=== PATIENT | male | born 1955 | race Caucasian/White ===

== ENCOUNTER 2023-05-21 01:28 | Inpatient (IN) | payer MEDICARE ==
[2023-05-21] MEDS ORDERED: MAG HYDROX/AL HYDROX/SIMETH 30 ML, HYOSCYAMINE ELIXIR 10 ML, LIDOCAINE 2% GLYDO JELLY 1... PO STA ×3 (01:44)
[2023-05-21] MEDS ORDERED: SODIUM CHLORIDE 0.9% 1,000 ML IV STA (01:46)
[2023-05-21 01:51] LABS: Glucose,Whole Blood 128 mg/dL (70-110)
[2023-05-21] MEDS ORDERED: ONDANSETRON 4 MG/2 ML VIAL IVP STA (01:51)
[2023-05-21] MEDS ORDERED: MORPHINE SULFATE 4 MG/ML SYRINGE IVP STA (01:51)
--- NOTE | 2023-05-21 01:58 | ED ---
General Adult HPI - General Chief complaint: Chest Pain Stated complaint: Chest Pain, Vomiting Time Seen by Provider: 05/21/23 01:39 Source: patient Mode of arrival: ambulatory Limitations: no limitations - History of Present Illness Initial comments: Dictation was produced using [employer] dictation software. please excuse any grammatical, word or spelling errors. Chief Complaint: 68-year-old male no past medical history presents to the ER for lower chest and abdominal pain History of Present Illness: 68-year-old male history of present illness obtained from at the bedside. Patient currently has no known comorbidities. He p resents to the ER for chief complaint of lower chest and upper abdominal pain. His symptoms have been ongoing for the last 3 days. Nonradiating. Associated nausea. He has been having significant vomiting episodes. When he tries to eat or drink he vomits almost immediately. There is been some specks of blood in his emesis. Denies any cardiac history. He has history of one lung after traumatic chest injury suffered in his teenage years. The ROS documented in this emergency department record has been reviewed and confirmed by me. Those systems with pertinent positive or negative responses have been documented in the HPI. All other systems are other negative and/or noncontributory. - Related Data Allergies Allergy/AdvReac Type Severity Reaction Status Date / Time No Known Allergies Allergy Verified 05/21/23 01:35 Review of Systems ROS Statement: Those systems with pertinent positive or pertinent negative responses have been documented in the HPI. ROS Other: All systems not noted in ROS Statement are negative. Past Medical History Additional Past Medical History / Comment(s): one lung- right History of Any Multi-Drug Resistant Organisms: None Reported Past Surgical History: No Surgical Hx Reported Past Psychological History: No Psychological Hx Reported Smoking Status: Former smoker Past Alcohol Use History: Occasional Past Drug Use History: None Reported General Exam - General Exam Comments Initial Comments: PHYSICAL EXAM: General Impression: Alert and oriented x3, acute distress secondary to pain HEENT: Normocephalic atraumatic, extra-ocular movements intact, pupils equal and reactive to light bilaterally, mucous membranes moist. 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 ] Respiratory 20 12 Rate Blood Pressure 208/90 191/101 O2 Sat by Pulse 98 96 Oximetry 05/21/23 05/21/23 05/21/23 03:29 03:30 03:45 Temperature Pulse Rate 110 H 110 H 106 H Pulse Rate [ Entry Level Software Engineer ] Respiratory 19 27 H 19 Rate Blood Pressure 167/89 167/89 188/102 O2 Sat by Pulse 97 97 97 Oximetry 05/21/23 05/21/23 04:00 04:15 Temperature Pulse Rate 107 H 105 H Pulse Rate [ Entry Level Software Engineer ] Respiratory 18 15 Rate Blood Pressure 183/115 190/107 O2 Sat by Pulse 97 96 Oximetry - Reevaluation(s) Reevaluation #1: 05/21/23 01:58 Patient given GI cocktail at the bedside monitor. His symptoms do not improve. Reevaluation #2: 05/21/23 02:18 Initial EKG showed hyperacute T waves in anterior precordial leads. Second EKG performed approximately 15 minutes after the first EKG showed ST depressions in inferior leads. No dynamic changes to the anterior precordial leads. Patient did not report any relief with nitroglycerin administration. Reevaluation #3: 05/21/23 02:31 EKG was borderline for myocardial infarction. EKG was sent for review to on- call cardiology, Dr. Stiles who viewed EKG states that EKG does not meet criteria for STEMI activation at 2:30 AM. Medical Decision Making - Medical Decision Making Was pt. sent in by a medical professional or institution (, PA, DIVER PUMPER, urgent care, hospital, or [facility]...) When possible be specific @ -No Did you speak to anyone other than the patient for history (EMS, parent, family, police, friend...)? What history was obtained from this source @ -History obtained from family members at the bedside as described above Did you review nursing and triage notes (agree or disagree)? Why? @ -I reviewed and agree with nursing and triage notes Were old charts reviewed (outside hosp., previous admission, EMS record, old EKG, old radiological studies, urgent care reports/EKG's, [facility] records)? Report findings @ -No old charts were reviewed Differential Diagnosis (chest pain, altered mental status, abdominal pain women, abdominal pain men, vaginal bleeding, musculoskeletal, weakness, fever, dyspnea, syncope, headache, dizziness, GI bleed, back pain, seizure, CVA, palpatations, mental health)? @ -Differential Chest Pain: Stable Angina, Unstable Angina, STEMI, NSTEMI Aortic Dissection, Pneumothorax, Musculoskeletal, Esophageal Spasm GERD, Cholecystitis, Pancreatitis, Zoster, this is not meant to be an all-inclusive list. EKG interpreted by me (3pts min.). @ -My EKG interpretation: Ventricular rate 91, sinus rhythm,. 169, QRS 93, QTC 399. No NE prolongation, no QTC prolongation. Q waves with hyperacute T waves some mild ST depressions in inferior leads and lateral precordial leads X-rays interpreted by me (1pt min.). @ -X-ray of the chest is nonacute CT interpreted by me (1pt min.). @ -CT angiography of the aorta the chest abdomen obtained shows no aortic disse ction. It is a pretty bilateral pleural effusions bilateral hydronephrosis and hydroureter U/S interpreted by me (1pt. min.). @ -None done What testing was considered but not performed or refused? (CT, X-rays, U/S, labs)? Why? @ -None What meds were considered but not given or refused? Why? @ -None Did you discuss the management of the patient with other professionals (professionals i.e. , PA, DIVER PUMPER, lab, RT, psych nurse, licensed social worker, training generalist, teacher, air support control officer, counter caser)? Give summary @ -Case discussed cardiology as described above Was smoking cessation discussed for >3mins.? @ -No Was critical care preformed (if so, how long)? @ -77 minutes Were there social determinants of health that impacted care today? How? (Homelessness, low income, unemployed, alcoholism, drug addiction, transportation, low edu. Level, literacy, decrease access to med. care, halfway, rehab)? @ -No Was there de-escalation of care discussed even if they declined (Discuss DNR or withdrawal of care, Hospice)? DNR status @ -No What co-morbidities impacted this encounter? (DM, HTN, Smoking, COPD, CAD, Cancer, CVA, ARF, Chemo, Hep., AIDS, mental health diagnosis, sleep apnea, morbid obesity)? @ -None Was patient admitted / discharged? Hospital course, mention meds given and route, prescriptions, significant lab abnormalities, going to OR and other pertinent info. @ -68-year-old male presents emergency department for chest pain. Patient appears ill on arrival. He does have some very atypical features to his chest pain including GI upset, specks of blood in his emesis. He also has been having symptoms ongoing for the last 3 days. Patient given GI cocktail with no resolved. He is given analgesics along with nitroglycerin with improvement of his distress. Laboratory evaluation obtained. CBC is negative. Coag panel is negative. Metabolic panel shows acute kidney injury occurring at 12.5 BUN of 100, troponin of 0.171 which is unclear if it is from kidney function versus underlying acute coronary syndrome. Does report chest pain suggesting ACS. Started on heparin. CT film shows urinary retention with hydroureter. Gordon catheter placed with large amount of urine drained. Serial EKGs shows no dynamic changes. Patient is on nitro infusion with improvement symptoms. Patient stable. He will be admitted consultation to urology, nephrology and cardiology Undiagnosed new problem with uncertain prognosis? @ -No Drug Therapy requiring intensive monitoring for toxicity (Heparin, Nitro, Insulin, Cardizem)? @ -No Were any procedures done? @ -No Diagnosis/symptom? Acute, or Chronic, or Acute on Chronic? Uncomplicated (without systemic symptoms) or Complicated (systemic symptoms)? @ -1. Chest pain, acute coronary syndrome, 2. Acute kidney injury Side effects of treatment? @ -No Exacerbation, Progression, or Severe Exacerbation? @ -No Poses a threat to life or bodily function? How? (Chest pain, [place], [place], pneumonia, PE, COPD, DKA, ARF, appy, cholecystitis, CVA, Diverticulitis, Homicidal, Suicidal, threat to staff... and all critical care pts) @ -yes - Lab Data Result diagrams: 05/21/23 01:56 05/21/23 01:56 Lab Results 12/03/23 12/03/23 12/03/23 Range/Units 01:49 01:56 01:56 WBC 10.9 H (3.8-10.6) k/uL RBC 4.22 L (4.30-5.90) m/uL Hgb 13.9 (13.0-17.5) gm/dL Hct 38.8 L (39.0-53.0) % MCV 92.0 (80.0-100.0) fL MCH 32.8 (25.0-35.0) pg MCHC 35.7 (31.0-37.0) g/dL RDW 12.6 (11.5-15.5) % Plt Count 192 (150-450) k/uL MPV 8.8 Neutrophils % 89 % Lymphocytes % 4 % Monocytes % 5 % Eosinophils % 1 % Basophils % 0 % Neutrophils # 9.7 H (1.3-7.7) k/uL Lymphocytes # 0.5 L (1.0-4.8) k/uL Monocytes # 0.5 (0-1.0) k/uL Eosinophils # 0.1 (0-0.7) k/uL Basophils # 0.0 (0-0.2) k/uL PT 12.0 (10.0-12.5) sec INR 1.1 (<1.2) APTT 22.5 (22.0-30.0) sec Sodium (137-145) mmol/L Potassium (3.5-5.1) mmol/L Chloride (98-107) mmol/L Carbon Dioxide (22-30) mmol/L Anion Gap mmol/L BUN (9-20) mg/dL Creatinine (0.66-1.25) mg/dL Est GFR (CKD-EPI)AfAm (>60 ml/min/1.73 sqM) Est GFR (CKD-EPI)NonAf (>60 ml/min/1.73 sqM) Glucose (74-99) mg/dL POC Glucose (mg/dL) 128 H (70-110) mg/dL POC Glu Vp Client Services ID [place] Lactic Ac Sepsis Rflx Plasma Lactic Acid Yfn (0.7-2.0) mmol/L Calcium (8.4-10.2) mg/dL Magnesium (1.6-2.3) mg/dL Total Bilirubin (0.2-1.3) mg/dL AST (17-59) U/L ALT (4-49) U/L Alkaline Phosphatase (38-126) U/L Troponin I (0.000-0.034) ng/mL Total Protein (6.3-8.2) g/dL Albumin (3.5-5.0) g/dL Lipase (23-300) U/L 05/21/23 05/21/23 05/21/23 Range/Units 01:56 01:56 01:56 WBC (3.8-10.6) k/uL RBC (4.30-5.90) m/uL Hgb (13.0-17.5) gm/dL Hct (39.0-53.0) % MCV (80.0-100.0) fL MCH (25.0-35.0) pg MCHC (31.0-37.0) g/dL RDW (11.5-15.5) % Plt Count (150-450) k/uL MPV Neutrophils % % Lymphocytes % % Monocytes % % Eosinophils % % Basophils % % Neutrophils # (1.3-7.7) k/uL Lymphocytes # (1.0-4.8) k/uL Monocytes # (0-1.0) k/uL Eosinophils # (0-0.7) k/uL Basophils # (0-0.2) k/uL PT (10.0-12.5) sec INR (<1.2) APTT (22.0-30.0) sec Sodium 139 (137-145) mmol/L Potassium 5.2 H (3.5-5.1) mmol/L Chloride 105 (98-107) mmol/L Carbon Dioxide 13 L (22-30) mmol/L Anion Gap 21 mmol/L BUN 100 H (9-20) mg/dL Creatinine 12.54 H* (0.66-1.25) mg/dL Est GFR (CKD-EPI)AfAm 4 (>60 ml/min/1.73 sqM) Est GFR (CKD-EPI)NonAf 4 (>60 ml/min/1.73 sqM) Glucose 128 H (74-99) mg/dL POC Glucose (mg/dL) (70-110) mg/dL POC Glu Vp Client Services ID Lactic Ac Sepsis Rflx Plasma Lactic Acid Yfn 2.1 H* (0.7-2.0) mmol/L Calcium 9.7 (8.4-10.2) mg/dL Magnesium 2.4 H (1.6-2.3) mg/dL Total Bilirubin 0.8 (0.2-1.3) mg/dL AST 21 (17-59) U/L ALT 21 (4-49) U/L Alkaline Phosphatase 90 (38-126) U/L Troponin I 0.171 H* (0.000-0.034) ng/mL Total Protein 7.3 (6.3-8.2) g/dL Albumin 4.7 (3.5-5.0) g/dL Lipase 192 (23-300) U/L 05/21/23 Range/Units 02:19 WBC (3.8-10.6) k/uL RBC (4.30-5.90) m/uL Hgb (13.0-17.5) gm/dL Hct (39.0-53.0) % MCV (80.0-100.0) fL MCH (25.0-35.0) pg MCHC (31.0-37.0) g/dL RDW (11.5-15.5) % Plt Count (150-450) k/uL MPV Neutrophils % % Lymphocytes % % Monocytes % % Eosinophils % % Basophils % % Neutrophils # (1.3-7.7) k/uL Lymphocytes # (1.0-4.8) k/uL Monocytes # (0-1.0) k/uL Eosinophils # (0-0.7) k/uL Basophils # (0-0.2) k/uL PT (10.0-12.5) sec INR (<1.2) APTT (22.0-30.0) sec Sodium (137-145) mmol/L Potassium (3.5-5.1) mmol/L Chloride (98-107) mmol/L Carbon Dioxide (22-30) mmol/L Anion Gap mmol/L BUN (9-20) mg/dL Creatinine (0.66-1.25) mg/dL Est GFR (CKD-EPI)AfAm (>60 ml/min/1.73 sqM) Est GFR (CKD-EPI)NonAf (>60 ml/min/1.73 sqM) Glucose (74-99) mg/dL POC Glucose (mg/dL) (70-110) mg/dL POC Glu Vp Client Services ID Lactic Ac Sepsis Rflx Y Plasma Lactic Acid Yfn (0.7-2.0) mmol/L Calcium (8.4-10.2) mg/dL Magnesium (1.6-2.3) mg/dL Total Bilirubin (0.2-1.3) mg/dL AST (17-59) U/L ALT (4-49) U/L Alkaline Phosphatase (38-126) U/L Troponin I (0.000-0.034) ng/mL Total Protein (6.3-8.2) g/dL Albumin (3.5-5.0) g/dL Lipase (23-300) U/L Disposition Clinical Impression: ACS (acute coronary syndrome), CHASIDY (acute kidney injury) Disposition: ADMITTED IP TO THIS [facility] Condition: Serious Referrals: Daryl Dey MD [Primary Care Provider] - 1-2 days Decision Time: 04:33
[2023-05-21] MEDS ORDERED: NITROGLYCERIN SL TABS 0.4 MG TAB SUBLINGUAL STA (02:04)
[2023-05-21 02:07] LABS: Basophils % (A) 0 %; Eosinophils # (A) 0.1 k/uL (0-0.7); Eosinophils % (A) 1 %; HCT 38.8 % (39.0-53.0); HGB 13.9 gm/dL (13.0-17.5); Lymphocytes # (A) 0.5 k/uL (1.0-4.8); Lymphocytes % (A) 4 %; MCH 32.8 pg (25.0-35.0); MCHC 35.7 g/dL (31.0-37.0); Mean Platelet Volume 8.8; Monocytes # (A) 0.5 k/uL (0-1.0); Monocytes % (A) 5 %; Neutrophils # (A) 9.7 k/uL (1.3-7.7); Neutrophils % (A) 89 %; Platelet Count 192 k/uL (150-450); RBC 4.22 m/uL (4.30-5.90); RDW 12.6 % (11.5-15.5); WBC 10.9 k/uL (3.8-10.6)
[2023-05-21] MEDS ORDERED: HYDROmorphone 1 MG/ML 1 ML SYRINGE IVP STA (02:08)
[2023-05-21 02:15] LABS: ALT 21 U/L (4-49); AST 21 U/L (17-59); African American GFR (CKD) 4 (>60 ml/min/1.73 sqM); Albumin 4.7 g/dL (3.5-5.0); Alkaline Phosphatase 90 U/L (38-126); Anion Gap 21 mmol/L; Blood Urea Nitrogen 100 mg/dL (9-20); Calcium 9.7 mg/dL (8.4-10.2); Carbon Dioxide 13 mmol/L (22-30); Chloride 105 mmol/L (98-107); Glucose 128 mg/dL (74-99); Lipase 192 U/L (23-300); Magnesium 2.4 mg/dL (1.6-2.3); Non-African American GFR(CKD) 4 (>60 ml/min/1.73 sqM); Potassium 5.2 mmol/L (3.5-5.1); Sodium 139 mmol/L (137-145); Total Bilirubin 0.8 mg/dL (0.2-1.3); Total Protein 7.3 g/dL (6.3-8.2)
[2023-05-21 02:24] LABS: INR 1.1 (<1.2); Partial Thromboplastin Time 22.5 sec (22.0-30.0)
--- NOTE | 2023-05-21 02:53 | CT ---
EXAM: CT Angiography Pelvis With Runoff to the Bilateral Lower Extremities With Intravenous Contrast CLINICAL HISTORY: ITS.REASON CT Reason: suspect aortic dissection TECHNIQUE: Axial computed tomographic angiography images of the pelvis and bilateral lower extremities with intravenous contrast. CTDI is 8.9 mGy and DLP is 444.1 mGy-cm. This CT exam was performed using one or more of the following dose reduction techniques: automated exposure control, adjustment of the mA and/or kV according to patient size, and/or use of iterative reconstruction technique. MIP reconstructed images were created and reviewed. COMPARISON: No relevant prior studies available. FINDINGS: VASCULATURE: Right iliac arteries: No acute findings. No occlusion or significant stenosis. Right femoral/popliteal arteries: No acute findings. No occlusion or significant stenosis. Left iliac arteries: No acute findings. No occlusion or significant stenosis. Left femoral/popliteal arteries: No acute findings. No occlusion or significant stenosis. PELVIS: Liver: Fatty infiltration of liver. Kidneys and ureters: Left sided hydronephrosis with delayed excretion of contrast from the left kidney. There is a 0.7 cm stone within the dependent portion of the urinary bladder consistent with recently passed ureteral calculus. Prostate is enlarged. Bowel: Unremarkable. No obstruction. No mucosal thickening. Appendix: No findings to suggest acute appendicitis. Bladder: Urinary bladder is enlarged. Reproductive: Unremarkable as visualized. PELVIS and LOWER EXTREMITIES: Intraperitoneal space: Unremarkable. No significant fluid collection. No free air. Bones/joints: Mild atherosclerotic plaque of the thoracic aorta without stenosis, dissection, aneurysm, or occlusion. Bilateral pleural effusions. No acute fracture. No dislocation. Soft tissues: Unremarkable. Lymph nodes: Unremarkable. No enlarged lymph nodes. IMPRESSION: Bilateral pleural effusions.
[2023-05-21] MEDS ORDERED: ASPIRIN 81 MG PO STA (02:56)
[2023-05-21] MEDS ORDERED: HEPARIN SODIUM 1,000 UN/ML (10ML VL) IV PRN (02:59)
[2023-05-21] MEDS ORDERED: HEPARIN SODIUM 1,000 UN/ML (10ML VL) IV ONE (02:59)
[2023-05-21] MEDS ORDERED: NITROGLYCERIN-D5W PMX 50 MG in DEXTROSE/WATER 1 250ML.BAG IV ONE (03:00)
[2023-05-21] MEDS: HEPARIN SOD,PORK IN 0.45% NACL 25,000 UNIT in 0.45% NACL 1 250ML.BAG IV SCH (03:24)
[2023-05-21] MEDS ORDERED: NITROGLYCERIN SL TABS 0.4 MG TAB SUBLINGUAL PRN (04:24)
--- NOTE | 2023-05-21 04:46 | XR ---
EXAM: XR Chest, 1 View CLINICAL HISTORY: ITS.REASON XR Reason: chest pain TECHNIQUE: Frontal view of the chest. COMPARISON: No relevant prior studies available. FINDINGS: Lungs: Unremarkable. No consolidation. Pleural space: Unremarkable. No pneumothorax. Heart: Unremarkable. No cardiomegaly. Mediastinum: Unremarkable. Normal mediastinal contour. Bones/joints: Unremarkable. No acute fracture. IMPRESSION: Normal chest x-ray.
[2023-05-21] MEDS ORDERED: ACETAMINOPHEN TAB 325 MG TAB PO PRN (06:12)
[2023-05-21 06:39] LABS: African American GFR (CKD) 5 (>60 ml/min/1.73 sqM); Anion Gap 22 mmol/L; Blood Urea Nitrogen 90 mg/dL (9-20); Calcium 9.7 mg/dL (8.4-10.2); Carbon Dioxide 12 mmol/L (22-30); Chloride 105 mmol/L (98-107); Glucose 170 mg/dL (74-99); Non-African American GFR(CKD) 5 (>60 ml/min/1.73 sqM); Potassium 6.7 mmol/L (3.5-5.1); Sodium 139 mmol/L (137-145)
[2023-05-21] MEDS ORDERED: SODIUM POLYSTYRENE SULFONATE 15 GM/60 ML BOTTLE PO ONE (06:58)
[2023-05-21] MEDS ORDERED: INSULIN REGULAR 100 UNIT/ML VIAL (IV) IV ONE (06:58)
[2023-05-21] MEDS ORDERED: SODIUM BICARB 8.4% 50 ML SYR (1 MEQ/ML) IV ONE (06:58)
[2023-05-21] MEDS ORDERED: DEXTROSE 50% SYRINGE 50 ML IVP ONE (06:58)
[2023-05-21] MEDS ORDERED: CALCIUM GLUCONATE IN NACL 1 GM in SALINE 1 100ML.BAG IVPB ONE (06:58)
[2023-05-21 06:59] LABS: Glucose,Whole Blood 185 mg/dL (70-110)
[2023-05-21] MEDS ORDERED: SODIUM BICARB 8.4% 50 ML SYR (1 MEQ/ML) IV STA (07:40)
[2023-05-21] MEDS ORDERED: METOPROLOL TARTRATE 25 MG TAB PO STA (08:15)
[2023-05-21 08:51] LABS: Glucose,Whole Blood 208 mg/dL (70-110)
[2023-05-21] MEDS ORDERED: SODIUM CHLORIDE 0.9% 1,000 ML IV ONE (10:23)
--- NOTE | 2023-05-21 10:29 | P.CNPUL ---
History of Present Illness Consult date: 05/21/23 Requesting physician: Rigoberto Aguero Reason for consult: chest pain, other Chief complaint: Renal failure, chest pain, hypertension. History of present illness: Pulmonary consult dated 05/21/2023. 68-year-old male with no significant past medical history, other than a pneumothorax many years ago. The patient presents with the emergency department on May 21, which chest pain, vomiting, and not feeling well for about 4 days according to his family members. He apparently was in bed for the last 4 days, with a possible viral syndrome. He apparently had pain in his chest and abdomen, nausea vomiting, and generally not feeling well, not eating or drinking, and feeling very weak. His primary care physician is Dr. Dey, but he has not see him on a regular basis. The patient takes no medications at home. The patient had very abnormal laboratory data, including a white count of 10.9, hemoglobin 13.9, hematocrit 38.8, and a normal platelet count. Sodium 139, potassium 6.7, chlorides 105, CO2 12, anion gap 22, BUN 90, creatinine 10.38. Glucose 170. Magnesium 2.4, troponin 0.644, and lipase 192. A thoracic CT was done to rule out dissection. It showed bilateral pleural effusions. The chest x-ray was normal. Review of Systems REVIEW OF SYSTEMS: CONSTITUTIONAL: Weakness. NEUROLOGIC: [ Negative.] HEENT: [ Negative.] CARDIAC: Chest pain. PULMONARY: [Negative.] GI: Decreased oral intake, nausea, vomiting. : [Negative.] RHEUMATOLOGIC: [ Negative.] IMMUNOLOGIC: [ Negative.] ENDOCRINE: [Negative. ] DERMATOLOGIC: [Negative.] Past Medical History Additional Past Medical History / Comment(s): Trauma in 90's, right pneumothorax History of Any Multi-Drug Resistant Organisms: None Reported Past Surgical History: No Surgical Hx Reported Past Psychological History: No Psychological Hx Reported Smoking Status: Former smoker Past Alcohol Use History: None Reported Past Drug Use History: None Reported Medications and Allergies Allergies Allergy/AdvReac Type Severity Reaction Status Date / Time No Known Allergies Allergy Verified 05/21/23 01:35 Physical Exam Osteopathic Statement: *. No significant issues noted on an osteopathic structural exam other than those noted in the History and Physical/Consult. Vitals: Vital Signs Temp Pulse Pulse Resp BP Pulse Ox 05/21/23 10:00 77 21 137/87 24 L 05/21/23 09:47 98.2 F 05/21/23 09:30 103 H 18 154/87 96 05/21/23 09:15 95 16 154/87 98 05/21/23 09:00 98 16 147/96 96 05/21/23 08:27 102 H 18 172/95 96 05/21/23 08:14 97 05/21/23 08:00 124 H 18 168/91 97 05/21/23 07:32 97.7 F 116 H 26 H 162/96 95 05/21/23 06:30 97.9 F 105 H 21 173/99 98 05/21/23 06:00 98 12 168/90 96 05/21/23 05:30 82 15 177/104 95 05/21/23 05:10 98.4 F 108 H 16 102/99 96 05/21/23 05:00 105 H 14 192/104 95 05/21/23 04:15 105 H 15 190/107 96 05/21/23 04:00 107 H 18 183/115 97 05/21/23 03:45 106 H 19 188/102 97 05/21/23 03:30 110 H 27 H 167/89 97 05/21/23 03:29 110 H 19 167/89 97 05/21/23 02:51 95 12 191/101 96 05/21/23 02:45 101 H 05/21/23 01:31 97.8 F 93 20 208/90 98 Intake and Output 05/20/23 05/21/23 05/21/23 22:59 06:59 14:59 Intake Total 7.375 Output Total 3050 1875 Balance -3050 -1867.625 Intake: Intake, IV Titration 7.375 Amount Nitroglycerin-D5w Pmx 50 7.375 mg In Dextrose/Water 1 250ml.bag @ 5 MCG/MIN 1.5 mls/hr IV .Q24H ONE Rx#: [id number] Output: Urine 3050 1875 Coude 900 Other: Voiding Method Indwelling Catheter Weight 72.575 kg 72.575 kg No acute distress, oriented 3. The patient is currently on 2 L of oxygen. Saturations are 98%. HEENT examination is grossly unremarkable. Mucous membranes are dry. Neck supple. Full range of motion. No adenopathy thyromegaly or neck vein distention. Cardiovascular examination reveals regular rhythm rate. S1-S2 normal. No S3 or S4. No discernible murmur noted. Heart rate 77 bpm. Lungs reveal clear breath sounds. Breath sounds are equal bilaterally. No adventitious lung sounds including wheezes rhonchi or crackles. Abdomen soft with bowel sounds. No masses or tenderness. Extremities are intact. No cyanosis clubbing or edema. Skin is without rash or lesion. Neurologic examination is brief but nonfocal. Results - Laboratory Findings CBC and BMP: 05/21/23 01:56 05/21/23 04:22 PT/INR, D-dimer PT 12.0 sec (10.0-12.5) 05/21/23 01:56 INR 1.1 (<1.2) 05/21/23 01:56 Abnormal lab findings: Abnormal Labs 05/21/23 05/21/23 05/21/23 01:49 01:56 01:56 WBC 10.9 H RBC 4.22 L Hct 38.8 L Neutrophils # 9.7 H Lymphocytes # 0.5 L Potassium 5.2 H Carbon Dioxide 13 L BUN 100 H Creatinine 12.54 H* Glucose 128 H POC Glucose (mg/dL) 128 H Plasma Lactic Acid Yfn Magnesium 2.4 H Troponin I 05/21/23 05/21/23 05/21/23 01:56 01:56 04:22 WBC RBC Hct Neutrophils # Lymphocytes # Potassium 6.7 H* Carbon Dioxide 12 L BUN 90 H Creatinine 10.38 H* Glucose 170 H POC Glucose (mg/dL) Plasma Lactic Acid Yfn 2.1 H* Magnesium Troponin I 0.171 H* 05/21/23 05/21/23 05/21/23 04:22 04:51 06:57 WBC RBC Hct Neutrophils # Lymphocytes # Potassium Carbon Dioxide BUN Creatinine Glucose POC Glucose (mg/dL) 185 H Plasma Lactic Acid Yfn Magnesium Troponin I 0.484 H* 0.644 H* 05/21/23 08:49 WBC RBC Hct Neutrophils # Lymphocytes # Potassium Carbon Dioxide BUN Creatinine Glucose POC Glucose (mg/dL) 208 H Plasma Lactic Acid Yfn Magnesium Troponin I - Diagnostic Findings Chest x-ray: image reviewed CT scan - chest: image reviewed Assessment and Plan Assessment: Acute kidney injury with associated hyperkalemia, and anion gap metabolic acidosis. Chest pain, rule out non-ST segment elevation myocardial infarction. Hyperkalemia, secondary to acute kidney injury. Nausea and vomiting, with dehydration. Postobstructive diuresis. Hypertensive urgency, secondary to acute renal failure/acute kidney injury. Plan: Plan dated 05/21/2023. The patient apparently has no significant past medical history. He did smoke years ago. He apparently also had a pneumothorax many years ago. He takes no medications at home. He does not see a doctor on a regular basis. According to family members, the patient has not been feeling well for 4 days. He has been eating or drinking. He's admitted with a diagnosis of acute kidney injury, hyperkalemia, and anion gap metabolic acidosis. In addition, he is thought to possibly have hypertensive urgency/emergency, with an non-ST segment elevation myocardial infarction. He is seen in room 255, ICU, and is currently on 2 L of oxygen by nasal cannula, nitroglycerin at 10 mcg/m, heparin via weightbase protocol. In no additional IV fluids. Labs, x-rays, and medications are re viewed. Prognosis is guarded. Cardiology, nephrology, and urology have all been consulted. I suspect the patient may have prostate enlargement. He apparently according to family members has a difficult time urinating on a regular basis. Time with Patient: Greater than 30
[2023-05-21] MEDS ORDERED: HEPARIN SODIUM 1,000 UN/ML (10ML VL) IVP ONE (10:37)
--- NOTE | 2023-05-21 11:08 | P.NPCON ---
History of Present Illness - Reason for Consult acute renal failure - History of Present Illness Patient is a 68-year-old male who was admitted to the hospital with complaints of abdominal pain, increased weakness chest pain. Patient has been feeling very thirsty and has been having increased urinary frequency almost every 2 hours. No history of fever, cough, nausea or vomiting. Labs showed creatinine of 12.5 and potassium 6.7. CO2 was 12. Gordon catheter was placed in the ER and patient had 4 L of urine obtained. Troponin was elevated at 0.644 CTA was done to rule out dissecting aneurysm. It showed left hydronephrosis with stone in the left kidney. Ultrasound of the kidneys is currently pending. Past Medical History Additional Past Medical History / Comment(s): Trauma in 's, right pneumothorax History of Any Multi-Drug Resistant Organisms: None Reported Past Surgical History: No Surgical Hx Reported Past Psychological History: No Psychological Hx Reported Smoking Status: Former smoker Past Alcohol Use History: None Reported Past Drug Use History: None Reported Medications and Allergies Home Medications Medication Instructions Recorded Confirmed Type No Known Home Medications 05/21/23 05/21/23 History Allergies Allergy/AdvReac Type Severity Reaction Status Date / Time No Known Allergies Allergy Verified 05/21/23 10:53 Physical Exam Vitals: Vital Signs Temp Pulse Pulse Resp BP Pulse Ox 05/21/23 10:00 77 21 137/87 24 L 05/21/23 09:47 98.2 F 05/21/23 09:30 103 H 18 154/87 96 05/21/23 09:15 95 16 154/87 98 05/21/23 09:00 98 16 147/96 96 05/21/23 08:27 102 H 18 172/95 96 05/21/23 08:14 97 05/21/23 08:00 124 H 18 168/91 97 05/21/23 07:32 97.7 F 116 H 26 H 162/96 95 05/21/23 06:30 97.9 F 105 H 21 173/99 98 05/21/23 06:00 98 12 168/90 96 05/21/23 05:30 82 15 177/104 95 05/21/23 05:10 98.4 F 108 H 16 102/99 96 05/21/23 05:00 105 H 14 192/104 95 05/21/23 04:15 105 H 15 190/107 96 05/21/23 04:00 107 H 18 183/115 97 05/21/23 03:45 106 H 19 188/102 97 05/21/23 03:30 110 H 27 H 167/89 97 05/21/23 03:29 110 H 19 167/89 97 05/21/23 02:51 95 12 191/101 96 05/21/23 02:45 101 H 05/21/23 01:31 97.8 F 93 20 208/90 98 Intake and Output 05/20/23 05/21/23 05/21/23 22:59 06:59 14:59 Intake Total 69.209 Output Total 3050 1875 Balance -3050 -1805.791 Intake: Intake, IV Titration 69.209 Amount Heparin Sod,Pork in 0.45% 61.834 NaCl 25,000 unit In 0.45 % NaCl 1 250ml.bag @ 12 UNITS/KG/HR 8.709 mls/hr IV .Q24H [facility]ANCE Rx#: [id number] Nitroglycerin-D5w Pmx 50 7.375 mg In Dextrose/Water 1 250ml.bag @ 5 MCG/MIN 1.5 mls/hr IV .Q24H ONE Rx#: [id number] Output: Urine 3050 1875 Coude 900 Other: Voiding Method Indwelling Catheter Weight 72.575 kg 72.575 kg Patient is awake, comfortable, no acute distress Examination of the heart S1 and S2 Examination of the lungs bilateral breath sounds are heard Abdomen is soft nontender Examination of lower extremities shows no significant edema [employer] exam grossly intact Results - Lab Results Most recent lab results Calcium 9.7 mg/dL (8.4-10.2) 05/21/23 04:22 Magnesium 2.4 mg/dL (1.6-2.3) H 05/21/23 01:56 05/21/23 01:56 05/21/23 04:22 Assessment and Plan Assessment: 1. Acute kidney injury secondary to obstructive uropathy and possible component of ATN. Currently with indwelling Gordon catheter and improving renal function. IV fluids will need to be adjusted for post obstructive diuresis. 2. Hyperkalemia associated with acute kidney injury and urine retention 3. Anion gap metabolic acidosis associated with severe acute kidney injury and obstructive uropathy 4. Elevated troponins rule out acute [place] 5. Left renal stone with left hydronephrosis noted on CTA. Ultrasound of the kidneys is pending. Urology is on consult. Plan: Start IV bicarb Repeat labs Continue with Gordon catheter Check CK level Monitor for postobstructive diuresis. Thank you for the consultation. We will continue to follow the patient with you during his hospitalization
[2023-05-21] MEDS: DEXTROSE 5% IN WATER 1,000 ML with SODIUM BICARB (1 MEQ/ML) 150 ML IV SCH ×2 (11:22→22:14)
[2023-05-21] MEDS ORDERED: ATORVASTATIN 20 MG TAB PO SCH (11:30)
[2023-05-21 11:39] LABS: RBC,Urine >182 /hpf (0-5); WBC,Urine 42 /hpf (0-5)
[2023-05-21 11:45] LABS: Appearance,Urine Bloody (Clear); Color,Urine Red; Glucose,Urine (UA) 3+ (Negative); Protein,Urine 1+ (Negative)
[2023-05-21 11:46] LABS: Bilirubin,Urine Negative (Negative); Blood,Urine Large (Negative); Ketones,Urine 1+ (Negative); Leukocyte Esterase,Urine Moderate (Negative); Nitrite,Urine Negative (Negative); Urobilinogen,Urine <2.0 mg/dL (<2.0)
--- NOTE | 2023-05-21 11:53 | P.HPIM ---
History of Present Illness H&P Date: 05/21/23 Chief Complaint: Nausea, vomiting, chest pain, abdominal pain * 68-year-old gentleman with history of pneumonectomy/right lung presents to the emergency department with complains of fatigue, malaise, nausea and abdominal pain. Patient states his been having intractable postprandial vomiting, patient states symptom onset has been last 3 days before presentation. Patient did mention to the emergency department team that he had streaks of blood in the emesis as well. While in ER patient had extensive workup done including CT aorta abdomen which was negative for dissection however did show urinary retention and hydronephrosis, likely secondary to retention and Gordon catheter was placed. Patient was also given a GI cocktail in ED with minimal relief, patient continued to have recurrent nausea/vomiting. * Patient said he has not seen a doctor in 2 years, previous blood work reviewed did show normal creatinine function * Chest x-ray obtained in ER was within normal * Serum chemistry obtained in ER showed WBC of 10.9 hemoglobin 13.9 platelet count of 192, neutrophil count of 9.7, serum sodium 139, potassium 5.2, B UN 100 creatinine 12.54, lactate of 2.1, initial troponin of 0.171 * While in ER patient was given insulin, dextrose, sodium bicarbonate, 1 L fluid bolus, started on IV heparin drip * Secondary to critical illness and instability patient to be admitted to medical ICU with consultation from nephrology, cardiology and Urology REVIEW OF SYSTEMS: Nausea, vomiting, abdominal pain, chest pain fatigue, malaise CONSTITUTIONAL: Nausea, vomiting, abdominal pain, chest pain fatigue, malaise HEENT: No recent visual problems or hearing problems. Denied any sore throat. CARDIOVASCULAR: No chest pain, orthopnea, PND, no palpitations, no syncope. PULMONARY: No shortness of breath, no cough, no hemoptysis. GASTROINTESTINAL: Nausea, vomiting, abdominal pain, chest pain fatigue, malaise NEUROLOGICAL: No headaches, no weakness, no numbness. HEMATOLOGICAL: Denies any bleeding or petechiae. GENITOURINARY: Denies any burning micturition, frequency, or urgency. MUSCULOSKELETAL/RHEUMATOLOGICAL: Denies any joint pain, swelling, or any muscle pain. ENDOCRINE: Denies any polyuria or polydipsia. PHYSICAL EXAMINATION: GENERAL: The patient is alert and oriented x3, ill appearance, toxic appearance, dry mucous membrane HEENT: Pupils are round and equally reacting to light. EOMI. CARDIOVASCULAR: S1 and S2 present. Joy Cardia PULMONARY: Chest is clear to auscultation, no wheezing or crackles. ABDOMEN: Soft, nontender, nondistended, normoactive bowel sounds. MUSCULOSKELETAL: No joint swelling or deformity. EXTREMITIES: No cyanosis, clubbing, or pedal edema. NEUROLOGICAL: No focal deficit noted patient lethargic Past Medical History Additional Past Medical History / Comment(s): one lung- right History of Any Multi-Drug Resistant Organisms: None Reported Past Surgical History: No Surgical Hx Reported Past Psychological History: No Psychological Hx Reported Smoking Status: Former smoker Past Alcohol Use History: Occasional Past Drug Use History: None Reported Medications and Allergies Home Medications Medication Instructions Recorded Confirmed Type No Known Home Medications 05/21/23 05/21/23 History Allergies Allergy/AdvReac Type Severity Reaction Status Date / Time No Known Allergies Allergy Verified 05/21/23 10:53 Physical Exam Vitals: Vital Signs Temp Pulse Pulse Resp BP Pulse Ox 05/21/23 08:27 102 H 18 172/95 96 05/21/23 08:14 97 05/21/23 08:00 124 H 18 168/91 97 05/21/23 07:32 97.7 F 116 H 26 H 162/96 95 05/21/23 06:30 97.9 F 105 H 21 173/99 98 05/21/23 06:00 98 12 168/90 96 05/21/23 05:30 82 15 177/104 95 05/21/23 05:10 98.4 F 108 H 16 102/99 96 05/21/23 05:00 105 H 14 192/104 95 05/21/23 04:15 105 H 15 190/107 96 05/21/23 04:00 107 H 18 183/115 97 05/21/23 03:45 106 H 19 188/102 97 05/21/23 03:30 110 H 27 H 167/89 97 05/21/23 03:29 110 H 19 167/89 97 05/21/23 02:51 95 12 191/101 96 05/21/23 02:45 101 H 05/21/23 01:31 97.8 F 93 20 208/90 98 Intake and Output 05/20/23 05/21/23 05/21/23 22:59 06:59 14:59 Intake Total 7.375 Output Total 3050 1450 Balance -3050 -1442.625 Intake: Intake, IV Titration 7.375 Amount Nitroglycerin-D5w Pmx 50 7.375 mg In Dextrose/Water 1 250ml.bag @ 5 MCG/MIN 1.5 mls/hr IV .Q24H ONE Rx#: [id number] Output: Urine 3050 1450 Coude 900 Other: Weight 72.575 kg Results CBC & Chem 7: 05/21/23 01:56 05/21/23 04:22 Labs: Abnormal Lab Results - Last 24 Hours (Table) 05/21/23 05/21/23 05/21/23 Range/Units 01:49 01:56 01:56 WBC 10.9 H (3.8-10.6) k/uL RBC 4.22 L (4.30-5.90) m/uL Hct 38.8 L (39.0-53.0) % Neutrophils # 9.7 H (1.3-7.7) k/uL Lymphocytes # 0.5 L (1.0-4.8) k/uL Potassium 5.2 H (3.5-5.1) mmol/L Carbon Dioxide 13 L (22-30) mmol/L BUN 100 H (9-20) mg/dL Creatinine 12.54 H* (0.66-1.25) mg/dL Glucose 128 H (74-99) mg/dL POC Glucose (mg/dL) 128 H (70-110) mg/dL Plasma Lactic Acid Yfn (0.7-2.0) mmol/L Magnesium 2.4 H (1.6-2.3) mg/dL Troponin I (0.000-0.034) ng/mL 05/21/23 05/21/23 05/21/23 Range/Units 01:56 01:56 04:22 WBC (3.8-10.6) k/uL RBC (4.30-5.90) m/uL Hct (39.0-53.0) % Neutrophils # (1.3-7.7) k/uL Lymphocytes # (1.0-4.8) k/uL Potassium 6.7 H* (3.5-5.1) mmol/L Carbon Dioxide 12 L (22-30) mmol/L BUN 90 H (9-20) mg/dL Creatinine 10.38 H* (0.66-1.25) mg/dL Glucose 170 H (74-99) mg/dL POC Glucose (mg/dL) (70-110) mg/dL Plasma Lactic Acid Yfn 2.1 H* (0.7-2.0) mmol/L Magnesium (1.6-2.3) mg/dL Troponin I 0.171 H* (0.000-0.034) ng/mL 05/21/23 05/21/23 05/21/23 Range/Units 04:22 04:51 06:57 WBC (3.8-10.6) k/uL RBC (4.30-5.90) m/uL Hct (39.0-53.0) % Neutrophils # (1.3-7.7) k/uL Lymphocytes # (1.0-4.8) k/uL Potassium (3.5-5.1) mmol/L Carbon Dioxide (22-30) mmol/L BUN (9-20) mg/dL Creatinine (0.66-1.25) mg/dL Glucose (74-99) mg/dL POC Glucose (mg/dL) 185 H (70-110) mg/dL Plasma Lactic Acid Yfn (0.7-2.0) mmol/L Magnesium (1.6-2.3) mg/dL Troponin I 0.484 H* 0.644 H* (0.000-0.034) ng/mL 05/21/23 Range/Units 08:49 WBC (3.8-10.6) k/uL RBC (4.30-5.90) m/uL Hct (39.0-53.0) % Neutrophils # (1.3-7.7) k/uL Lymphocytes # (1.0-4.8) k/uL Potassium (3.5-5.1) mmol/L Carbon Dioxide (22-30) mmol/L BUN (9-20) mg/dL Creatinine (0.66-1.25) mg/dL Glucose (74-99) mg/dL POC Glucose (mg/dL) 208 H (70-110) mg/dL Plasma Lactic Acid Yfn (0.7-2.0) mmol/L Magnesium (1.6-2.3) mg/dL Troponin I (0.000-0.034) ng/mL Assessment and Plan Assessment: Assessment and plan * Acute renal failure with uremic symptoms * Acute metabolic encephalopathy * Acute hyperkalemia * Metabolic acidosis * Non-ST elevated AK * Hypertensive urgency * Acute urinary retention with hydronephrosis status post Gordon placement * Consultation obtained from medical ICU, cardiology, nephrology, urology * In regards to acute hyperkalemia, patient given insulin, dextrose, sodium bicarbonate, calcium gluconate in follow-up potassium levels to be checked * In regards to elevated troponin, cardiology consulted, echocardiogram ordered * In regards to renal failure, metabolic acidosis continue to maintain Gordon catheter continue to monitor intake and output, nephrology consulted, will defer further management to nephrology regarding initiation of hemodialysis while inpatient>> continue fluid resuscitation nephrology following * In regards to urinary retention, maintain Gordon catheter, follow-up renal R Ordered to Evaluate for Improvement in Hydronephrosis * In regards to hypertensive urgency, on nitroglycerin drip * Patient remains critically ill, admitted to ICU * CODE STATUS is full code Time with Patient: Greater than 30
[2023-05-21] MEDS ORDERED: ALPRAZolam 0.25 MG TAB PO PRN (12:04)
[2023-05-21] MEDS: NITROGLYCERIN-D5W PMX 50 MG in DEXTROSE/WATER 1 250ML.BAG IV SCH (12:15)
--- NOTE | 2023-05-21 12:30 | P.GSCN ---
History of Present Illness Consult date: 05/21/23 History of present illness: 68-year-old male who came to the hospital with chest pain and abdominal pain. He was found to be in renal failure, urine retention as well as urinary issues. Strain for a large volume of urine in the emergency room the exact amount is unclear but at least 3 L. He's had some hematuria subsequent. We are asked see the patient. The patient is in the ICU and being evaluated by cardiology for a possible acute [place]. Is able to evaluate and interview the patient in this process. The patient states that he has had problems urinating for several weeks. Had nocturnal incontinence. He has had no treatment for this. Denies previous blood in the urine. Urine is very very light pink at this point in time. His having some chest pain. Review of Systems All systems: negative Past Medical History Additional Past Medical History / Comment(s): one lung- right History of Any Multi-Drug Resistant Organisms: None Reported Past Surgical History: No Surgical Hx Reported Past Psychological History: No Psychological Hx Reported Smoking Status: Former smoker Past Alcohol Use History: Occasional Past Drug Use History: None Reported Medications and Allergies Home Medications Medication Instructions Recorded Confirmed Type No Known Home Medications 05/21/23 05/21/23 History Allergies Allergy/AdvReac Type Severity Reaction Status Date / Time No Known Allergies Allergy Verified 05/21/23 10:53 Surgical - Exam Vital Signs Temp Pulse Resp BP Pulse Ox 97.8 F 93 20 208/90 98 05/21/23 01:31 05/21/23 01:31 05/21/23 01:31 05/21/23 01:31 05/21/23 01:31 - General well developed, moderate distress - Eyes PERRL - ENT no hearing loss - Respiratory normal expansion - Cardiovascular Per cardiology - Abdomen Abdomen: soft, non tender - Genitourinary Indwelling catheter with light pink urine rectal deferred Results - Labs 05/21/23 01:56 05/21/23 04:22 Abnormal Lab Results - Last 24 Hours (Table) 05/21/23 05/21/23 05/21/23 Range/Units 01:49 01:56 01:56 WBC 10.9 H (3.8-10.6) k/uL RBC 4.22 L (4.30-5.90) m/uL Hct 38.8 L (39.0-53.0) % Neutrophils # 9.7 H (1.3-7.7) k/uL Lymphocytes # 0.5 L (1.0-4.8) k/uL APTT (22.0-30.0) sec Potassium 5.2 H (3.5-5.1) mmol/L Carbon Dioxide 13 L (22-30) mmol/L BUN 100 H (9-20) mg/dL Creatinine 12.54 H* (0.66-1.25) mg/dL Glucose 128 H (74-99) mg/dL POC Glucose (mg/dL) 128 H (70-110) mg/dL Plasma Lactic Acid Yfn (0.7-2.0) mmol/L Magnesium 2.4 H (1.6-2.3) mg/dL Troponin I (0.000-0.034) ng/mL Urine Protein (Negative) Urine RBC (0-5) /hpf Urine WBC (0-5) /hpf 05/21/23 05/21/23 05/21/23 Range/Units 01:56 01:56 04:22 WBC (3.8-10.6) k/uL RBC (4.30-5.90) m/uL Hct (39.0-53.0) % Neutrophils # (1.3-7.7) k/uL Lymphocytes # (1.0-4.8) k/uL APTT (22.0-30.0) sec Potassium 6.7 H* (3.5-5.1) mmol/L Carbon Dioxide 12 L (22-30) mmol/L BUN 90 H (9-20) mg/dL Creatinine 10.38 H* (0.66-1.25) mg/dL Glucose 170 H (74-99) mg/dL POC Glucose (mg/dL) (70-110) mg/dL Plasma Lactic Acid Yfn 2.1 H* (0.7-2.0) mmol/L Magnesium (1.6-2.3) mg/dL Troponin I 0.171 H* (0.000-0.034) ng/mL Urine Protein (Negative) Urine RBC (0-5) /hpf Urine WBC (0-5) /hpf 05/21/23 05/21/23 05/21/23 Range/Units 04:22 04:51 06:57 WBC (3.8-10.6) k/uL RBC (4.30-5.90) m/uL Hct (39.0-53.0) % Neutrophils # (1.3-7.7) k/uL Lymphocytes # (1.0-4.8) k/uL APTT (22.0-30.0) sec Potassium (3.5-5.1) mmol/L Carbon Dioxide (22-30) mmol/L BUN (9-20) mg/dL Creatinine (0.66-1.25) mg/dL Glucose (74-99) mg/dL POC Glucose (mg/dL) 185 H (70-110) mg/dL Plasma Lactic Acid Yfn (0.7-2.0) mmol/L Magnesium (1.6-2.3) mg/dL Troponin I 0.484 H* 0.644 H* (0.000-0.034) ng/mL Urine Protein (Negative) Urine RBC (0-5) /hpf Urine WBC (0-5) /hpf 05/21/23 05/21/23 05/21/23 Range/Units 08:49 09:48 09:48 WBC (3.8-10.6) k/uL RBC (4.30-5.90) m/uL Hct (39.0-53.0) % Neutrophils # (1.3-7.7) k/uL Lymphocytes # (1.0-4.8) k/uL APTT 42.4 H (22.0-30.0) sec Potassium (3.5-5.1) mmol/L Carbon Dioxide (22-30) mmol/L BUN (9-20) mg/dL Creatinine (0.66-1.25) mg/dL Glucose (74-99) mg/dL POC Glucose (mg/dL) 208 H (70-110) mg/dL Plasma Lactic Acid Yfn (0.7-2.0) mmol/L Magnesium (1.6-2.3) mg/dL Troponin I 16.000 H* (0.000-0.034) ng/mL Urine Protein (Negative) Urine RBC (0-5) /hpf Urine WBC (0-5) /hpf 05/21/23 Range/Units 10:11 WBC (3.8-10.6) k/uL RBC (4.30-5.90) m/uL Hct (39.0-53.0) % Neutrophils # (1.3-7.7) k/uL Lymphocytes # (1.0-4.8) k/uL APTT (22.0-30.0) sec Potassium (3.5-5.1) mmol/L Carbon Dioxide (22-30) mmol/L BUN (9-20) mg/dL Creatinine (0.66-1.25) mg/dL Glucose (74-99) mg/dL POC Glucose (mg/dL) (70-110) mg/dL Plasma Lactic Acid Yfn (0.7-2.0) mmol/L Magnesium (1.6-2.3) mg/dL Troponin I (0.000-0.034) ng/mL Urine Protein 1+ H (Negative) Urine RBC >182 H (0-5) /hpf Urine WBC 42 H (0-5) /hpf Diabetes panel 05/21/23 05/21/23 Range/Units 01:56 04:22 Sodium 139 139 (137-145) mmol/L Potassium 5.2 H 6.7 H* (3.5-5.1) mmol/L Chloride 105 105 (98-107) mmol/L Carbon Dioxide 13 L 12 L (22-30) mmol/L BUN 100 H 90 H (9-20) mg/dL Creatinine 12.54 H* 10.38 H* (0.66-1.25) mg/dL Glucose 128 H 170 H (74-99) mg/dL Calcium 9.7 9.7 (8.4-10.2) mg/dL AST 21 (17-59) U/L ALT 21 (4-49) U/L Alkaline Phosphatase 90 (38-126) U/L Total Protein 7.3 (6.3-8.2) g/dL Albumin 4.7 (3.5-5.0) g/dL Calcium panel 05/21/23 05/21/23 Range/Units 01:56 04:22 Calcium 9.7 9.7 (8.4-10.2) mg/dL Albumin 4.7 (3.5-5.0) g/dL Pituitary panel 05/21/23 05/21/23 Range/Units 01:56 04:22 Sodium 139 139 (137-145) mmol/L Potassium 5.2 H 6.7 H* (3.5-5.1) mmol/L Chloride 105 105 (98-107) mmol/L Carbon Dioxide 13 L 12 L (22-30) mmol/L BUN 100 H 90 H (9-20) mg/dL Creatinine 12.54 H* 10.38 H* (0.66-1.25) mg/dL Glucose 128 H 170 H (74-99) mg/dL Calcium 9.7 9.7 (8.4-10.2) mg/dL Adrenal panel 05/21/23 05/21/23 Range/Units 01:56 04:22 Sodium 139 139 (137-145) mmol/L Potassium 5.2 H 6.7 H* (3.5-5.1) mmol/L Chloride 105 105 (98-107) mmol/L Carbon Dioxide 13 L 12 L (22-30) mmol/L BUN 100 H 90 H (9-20) mg/dL Creatinine 12.54 H* 10.38 H* (0.66-1.25) mg/dL Glucose 128 H 170 H (74-99) mg/dL Calcium 9.7 9.7 (8.4-10.2) mg/dL Total Bilirubin 0.8 (0.2-1.3) mg/dL AST 21 (17-59) U/L ALT 21 (4-49) U/L Alkaline Phosphatase 90 (38-126) U/L Total Protein 7.3 (6.3-8.2) g/dL Albumin 4.7 (3.5-5.0) g/dL - Imaging CT scan - abdomen: report reviewed, image reviewed CT scan - chest: report reviewed, image reviewed Assessment and Plan Assessment: Impression: Acute urinary retention large volume. Chronic urinary outlet obstruction based by history. Hydronephrosis secondary to urine retention. Hematuria secondary to enlarged prostate and catheter introduction as well as decompression of the bladder. Medical issues including probable acute [place] Recommendation. Catheter should remain in place. The urine retention can be dealt with at a later date. His hydronephrosis may be persistent due to the chronicity of his urine retention which sounds somewhat lengthy. I will follow. Time with Patient: Greater than 30
[2023-05-21 13:16] LABS: African American GFR (CKD) 7 (>60 ml/min/1.73 sqM); Anion Gap 17 mmol/L; Blood Urea Nitrogen 80 mg/dL (9-20); Calcium 9.7 mg/dL (8.4-10.2); Carbon Dioxide 16 mmol/L (22-30); Chloride 113 mmol/L (98-107); Glucose 181 mg/dL (74-99); Non-African American GFR(CKD) 6 (>60 ml/min/1.73 sqM); Potassium 5.1 mmol/L (3.5-5.1); Sodium 146 mmol/L (137-145)
[2023-05-21 13:25] LABS: NT-Pro-B-Type Natriuretic Pept 6620 pg/mL
[2023-05-21 14:19] LABS: Basophils % (A) 0 %; Eosinophils % (A) 0 %; HCT 36.1 % (39.0-53.0); HGB 12.8 gm/dL (13.0-17.5); Lymphocytes # (A) 0.3 k/uL (1.0-4.8); Lymphocytes % (A) 4 %; MCH 33.7 pg (25.0-35.0); MCHC 35.4 g/dL (31.0-37.0); MCV 95.3 fL (80.0-100.0); Mean Platelet Volume 8.7; Monocytes # (A) 0.5 k/uL (0-1.0); Monocytes % (A) 7 %; Neutrophils % (A) 87 %; Platelet Count 174 k/uL (150-450); RBC 3.79 m/uL (4.30-5.90); RDW 12.2 % (11.5-15.5); WBC 6.8 k/uL (3.8-10.6)
--- NOTE | 2023-05-21 14:28 | US ---
EXAMINATION TYPE: US kidneys/renal and bladder DATE OF EXAM: 05/21/2023 COMPARISON: CTa 05/21/2023 CLINICAL INDICATION: Male, 68 years old with history of renal failure; Renal failure per order. *Exam is extremely limited due to patient movement and gas. EXAM MEASUREMENTS: Right Kidney: 10.9 x 5.9 x 5.8 cm Left Kidney: 10.6 x 5.0 x 4.8 cm Right Kidney: No hydronephrosis or masses seen Left Kidney: Anechoic areas seen within the upper pole, appearance of possible dilated upper collecti ng system. Larger area = 1.7 x 1.4 x 1.3 cm. Bladder: Not distended. Patient has catheter in place. Hyperechoic focus seen within the bladder: 0 .9 x 0.8 x 0.4 cm. Bilateral Jets seen: No Visualized region of the liver or hyperechoic. IMPRESSION: 1. No evidence of obstructive uropathy. 2. Hepatic steatosis. 3. Suspected layering bladder calculus.
[2023-05-21 14:36] LABS: African American GFR (CKD) 10 (>60 ml/min/1.73 sqM); Anion Gap 15 mmol/L; Blood Urea Nitrogen 67 mg/dL (9-20); Calcium 9.2 mg/dL (8.4-10.2); Carbon Dioxide 19 mmol/L (22-30); Chloride 111 mmol/L (98-107); Glucose 185 mg/dL (74-99); Non-African American GFR(CKD) 8 (>60 ml/min/1.73 sqM); Potassium 4.8 mmol/L (3.5-5.1); Sodium 145 mmol/L (137-145)
[2023-05-21 14:43] LABS: INR 1.2 (<1.2); Prothrombin Time 12.9 sec (10.0-12.5)
--- NOTE | 2023-05-21 20:30 | P.CRDCN ---
History of Present Illness Consult date: 05/21/23 History of present illness: HISTORY OF PRESENTING ILLNESS 68-year-old presented to the hospital with complaints of generalized fatigue and malaise along with nausea and abdominal pain for last 1 weeks, this has been gradually getting worse. Patient has also been complaining of intractable postprandial vomiting. On admission he had an episode of vomiting. Labs showed hemoglobin 13.9, potassium 5.2, BUN 100, creatinine 12.5. CT abdomen was done which showed bilateral hydronephrosis, enlarged prostate and urinary retention. Gordon catheter was placed and he drained 4 L of urine BNP 6000 He also had significantly elevated troponin measuring at 0.17, 0.6, 16 Due to this cardiology was paged. I performed a bedside echocardiogram showed a preserved LV systolic function with anterolateral and anteroapical wall hypokinesia His initial EKG showed sinus rhythm with Q waves in anteroseptal leads. There were no ECG changes suggestive of STEMI. Repeat ECG in ICU showed sinus rhythm with improved QRS morphology which appeared more narrowed as compared to the one in the ER REVIEW OF SYSTEMS 14 point review of system is negative except what is mentioned above in HPI. PHYSICAL EXAMINATION Vital signs reviewed. Head: Normocephalic. Eyes: Sclerae nonicteric. Neck: Brisk carotid upstroke, no jugular venous distention. Lungs: Clear to auscultation. Heart: Regular rate and rhythm, S1-S2, no S3, no murmur or rub. Abdomen: Mild lower abdominal tenderness, positive bowel sounds. Extremities: No edema, intact distal pulses. Neuro: Alert, oritented, no focal deficits ASSESSMENT Chest pain and elevated troponin likely related presenting MS Anterolateral wall hypokinesia and bedside echo Obstructive uropathy with acute kidney injury, likely due to uncontrolled BPH PLAN Start IV heparin drip Start aspirin, atorvastatin, metoprolol 25 mg twice a day Keep patient on nitro drip. Target blood pressure 120-140 SBP On IV fluids with bicarbonate as per nephrology recommendations Monitor renal function. If creatinine improves tomorrow, we will plan for cardiac catheterization. Obtain echocardiogram Case was discussed with the patient and patient has given the verbal consent for proceeding with cardiac catheterization. He understands the risk for possible stroke and or open-heart surgery. Past Medical History Additional Past Medical History / Comment(s): one lung- right History of Any Multi-Drug Resistant Organisms: None Reported Past Surgical History: No Surgical Hx Reported Past Psychological History: No Psychological Hx Reported Smoking Status: Former smoker Past Alcohol Use History: Occasional Past Drug Use History: None Reported Medications and Allergies Home Medications Medication Instructions Recorded Confirmed Type No Known Home Medications 05/21/23 05/21/23 History Allergies Allergy/AdvReac Type Severity Reaction Status Date / Time No Known Allergies Allergy Verified 05/21/23 10:53 Physical Exam Vitals: Vital Signs Temp Pulse Pulse Resp BP Pulse Ox 05/21/23 20:00 98.3 F 67 13 134/71 96 05/21/23 19:45 72 16 128/76 94 L 05/21/23 19:30 83 20 142/72 95 05/21/23 19:15 64 11 L 142/72 96 05/21/23 19:00 68 12 148/71 94 L 05/21/23 18:45 64 18 142/75 95 05/21/23 18:30 71 19 134/77 96 05/21/23 18:15 78 15 144/72 96 05/21/23 18:00 68 13 151/83 94 L 05/21/23 17:45 102 H 11 L 147/79 95 05/21/23 17:30 89 15 144/78 95 05/21/23 17:00 72 13 140/83 96 05/21/23 16:30 70 11 L 144/73 95 05/21/23 16:00 98 F 67 23 138/75 97 05/21/23 15:30 74 33 H 139/75 97 05/21/23 15:00 76 22 147/81 97 05/21/23 14:45 82 24 151/87 97 05/21/23 14:30 82 23 141/80 97 05/21/23 14:15 77 25 H 140/74 97 05/21/23 14:00 66 13 142/78 97 05/21/23 13:45 65 12 136/77 98 05/21/23 13:30 70 19 144/78 97 05/21/23 13:15 66 23 147/81 97 05/21/23 13:00 78 13 142/84 96 05/21/23 12:45 77 15 150/85 97 05/21/23 12:30 79 15 147/87 97 05/21/23 12:15 73 14 152/85 97 05/21/23 12:00 98.2 F 72 13 163/88 97 05/21/23 11:30 92 23 163/89 99 05/21/23 11:00 86 34 H 157/87 99 05/21/23 10:30 91 27 H 148/88 98 05/21/23 10:00 77 21 137/87 24 L 05/21/23 09:47 98.2 F 05/21/23 09:30 103 H 18 154/87 96 05/21/23 09:15 95 16 154/87 98 05/21/23 09:00 98 16 147/96 96 05/21/23 08:27 102 H 18 172/95 96 05/21/23 08:14 97 05/21/23 08:00 124 H 18 168/91 97 05/21/23 07:32 97.7 F 116 H 26 H 162/96 95 05/21/23 06:30 97.9 F 105 H 21 173/99 98 05/21/23 06:00 98 12 168/90 96 05/21/23 05:30 82 15 177/104 95 05/21/23 05:10 98.4 F 108 H 16 102/99 96 05/21/23 05:00 105 H 14 192/104 95 05/21/23 04:15 105 H 15 190/107 96 05/21/23 04:00 107 H 18 183/115 97 05/21/23 03:45 106 H 19 188/102 97 05/21/23 03:30 110 H 27 H 167/89 97 05/21/23 03:29 110 H 19 167/89 97 05/21/23 02:51 95 12 191/101 96 05/21/23 02:45 101 H 05/21/23 01:31 97.8 F 93 20 208/90 98 Intake and Output 05/21/23 05/21/23 05/21/23 06:59 14:59 22:59 Intake Total 2374.584 645.35 Output Total 5070 7005 1420 Balance -3050 -1120.416 -774.65 Intake: IV 2300 600 Dextrose 5% in Water 1, 300 600 000 ml @ 100 mls/hr IV . [id number] [facility] with Sodium Bicarb (1 Meq/ml) 150 ml Rx#:[id number] Sodium Chloride 0.9% 1, 2000 000 ml @ 999 mls/hr IV . Q1H1M ONE Rx#:[id number] Intake, IV Titration 74.584 45.35 Amount Heparin Sod,Pork in 0.45% 61.834 NaCl 25,000 unit In 0.45 % NaCl 1 250ml.bag @ 12 UNITS/KG/HR 8.709 mls/hr IV .Q24H [facility] Rx#: [id number] Nitroglycerin-D5w Pmx 50 5.375 45.35 mg In Dextrose/Water 1 250ml.bag @ 15 MCG/MIN 4. 5 mls/hr IV .Q24H [facility] Rx# :[id number] Nitroglycerin-D5w Pmx 50 7.375 mg In Dextrose/Water 1 250ml.bag @ 5 MCG/MIN 1.5 mls/hr IV .Q24H [facility] Rx#: [id number] Output: Urine 3050 3495 1420 Coude 900 Other: Voiding Method Indwelling Catheter Indwelling Catheter Weight 72.575 kg 72.575 kg Results 05/21/23 13:08 05/21/23 13:08 Cardiac Enzymes 05/21/23 05/21/23 05/21/23 Range/Units 01:56 01:56 04:22 AST 21 (17-59) U/L Troponin I 0.171 H* 0.484 H* (0.000-0.034) ng/mL 05/21/23 05/21/23 Range/Units 04:51 09:48 AST (17-59) U/L Troponin I 0.644 H* 16.000 H* (0.000-0.034) ng/mL Coagulation 05/21/23 05/21/23 05/21/23 Range/Units 01:56 09:48 13:08 PT 12.0 12.9 H (10.0-12.5) sec APTT 22.5 42.4 H (22.0-30.0) sec 05/21/23 Range/Units 16:39 PT (10.0-12.5) sec APTT 48.8 H (22.0-30.0) sec CBC 05/21/23 05/21/23 Range/Units 01:56 13:08 WBC 10.9 H 6.8 (3.8-10.6) k/uL RBC 4.22 L 3.79 L (4.30-5.90) m/uL Hgb 13.9 12.8 L (13.0-17.5) gm/dL Hct 38.8 L 36.1 L (39.0-53.0) % Plt Count 192 174 (150-450) k/uL Comprehensive Metabolic Panel 05/21/23 05/21/23 05/21/23 Range/Units 01:56 04:22 09:48 Sodium 139 139 146 H (137-145) mmol/L Potassium 5.2 H 6.7 H* 5.1 (3.5-5.1) mmol/L Chloride 105 105 113 H (98-107) mmol/L Carbon Dioxide 13 L 12 L 16 L (22-30) mmol/L BUN 100 H 90 H 80 H (9-20) mg/dL Creatinine 12.54 H* 10.38 H* 7.74 H* (0.66-1.25) mg/dL Glucose 128 H 170 H 181 H (74-99) mg/dL Calcium 9.7 9.7 9.7 (8.4-10.2) mg/dL AST 21 (17-59) U/L ALT 21 (4-49) U/L Alkaline Phosphatase 90 (38-126) U/L Total Protein 7.3 (6.3-8.2) g/dL Albumin 4.7 (3.5-5.0) g/dL 05/21/23 Range/Units 13:08 Sodium 145 (137-145) mmol/L Potassium 4.8 (3.5-5.1) mmol/L Chloride 111 H (98-107) mmol/L Carbon Dioxide 19 L (22-30) mmol/L BUN 67 H (9-20) mg/dL Creatinine 6.26 H (0.66-1.25) mg/dL Glucose 185 H (74-99) mg/dL Calcium 9.2 (8.4-10.2) mg/dL AST (17-59) U/L ALT (4-49) U/L Alkaline Phosphatase (38-126) U/L Total Protein (6.3-8.2) g/dL Albumin (3.5-5.0) g/dL Current Medications Generic Name Dose Route Start Last Admin Trade Name Freq PRN Reason Stop Dose Admin Acetaminophen 650 mg 05/21/23 06:12 Acetaminophen Tab 325 Mg Tab PO Q4HR PRN Pain Alprazolam 0.25 mg 05/21/23 12:04 Alprazolam 0.25 Mg Tab PO Q6HR PRN Mild Anxiety Aspirin 81 mg 05/22/23 09:00 Aspirin 81 Mg PO DAILY [facility] Atorvastatin Calcium 20 mg 05/21/23 11:30 05/21/23 12:25 Atorvastatin 20 Mg Tab PO 20 mg DAILY [facility] Administration Heparin Sodium (Porcine) 0 unit 05/21/23 02:59 05/21/23 10:43 Heparin Sodium 1,000 Un/Ml (10ml Vl) IV 1,800 unit PER PROTOCOL PRN Administration Low PTT Protocol Heparin Sodium/Sodium Chloride 250 mls @ 8.709 mls/hr 05/21/23 03:00 05/21/23 10:30 25,000 unit/ Sodium Chloride IV 14 units/kg/hr .Q24H [facility] 10.161 mls/hr Titration Protocol 12 UNITS/KG/HR Sodium Bicarbonate 150 ml/ 1,150 mls @ 100 mls/hr 05/21/23 11:00 05/21/23 11:22 Dextrose/Water IV 100 mls/hr .[id number] [facility] Administration Nitroglycerin/Dextrose 50 mg/ 250 mls @ 4.5 mls/hr 05/21/23 12:00 05/21/23 17:56 IV Solution IV 40 mcg/min .Q24H [facility] 12 mls/hr Titration Protocol 15 MCG/MIN Heparin Sodium (Porcine) 10, 1,001 mls @ 999 mls/hr 05/22/23 07:00 000 unit/ Sodium Chloride IRRIGATION 05/22/23 23:00 ONCE PRN INTRA-OP Heparin Sodium (Porcine) 2,500 250.5 mls @ 250 mls/hr 05/22/23 07:00 unit/ Sodium Chloride IRRIGATION 05/22/23 23:00 ONCE PRN INTRA-OP Sodium Chloride 1,000 ml/ IV 1,000 mls @ 75 mls/hr 05/22/23 05:00 Solution IV .[id number] [facility] Metoprolol Tartrate 25 mg 05/21/23 21:00 Metoprolol Tartrate 25 Mg Tab PO BID [facility] Nitroglycerin 0.4 mg 05/21/23 04:24 Nitroglycerin Sl Tabs 0.4 Mg Tab SUBLINGUAL Q5M PRN Chest Pain Intake and Output 05/21/23 05/21/23 05/21/23 06:59 14:59 22:59 Intake Total 2374.584 645.35 Output Total 3050 3495 1420 Balance -3050 -1120.416 -774.65 Intake: IV 2300 600 Dextrose 5% in Water 1, 300 600 000 ml @ 100 mls/hr IV . [id number] [facility] with Sodium Bicarb (1 Meq/ml) 150 ml Rx#:[id number] Sodium Chloride 0.9% 1, 2000 000 ml @ 999 mls/hr IV . Q1H1M [facility] Rx#:[id number] Intake, IV Titration 74.584 45.35 Amount Heparin Sod,Pork in 0.45% 61.834 NaCl 25,000 unit In 0.45 % NaCl 1 250ml.bag @ 12 UNITS/KG/HR 8.709 mls/hr IV .Q24H [facility] Rx#: [id number] Nitroglycerin-D5w Pmx 50 5.375 45.35 mg In Dextrose/Water 1 250ml.bag @ 15 MCG/MIN 4. 5 mls/hr IV .Q24H [facility] Rx# :[id number] Nitroglycerin-D5w Pmx 50 7.375 mg In Dextrose/Water 1 250ml.bag @ 5 MCG/MIN 1.5 mls/hr IV .Q24H [facility] Rx#: [id number] Output: Urine 3050 3495 1420 Coude 900 Other: Voiding Method Indwelling Catheter Indwelling Catheter Weight 72.575 kg 72.575 kg Patient Weight 05/22/23 06:59 Weight 72.575 kg 05/21/23 13:08 05/21/23 13:08
[2023-05-21] MEDS: METOPROLOL TARTRATE 25 MG TAB PO SCH (21:05)
[2023-05-22 04:18] LABS: HCT 33.2 % (39.0-53.0); HGB 12.1 gm/dL (13.0-17.5); MCH 33.9 pg (25.0-35.0); MCHC 36.3 g/dL (31.0-37.0); MCV 93.4 fL (80.0-100.0); Platelet Count 156 k/uL (150-450); RBC 3.55 m/uL (4.30-5.90); RDW 12.3 % (11.5-15.5); WBC 8.3 k/uL (3.8-10.6)
[2023-05-22] MEDS: HEPARIN SOD,PORK IN 0.45% NACL 25,000 UNIT in 0.45% NACL 1 250ML.BAG IV SCH (04:55)
[2023-05-22 05:03] LABS: African American GFR (CKD) 23 (>60 ml/min/1.73 sqM); Anion Gap 8 mmol/L; Blood Urea Nitrogen 43 mg/dL (9-20); Calcium 8.7 mg/dL (8.4-10.2); Carbon Dioxide 28 mmol/L (22-30); Chloride 103 mmol/L (98-107); Glucose 199 mg/dL (74-99); Non-African American GFR(CKD) 20 (>60 ml/min/1.73 sqM); Potassium 3.7 mmol/L (3.5-5.1); Sodium 139 mmol/L (137-145)
[2023-05-22] MEDS: SODIUM CHLORIDE 0.9% 1,000 ML in EMPTY BAG 1 BAG IV SCH ×2 (05:24→18:29)
[2023-05-22] MEDS: NITROGLYCERIN-D5W PMX 50 MG in DEXTROSE/WATER 1 250ML.BAG IV SCH (06:27)
[2023-05-22] MEDS ORDERED: HEPARIN SODIUM,PORCINE 10,000 UNIT in SODIUM CHLORIDE 0.9% 1,000 ML IRRIGATION PRN (07:00)
[2023-05-22] MEDS ORDERED: HEPARIN SODIUM,PORCINE (1 ML) 2,500 UNIT in SODIUM CHLORIDE 0.9% 250 ML IRRIGATION PRN (07:00)
--- NOTE | 2023-05-22 07:42 | P.PN ---
Subjective Progress Note Date: 05/22/23 PROGRESS NOTE The patient is a 68-year-old male with no prior documented history of cardiac disease who presented with an acute episode of chest discomfort, troponin elevation and was found to have acute renal injury. He has no further pain this morning. He is feeling better. His breathing is stable. He denies any dizziness or palpitations. He has no nausea or vomiting. Medications: Aspirin, Lipitor 20 mg daily, IV heparin, IV nitroglycerin, metoprolol 25 mg twice a day PHYSICAL EXAMINATION: Blood pressure 134/70 heart rate 70 LUNGS: Clear to auscultation HEART: Regular rate and rhythm, S1, S2. No S3. No systolic murmur ABDOMEN: Soft, nontender, no organomegaly EXTREMETIES: No edema LAB: BUN 43, creatinine 3.06, potassium 3.7, hemoglobin 12.1, troponin peak 16. On presentation his creatinine was 12.5 IMPRESSION: 1. Acute renal injury, improving 2. Acute myocardial infarction probable in the LAD distribution 3. Hyperkalemia resolved 4. Obstructive uropathy PLAN: 1. Continue IV heparin and IV nitroglycerin 2. Obtain an echocardiogram with Doppler 3. Follow renal functions and if stable possible coronary angiography in the next 24-48 hours 4. Depending on his progress further recommendations will be made Objective - Vital Signs Vital signs: Vital Signs Temp 98.1 F 05/22/23 04:00 Pulse 72 05/22/23 06:45 Resp 13 05/22/23 06:45 BP 134/70 05/22/23 06:45 Pulse Ox 96 05/22/23 06:45 FiO2 Intake & Output 05/21/23 05/22/23 05/22/23 18:59 06:59 18:59 Intake Total 2819.934 1614.607 Output Total 4365 2945 Balance -1545.066 -1330.393 Weight 72.575 kg 71.7 kg Intake: IV 2700 1275 Dextrose 5% in Water 1, 700 1200 000 ml @ 100 mls/hr IV . [id number] [facility] with Sodium Bicarb (1 Meq/ml) 150 ml Rx#:[id number] Sodium Chloride 0.9% 1, 2000 000 ml @ 999 mls/hr IV . Q1H1M [facility] Rx#:[id number] Sodium Chloride 0.9% 1, 75 000 ml In Empty Bag 1 bag @ 75 mls/hr IV .[id number] [facility] Rx#:[id number] Intake, IV Titration 119.934 339.607 Amount Heparin Sod,Pork in 0.45% 61.834 187.132 NaCl 25,000 unit In 0.45 % NaCl 1 250ml.bag @ 12 UNITS/KG/HR 8.709 mls/hr IV .Q24H [facility] Rx#: [id number] Nitroglycerin-D5w Pmx 50 50.725 152.475 mg In Dextrose/Water 1 250ml.bag @ 15 MCG/MIN 4. 5 mls/hr IV .Q24H [facility] Rx# :[id number] Nitroglycerin-D5w Pmx 50 7.375 mg In Dextrose/Water 1 250ml.bag @ 5 MCG/MIN 1.5 mls/hr IV .Q24H [facility] Rx#: [id number] Output: Urine 4365 2945 Other: Voiding Method Indwelling Catheter Indwelling Catheter - Labs CBC & Chem 7: 05/22/23 03:30 05/22/23 03:30 Labs: Abnormal Lab Results - Last 24 Hours (Table) 05/21/23 05/21/23 05/21/23 Range/Units 08:49 09:48 09:48 RBC (4.30-5.90) m/uL Hgb (13.0-17.5) gm/dL Hct (39.0-53.0) % Lymphocytes # (1.0-4.8) k/uL PT (10.0-12.5) sec INR (<1.2) APTT 42.4 H (22.0-30.0) sec Sodium 146 H (137-145) mmol/L Chloride 113 H (98-107) mmol/L Carbon Dioxide 16 L (22-30) mmol/L BUN 80 H (9-20) mg/dL Creatinine 7.74 H* (0.66-1.25) mg/dL Glucose 181 H (74-99) mg/dL POC Glucose (mg/dL) 208 H (70-110) mg/dL Creatine Kinase (55-170) U/L Troponin I (0.000-0.034) ng/mL Urine Protein (Negative) Urine RBC (0-5) /hpf Urine WBC (0-5) /hpf 05/21/23 05/21/23 05/21/23 Range/Units 09:48 10:11 13:08 RBC 3.79 L (4.30-5.90) m/uL Hgb 12.8 L (13.0-17.5) gm/dL Hct 36.1 L (39.0-53.0) % Lymphocytes # 0.3 L (1.0-4.8) k/uL PT (10.0-12.5) sec INR (<1.2) APTT (22.0-30.0) sec Sodium (137-145) mmol/L Chloride (98-107) mmol/L Carbon Dioxide (22-30) mmol/L BUN (9-20) mg/dL Creatinine (0.66-1.25) mg/dL Glucose (74-99) mg/dL POC Glucose (mg/dL) (70-110) mg/dL Creatine Kinase (55-170) U/L Troponin I 16.000 H* (0.000-0.034) ng/mL Urine Protein 1+ H (Negative) Urine RBC >182 H (0-5) /hpf Urine WBC 42 H (0-5) /hpf 05/21/23 05/21/23 05/21/23 Range/Units 13:08 13:08 16:39 RBC (4.30-5.90) m/uL Hgb (13.0-17.5) gm/dL Hct (39.0-53.0) % Lymphocytes # (1.0-4.8) k/uL PT 12.9 H (10.0-12.5) sec INR 1.2 H (<1.2) APTT 48.8 H (22.0-30.0) sec Sodium (137-145) mmol/L Chloride 111 H (98-107) mmol/L Carbon Dioxide 19 L (22-30) mmol/L BUN 67 H (9-20) mg/dL Creatinine 6.26 H (0.66-1.25) mg/dL Glucose 185 H (74-99) mg/dL POC Glucose (mg/dL) (70-110) mg/dL Creatine Kinase (55-170) U/L Troponin I (0.000-0.034) ng/mL Urine Protein (Negative) Urine RBC (0-5) /hpf Urine WBC (0-5) /hpf 05/22/23 05/22/23 05/22/23 Range/Units 03:30 03:30 03:30 RBC 3.55 L (4.30-5.90) m/uL Hgb 12.1 L (13.0-17.5) gm/dL Hct 33.2 L (39.0-53.0) % Lymphocytes # (1.0-4.8) k/uL PT (10.0-12.5) sec INR (<1.2) APTT 50.3 H (22.0-30.0) sec Sodium (137-145) mmol/L Chloride (98-107) mmol/L Carbon Dioxide (22-30) mmol/L BUN 43 H (9-20) mg/dL Creatinine 3.06 H (0.66-1.25) mg/dL Glucose 199 H (74-99) mg/dL POC Glucose (mg/dL) (70-110) mg/dL Creatine Kinase (55-170) U/L Troponin I (0.000-0.034) ng/mL Urine Protein (Negative) Urine RBC (0-5) /hpf Urine WBC (0-5) /hpf 05/22/23 Range/Units 04:20 RBC (4.30-5.90) m/uL Hgb (13.0-17.5) gm/dL Hct (39.0-53.0) % Lymphocytes # (1.0-4.8) k/uL PT (10.0-12.5) sec INR (<1.2) APTT (22.0-30.0) sec Sodium (137-145) mmol/L Chloride (98-107) mmol/L Carbon Dioxide (22-30) mmol/L BUN (9-20) mg/dL Creatinine (0.66-1.25) mg/dL Glucose (74-99) mg/dL POC Glucose (mg/dL) (70-110) mg/dL Creatine Kinase 915 H (55-170) U/L Troponin I (0.000-0.034) ng/mL Urine Protein (Negative) Urine RBC (0-5) /hpf Urine WBC (0-5) /hpf
--- NOTE | 2023-05-22 08:30 | P.PN ---
Subjective Progress Note Date: 05/22/23 68-year-old male with no significant past medical history, other than a pneumothorax many years ago. The patient presents with the emergency department on May 21, which chest pain, vomiting, and not feeling well for about 4 days according to his family members. He apparently was in bed for the last 4 days, with a possible viral syndrome. He apparently had pain in his chest and abdomen, nausea vomiting, and generally not feeling well, not eating or drinking, and feeling very weak. His primary care physician is Dr. Dey, but he has not see him on a regular basis. The patient takes no medications at home. The patient had very abnormal laboratory data, including a white count of 10.9, hemoglobin 13.9, hematocrit 38.8, and a normal platelet count. Sodium 139, potassium 6.7, chlorides 105, CO2 12, anion gap 22, BUN 90, creatinine 10.38. Glucose 170. Magnesium 2.4, troponin 0.644, and lipase 192. A thoracic CT was done to rule out dissection. It showed bilateral pleural effusions. The chest x-ray was normal. On 05/22/2023, the patient is awake and alert and communicating. His abdominal pain has subsided. He is still having some chest pain and for that reason the patient has been kept on nitroglycerin drip. Nitrol drip is running at 45 mcg/m. Is also on IV heparin. As mentioned earlier, he presented with chest pain and abdominal pain. He had obstructive uropathy and hydronephrosis. He also had an obstructing calculus. Gordon catheter was inserted and immediately and 4 L of urine output was produced. The urine output was bloody. Cultures are still pending for now. The ultrasound the kidneys showed no evidence of any hydronephrosis. The original CT a of the abdomen showed some hydronephrosis on the left. The creatinine continues to improve. The blood work from today shows a drop in the creatinine from as high as 12 down to 3.06. The patient remains on bicarb infusion. Serum bicarbonate of 28 with a sodium level is at 139.. His troponin peaked at extreme. His proBNP level is at 6620 and the patient is undergoing a echocardiogram today. Is on no pressors. His cardiac rhythm is sinus. The patient is going to need a cardiac catheterization and this will be done within the next 24-48 hours once the renal function stabilizes further. Neurologically, he is awake and alert and communicating. He is currently on oxygen at 2 L. His chest x-ray showed small bilateral pleural effusions. Cardiomegaly. Objective - Vital Signs Vital signs: Vital Signs Temp 98.1 F 05/22/23 04:00 Pulse 69 05/22/23 07:30 Resp 12 05/22/23 07:30 BP 103/74 05/22/23 07:30 Pulse Ox 96 05/22/23 07:30 FiO2 Intake & Output 05/21/23 05/22/23 05/22/23 18:59 06:59 18:59 Intake Total 2819.934 1614.607 175 Output Total 4365 2945 200 Balance -1545.066 -1330.393 -25 Weight 72.575 kg 71.7 kg Intake: IV 2700 1275 175 Dextrose 5% in Water 1, 700 1200 100 000 ml @ 100 mls/hr IV . [id number] [facility] with Sodium Bicarb (1 Meq/ml) 150 ml Rx#:[id number] Sodium Chloride 0.9% 1, 2000 000 ml @ 999 mls/hr IV . Q1H1M ONE Rx#:[id number] Sodium Chloride 0.9% 1, 75 75 000 ml In Empty Bag 1 bag @ 75 mls/hr IV .[id number] [facility] Rx#:[id number] Intake, IV Titration 119.934 339.607 Amount Heparin Sod,Pork in 0.45% 61.834 187.132 NaCl 25,000 unit In 0.45 % NaCl 1 250ml.bag @ 12 UNITS/KG/HR 8.709 mls/hr IV .Q24H [facility] Rx#: [id number] Nitroglycerin-D5w Pmx 50 50.725 152.475 mg In Dextrose/Water 1 250ml.bag @ 15 MCG/MIN 4. 5 mls/hr IV .Q24H [facility] Rx# :[id number] Nitroglycerin-D5w Pmx 50 7.375 mg In Dextrose/Water 1 250ml.bag @ 5 MCG/MIN 1.5 mls/hr IV .Q24H ONE Rx#: [id number] Output: Urine 4365 2945 200 Other: Voiding Method Indwelling Catheter Indwelling Catheter - Exam No acute distress, oriented 3. The patient is currently on 2 L of oxygen. Saturations are 98%. HEENT examination is grossly unremarkable. Mucous membranes are dry. Neck supple. Full range of motion. No adenopathy thyromegaly or neck vein distention. Cardiovascular examination reveals regular rhythm rate. S1-S2 normal. No S3 or S4. No discernible murmur noted. Lungs reveal clear breath sounds. Breath sounds are equal bilaterally. No adventitious lung sounds including wheezes rhonchi or crackles. Abdomen soft with bowel sounds. No masses or tenderness. Extremities are intact. No cyanosis clubbing or edema. Skin is without rash or lesion. Neurologic examination is brief but nonfocal. - Labs CBC & Chem 7: 05/22/23 03:30 05/22/23 03:30 Labs: Abnormal Lab Results - Last 24 Hours (Table) 05/21/23 05/21/23 05/21/23 Range/Units 08:49 09:48 09:48 RBC (4.30-5.90) m/uL Hgb (13.0-17.5) gm/dL Hct (39.0-53.0) % Lymphocytes # (1.0-4.8) k/uL PT (10.0-12.5) sec INR (<1.2) APTT 42.4 H (22.0-30.0) sec Sodium 146 H (137-145) mmol/L Chloride 113 H (98-107) mmol/L Carbon Dioxide 16 L (22-30) mmol/L BUN 80 H (9-20) mg/dL Creatinine 7.74 H* (0.66-1.25) mg/dL Glucose 181 H (74-99) mg/dL POC Glucose (mg/dL) 208 H (70-110) mg/dL Creatine Kinase (55-170) U/L Troponin I (0.000-0.034) ng/mL Urine Protein (Negative) Urine RBC (0-5) /hpf Urine WBC (0-5) /hpf 05/21/23 05/21/23 05/21/23 Range/Units 09:48 10:11 13:08 RBC 3.79 L (4.30-5.90) m/uL Hgb 12.8 L (13.0-17.5) gm/dL Hct 36.1 L (39.0-53.0) % Lymphocytes # 0.3 L (1.0-4.8) k/uL PT (10.0-12.5) sec INR (<1.2) APTT (22.0-30.0) sec Sodium (137-145) mmol/L Chloride (98-107) mmol/L Carbon Dioxide (22-30) mmol/L BUN (9-20) mg/dL Creatinine (0.66-1.25) mg/dL Glucose (74-99) mg/dL POC Glucose (mg/dL) (70-110) mg/dL Creatine Kinase (55-170) U/L Troponin I 16.000 H* (0.000-0.034) ng/mL Urine Protein 1+ H (Negative) Urine RBC >182 H (0-5) /hpf Urine WBC 42 H (0-5) /hpf 05/21/23 05/21/23 05/21/23 Range/Units 13:08 13:08 16:39 RBC (4.30-5.90) m/uL Hgb (13.0-17.5) gm/dL Hct (39.0-53.0) % Lymphocytes # (1.0-4.8) k/uL PT 12.9 H (10.0-12.5) sec INR 1.2 H (<1.2) APTT 48.8 H (22.0-30.0) sec Sodium (137-145) mmol/L Chloride 111 H (98-107) mmol/L Carbon Dioxide 19 L (22-30) mmol/L BUN 67 H (9-20) mg/dL Creatinine 6.26 H (0.66-1.25) mg/dL Glucose 185 H (74-99) mg/dL POC Glucose (mg/dL) (70-110) mg/dL Creatine Kinase (55-170) U/L Troponin I (0.000-0.034) ng/mL Urine Protein (Negative) Urine RBC (0-5) /hpf Urine WBC (0-5) /hpf 05/22/23 05/22/23 05/22/23 Range/Units 03:30 03:30 03:30 RBC 3.55 L (4.30-5.90) m/uL Hgb 12.1 L (13.0-17.5) gm/dL Hct 33.2 L (39.0-53.0) % Lymphocytes # (1.0-4.8) k/uL PT (10.0-12.5) sec INR (<1.2) APTT 50.3 H (22.0-30.0) sec Sodium (137-145) mmol/L Chloride (98-107) mmol/L Carbon Dioxide (22-30) mmol/L BUN 43 H (9-20) mg/dL Creatinine 3.06 H (0.66-1.25) mg/dL Glucose 199 H (74-99) mg/dL POC Glucose (mg/dL) (70-110) mg/dL Creatine Kinase (55-170) U/L Troponin I (0.000-0.034) ng/mL Urine Protein (Negative) Urine RBC (0-5) /hpf Urine WBC (0-5) /hpf 05/22/23 Range/Units 04:20 RBC (4.30-5.90) m/uL Hgb (13.0-17.5) gm/dL Hct (39.0-53.0) % Lymphocytes # (1.0-4.8) k/uL PT (10.0-12.5) sec INR (<1.2) APTT (22.0-30.0) sec Sodium (137-145) mmol/L Chloride (98-107) mmol/L Carbon Dioxide (22-30) mmol/L BUN (9-20) mg/dL Creatinine (0.66-1.25) mg/dL Glucose (74-99) mg/dL POC Glucose (mg/dL) (70-110) mg/dL Creatine Kinase 915 H (55-170) U/L Troponin I (0.000-0.034) ng/mL Urine Protein (Negative) Urine RBC (0-5) /hpf Urine WBC (0-5) /hpf Assessment and Plan Plan: Acute kidney injury with associated hyperkalemia, and anion gap metabolic acidosis. The patient had obstructive uropathy, calculus that he has passed into his bladder. His post Gordon catheter insertion and the relief of the obstruction. No hydronephrosis and the follow-up ultrasound the kidneys and the patient is producing adequate amount of urine output at this point in the renal function continues to improve. Non-anion gap metabolic acidosis, recovered Mild hematuria could be related to kidney stones and the utilization of IV h eparin BPH Chest pain, acute non-ST segment elevation myocardial infarction, currently on nitroglycerin drip and IV heparin Emergency old anteroseptal myocardial infarction based on Q waves seen on the EKG at the time of admission Nausea and vomiting, with dehydration. Recovered Hypertensive urgency, secondary to acute renal failure , recovered Plan: Will discontinue the bicarb infusion and put the patient on a normal saline at the rate of 75 mL an hour Continue nitroglycerin drip and titrate based on his chest pain Echocardiogram today Cardiac catheterization within next 24-48 hours Monitor renal function Check PSA Urine cultures have been sent and the patient is currently on no antibiotics Continue aspirin Continue metoprolol 25 mg by mouth twice a day oxygen 2 L/m nasal cannula We'll continue to follow.
[2023-05-22] MEDS ORDERED: PIPERACILLIN-TAZOBACTAM 3.375 GM in SODIUM CHLORIDE 0.9% 100 ML IVPB ONE (08:45)
[2023-05-22] MEDS ORDERED: ASPIRIN 325 MG TAB PO SCH (09:00)
[2023-05-22] MEDS: ASPIRIN 81 MG PO SCH (09:13)
[2023-05-22] MEDS: METOPROLOL TARTRATE 25 MG TAB PO SCH ×2 (09:13→19:57)
[2023-05-22] MEDS: ATORVASTATIN 40 MG TAB PO SCH (09:13)
--- NOTE | 2023-05-22 10:59 | P.PN ---
Subjective patient is seen for follow-up for acute kidney injury, obstructive uropathy with significantly improved renal function post Gordon catheter placement. Patient has postobstructive diuresis with 24 hour urine output of 7 L. He was maintained on IV bicarb which is now discontinued and he is maintained on normal saline. Cardiology is considering cardiac catheterization probably in the next 24-48 hours. SERUM CREATININE DECREASED TO 3.0 MG/Dl TODAY. Objective - Vital Signs Vital signs: Vital Signs Temp 98.1 F 05/22/23 04:00 Pulse 69 05/22/23 07:30 Resp 12 05/22/23 07:30 BP 103/74 05/22/23 07:30 Pulse Ox 96 05/22/23 07:30 FiO2 Intake & Output 05/21/23 05/22/23 05/22/23 18:59 06:59 18:59 Intake Total 2819.934 1614.607 230.35 Output Total 4365 2945 200 Balance -1545.066 -1330.393 30.35 Weight 72.575 kg 71.7 kg Intake: IV 2700 1275 175 Dextrose 5% in Water 1, 700 1200 100 000 ml @ 100 mls/hr IV . [id number] [facility] with Sodium Bicarb (1 Meq/ml) 150 ml Rx#:[id number] Sodium Chloride 0.9% 1, 2000 000 ml @ 999 mls/hr IV . Q1H1M ONE Rx#:[id number] Sodium Chloride 0.9% 1, 75 75 000 ml In Empty Bag 1 bag @ 75 mls/hr IV .[id number] [facility] Rx#:[id number] Intake, IV Titration 119.934 339.607 55.35 Amount Heparin Sod,Pork in 0.45% 61.834 187.132 NaCl 25,000 unit In 0.45 % NaCl 1 250ml.bag @ 12 UNITS/KG/HR 8.709 mls/hr IV .Q24H [facility] Rx#: [id number] Nitroglycerin-D5w Pmx 50 50.725 152.475 55.35 mg In Dextrose/Water 1 250ml.bag @ 15 MCG/MIN 4. 5 mls/hr IV .Q24H [facility] Rx# :[id number] Nitroglycerin-D5w Pmx 50 7.375 mg In Dextrose/Water 1 250ml.bag @ 5 MCG/MIN 1.5 mls/hr IV .Q24H ONE Rx#: [id number] Output: Urine 4365 2945 200 Other: Voiding Method Indwelling Catheter Indwelling Catheter - Exam Patient is awake, comfortable, no acute distress. More alert today Examination of the heart S1 and S2 Examination of the lungs bilateral breath sounds are heard Abdomen is soft nontender Examination of lower extremities shows no significant edema APPLIED EXERCISE PHYSIOLOGIST exam grossly intact - Labs CBC & Chem 7: 05/22/23 03:30 05/22/23 03:30 Labs: Abnormal Lab Results - Last 24 Hours (Table) 05/21/23 05/21/23 05/21/23 Range/Units 09:48 09:48 10:11 RBC (4.30-5.90) m/uL Hgb (13.0-17.5) gm/dL Hct (39.0-53.0) % Lymphocytes # (1.0-4.8) k/uL PT (10.0-12.5) sec INR (<1.2) APTT (22.0-30.0) sec Sodium 146 H (137-145) mmol/L Chloride 113 H (98-107) mmol/L Carbon Dioxide 16 L (22-30) mmol/L BUN 80 H (9-20) mg/dL Creatinine 7.74 H* (0.66-1.25) mg/dL Glucose 181 H (74-99) mg/dL Creatine Kinase (55-170) U/L Troponin I 16.000 H* (0.000-0.034) ng/mL Urine Protein 1+ H (Negative) Urine RBC >182 H (0-5) /hpf Urine WBC 42 H (0-5) /hpf 05/21/23 05/21/23 05/21/23 Range/Units 13:08 13:08 13:08 RBC 3.79 L (4.30-5.90) m/uL Hgb 12.8 L (13.0-17.5) gm/dL Hct 36.1 L (39.0-53.0) % Lymphocytes # 0.3 L (1.0-4.8) k/uL PT 12.9 H (10.0-12.5) sec INR 1.2 H (<1.2) APTT (22.0-30.0) sec Sodium (137-145) mmol/L Chloride 111 H (98-107) mmol/L Carbon Dioxide 19 L (22-30) mmol/L BUN 67 H (9-20) mg/dL Creatinine 6.26 H (0.66-1.25) mg/dL Glucose 185 H (74-99) mg/dL Creatine Kinase (55-170) U/L Troponin I (0.000-0.034) ng/mL Urine Protein (Negative) Urine RBC (0-5) /hpf Urine WBC (0-5) /hpf 05/21/23 05/22/23 05/22/23 Range/Units 16:39 03:30 03:30 RBC 3.55 L (4.30-5.90) m/uL Hgb 12.1 L (13.0-17.5) gm/dL Hct 33.2 L (39.0-53.0) % Lymphocytes # (1.0-4.8) k/uL PT (10.0-12.5) sec INR (<1.2) APTT 48.8 H 50.3 H (22.0-30.0) sec Sodium (137-145) mmol/L Chloride (98-107) mmol/L Carbon Dioxide (22-30) mmol/L BUN (9-20) mg/dL Creatinine (0.66-1.25) mg/dL Glucose (74-99) mg/dL Creatine Kinase (55-170) U/L Troponin I (0.000-0.034) ng/mL Urine Protein (Negative) Urine RBC (0-5) /hpf Urine WBC (0-5) /hpf 05/22/23 05/22/23 Range/Units 03:30 04:20 RBC (4.30-5.90) m/uL Hgb (13.0-17.5) gm/dL Hct (39.0-53.0) % Lymphocytes # (1.0-4.8) k/uL PT (10.0-12.5) sec INR (<1.2) APTT (22.0-30.0) sec Sodium (137-145) mmol/L Chloride (98-107) mmol/L Carbon Dioxide (22-30) mmol/L BUN 43 H (9-20) mg/dL Creatinine 3.06 H (0.66-1.25) mg/dL Glucose 199 H (74-99) mg/dL Creatine Kinase 915 H (55-170) U/L Troponin I (0.000-0.034) ng/mL Urine Protein (Negative) Urine RBC (0-5) /hpf Urine WBC (0-5) /hpf Assessment and Plan Assessment: 1. Acute kidney injury secondary to obstructive uropathy and possible component of ATN. Currently with indwelling Godron catheter and improving renal function. IV fluids will need to be adjusted for post obstructive diuresis. 2. Hyperkalemia associated with acute kidney injury and urine retention 3. Anion gap metabolic acidosis associated with severe acute kidney injury and obstructive uropathy 4. Elevated troponins rule out acute [place] 5. Left renal stone with left hydronephrosis noted on CTA. Ultrasound of the kidneys shows possible bladder stone. Urology is on consult. Plan: continue with normal saline Repeat labs in a.m. Okay to proceed with cardiac catheterization in the next 24-48 hours. Expect renal function to continue to improve quickly.
[2023-05-22 11:02] LABS: Chol/HDL Ratio 4.45 Ratio; LDL Cholesterol,Calculated 119.2 mg/dL (0.0-131.0)
--- NOTE | 2023-05-22 11:34 | CA ---
Transthoracic Echo Report Name: Devin Owens Age: 68 Gender: M : 1955 Exam Date: 05/22/2023 07:59 Exam Location: [facility] Ht (in): 73 Wt (lb): 160 Ordering Physician: Gen Stiles MD ([id number]) Attending/Referring Phys: Crocodile Farmer Bee Boyce RDCS Procedure CPT: Indications: nstemi Cardiac Hx: Technical Quality: Technically difficult study Contrast 1: Total Dose (mL): Contrast 2: Total Dose (mL): MEASUREMENTS (Male / Female) Normal Values 2D ECHO LV Diastolic Diameter PLAX 5.1 cm 4.2 - 5.9 / 3.9 - 5.3 cm LV Systolic Diameter PLAX 3.0 cm IVS Diastolic Thickness 1.2 cm 0.6 - 1.0 / 0.6 - 0.9 cm LVPW Diastolic Thickness 1.5 cm 0.6 - 1.0 / 0.6 - 0.9 cm LV Relative Wall Thickness 0.5 RV Internal Dim ED PLAX 2.9 cm LA Systolic Diameter LX 3.8 cm 3.0 - 4.0 / 2.7 - 3.8 cm LV Diastolic Volume MOD BP 95.7 cm??? 67 - 155 / 56 - 104 cm??? LV Systolic Volume MOD BP 49.8 cm??? - / 19 - 49 cm??? LV Ejection Fraction MOD BP 48.0 % >= 55 % LV Cardiac Index MOD BP 1716.7 cm???/min???m??? LV Diastolic Volume MOD 4C 94.3 cm??? LV Systolic Volume MOD 4C 49.0 cm??? LV Ejection Fraction MOD 4C 48.0 % LV Cardiac Index MOD 4C 1692.5 cm???/min???m??? LV Diastolic Length 4C 8.4 cm LV Systolic Length 4C 8.1 cm LV Diastolic Volume MOD 2C 97.4 cm??? LV Systolic Volume MOD 2C 54.7 cm??? LV Ejection Fraction MOD 2C 43.9 % LV Cardiac Index MOD 2C 1596.2 cm???/min???m??? LV Diastolic Length 2C 9.0 cm LV Systolic Length 2C 8.1 cm LA Volume 55.8 cm??? - 58 / 22 - 52 cm??? LA Volume Index 28.9 cm???/m??? 16 - 28 cm???/m??? M-MODE Aortic Root Diameter MM 3.6 cm MV E Point Septal Separation 1.0 cm AV Cusp Separation MM 2.0 cm DOPPLER AV Peak Velocity 169.9 cm/s AV Peak Gradient 11.5 mmHg AI Peak Velocity 283.1 cm/s AI Peak Gradient 32.1 mmHg AI Pressure Half Time 495.0 ms MV Area PHT 2.9 cm??? Mitral E Point Velocity 81.4 cm/s Mitral A Point Velocity 114.3 cm/s Mitral E to A Ratio 0.7 MV Deceleration Time 264.7 ms MV E' Velocity 4.2 cm/s Mitral E to MV E' Ratio 19.4 TR Peak Velocity 257.5 cm/s TR Peak Gradient 26.5 mmHg Right Ventricular Systolic Press 38.0 mmHg FINDINGS Left Ventricle Left ventricular ejection fraction is estimated at 40-45 %. Left ventricular cavity size normal. Mildly increased septal wall thickness. Mildly decreased left ventricular ejection fraction. Right Ventricle Normal right ventricular size. Mild pulmonary hypertension. Right Atrium Normal right atrial size. Left Atrium Mildly increased left atrial area. Mitral Valve Structurally normal mitral valve. No mitral stenosis, regurgitation or prolapse. Aortic Valve Trileaflet aortic valve. Mild aortic regurgitation. Tricuspid Valve Structurally normal tricuspid valve. Mild tricuspid regurgitation. Pulmonic Valve Structurally normal pulmonic valve. No pulmonic regurgitation. Pericardium No pericardial effusion. Aorta Normal size aortic root and proximal ascending aorta. CONCLUSIONS Technically difficult study for interpretation Mildly impaired LV function with an EF between 40-45% Mild aortic insufficiency Previewed by: Dr. Yonathan Goodwin MD (Electronically Signed) Final Date: 22 May 2023 11:33
--- NOTE | 2023-05-22 12:59 | P.PN ---
Subjective Progress Note Date: 05/22/23 * 68-year-old gentleman with history of pneumonectomy/right lung presents to the emergency department with complains of fatigue, malaise, nausea and abdominal pain. Patient states his been having intractable postprandial vomiting, patient states symptom onset has been last 3 days before presentation. Kendra jamie did mention to the emergency department team that he had streaks of blood in the emesis as well. While in ER patient had extensive workup done including CT aorta abdomen which was negative for dissection however did show urinary retention and hydronephrosis, likely secondary to retention and Gordon catheter was placed. Patient was also given a GI cocktail in ED with minimal relief, patient continued to have recurrent nausea/vomiting. * Patient said he has not seen a doctor in 2 years, previous blood work reviewed did show normal creatinine function * Chest x-ray obtained in ER was within normal * Serum chemistry obtained in ER showed WBC of 10.9 hemoglobin 13.9 platelet count of 192, neutrophil count of 9.7, serum sodium 139, potassium 5.2, B UN 100 creatinine 12.54, lactate of 2.1, initial troponin of 0.171 * While in ER patient was given insulin, dextrose, sodium bicarbonate, 1 L fluid bolus, started on IV heparin drip * Secondary to critical illness and instability patient to be admitted to medical ICU with consultation from nephrology, cardiology and Urology * 05/22/2023 : Patient seen and evaluated bedside, patient is alert and oriented to person place and situation. Seen by nephrology Gordon catheter in place, acute kidney injury secondary to obstructive uropathy with significant improvement in renal function continue patient on fluid resuscitation cardiology following will plan cardiac catheterization during this hospitalization. Appreciate input from medical ICU as well continue patient on nitroglycerin drip, continue medical management REVIEW OF SYSTEMS: Nausea, vomiting, abdominal pain, chest pain fatigue, malaise RESOLVED 05/22 CONSTITUTIONAL: Nausea, vomiting, abdominal pain, chest pain fatigue, malaise HEENT: No recent visual problems or hearing problems. Denied any sore throat. CARDIOVASCULAR: No chest pain, orthopnea, PND, no palpitations, no syncope. PULMONARY: No shortness of breath, no cough, no hemoptysis. GASTROINTESTINAL: Nausea, vomiting, abdominal pain, chest pain fatigue, malaise NEUROLOGICAL: No headaches, no weakness, no numbness. HEMATOLOGICAL: Denies any bleeding or petechiae. GENITOURINARY: Denies any burning micturition, frequency, or urgency. MUSCULOSKELETAL/RHEUMATOLOGICAL: Denies any joint pain, swelling, or any muscle pain. ENDOCRINE: Denies any polyuria or polydipsia. PHYSICAL EXAMINATION: GENERAL: The patient is alert and oriented x3, improvement noted, not apparent toxic HEENT: Pupils are round and equally reacting to light. EOMI. CARDIOVASCULAR: S1 and S2 present. Heart rate improved within normal limits PULMONARY: Chest is clear to auscultation, no wheezing or crackles. ABDOMEN: Soft, nontender, nondistended, normoactive bowel sounds. MUSCULOSKELETAL: No joint swelling or deformity. EXTREMITIES: No cyanosis, clubbing, or pedal edema. NEUROLOGICAL: No focal deficit noted, alert to person place and situation Objective - Vital Signs Vital signs: Vital Signs Temp 98.5 F 05/22/23 12:00 Pulse 71 05/22/23 12:00 Resp 14 05/22/23 12:00 BP 140/75 05/22/23 12:00 Pulse Ox 95 05/22/23 12:00 FiO2 Intake & Output 05/21/23 05/22/23 05/22/23 18:59 06:59 18:59 Intake Total 2819.934 3528.854 1823.725 Output Total 4365 2945 960 Balance -1545.066 -0112.681 1029.725 Weight 72.575 kg 71.7 kg Intake: IV 2700 1275 750 Dextrose 5% in Water 1, 700 1200 300 000 ml @ 100 mls/hr IV . [id number] [facility] with Sodium Bicarb (1 Meq/ml) 150 ml Rx#:[id number] Sodium Chloride 0.9% 1, 2000 000 ml @ 999 mls/hr IV . Q1H1M ONE Rx#:[id number] Sodium Chloride 0.9% 1, 75 450 000 ml In Empty Bag 1 bag @ 75 mls/hr IV .[id number] [facility] Rx#:[id number] Intake, IV Titration 119.934 339.607 71.725 Amount Heparin Sod,Pork in 0.45% 61.834 187.132 NaCl 25,000 unit In 0.45 % NaCl 1 250ml.bag @ 12 UNITS/KG/HR 8.709 mls/hr IV .Q24H [facility] Rx#: [id number] Nitroglycerin-D5w Pmx 50 50.725 152.475 71.725 mg In Dextrose/Water 1 250ml.bag @ 15 MCG/MIN 4. 5 mls/hr IV .Q24H [facility] Rx# :[id number] Nitroglycerin-D5w Pmx 50 7.375 mg In Dextrose/Water 1 250ml.bag @ 5 MCG/MIN 1.5 mls/hr IV .Q24H ONE Rx#: [id number] Oral 1380 Output: Urine 4365 2945 960 Other: Voiding Method Indwelling Catheter Indwelling Catheter - Labs CBC & Chem 7: 05/22/23 03:30 05/22/23 03:30 Labs: Abnormal Lab Results - Last 24 Hours (Table) 05/21/23 05/21/23 05/21/23 Range/Units 09:48 13:08 13:08 RBC 3.79 L (4.30-5.90) m/uL Hgb 12.8 L (13.0-17.5) gm/dL Hct 36.1 L (39.0-53.0) % Lymphocytes # 0.3 L (1.0-4.8) k/uL PT 12.9 H (10.0-12.5) sec INR 1.2 H (<1.2) APTT (22.0-30.0) sec Sodium 146 H (137-145) mmol/L Chloride 113 H (98-107) mmol/L Carbon Dioxide 16 L (22-30) mmol/L BUN 80 H (9-20) mg/dL Creatinine 7.74 H* (0.66-1.25) mg/dL Glucose 181 H (74-99) mg/dL Creatine Kinase (55-170) U/L 05/21/23 05/21/23 05/22/23 Range/Units 13:08 16:39 03:30 RBC 3.55 L (4.30-5.90) m/uL Hgb 12.1 L (13.0-17.5) gm/dL Hct 33.2 L (39.0-53.0) % Lymphocytes # (1.0-4.8) k/uL PT (10.0-12.5) sec INR (<1.2) APTT 48.8 H (22.0-30.0) sec Sodium (137-145) mmol/L Chloride 111 H (98-107) mmol/L Carbon Dioxide 19 L (22-30) mmol/L BUN 67 H (9-20) mg/dL Creatinine 6.26 H (0.66-1.25) mg/dL Glucose 185 H (74-99) mg/dL Creatine Kinase (55-170) U/L 05/22/23 05/22/23 05/22/23 Range/Units 03:30 03:30 04:20 RBC (4.30-5.90) m/uL Hgb (13.0-17.5) gm/dL Hct (39.0-53.0) % Lymphocytes # (1.0-4.8) k/uL PT (10.0-12.5) sec INR (<1.2) APTT 50.3 H (22.0-30.0) sec Sodium (137-145) mmol/L Chloride (98-107) mmol/L Carbon Dioxide (22-30) mmol/L BUN 43 H (9-20) mg/dL Creatinine 3.06 H (0.66-1.25) mg/dL Glucose 199 H (74-99) mg/dL Creatine Kinase 915 H (55-170) U/L Assessment and Plan Assessment: Assessment and plan * Acute renal failure with uremic symptoms/obstructive uropathy * Acute metabolic encephalopathy improved * Acute hyperkalemia resolved * Metabolic acidosis resolved * Non-ST elevated WI * Hypertensive urgency * Acute urinary retention with hydronephrosis status post Gordon placement * Consultation obtained from medical ICU, cardiology, nephrology, urology * In regards to acute hyperkalemia, patient was given insulin, dextrose, sodium bicarbonate, calcium gluconate in follow-up potassium levels within normal limits * In regards to elevated troponin, cardiology consulted, echocardiogram ordered shows ejection fraction of 40-45%, on IV heparin, IV nitroglycerin drip * In regards to renal failure, metabolic acidosis continue to maintain Gordon catheter continue to monitor intake and output, nephrology consulted, , and if can improvement in renal function * In regards to urinary retention, maintain Gordon catheter, significant improvement in renal function * In regards to hypertensive urgency, on nitroglycerin drip plan to wean off * Patient remains critically ill, admitted to ICU * CODE STATUS is full code
[2023-05-22] MEDS ORDERED: PIPERACILLIN-TAZOBACTAM 3.375 GM in SODIUM CHLORIDE 0.9% 100 ML IVPB SCH (16:00)
[2023-05-22] MEDS ORDERED: CALCIUM CARBONATE 500 MG CHEWABLE PO PRN (20:48)
[2023-05-23] MEDS: HEPARIN SOD,PORK IN 0.45% NACL 25,000 UNIT in 0.45% NACL 1 250ML.BAG IV SCH ×2 (02:12→17:31)
[2023-05-23 04:44] LABS: HCT 31.7 % (39.0-53.0); HGB 11.5 gm/dL (13.0-17.5); MCH 33.7 pg (25.0-35.0); MCHC 36.3 g/dL (31.0-37.0); MCV 92.9 fL (80.0-100.0); Mean Platelet Volume 9.1; Platelet Count 142 k/uL (150-450); RBC 3.41 m/uL (4.30-5.90); RDW 12.3 % (11.5-15.5); WBC 6.2 k/uL (3.8-10.6)
[2023-05-23 05:02] LABS: African American GFR (CKD) 45 (>60 ml/min/1.73 sqM); Anion Gap 6 mmol/L; Blood Urea Nitrogen 23 mg/dL (9-20); Calcium 8.7 mg/dL (8.4-10.2); Carbon Dioxide 28 mmol/L (22-30); Chloride 103 mmol/L (98-107); Glucose 125 mg/dL (74-99); Non-African American GFR(CKD) 39 (>60 ml/min/1.73 sqM); Potassium 3.4 mmol/L (3.5-5.1); Sodium 137 mmol/L (137-145)
[2023-05-23] MEDS: SODIUM CHLORIDE 0.9% 1,000 ML in EMPTY BAG 1 BAG IV SCH (05:57)
[2023-05-23] MEDS: POTASSIUM CHLORIDE 10 MEQ in WATER FOR INJECTION 1 100ML.BAG IVPB SCH ×4 (06:53→13:21)
[2023-05-23] MEDS ORDERED: NITROGLYCERIN SL TABS 0.4 MG TAB SUBLINGUAL PRN (07:34)
[2023-05-23] MEDS ORDERED: ATORVASTATIN 80 MG TAB PO STA (07:34)
[2023-05-23] MEDS ORDERED: ALPRAZolam 0.25 MG TAB PO PRN (07:34)
[2023-05-23] MEDS ORDERED: ASPIRIN 325 MG TAB PO STA (07:34)
[2023-05-23] MEDS ORDERED: ALPRAZolam 0.5 MG TAB PO PRN (07:34)
--- NOTE | 2023-05-23 07:34 | P.PN ---
Subjective Progress Note Date: 05/23/23 PROGRESS NOTE The patient is a 68-year-old male with no prior documented history of cardiac disease who presented with an acute episode of chest discomfort, troponin elevation and was found to have acute renal injury. He has no further pain this morning. He is feeling better. His breathing is stable. He denies any dizziness or palpitations. He has no nausea or vomiting. May 23: The patient feels well this morning, he denies any chest discomfort, dizziness or palpitations. He continues to be in sinus mechanism. He continues to be on IV heparin and IV nitroglycerin. His urine is pink. He continues to have an indwelling Gordon catheter. His echocardiogram was technically difficult and sh owed an ejection fraction of 40-45% with mild AI but no clear reported segmental wall motion abnormality Medications: Aspirin, Lipitor 40 mg daily, IV heparin, IV nitroglycerin, metoprolol 25 mg twice a day PHYSICAL EXAMINATION: Blood pressure 147/80 heart rate 60 LUNGS: Clear to auscultation HEART: Regular rate and rhythm, S1, S2. No S3. No systolic murmur ABDOMEN: Soft, nontender, no organomegaly EXTREMETIES: No edema LAB: BUN 23, creatinine 1.74, potassium 3.4, hemoglobin 11.5, IMPRESSION: 1. Acute renal injury, improving, with obstructive uropathy 2. Acute myocardial infarction probable in the LAD distribution 3. Hyperkalemia resolved 4. Obstructive uropathy 5. Cardiomyopathy PLAN: 1. Continue IV heparin and IV nitroglycerin 2. Proceed with coronary angiography, the risks and the complications were discussed with the patient who is in agreement to proceed 3. Depending on his progress further recommendations will be made Objective - Vital Signs Vital signs: Vital Signs Temp 98.6 F 05/23/23 04:00 Pulse 62 05/23/23 06:00 Resp 11 L 05/23/23 06:00 BP 147/80 05/23/23 06:00 Pulse Ox 94 L 05/23/23 06:00 FiO2 Intake & Output 05/22/23 05/23/23 05/23/23 18:59 06:59 18:59 Intake Total 2651.725 1542.635 Output Total 1670 2280 Balance 981.725 -737.365 Weight 72.4 kg Intake: IV 1200 975 Dextrose 5% in Water 1, 300 000 ml @ 100 mls/hr IV . [id number] [facility] with Sodium Bicarb (1 Meq/ml) 150 ml Rx#:[id number] Sodium Chloride 0.9% 1, 900 975 000 ml In Empty Bag 1 bag @ 75 mls/hr IV .[id number] [facility] Rx#:[id number] Intake, IV Titration 71.725 367.635 Amount Heparin Sod,Pork in 0.45% 216.26 NaCl 25,000 unit In 0.45 % NaCl 1 250ml.bag @ 12 UNITS/KG/HR 8.709 mls/hr IV .Q24H [facility] Rx#: [id number] Nitroglycerin-D5w Pmx 50 71.725 151.375 mg In Dextrose/Water 1 250ml.bag @ 15 MCG/MIN 4. 5 mls/hr IV .Q24H [facility] Rx# :[id number] Oral 1380 200 Output: Urine 1670 2280 Other: Voiding Method Indwelling Catheter Indwelling Catheter - Labs CBC & Chem 7: 05/23/23 03:39 05/23/23 03:39 Labs: Abnormal Lab Results - Last 24 Hours (Table) 05/23/23 05/23/23 05/23/23 Range/Units 03:39 03:39 03:39 RBC 3.41 L (4.30-5.90) m/uL Hgb 11.5 L (13.0-17.5) gm/dL Hct 31.7 L (39.0-53.0) % Plt Count 142 L (150-450) k/uL APTT 56.1 H (22.0-30.0) sec Potassium 3.4 L (3.5-5.1) mmol/L BUN 23 H (9-20) mg/dL Creatinine 1.74 H (0.66-1.25) mg/dL Glucose 125 H (74-99) mg/dL Microbiology - Last 24 Hours (Table) 05/21/23 10:11 Urine Culture - Final Urine,Voided
--- NOTE | 2023-05-23 08:18 | P.PN ---
Subjective Progress Note Date: 05/23/23 68-year-old male with no significant past medical history, other than a pneumothorax many years ago. The patient presents with the emergency department on May 21, which chest pain, vomiting, and not feeling well for about 4 days according to his family members. He apparently was in bed for the last 4 days, with a possible viral syndrome. He apparently had pain in his chest and abdomen, nausea vomiting, and generally not feeling well, not eating or drinking, and feeling very weak. His primary care physician is Dr. Dey, but he has not see him on a regular basis. The patient takes no medications at home. The patient had very abnormal laboratory data, including a white count of 10.9, hemoglobin 13.9, hematocrit 38.8, and a normal platelet count. Sodium 139, potassium 6.7, chlorides 105, CO2 12, anion gap 22, BUN 90, creatinine 10.38. Glucose 170. Magnesium 2.4, troponin 0.644, and lipase 192. A thoracic CT was done to rule out dissection. It showed bilateral pleural effusions. The chest x-ray was normal. On 05/22/2023, the patient is awake and alert and communicating. His abdominal pain has subsided. He is still having some chest pain and for that reason the patient has been kept on nitroglycerin drip. Nitrol drip is running at 45 mcg/m. Is also on IV heparin. As mentioned earlier, he presented with chest pain and abdominal pain. He had obstructive uropathy and hydronephrosis. He also had an obstructing calculus. Gordon catheter was inserted and immediately and 4 L of urine output was produced. The urine output was bloody. Cultures are still pending for now. The ultrasound the kidneys showed no evidence of any hydronephrosis. The original CT a of the abdomen showed some hydronephrosis on the left. The creatinine continues to improve. The blood work from today shows a drop in the creatinine from as high as 12 down to 3.06. The patient remains on bicarb infusion. Serum bicarbonate of 28 with a sodium level is at 139.. His troponin peaked at extreme. His proBNP level is at 6620 and the patient is undergoing a echocardiogram today. Is on no pressors. His cardiac rhythm is sinus. The patient is going to need a cardiac catheterization and this will be done within the next 24-48 hours once the renal function stabilizes further. Neurologically, he is awake and alert and communicating. He is currently on oxygen at 2 L. His chest x-ray showed small bilateral pleural effusions. Cardiomegaly. On today's evaluation of 05/23/2023, the patient is free of any chest pain. The patient is still on IV heparin. The patient is also on nitroglycerin drip which is running at 30 g per minute. He is on room air oxygen. He is hemodynamic ally stable on no pressors. At the same time the patient's renal function continues to improve. He does have some minimal amount of hematuria and a Gordon catheter in place. He is still on IV fluids with normal saline at rate of 75 mL an hour. The bicarb infusion was discontinued yesterday. Based on today's blood work, the creatinine is down to 1.7 which is improved significantly compared to yesterday. He has a potassium level of 3.4 which is being replaced. Sodium levels of 137. BUN is at 23. Bicarb level is at 28. His nose at 6.2 with a hemoglobin of 11.5 and platelet count of 142. Cardiology evaluated the patient and the patient will likely go for a diagnostic cardiac catheterization today. He remains on aspirin. Remains on metoprolol 25 mg by mouth twice a day. Cardiac rhythm is sinus. Objective - Vital Signs Vital signs: Vital Signs Temp 98.6 F 05/23/23 04:00 Pulse 67 05/23/23 07:00 Resp 14 05/23/23 07:00 BP 144/77 05/23/23 07:00 Pulse Ox 95 05/23/23 08:09 FiO2 Intake & Output 05/22/23 05/23/23 05/23/23 18:59 06:59 18:59 Intake Total 2651.725 1542.635 Output Total 1670 2280 Balance 981.725 -737.365 Weight 72.4 kg Intake: IV 1200 975 Dextrose 5% in Water 1, 300 000 ml @ 100 mls/hr IV . [id number] [facility] with Sodium Bicarb (1 Meq/ml) 150 ml Rx#:[id number] Sodium Chloride 0.9% 1, 900 975 000 ml In Empty Bag 1 bag @ 75 mls/hr IV .[id number] [facility] Rx#:[id number] Intake, IV Titration 71.725 367.635 Amount Heparin Sod,Pork in 0.45% 216.26 NaCl 25,000 unit In 0.45 % NaCl 1 250ml.bag @ 12 UNITS/KG/HR 8.709 mls/hr IV .Q24H [facility] Rx#: [id number] Nitroglycerin-D5w Pmx 50 71.725 151.375 mg In Dextrose/Water 1 250ml.bag @ 15 MCG/MIN 4. 5 mls/hr IV .Q24H [facility] Rx# :[id number] Oral 1380 200 Output: Urine 1670 2280 Other: Voiding Method Indwelling Catheter Indwelling Catheter - Exam No acute distress, oriented 3. The patient is currently on RA oxygen. Saturations are 98%. HEENT examination is grossly unremarkable. Mucous membranes are dry. Neck supple. Full range of motion. No adenopathy thyromegaly or neck vein dis tention. Cardiovascular examination reveals regular rhythm rate. S1-S2 normal. No S3 or S4. No discernible murmur noted. Lungs reveal clear breath sounds. Breath sounds are equal bilaterally. No adventitious lung sounds including wheezes rhonchi or crackles. Abdomen soft with bowel sounds. No masses or tenderness. Extremities are intact. No cyanosis clubbing or edema. Skin is without rash or lesion. Neurologic examination is brief but nonfocal. - Labs CBC & Chem 7: 05/23/23 03:39 05/23/23 03:39 Labs: Abnormal Lab Results - Last 24 Hours (Table) 05/23/23 05/23/23 05/23/23 Range/Units 03:39 03:39 03:39 RBC 3.41 L (4.30-5.90) m/uL Hgb 11.5 L (13.0-17.5) gm/dL Hct 31.7 L (39.0-53.0) % Plt Count 142 L (150-450) k/uL APTT 56.1 H (22.0-30.0) sec Potassium 3.4 L (3.5-5.1) mmol/L BUN 23 H (9-20) mg/dL Creatinine 1.74 H (0.66-1.25) mg/dL Glucose 125 H (74-99) mg/dL Microbiology - Last 24 Hours (Table) 05/21/23 10:11 Urine Culture - Final Urine,Voided Assessment and Plan Plan: Acute kidney injury with associated hyperkalemia, and anion gap metabolic acidosis. The patient had obstructive uropathy, calculus that he has passed in to his bladder. His post Gordon catheter insertion and the relief of the obstruction. No hydronephrosis and the follow-up ultrasound the kidneys and the patient is producing adequate amount of urine output at this point in the renal function continues to improve. Creatinine today is down to 1.7 Non-anion gap metabolic acidosis, recovered Mild hematuria could be related to kidney stones and the utilization of IV heparin, and the patient is also on aspirin BPH Chest pain, acute non-ST segment elevation myocardial infarction, currently on nitroglycerin drip and IV heparin, cardiac catheterization is to follow today and the patient's free of any chest pain Emergency old anteroseptal myocardial infarction based on Q waves seen on the EKG at the time of admission Nausea and vomiting, with dehydration. Recovered Hypertensive urgency, secondary to acute renal failure , recovered Plan: Continue normal saline at the rate of 75 mL an hour Continue nitroglycerin drip and titrate based on his chest pain, currently free of any chest pain Echocardiogram was done yesterday and the patient has a mild impairment of LV function with an ejection fraction of 40-45%, mild aortic insufficiency Cardiac catheterization today and the patient is currently nothing by mouth Monitor renal function Check PSA Urine cultures have been sent and the patient is currently on no antibiotics Continue aspirin Continue metoprolol 25 mg by mouth twice a day oxygen onn RA We'll continue to follow.
[2023-05-23] MEDS: NITROGLYCERIN-D5W PMX 50 MG in DEXTROSE/WATER 1 250ML.BAG IV SCH (08:25)
[2023-05-23] MEDS: ATORVASTATIN 40 MG TAB PO SCH (09:24)
[2023-05-23] MEDS: ASPIRIN 81 MG PO SCH (09:24)
[2023-05-23] MEDS: METOPROLOL TARTRATE 25 MG TAB PO SCH ×2 (09:24→19:57)
[2023-05-23] MEDS ORDERED: fentaNYL (PF) 50 MCG/ML 2 ML AMP ONE (09:33)
[2023-05-23] MEDS ORDERED: LIDOCAINE 1% INJ 10MG/ML (20 ML MDV) ONE (09:34)
[2023-05-23] MEDS ORDERED: IV FLUID CONTINUATION 1,000 ML IV ONE (09:40)
[2023-05-23] MEDS ORDERED: VERAPAMIL 2.5 MG/ML 2 ML AMP ONE ×2 (09:50→10:12)
[2023-05-23] MEDS ORDERED: LIDOCAINE 1% INJ 10MG/ML (20 ML MDV) SQ ONE (09:58)
[2023-05-23] MEDS ORDERED: MIDAZOLAM 2 MG/2 ML VIAL IVP ONE (09:59)
[2023-05-23] MEDS ORDERED: fentaNYL (PF) 50 MCG/ML 2 ML AMP IVP ONE (09:59)
[2023-05-23] MEDS ORDERED: VERAPAMIL SYRINGE (5 MG/10 ML) INTRAARTER ONE ×3 (10:01→10:14)
[2023-05-23] MEDS ORDERED: HEPARIN SODIUM 1,000 UN/ML (10ML VL) ONE (10:02)
[2023-05-23] MEDS ORDERED: HEPARIN SODIUM 1,000 UN/ML (10ML VL) IV ONE (10:04)
[2023-05-23] MEDS ORDERED: IOPAMIDOL-370 100ML BTL INJ ONE (10:30)
--- NOTE | 2023-05-23 12:25 | P.PN ---
Subjective Progress Note Date: 05/23/23 * 68-year-old gentleman with history of pneumonectomy/right lung presents to the emergency department with complains of fatigue, malaise, nausea and abdominal pain. Patient states his been having intractable postprandial vomiting, patient states symptom onset has been last 3 days before presentation. Kendra jamie did mention to the emergency department team that he had streaks of blood in the emesis as well. While in ER patient had extensive workup done including CT aorta abdomen which was negative for dissection however did show urinary retention and hydronephrosis, likely secondary to retention and Gordon catheter was placed. Patient was also given a GI cocktail in ED with minimal relief, patient continued to have recurrent nausea/vomiting. * Patient said he has not seen a doctor in 2 years, previous blood work reviewed did show normal creatinine function * Chest x-ray obtained in ER was within normal * Serum chemistry obtained in ER showed WBC of 10.9 hemoglobin 13.9 platelet count of 192, neutrophil count of 9.7, serum sodium 139, potassium 5.2, B UN 100 creatinine 12.54, lactate of 2.1, initial troponin of 0.171 * While in ER patient was given insulin, dextrose, sodium bicarbonate, 1 L fluid bolus, started on IV heparin drip * Secondary to critical illness and instability patient to be admitted to medical ICU with consultation from nephrology, cardiology and Urology * 05/22/2023 : Patient seen and evaluated bedside, patient is alert and oriented to person place and situation. Seen by nephrology Gordon catheter in place, acute kidney injury secondary to obstructive uropathy with significant improvement in renal function continue patient on fluid resuscitation cardiology following will plan cardiac catheterization during this hospitalization. Appreciate input from medical ICU as well continue patient on nitroglycerin drip, continue medical management * 05/23/2023: Patient seen and evaluated and bedside, patient has multi-vessel coronary artery disease, seen after cardiac catheterization, renal function improving patient has been on nitroglycerin drip that has been weaned off. Continue current medications including aspirin, Lipitor, metoprolol further instructions from cardiology continue to monitor renal function, cardiac surgery consulted REVIEW OF SYSTEMS: Nausea, vomiting, abdominal pain, chest pain fatigue, malaise RESOLVED 05/22 CONSTITUTIONAL: Nausea, vomiting, abdominal pain, chest pain fatigue, malaise HEENT: No recent visual problems or hearing problems. Denied any sore throat. CARDIOVASCULAR: No chest pain, orthopnea, PND, no palpitations, no syncope. PULMONARY: No shortness of breath, no cough, no hemoptysis. GASTROINTESTINAL: Nausea, vomiting, abdominal pain, chest pain fatigue, malaise NEUROLOGICAL: No headaches, no weakness, no numbness. HEMATOLOGICAL: Denies any bleeding or petechiae. GENITOURINARY: Denies any burning micturition, frequency, or urgency. MUSCULOSKELETAL/RHEUMATOLOGICAL: Denies any joint pain, swelling, or any muscle pain. ENDOCRINE: Denies any polyuria or polydipsia. PHYSICAL EXAMINATION: GENERAL: The patient is alert and oriented x3, improvement noted, not apparent toxic HEENT: Pupils are round and equally reacting to light. EOMI. CARDIOVASCULAR: S1 and S2 present. Rate within normal limits, right radial access post cardiac catheterization PULMONARY: Chest is clear to auscultation, no wheezing or crackles. ABDOMEN: Soft, nontender, nondistended, normoactive bowel sounds. MUSCULOSKELETAL: No joint swelling or deformity. EXTREMITIES: No cyanosis, clubbing, or pedal edema. NEUROLOGICAL: No focal deficit noted, alert to person place and situation Objective - Vital Signs Vital signs: Vital Signs Temp 98.6 F 05/23/23 04:00 Pulse 67 05/23/23 07:00 Resp 14 05/23/23 07:00 BP 144/77 05/23/23 07:00 Pulse Ox 95 05/23/23 08:09 FiO2 Intake & Output 05/22/23 05/23/23 05/23/23 18:59 06:59 18:59 Intake Total 2651.725 1542.635 225.164 Output Total 1670 2280 Balance 981.725 -737.365 225.164 Weight 72.4 kg Intake: IV 1200 975 125 Dextrose 5% in Water 1, 300 000 ml @ 100 mls/hr IV . [id number] [facility] with Sodium Bicarb (1 Meq/ml) 150 ml Rx#:[id number] Sodium Chloride 0.9% 1, 900 975 000 ml In Empty Bag 1 bag @ 75 mls/hr IV .[id number] [facility] Rx#:[id number] Intake, IV Titration 71.725 367.635 100.164 Amount Heparin Sod,Pork in 0.45% 216.26 74.514 NaCl 25,000 unit In 0.45 % NaCl 1 250ml.bag @ 12 UNITS/KG/HR 8.709 mls/hr IV .Q24H [facility] Rx#: [id number] Nitroglycerin-D5w Pmx 50 71.725 151.375 25.65 mg In Dextrose/Water 1 250ml.bag @ 15 MCG/MIN 4. 5 mls/hr IV .Q24H [facility] Rx# :[id number] Oral 1380 200 Output: Urine 1670 2280 Other: Voiding Method Indwelling Catheter Indwelling Catheter - Labs CBC & Chem 7: 05/23/23 03:39 05/23/23 03:39 Labs: Abnormal Lab Results - Last 24 Hours (Table) 05/23/23 05/23/23 05/23/23 Range/Units 03:39 03:39 03:39 RBC 3.41 L (4.30-5.90) m/uL Hgb 11.5 L (13.0-17.5) gm/dL Hct 31.7 L (39.0-53.0) % Plt Count 142 L (150-450) k/uL APTT 56.1 H (22.0-30.0) sec Potassium 3.4 L (3.5-5.1) mmol/L BUN 23 H (9-20) mg/dL Creatinine 1.74 H (0.66-1.25) mg/dL Glucose 125 H (74-99) mg/dL Microbiology - Last 24 Hours (Table) 05/21/23 10:11 Urine Culture - Final Urine,Voided Assessment and Plan Assessment: Assessment and plan * Acute renal failure with uremic symptoms/obstructive uropathy * Acute metabolic encephalopathy improved * Acute hyperkalemia resolved * Metabolic acidosis resolved * Non-ST elevated SD with multivessel coronary artery disease * Hypertensive urgency * Acute urinary retention with hydronephrosis status post Gordon placement * Consultation obtained from medical ICU, cardiology, nephrology, urology * In regards to acute hyperkalemia, patient was given insulin, dextrose, sodium bicarbonate, calcium gluconate in follow-up potassium levels within normal limits * In regards to elevated troponin, cardiology consulted, echocardiogram ordered shows ejection fraction of 40-45%, patient was on IV heparin, IV nitroglycerin drip that is weaned off, status post cardiac catheterization multivessel coronary artery disease noted, cardiac surgery consulted * In regards to renal failure, metabolic acidosis continue to maintain Gordon catheter continue to monitor intake and output, nephrology consulted, , and if can improvement in renal function * In regards to urinary retention, maintain Gordon catheter, significant improve ment in renal function * In regards to hypertensive urgency, on nitroglycerin drip plan to wean ed off * Patient remains critically ill, admitted to ICU * CODE STATUS is full code Time with Patient: Greater than 30
--- NOTE | 2023-05-23 13:22 | P.GSCN ---
History of Present Illness Consult date: 05/23/23 Reason for Consult: Coronary artery disease Requesting physician: Gen Stiles History of present illness: This is a 68-year-old gentleman who follows with Dr. Dey outpatient for primary care, although admittedly he does not see him on a very regular basis. He really has no significant previous medical history except fatty liver disease, right-sided traumatic lung injury in his 20s, testicular cancer, and previous tobacco dependence with cessation many years ago, and has not been on any medical therapy at home. Patient states he had severe sharp chest pain along with abdominal pain and vomiting for 3-4 days. He thought he had food poisoning but when the pain would not go away he finally presented to [facility] emergency room for evaluation and treatment. Chest x-ray was unremarkable, thoracic CT was unremarkable, EKG demonstrated sinus rhythm. Lab work revealed WBC 10.9, hemoglobin 13.9, creatinine 7.74, CO2 16, lactic acid 2.1, BNP 6620, initial troponin 0.17 which did elevate to 16. Patient was ruled in for non- STEMI. He was also noted to have some urinary retention and a Gordon catheter was placed. He was admitted for evaluation and treatment with consultation placed to cardiology, nephrology, and urology. Echocardiogram was completed demonstrating reduced left ventricular systolic function with EF 40-45%, mild aortic insufficiency as well as mild tricuspid regurgitation. He was recommended to undergo heart catheterization which was completed today and which demonstrated significant triple vessel coronary artery disease with proximal LAD stenosis 100%, circumflex stenosis 80%, RCA stenosis 80%. Due to these findings consultations placed to cardiothoracic surgery for surgical revascularization recommendations. Review of Systems Of systems was completed and was negative except as noted - Cardiovascular Reports as per HPI, Reports chest pain - Gastrointestinal Reports as per HPI, Reports nausea, Reports vomiting Past Medical History Past Medical History: Coronary Artery Disease (CAD), Cancer, Hypertension, Liver Disease Additional Past Medical History / Comment(s): Lung injury with subsequent right- sided pneumothorax; testicular cancer; fatty liver disease History of Any Multi-Drug Resistant Organisms: None Reported Past Surgical History: No Surgical Hx Reported Past Psychological History: No Psychological Hx Reported Smoking Status: Former smoker Past Alcohol Use History: Occasional Past Drug Use History: None Reported - Past Family History Father Family Medical History: No Reported History Mother Family Medical History: No Reported History Medications and Allergies Home Medications Medication Instructions Recorded Confirmed Type No Known Home Medications 05/21/23 05/21/23 History Allergies Allergy/AdvReac Type Severity Reaction Status Date / Time No Known Allergies Allergy Verified 05/21/23 10:53 Surgical - Exam Vital Signs Temp Pulse Resp BP Pulse Ox 97.8 F 93 20 208/90 98 05/21/23 01:31 05/21/23 01:31 05/21/23 01:31 05/21/23 01:31 05/21/23 01:31 CONSTITUTIONAL: Awake and alert, appears comfortable, cooperative, well- developed, well-nourished, no pain, no acute distress EYES: Pupils equal, round, reactive to light, normal ocular movement ENT: Moist mucous membranes without oral lesions present NECK: No masses, no bruits, trachea midline RESPIRATORY: Lungs sounds clear to auscultation bilaterally. Respirations even, nonlabored. Currently on room air with oxygen saturation 97%. Strong cough. No chest wall deformities. No clubbing or cyanosis present CARDIOVASCULAR: S1, S2 present. Regular rate and rhythm, sinus rhythm on telemetry. Palpable peripheral pulses bilaterally. No edema present. No calf pain or tenderness noted. No significant lower extremity varicosities noted GASTROINTESTINAL: Abdomen soft, nontender, nondistended without masses or organomegaly noted. There is no rebound or guarding present. Active bowel sounds present 4 quadrants. GENITOURINARY: Deferred INTEGUMENTARY: Skin is warm and dry with evidence of good perfusion. NEUROLOGIC: Cranial nerves II through XII intact, normal coordination, no obvious motor or sensory deficits, speech is normal MUSKULOSKELETAL: Able to move all extremities, strength equal bilaterally, normal posture PSYCHIATRIC: Alert and oriented to person place and time, appropriate affect, intact judgment and insight Results - Labs 05/23/23 03:39 05/23/23 03:39 Abnormal Lab Results - Last 24 Hours (Table) 05/23/23 05/23/23 05/23/23 Range/Units 03:39 03:39 03:39 RBC 3.41 L (4.30-5.90) m/uL Hgb 11.5 L (13.0-17.5) gm/dL Hct 31.7 L (39.0-53.0) % Plt Count 142 L (150-450) k/uL APTT 56.1 H (22.0-30.0) sec Potassium 3.4 L (3.5-5.1) mmol/L BUN 23 H (9-20) mg/dL Creatinine 1.74 H (0.66-1.25) mg/dL Glucose 125 H (74-99) mg/dL Microbiology - Last 24 Hours (Table) 05/21/23 10:11 Urine Culture - Final Urine,Voided Diabetes panel 05/23/23 Range/Units 03:39 Sodium 137 (137-145) mmol/L Potassium 3.4 L (3.5-5.1) mmol/L Chloride 103 (98-107) mmol/L Carbon Dioxide 28 (22-30) mmol/L BUN 23 H (9-20) mg/dL Creatinine 1.74 H (0.66-1.25) mg/dL Glucose 125 H (74-99) mg/dL Calcium 8.7 (8.4-10.2) mg/dL Calcium panel 05/23/23 Range/Units 03:39 Calcium 8.7 (8.4-10.2) mg/dL Pituitary panel 05/23/23 Range/Units 03:39 Sodium 137 (137-145) mmol/L Potassium 3.4 L (3.5-5.1) mmol/L Chloride 103 (98-107) mmol/L Carbon Dioxide 28 (22-30) mmol/L BUN 23 H (9-20) mg/dL Creatinine 1.74 H (0.66-1.25) mg/dL Glucose 125 H (74-99) mg/dL Calcium 8.7 (8.4-10.2) mg/dL Adrenal panel 05/23/23 Range/Units 03:39 Sodium 137 (137-145) mmol/L Potassium 3.4 L (3.5-5.1) mmol/L Chloride 103 (98-107) mmol/L Carbon Dioxide 28 (22-30) mmol/L BUN 23 H (9-20) mg/dL Creatinine 1.74 H (0.66-1.25) mg/dL Glucose 125 H (74-99) mg/dL Calcium 8.7 (8.4-10.2) mg/dL - Imaging Chest x-ray: report reviewed, image reviewed CT scan - chest: report reviewed, image reviewed EKG: image reviewed Assessment and Plan Assessment: Chest pain, non-STEMI this admission Abdominal pain with nausea and vomiting Acute kidney injury Obstructive uropathy status post Gordon catheter placement Hypertension History of fatty liver disease History of right-sided traumatic lung injury in his 20s History of testicular cancer Previous tobacco dependence with cessation many years ago Plan: The patient was seen and examined at the bedside with family present. Chart/diagnostics reviewed. The case will be discussed in detail with Dr. Waller. The usual perioperative course of open heart surgery was discussed in detail with the patient and his family, risks and benefits were reviewed, all questions were answered. The patient does consent to surgery if that is deemed to be the appropriate course. Preoperative testing was initiated, once completed will calculate STS risk score and discuss with the patient. Once ambulatory will complete 5 m walk test. Recommend maximizing medical therapy with aspirin, statin, beta adelaida therapy. Increase activity as tolerated. Medical management of other comorbidities per internal medicine, cardiology, nephrology, urology, pulmonology. Thank you Dr. Stiles for this consult. We will continue to follow along with you and make further recommendations as appropriate. I have personally seen and examined the patient, performed the documentation and the assessment and plan as written. Number of minutes spent on the visit: 30. CECILIO Engel . Attending Addendum: Pt seen and evaluated with COMMUNICATIONS MANAGER above. Agree with her assessment and plan. This is a 68 year-old M with anginal symptoms since this summer who presents with a 4 days history of worsening angina. He was noted to be in urinary retention with hydronephrosis due to bladder outlet obstruction from prostate issues. Gordon catheter has been placed and Cr is trending down. He also is diagnosed with NSTEMI and cardiac cath reveals CTA LAD with significant Cx disease and 70-80% stenosis of his RCA. I do think that he would benefit from CABG but timing is questionable given his urinary obstruction and lack of compliance with goal directed medical therapy. Will discuss with cardiology regarding timing of surgery. Time with Patient: Greater than 30
--- NOTE | 2023-05-23 14:20 | US ---
EXAMINATION TYPE: US carotid duplex BILAT DATE OF EXAM: 05/23/2023 COMPARISON: NONE CLINICAL INDICATION: Male, 68 years old with history of preop cardiac surgery; TECHNIQUE: Carotid duplex ultrasound examination. Indirect Doppler criteria was utilized. FINDINGS: Quality Tester notes: Exam done portable in ICU EXAM MEASUREMENTS: RIGHT: Peak Systolic Velocity (PSV) cm/sec ----- Right CCA: 61.5 ----- Right ICA: 114.7 ----- Right ECA: 110.6 ICA/CCA ratio: 1.9 RIGHT: End Diastole cm/sec ----- Right CCA: 10.6 ----- Right ICA: 31.8 ----- Right ECA: 9.5 LEFT: Peak Systolic Velocity (PSV) cm/sec ----- Left CCA: 72.8 ----- Left ICA: 68.6 ----- Left ECA: 111.3 ICA/CCA ratio: 0.9 LEFT: End Diastole cm/sec ----- Left CCA: 12.5 ----- Left ICA: 25.0 ----- Left ECA: 0.0 VERTEBRALS (direction of flow): Right Vertebral: Antegrade Left Vertebral: Antegrade Rhythm: Normal Quality Tester notes: No significant stenosis IMPRESSION: No hemodynamically significant internal carotid artery stenosis on either side. Criteria for Assigning % of Stenosis / Diameter reduction (Estimation based on the indirect measurements of the internal carotid artery velocities (ICA PSV). 1. Normal (no stenosis)=ICA PSV < 125 cm/s: ratio < 2.0: ICA EDV<40 cm/s. 2. Less than 50% stenosis=ICA PSV < 125 cm/s: ratio < 2.0: ICA EDV<40 cm/s. 3. 50 to 69% stenosis=ICA PSV of 125 to 230 cm/s: ration 2.0 ? 4.0: ICA EDV 40-100 cm/s. 4. Greater than 70% stenosis to near occlusion= ICA PSV > 230 cm/s: ratio > 4.0: ICA EDV > 100 cm/s. 5. Near occlusion= ICA PSV velocities may be low or undetectable: variable ratio and ICA EDV. 6. Total occlusion=unable to detect flow.
--- NOTE | 2023-05-23 14:36 | US ---
EXAMINATION TYPE: Pre-Operative Non-Invasive Evaluation of the hand for Potential Radial Artery [address] [facility], Measurements only Exam done portable in ICU DATE OF EXAM: 05/23/2023 1:24 PM CLINICAL INDICATION: Male, 68 years old with history of measurements only; SIDE PERFORMED: Left TECHNIQUE: Radial artery is measured utilizing real time linear array sonography. Duplex Findings: Radial Artery: Color flow seen Measurements in mm, transverse view: Left Radial: Proximal portion not seen due to IV, prox/mid: 3.9 x 4.2 mm Mid: 4.2 x 4.2 mm Distal: 3.9 x 4.4 mm IMPRESSION: 1. Bilateral GSV measurements listed above. 2. Performing surgeon to determine viability as conduit.
--- NOTE | 2023-05-23 14:46 | US ---
EXAMINATION TYPE: US vein mapping BILAT DATE OF EXAM: 05/23/2023 1:24 PM Exam done portable in ICU COMPARISON: NONE CLINICAL INDICATION: Male, 68 years old with history of preop cardiac surgery; SIDE PERFORMED: Bilateral TECHNIQUE: Lower extremity saphenous vein is examined and measured utilizing real time linear array sonography. DUPLEX FINDINGS: Greater Saphenous: Color flow seen Lesser Saphenous: Color flow seen Measurements in mm: Right Greater Saphenous: Groin: 3.9 x 3.9 mm High Thigh: 3.0 x 2.8 mm Mid Thigh: 3.3 x 2.9 mm Above Knee: 3.0 x 2.2 mm Knee: 2.7 x 2.3 mm Below Knee: 2.9 x 2.4 mm Mid Calf: 3.6 x 3.4 mm At Ankle: 3.4 x 2.9 mm Left Greater Saphenous: Groin: 4.3 x 4.9 mm High Thigh: 4.8 x 4.5 mm Mid Thigh: 2.6 x 2.2 mm Above Knee: 2.4 x 2.1 mm Knee: 2.5 x 2.0 mm Below Knee: 2.9 x 2.6 mm Mid Calf: 2.0 x 1.9 mm At Ankle: 2.7 x 2.2 mm IMPRESSION: 1. Bilateral GSV measurements listed above. 2. Performing surgeon to determine viability as conduit.
[2023-05-23] MEDS ORDERED: RX INFO: IV CONTRAST WAS GIVEN 1 EACH MISC MISCELLANE PRN (15:17)
[2023-05-23] MEDS ORDERED: SODIUM CHLORIDE 0.9% 1,000 ML IV SCH (15:30)
[2023-05-23] MEDS ORDERED: HEPARIN SODIUM,PORCINE 5,000 UNIT/ML 1 ML VIAL SQ SCH (16:00)
--- NOTE | 2023-05-23 16:05 | US ---
EXAMINATION TYPE: US arterial LE single level DATE OF EXAM: 05/23/2023 3:38 PM CLINICAL INDICATION: Male, 68 years old with history of Ankle Brachial Index (GEORGE); PreOP. Right radi al heart cath approach today. Right Brachial deferred due to heart cath. History of: Smoker: No Hypertension: Yes Diabetic: No Hyperlipidemia: No TIA/CVA: No Previous Vascular Surgery: No CAD: Yes Vascular Ulcers: No Claudication: No Gangrene: No Doppler Waveforms: Right: Biphasic Left: Biphasic Right Brachial Pressure: Deferred Left Brachial Pressure: 129 Ankle-Brachial Indices: Right: 1.3 Left: 1.3 IMPRESSION: Ankle-brachial indices within normal limits bilaterally.
[2023-05-23 16:38] LABS: Basophils % (A) 0 %; Eosinophils # (A) 0.1 k/uL (0-0.7); Eosinophils % (A) 2 %; HCT 34.4 % (39.0-53.0); HGB 12.2 gm/dL (13.0-17.5); Lymphocytes # (A) 0.5 k/uL (1.0-4.8); Lymphocytes % (A) 8 %; MCH 32.6 pg (25.0-35.0); MCHC 35.4 g/dL (31.0-37.0); MCV 92.1 fL (80.0-100.0); Monocytes # (A) 0.4 k/uL (0-1.0); Monocytes % (A) 6 %; Neutrophils # (A) 4.9 k/uL (1.3-7.7); Neutrophils % (A) 82 %; Platelet Count 136 k/uL (150-450); RBC 3.74 m/uL (4.30-5.90); RDW 12.3 % (11.5-15.5)
[2023-05-23 16:48] LABS: Partial Thromboplastin Time 25.6 sec (22.0-30.0); Prothrombin Time 11.3 sec (10.0-12.5)
--- NOTE | 2023-05-23 17:48 | P.CARDCATH ---
Date of Procedure: 05/23/23 Description of Procedure: DIAGNOSTIC CORONARY ANGIOGRAPHY and LEFT HEART CATH REPORT PROCEDURES PERFORMED: 1. Left heart catheterization 2. Selective coronary angiography 3. Moderate concious sedation 28 mins 4. Right radial access INDICATION: NSTEMI 68-year-old male presented to the hospital with substernal chest pressure. His initial ECG showed Q waves in anteroseptal leads. His troponin was significantly elevated and trended up to 15. His echocardiogram showed an EF of 50% with anterolateral wall motion abnormality. Patient also had significant CHASIDY due to post obstructive uropathy therefore cardiac catheterization was started initially. He was stabilized on IV nitroglycerin and IV heparin drip. He has not reported any chest pains thereafter. CONSENT: I have discussed the risks, benefits and alternative therapies for the above-mentioned procedure, sedation/analgesia and necessary blood product administration (if indicated, as they pertain to this patient). The patient has indicated understanding and acceptance of the risks and procedures discussed. PROCEDURE: After the risks, benefits and alternatives of the above mentioned procedure explained in detail with the patient, informed consent was obtained. Patient was taken to the catheterization lab and prepped and draped in usual sterile fashion. 1% lidocaine was infilterated over the right radial artery. A 6-[place] sheath was placed in the right radial artery using modified Seldinger technique. The sheath was flushed and 5 mg verapamil was administered intra- aterially. J tipped wire was advanced under fluroscopic guidance. Once the wire tip reached aortic root 3000 units of IV heparin was given. Patient was on heparin drip before cath and was turned off 50 mins before cath. Over the wire 5 [place] JL4 diagnostic catheter was advanced. Wire was removed, catheter was flushed and manupulated under fluroscopy to selectively engaged the right coronary ostium. Right coronary angiography was performed in different angiographic projections. The catheter was manipulated to engage the left coronary ostium but could not was not successful. Catheter was exchanged for a Berenice catheter over wire. Catheter was flushed and manipulated to engage the left coronary ostium. Left coronary system angiogram was performed. This catheter was exchanged for a JR4 diagnostic catheter over the wire. The catheter was flushed and manipulated to cross the aortic valve. LV pressures were obtained. Pullback was performed across aortic valve. Catheter was removed over the wire. Radial sheath was flushed. The right radial sheath was removed and a TR band was placed with excellent patent hemostasis was achieved. The patient tolerated the procedure well. Patient was transported back to the post catheterization holding area in stable condition. Angiographic images were reviewed in detail. Conscious Sedation: Patient's ECG, heart rate, blood pressure, pulse oxymetry was monitored throughout the duration of procedure under the direct supervision. [1] mg Versed and [50] mg Fentanyl were used for induction of moderate concious sedation. Total duration of [28] minutes HEMODYNAMICS: Aortic Pressure: 140/60mmHg. LV pressure: 143/10 mmHg. LVEDP 24 mmHg. No gradient across aortic valve. SELECTIVE CORONARY ARTERIOGRAPHY: LEFT MAIN: The left main is a large caliber vessel which bifurcates into the LAD and circumflex. 30-40% proximal LM disease. LEFT ANTERIOR DESCENDING CORONARY ARTERY: Proximal LAD has diffuse calcific 70- 80% disease. Just after giving large diagonal branch it is 100% blocked. It is filled via septal collaterals from RCA and left to left collaterals. Diagonal is large and bifurcates very early. Diagonal has long diffuse calcific 80% disease in sanchez 1,1,1 fashion. LEFT CIRCUMFLEX CORONARY ARTERY: Non dominant. Left circumflex is a moderate caliber vessel. Gives small OM1 and small but long OM2. Ostial OM2 has 50% disease. LCx after OM2 has long diffuse calcific 70% disease. LCx continues to become OM3 which has diffuse long 30-40% disease in proximal part. It has medium size and good target. RIGHT CORONARY ARTERY: The right coronary artery is a large caliber vessel which gives off a PDA and PLV branch and is the dominant vessel. Distal part of proximal RCA has 80% stenosis and distal part of mid RCA has 80% stenosis. Proximal PDA has 40-50% disease. It is a good target. IMPRESSION: 1. 100% LAD stenosis with right to left septal and left to left collaterals 2. 80% Diagonal disease 3. 70% LCx disease 4. 80% sequential disease in RCA 5. Elevated LVEDP PLAN: Surgical consult Routine postop right radial cath care 75cc/hr for 4 hr. Performing Physician Gen Stiles MD
[2023-05-23] MEDS ORDERED: Potassium Replacement Protocol 1 EACH MISC MISCELLANE PRN (18:53)
[2023-05-23] MEDS ORDERED: POTASSIUM CHLORIDE ER 20 MEQ TAB.ER PO SCH (21:00)
[2023-05-24] MEDS: HEPARIN SODIUM 1,000 UN/ML (10ML VL) IV PRN (01:43)
[2023-05-24 04:02] LABS: Hepatitis A Antibody IgM Nonreactive; Hepatitis B Core IgM Nonreactive; Hepatitis B Surface Antigen Nonreactive; Hepatitis C IgG Antibody Nonreactive
[2023-05-24 04:59] LABS: Basophils % (A) 0 %; Eosinophils # (A) 0.3 k/uL (0-0.7); Eosinophils % (A) 4 %; HCT 35.8 % (39.0-53.0); HGB 12.8 gm/dL (13.0-17.5); Lymphocytes # (A) 0.9 k/uL (1.0-4.8); Lymphocytes % (A) 13 %; MCH 33.4 pg (25.0-35.0); MCHC 35.9 g/dL (31.0-37.0); Mean Platelet Volume 9.5; Monocytes # (A) 0.5 k/uL (0-1.0); Monocytes % (A) 7 %; Neutrophils # (A) 5.4 k/uL (1.3-7.7); Neutrophils % (A) 75 %; Platelet Count 144 k/uL (150-450); RBC 3.85 m/uL (4.30-5.90); RDW 12.6 % (11.5-15.5); WBC 7.1 k/uL (3.8-10.6)
[2023-05-24 05:07] LABS: African American GFR (CKD) 60 (>60 ml/min/1.73 sqM); Anion Gap 7 mmol/L; Blood Urea Nitrogen 22 mg/dL (9-20); Calcium 8.7 mg/dL (8.4-10.2); Carbon Dioxide 23 mmol/L (22-30); Chloride 106 mmol/L (98-107); Glucose 132 mg/dL (74-99); Non-African American GFR(CKD) 52 (>60 ml/min/1.73 sqM); Sodium 136 mmol/L (137-145)
[2023-05-24 05:29] LABS: INR 1.1 (<1.2); Prothrombin Time 11.6 sec (10.0-12.5)
[2023-05-24] MEDS ORDERED: HEPARIN SODIUM,PORCINE (1 ML) 2,500 UNIT in SODIUM CHLORIDE 0.9% 250 ML IRRIGATION PRN (07:00)
[2023-05-24] MEDS ORDERED: HEPARIN SODIUM,PORCINE 10,000 UNIT in SODIUM CHLORIDE 0.9% 1,000 ML IRRIGATION PRN (07:00)
--- NOTE | 2023-05-24 07:17 | P.PN ---
Subjective Progress Note Date: 05/24/23 PROGRESS NOTE The patient is a 68-year-old male with no prior documented history of cardiac disease who presented with an acute episode of chest discomfort, troponin elevation and was found to have acute renal injury. He has no further pain this morning. He is feeling better. His breathing is stable. He denies any dizziness or palpitations. He has no nausea or vomiting. May 23: The patient feels well this morning, he denies any chest discomfort, dizziness or palpitations. He continues to be in sinus mechanism. He continues to be on IV heparin and IV nitroglycerin. His urine is pink. He continues to have an indwelling Gordon catheter. His echocardiogram was technically difficult and sh owed an ejection fraction of 40-45% with mild AI but no clear reported segmental wall motion abnormality May 24: The patient is feeling well this morning, denies any chest discomfort, dizziness or palpitations. He underwent cardiac catheterization yesterday and was found to have severe triple-vessel disease. He was evaluated at the surgical team for CABG. He is back on IV heparin continues to be in sinus mechanism. His blood pressure has been elevated at times. There is no evidence of malignant arrhythmia. After the ultrasound revealed no evidence of significant obstructive disease. Medications: Aspirin, Lipitor 40 mg daily, IV heparin, metoprolol 25 mg twice a day PHYSICAL EXAMINATION: Blood pressure 165/80 heart rate 88 LUNGS: Clear to auscultation HEART: Regular rate and rhythm, S1, S2. No S3. No systolic murmur ABDOMEN: Soft, nontender, no organomegaly EXTREMETIES: No edema, right radial pulse intact LAB: BUN 22, creatinine 1.38, potassium 4.0, hemoglobin 12.8 IMPRESSION: 1. Acute renal injury, improving, with obstructive uropathy 2. Acute myocardial infarction probable in the LAD distribution 3. Hyperkalemia resolved 4. Obstructive uropathy 5. Cardiomyopathy PLAN: 1. Continue IV heparin 2. Add nitro paste and low-dose GISSELLE inhibitor, continue beta adelaida and increase dose to 50 mg twice a day 3. Follow renal functions 4. CABG soon during this admission in view of his presentation 5. Increase physical activity, up in chair Objective - Vital Signs Vital signs: Vital Signs Temp 98.6 F 05/24/23 04:00 Pulse 88 05/24/23 07:00 Resp 14 05/24/23 07:00 BP 165/89 05/24/23 07:00 Pulse Ox 95 05/24/23 07:00 FiO2 Intake & Output 05/23/23 05/24/23 05/24/23 18:59 06:59 18:59 Intake Total 6968.441 4188.386 Output Total 2425 2425 150 Balance -449.836 -828.614 -150 Weight 65.5 kg Intake: IV 200 600 Sodium Chloride 0.9% 1, 75 600 000 ml In Empty Bag 1 bag @ 75 mls/hr IV .[id number] [facility] Rx#:[id number] Intake, IV Titration 1175.164 171.386 Amount Heparin Sod,Pork in 0.45% 0 71.386 NaCl 25,000 unit In 0.45 % NaCl 1 250ml.bag @ 12 UNITS/KG/HR 8.688 mls/hr IV .Q24H [facility] Rx#: [id number] Heparin Sod,Pork in 0.45% 74.514 NaCl 25,000 unit In 0.45 % NaCl 1 250ml.bag @ 12 UNITS/KG/HR 8.709 mls/hr IV .Q24H [facility] Rx#: [id number] Nitroglycerin-D5w Pmx 50 25.65 mg In Dextrose/Water 1 250ml.bag @ 15 MCG/MIN 4. 5 mls/hr IV .Q24H [facility] Rx# :[id number] Potassium Chloride 10 meq 300 In Water For Injection 1 100ml.bag @ 100 mls/hr IVPB Q1HR [facility] Rx#: [id number] Sodium Chloride 0.9% 1, 100 100 000 ml @ 100 mls/hr IV . Q10H [facility] Rx#:[id number] Sodium Chloride 0.9% 1, 675 0 000 ml In Empty Bag 1 bag @ 75 mls/hr IV .[id number] [facility] Rx#:[id number] Oral 600 825 Output: Urine 2425 2425 150 Other: Voiding Method Indwelling Catheter Indwelling Catheter - Labs CBC & Chem 7: 05/24/23 04:12 05/24/23 04:12 Labs: Abnormal Lab Results - Last 24 Hours (Table) 05/22/23 05/23/23 05/24/23 Range/Units 03:39 16:24 00:25 RBC 3.74 L (4.30-5.90) m/uL Hgb 12.2 L (13.0-17.5) gm/dL Hct 34.4 L (39.0-53.0) % Plt Count 136 L (150-450) k/uL Lymphocytes # 0.5 L (1.0-4.8) k/uL APTT 42.9 H (22.0-30.0) sec Sodium (137-145) mmol/L BUN (9-20) mg/dL Creatinine (0.66-1.25) mg/dL Glucose (74-99) mg/dL Hemoglobin A1c 6.7 H (<=6.0) % 05/24/23 05/24/23 Range/Units 04:12 04:12 RBC 3.85 L (4.30-5.90) m/uL Hgb 12.8 L (13.0-17.5) gm/dL Hct 35.8 L (39.0-53.0) % Plt Count 144 L (150-450) k/uL Lymphocytes # 0.9 L (1.0-4.8) k/uL APTT (22.0-30.0) sec Sodium 136 L (137-145) mmol/L BUN 22 H (9-20) mg/dL Creatinine 1.38 H (0.66-1.25) mg/dL Glucose 132 H (74-99) mg/dL Hemoglobin A1c (<=6.0) %
[2023-05-24] MEDS ORDERED: MD COMMUNICATION TO PHARMACY 1 EACH MISC PO ONE ×4 (08:14→08:45)
[2023-05-24] MEDS: ATORVASTATIN 40 MG TAB PO SCH (09:12)
[2023-05-24] MEDS: METOPROLOL TARTRATE 50 MG TAB PO SCH ×2 (09:12→20:23)
[2023-05-24] MEDS: ASPIRIN 81 MG PO SCH (09:12)
[2023-05-24] MEDS: NITROGLYCERIN OINT 1 INCH/GM PACKET TOPICAL SCH ×2 (09:12→15:58)
--- NOTE | 2023-05-24 09:53 | P.PN ---
Subjective Progress Note Date: 05/24/23 68-year-old male with no significant past medical history, other than a pneumothorax many years ago. The patient presents with the emergency department on May 21, which chest pain, vomiting, and not feeling well for about 4 days according to his family members. He apparently was in bed for the last 4 days, with a possible viral syndrome. He apparently had pain in his chest and abdomen, nausea vomiting, and generally not feeling well, not eating or drinking, and feeling very weak. His primary care physician is Dr. Dey, but he has not see him on a regular basis. The patient takes no medications at home. The patient had very abnormal laboratory data, including a white count of 10.9, hemoglobin 13.9, hematocrit 38.8, and a normal platelet count. Sodium 139, potassium 6.7, chlorides 105, CO2 12, anion gap 22, BUN 90, creatinine 10.38. Glucose 170. Magnesium 2.4, troponin 0.644, and lipase 192. A thoracic CT was done to rule out dissection. It showed bilateral pleural effusions. The chest x-ray was normal. On 05/22/2023, the patient is awake and alert and communicating. His abdominal pain has subsided. He is still having some chest pain and for that reason the patient has been kept on nitroglycerin drip. Nitrol drip is running at 45 mcg/m. Is also on IV heparin. As mentioned earlier, he presented with chest pain and abdominal pain. He had obstructive uropathy and hydronephrosis. He also had an obstructing calculus. Gordon catheter was inserted and immediately and 4 L of urine output was produced. The urine output was bloody. Cultures are still pending for now. The ultrasound the kidneys showed no evidence of any hydronephrosis. The original CT a of the abdomen showed some hydronephrosis on the left. The creatinine continues to improve. The blood work from today shows a drop in the creatinine from as high as 12 down to 3.06. The patient remains on bicarb infusion. Serum bicarbonate of 28 with a sodium level is at 139.. His troponin peaked at extreme. His proBNP level is at 6620 and the patient is undergoing a echocardiogram today. Is on no pressors. His cardiac rhythm is sinus. The patient is going to need a cardiac catheterization and this will be done within the next 24-48 hours once the renal function stabilizes further. Neurologically, he is awake and alert and communicating. He is currently on oxygen at 2 L. His chest x-ray showed small bilateral pleural effusions. Cardiomegaly. On today's evaluation of 05/23/2023, the patient is free of any chest pain. The patient is still on IV heparin. The patient is also on nitroglycerin drip which is running at 30 g per minute. He is on room air oxygen. He is hemodynamic ally stable on no pressors. At the same time the patient's renal function continues to improve. He does have some minimal amount of hematuria and a Gordon catheter in place. He is still on IV fluids with normal saline at rate of 75 mL an hour. The bicarb infusion was discontinued yesterday. Based on today's blood work, the creatinine is down to 1.7 which is improved significantly compared to yesterday. He has a potassium level of 3.4 which is being replaced. Sodium levels of 137. BUN is at 23. Bicarb level is at 28. His nose at 6.2 with a hemoglobin of 11.5 and platelet count of 142. Cardiology evaluated the patient and the patient will likely go for a diagnostic cardiac catheterization today. He remains on aspirin. Remains on metoprolol 25 mg by mouth twice a day. Cardiac rhythm is sinus. On today's evaluation of 05/24/2023, the patient is feeling well. He is on room air oxygen. He has no major respiratory distress. He continues to improve his renal function and a creatinine is down to 1.38. Note that the patient had sustained an acute non-ST segment elevation myocardial infarction. Cardiac catheterization was done yesterday and the patient was found to have significant disease involving 100% LAD stenosis with a right to left septal and left to left collaterals. Patient also had an 80% diagonal disease, 70% circumflex disease, 80% RCA disease and his left ventricle end-diastolic pressure was quite elevated. Based on all this, cardiothoracic surgery consultation was obtained for possibility of undergoing a cardiac bypass surgery. He is doing well for n ow. He remains on IV heparin. His hematuria has cleared. Is W physical 107.0 with a hemoglobin of 12.8, PTT is at 48.2, sodium is at 136, BUN is at 22 with a creatinine of 1.38. Carotid Doppler was also done and the patient did not have any significant carotid artery disease. Objective - Vital Signs Vital signs: Vital Signs Temp 98.6 F 05/24/23 04:00 Pulse 88 05/24/23 07:00 Resp 14 05/24/23 07:00 BP 165/89 05/24/23 07:00 Pulse Ox 95 05/24/23 07:00 FiO2 Intake & Output 05/23/23 05/24/23 05/24/23 18:59 06:59 18:59 Intake Total 3053.208 4101.386 Output Total 2425 2425 150 Balance -449.836 -828.614 -150 Weight 65.5 kg Intake: IV 200 600 Sodium Chloride 0.9% 1, 75 600 000 ml In Empty Bag 1 bag @ 75 mls/hr IV .[id number] [facility] Rx#:[id number] Intake, IV Titration 1175.164 171.386 Amount Heparin Sod,Pork in 0.45% 0 71.386 NaCl 25,000 unit In 0.45 % NaCl 1 250ml.bag @ 12 UNITS/KG/HR 8.688 mls/hr IV .Q24H [facility] Rx#: [id number] Heparin Sod,Pork in 0.45% 74.514 NaCl 25,000 unit In 0.45 % NaCl 1 250ml.bag @ 12 UNITS/KG/HR 8.709 mls/hr IV .Q24H [facility] Rx#: [id number] Nitroglycerin-D5w Pmx 50 25.65 mg In Dextrose/Water 1 250ml.bag @ 15 MCG/MIN 4. 5 mls/hr IV .Q24H [facility] Rx# :[id number] Potassium Chloride 10 meq 300 In Water For Injection 1 100ml.bag @ 100 mls/hr IVPB Q1HR [facility] Rx#: [id number] Sodium Chloride 0.9% 1, 100 100 000 ml @ 100 mls/hr IV . Q10H [facility] Rx#:[id number] Sodium Chloride 0.9% 1, 675 0 000 ml In Empty Bag 1 bag @ 75 mls/hr IV .[id number] [facility] Rx#:[id number] Oral 600 825 Output: Urine 2425 2425 150 Other: Voiding Method Indwelling Catheter Indwelling Catheter - Exam No acute distress, oriented 3. The patient is currently on RA oxygen. Saturations are 98%. HEENT examination is grossly unremarkable. Mucous membranes are dry. Neck supple. Full range of motion. No adenopathy thyromegaly or neck vein distention. Cardiovascular examination reveals regular rhythm rate. S1-S2 normal. No S3 or S4. No discernible murmur noted. Lungs reveal clear breath sounds. Breath sounds are equal bilaterally. No adventitious lung sounds including wheezes rhonchi or crackles. Abdomen soft with bowel sounds. No masses or tenderness. Extremities are intact. No cyanosis clubbing or edema. Skin is without rash or lesion. Neurologic examination is brief but nonfocal. - Labs CBC & Chem 7: 05/24/23 04:12 05/24/23 04:12 Labs: Abnormal Lab Results - Last 24 Hours (Table) 05/22/23 05/23/23 05/24/23 Range/Units 03:39 16:24 00:25 RBC 3.74 L (4.30-5.90) m/uL Hgb 12.2 L (13.0-17.5) gm/dL Hct 34.4 L (39.0-53.0) % Plt Count 136 L (150-450) k/uL Lymphocytes # 0.5 L (1.0-4.8) k/uL APTT 42.9 H (22.0-30.0) sec Sodium (137-145) mmol/L BUN (9-20) mg/dL Creatinine (0.66-1.25) mg/dL Glucose (74-99) mg/dL Hemoglobin A1c 6.7 H (<=6.0) % 05/24/23 05/24/23 05/24/23 Range/Units 04:12 04:12 07:58 RBC 3.85 L (4.30-5.90) m/uL Hgb 12.8 L (13.0-17.5) gm/dL Hct 35.8 L (39.0-53.0) % Plt Count 144 L (150-450) k/uL Lymphocytes # 0.9 L (1.0-4.8) k/uL APTT 48.2 H (22.0-30.0) sec Sodium 136 L (137-145) mmol/L BUN 22 H (9-20) mg/dL Creatinine 1.38 H (0.66-1.25) mg/dL Glucose 132 H (74-99) mg/dL Hemoglobin A1c (<=6.0) % Assessment and Plan Plan: Acute kidney injury with associated hyperkalemia, and anion gap metabolic acidosis. The patient had obstructive uropathy, calculus that he has passed into his bladder. His post Gordon catheter insertion and the relief of the obstruction. No hydronephrosis and the follow-up ultrasound the kidneys and the patient is producing adequate amount of urine output at this point in the renal function continues to improve. Creatinine today is down to 1.38. His hematuria is recovered Non-anion gap metabolic acidosis, recovered Mild hematuria could be related to kidney stones and the utilization of IV heparin, and the patient is also on aspirin, recovered and the patient remains on IV heparin and aspirin BPH Multivessel coronary artery disease as discussed above and the patient is post acute non-ST segment elevation myocardial infarction Emergency old anteroseptal myocardial infarction based on Q waves seen on the EKG at the time of admission Nausea and vomiting, with dehydration. Recovered Hypertensive urgency, secondary to acute renal failure , recovered Plan: Continue normal saline at the rate of 75 mL an hour Continue IV heparin Echocardiogram was done yesterday and the patient has a mild impairment of LV function with an ejection fraction of 40-45%, mild aortic insufficiency Cardiac catheterization was noted and the patient is going to undergo coronary artery bypass surgery Monitor renal function, creatinine continues to improve Obtain a bedside spirometry Urine cultures have been sent and the patient is currently on no antibiotics Continue aspirin Continue metoprolol 25 mg by mouth twice a day oxygen on RA We'll continue to follow.
--- NOTE | 2023-05-24 11:21 | P.PN ---
Subjective Progress Note Date: 05/24/23 * 68-year-old gentleman with history of pneumonectomy/right lung presents to the emergency department with complains of fatigue, malaise, nausea and abdominal pain. Patient states his been having intractable postprandial vomiting, patient states symptom onset has been last 3 days before presentation. Kendra ayala did mention to the emergency department team that he had streaks of blood in the emesis as well. While in ER patient had extensive workup done including CT aorta abdomen which was negative for dissection however did show urinary retention and hydronephrosis, likely secondary to retention and Gordon catheter was placed. Patient was also given a GI cocktail in ED with minimal relief, patient continued to have recurrent nausea/vomiting. * Patient said he has not seen a doctor in 2 years, previous blood work reviewed did show normal creatinine function * Chest x-ray obtained in ER was within normal * Serum chemistry obtained in ER showed WBC of 10.9 hemoglobin 13.9 platelet count of 192, neutrophil count of 9.7, serum sodium 139, potassium 5.2, B UN 100 creatinine 12.54, lactate of 2.1, initial troponin of 0.171 * While in ER patient was given insulin, dextrose, sodium bicarbonate, 1 L fluid bolus, started on IV heparin drip * Secondary to critical illness and instability patient to be admitted to medical ICU with consultation from nephrology, cardiology and Urology * 05/22/2023 : Patient seen and evaluated bedside, patient is alert and oriented to person place and situation. Seen by nephrology Gordon catheter in place, acute kidney injury secondary to obstructive uropathy with significant improvement in renal function continue patient on fluid resuscitation cardiology following will plan cardiac catheterization during this hospitalization. Appreciate input from medical ICU as well continue patient on nitroglycerin drip, continue medical management * 05/23/2023: Patient seen and evaluated and bedside, patient has multi-vessel coronary artery disease, seen after cardiac catheterization, renal function improving patient has been on nitroglycerin drip that has been weaned off. Continue current medications including aspirin, Lipitor, metoprolol further instructions from cardiology continue to monitor renal function, cardiac surgery consulted * 05/24/2023: Patient seen and evaluated bedside, patient is chest pain-free, seen by intensive care unit team as well as cardiology, cardiac surgery team following plan for CABG to be done by 05/27/2023. Continue patient on IV hepar in REVIEW OF SYSTEMS: Nausea, vomiting, abdominal pain, chest pain fatigue, malaise RESOLVED 05/22 CONSTITUTIONAL: Nausea, vomiting, abdominal pain, chest pain fatigue, malaise HEENT: No recent visual problems or hearing problems. Denied any sore throat. CARDIOVASCULAR: No chest pain, orthopnea, PND, no palpitations, no syncope. PULMONARY: No shortness of breath, no cough, no hemoptysis. GASTROINTESTINAL: Nausea, vomiting, abdominal pain, chest pain fatigue, malaise NEUROLOGICAL: No headaches, no weakness, no numbness. HEMATOLOGICAL: Denies any bleeding or petechiae. GENITOURINARY: Denies any burning micturition, frequency, or urgency. MUSCULOSKELETAL/RHEUMATOLOGICAL: Denies any joint pain, swelling, or any muscle pain. ENDOCRINE: Denies any polyuria or polydipsia. PHYSICAL EXAMINATION: GENERAL: The patient is alert and oriented x3, improvement noted, not apparent toxic HEENT: Pupils are round and equally reacting to light. EOMI. CARDIOVASCULAR: S1 and S2 present. Rate within normal limits, right radial access post cardiac catheterization no hematoma PULMONARY: Chest is clear to auscultation, no wheezing or crackles. ABDOMEN: Soft, nontender, nondistended, normoactive bowel sounds. Gordon catheter in place MUSCULOSKELETAL: No joint swelling or deformity. EXTREMITIES: No cyanosis, clubbing, or pedal edema. NEUROLOGICAL: No focal deficit noted, alert to person place and situation Objective - Vital Signs Vital signs: Vital Signs Temp 98 F 05/24/23 08:00 Pulse 87 05/24/23 10:00 Resp 16 05/24/23 10:00 BP 141/80 05/24/23 10:00 Pulse Ox 95 05/24/23 10:00 FiO2 Intake & Output 05/23/23 05/24/23 05/24/23 18:59 06:59 18:59 Intake Total 3230.140 7422.386 Output Total 2425 2425 680 Balance -449.836 -828.614 -680 Weight 65.5 kg Intake: IV 200 600 Sodium Chloride 0.9% 1, 75 600 000 ml In Empty Bag 1 bag @ 75 mls/hr IV .[id number] [facility] Rx#:[id number] Intake, IV Titration 1175.164 171.386 Amount Heparin Sod,Pork in 0.45% 0 71.386 NaCl 25,000 unit In 0.45 % NaCl 1 250ml.bag @ 12 UNITS/KG/HR 8.688 mls/hr IV .Q24H [facility] Rx#: [id number] Heparin Sod,Pork in 0.45% 74.514 NaCl 25,000 unit In 0.45 % NaCl 1 250ml.bag @ 12 UNITS/KG/HR 8.709 mls/hr IV .Q24H [facility] Rx#: [id number] Nitroglycerin-D5w Pmx 50 25.65 mg In Dextrose/Water 1 250ml.bag @ 15 MCG/MIN 4. 5 mls/hr IV .Q24H [facility] Rx# :[id number] Potassium Chloride 10 meq 300 In Water For Injection 1 100ml.bag @ 100 mls/hr IVPB Q1HR [facility] Rx#: [id number] Sodium Chloride 0.9% 1, 100 100 000 ml @ 100 mls/hr IV . Q10H [facility] Rx#:[id number] Sodium Chloride 0.9% 1, 675 0 000 ml In Empty Bag 1 bag @ 75 mls/hr IV .[id number] [facility] Rx#:[id number] Oral 600 825 Output: Urine 2425 2425 680 Other: Voiding Method Indwelling Catheter Indwelling Catheter - Labs CBC & Chem 7: 05/24/23 04:12 05/24/23 04:12 Labs: Abnormal Lab Results - Last 24 Hours (Table) 05/22/23 05/23/23 05/23/23 Range/Units 03:39 03:39 16:24 RBC 3.74 L (4.30-5.90) m/uL Hgb 12.2 L (13.0-17.5) gm/dL Hct 34.4 L (39.0-53.0) % Plt Count 136 L (150-450) k/uL Lymphocytes # 0.5 L (1.0-4.8) k/uL APTT (22.0-30.0) sec Sodium (137-145) mmol/L BUN (9-20) mg/dL Creatinine (0.66-1.25) mg/dL Glucose (74-99) mg/dL Hemoglobin A1c 6.7 H (<=6.0) % Total PSA 7.3 H (<=4.0) ng/mL 05/24/23 05/24/23 05/24/23 Range/Units 00:25 04:12 04:12 RBC 3.85 L (4.30-5.90) m/uL Hgb 12.8 L (13.0-17.5) gm/dL Hct 35.8 L (39.0-53.0) % Plt Count 144 L (150-450) k/uL Lymphocytes # 0.9 L (1.0-4.8) k/uL APTT 42.9 H (22.0-30.0) sec Sodium 136 L (137-145) mmol/L BUN 22 H (9-20) mg/dL Creatinine 1.38 H (0.66-1.25) mg/dL Glucose 132 H (74-99) mg/dL Hemoglobin A1c (<=6.0) % Total PSA (<=4.0) ng/mL 05/24/23 Range/Units 07:58 RBC (4.30-5.90) m/uL Hgb (13.0-17.5) gm/dL Hct (39.0-53.0) % Plt Count (150-450) k/uL Lymphocytes # (1.0-4.8) k/uL APTT 48.2 H (22.0-30.0) sec Sodium (137-145) mmol/L BUN (9-20) mg/dL Creatinine (0.66-1.25) mg/dL Glucose (74-99) mg/dL Hemoglobin A1c (<=6.0) % Total PSA (<=4.0) ng/mL Assessment and Plan Assessment: Assessment and plan * Acute renal failure with uremic symptoms/obstructive uropathy * Acute metabolic encephalopathy improved * Acute hyperkalemia resolved * Metabolic acidosis resolved * Non-ST elevated MT with multivessel coronary artery disease * Hypertensive urgency * Acute urinary retention with hydronephrosis status post Gordon placement * Consultation obtained from medical ICU, cardiology, nephrology, urology * * In regards to acute hyperkalemia, patient was given insulin, dextrose, sodium bicarbonate, calcium gluconate in follow-up potassium levels within normal limits * In regards to elevated troponin, cardiology consulted, echocardiogram ordered shows ejection fraction of 40-45%, patient was on IV nitroglycerin drip that is weaned off, status post cardiac catheterization multivessel coronary artery disease noted, cardiac surgery consulted, continue IV heparin him a workup for CABG initiated * In regards to renal failure, metabolic acidosis continue to maintain Gordon catheter continue to monitor intake and output, nephrology consulted, , and if can improvement in renal function * In regards to urinary retention, maintain Gordon catheter, significant impr ovement in renal function * In regards to hypertensive urgency, was on nitroglycerin drip plan to weaned off * Patient remains critically ill, admitted to ICU * CODE STATUS is full code
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
[2023-05-24] MEDS: HEPARIN SOD,PORK IN 0.45% NACL 25,000 UNIT in 0.45% NACL 1 250ML.BAG IV SCH (16:00)
[2023-05-24] MEDS: MUPIROCIN 2% OINT 22 GM TUBE NASAL SCH ×2 (19:04→20:23)
[2023-05-25] MEDS: NITROGLYCERIN OINT 1 INCH/GM PACKET TOPICAL SCH ×3 (00:03→17:15)
[2023-05-25 05:10] LABS: HCT 35.7 % (39.0-53.0); HGB 12.5 gm/dL (13.0-17.5); MCH 32.3 pg (25.0-35.0); MCV 92.3 fL (80.0-100.0); Mean Platelet Volume 9.6; Platelet Count 155 k/uL (150-450); RBC 3.87 m/uL (4.30-5.90); WBC 7.6 k/uL (3.8-10.6)
[2023-05-25 07:05] LABS: African American GFR (CKD) 56 (>60 ml/min/1.73 sqM); Anion Gap 9 mmol/L; Blood Urea Nitrogen 24 mg/dL (9-20); Calcium 8.6 mg/dL (8.4-10.2); Carbon Dioxide 23 mmol/L (22-30); Chloride 103 mmol/L (98-107); Glucose 150 mg/dL (74-99); Non-African American GFR(CKD) 48 (>60 ml/min/1.73 sqM); Potassium 3.7 mmol/L (3.5-5.1); Sodium 135 mmol/L (137-145)
--- NOTE | 2023-05-25 07:31 | P.PN ---
Subjective Progress Note Date: 05/25/23 PROGRESS NOTE The patient is a 68-year-old male with no prior documented history of cardiac disease who presented with an acute episode of chest discomfort, troponin elevation and was found to have acute renal injury. He has no further pain this morning. He is feeling better. His breathing is stable. He denies any dizziness or palpitations. He has no nausea or vomiting. May 23: The patient feels well this morning, he denies any chest discomfort, dizziness or palpitations. He continues to be in sinus mechanism. He continues to be on IV heparin and IV nitroglycerin. His urine is pink. He continues to have an indwelling Gordon catheter. His echocardiogram was technically difficult and sh owed an ejection fraction of 40-45% with mild AI but no clear reported segmental wall motion abnormality May 24: The patient is feeling well this morning, denies any chest discomfort, dizziness or palpitations. He underwent cardiac catheterization yesterday and was found to have severe triple-vessel disease. He was evaluated at the surgical team for CABG. He is back on IV heparin continues to be in sinus mechanism. His blood pressure has been elevated at times. There is no evidence of malignant arrhythmia. Carotid ultrasound revealed no evidence of significant obstructive disease. May 25: The patient is up in the chair, feels well. He denies any chest discomfort, dizziness or palpitations. He is in sinus mechanism with no hemodynamic compromise. His urinary output has been.. He has a hematoma in the right forearm related to infiltration of his intravenous heparin. He is scheduled to undergo CABG on Monday. Medications: Aspirin, Lipitor 40 mg daily, IV heparin, metoprolol 50 mg twice a day, Nitropaste 1 inch every 8 hours PHYSICAL EXAMINATION: Blood pressure 138/70 heart rate 70 LUNGS: Clear to auscultation HEART: Regular rate and rhythm, S1, S2. No S3. No systolic murmur ABDOMEN: Soft, nontender, no organomegaly EXTREMETIES: No edema, hematoma in the right forearm LAB: BUN 24, creatinine 1.47, potassium 3.7, hemoglobin 12.5 IMPRESSION: 1. Acute renal injury, improving, with obstructive uropathy 2. Acute myocardial infarction probable in the LAD distribution 3. Hyperkalemia resolved 4. Obstructive uropathy 5. Cardiomyopathy PLAN: 1. Continue present therapy 2. Follow renal functions 3. Incentive spirometry 4. Proceed with CABG on Monday Objective - Vital Signs Vital signs: Vital Signs Temp 98.4 F 05/25/23 04:00 Pulse 70 05/25/23 06:00 Resp 19 05/25/23 06:00 BP 138/75 05/25/23 06:00 Pulse Ox 96 05/25/23 06:00 FiO2 Intake & Output 05/24/23 05/25/23 05/25/23 18:59 06:59 18:59 Intake Total 1644.607 540 Output Total 1405 855 Balance 239.607 -315 Weight 69.5 kg Intake: Intake, IV Titration 144.607 Amount Heparin Sod,Pork in 0.45% 144.607 NaCl 25,000 unit In 0.45 % NaCl 1 250ml.bag @ 12 UNITS/KG/HR 8.688 mls/hr IV .Q24H [facility] Rx#: [id number] Oral 1500 540 Output: Urine 1405 855 Other: Voiding Method Indwelling Catheter Indwelling Catheter - Labs CBC & Chem 7: 05/25/23 04:57 05/25/23 04:57 Labs: Abnormal Lab Results - Last 24 Hours (Table) 05/23/23 05/24/23 05/25/23 Range/Units 03:39 07:58 04:57 RBC (4.30-5.90) m/uL Hgb (13.0-17.5) gm/dL Hct (39.0-53.0) % APTT 48.2 H (22.0-30.0) sec Sodium 135 L (137-145) mmol/L BUN 24 H (9-20) mg/dL Creatinine 1.47 H (0.66-1.25) mg/dL Glucose 150 H (74-99) mg/dL Total PSA 7.3 H (<=4.0) ng/mL 05/25/23 05/25/23 Range/Units 04:57 04:57 RBC 3.87 L (4.30-5.90) m/uL Hgb 12.5 L (13.0-17.5) gm/dL Hct 35.7 L (39.0-53.0) % APTT 47.1 H (22.0-30.0) sec Sodium (137-145) mmol/L BUN (9-20) mg/dL Creatinine (0.66-1.25) mg/dL Glucose (74-99) mg/dL Total PSA (<=4.0) ng/mL
--- NOTE | 2023-05-25 07:53 | P.PN ---
Subjective Progress Note Date: 05/25/23 Principal diagnosis: Triple-vessel coronary artery disease, non-ST elevated myocardial infarction this admission with symptoms of abdominal pain, nausea and vomiting. Past medical history significant for fatty liver disease, right-sided traumatic lung injury in his 20s, testicular cancer, and previous tobacco dependence with cessation many years ago, and has not been on any medical therapy at home. The patient was seen and examined in follow-up today 05/25/2023 at his bedside in the intensive care unit. He is currently sitting up to the bedside chair, is awake, alert, oriented 3 and is in no acute distress. Heparin drip is infusing per protocol, although the nurse reports that he did have an IV infiltration last evening. Oxygen saturations are 96% on room air and he is achieving 2500- 3000 mm on his incentive spirometry with encouragement. His been afebrile in the last 24 hours. Bedside telemetry showing normal sinus rhythm heart rate 80 BPM. He remains hemodynamically stable and is currently on no inotropic or pressor support. He is currently scheduled for myocardial revascularization surgery on 05/27/2023 with left internal mammary artery, endoscopic vein harvest, possible left radial endoscopic harvest, exclusion left atrial appendage and intraoperative transesophageal echocardiogram to be performed by Dr. Waller. Preoperative teaching has been reinforced with the patient. Laboratory results reviewed. Objective - Vital Signs Vital signs: Vital Signs Temp 98.4 F 05/25/23 04:00 Pulse 101 H 05/25/23 07:00 Resp 16 05/25/23 07:00 BP 129/70 05/25/23 07:00 Pulse Ox 95 05/25/23 07:00 FiO2 Intake & Output 05/24/23 05/25/23 05/25/23 18:59 06:59 18:59 Intake Total 1644.607 540 155.757 Output Total 1405 1085 115 Balance 239.607 -545 40.757 Weight 69.5 kg Intake: Intake, IV Titration 144.607 155.757 Amount Heparin Sod,Pork in 0.45% 144.607 155.757 NaCl 25,000 unit In 0.45 % NaCl 1 250ml.bag @ 12 UNITS/KG/HR 8.688 mls/hr IV .Q24H [facility] Rx#: [id number] Oral 1500 540 Output: Urine 1405 1085 115 Other: Voiding Method Indwelling Catheter Indwelling Catheter - Exam CONSTITUTIONAL: Sitting up to bedside chair in the intensive care unit, appears comfortable, cooperative, no apparent acute distress. HEENT: Neck is supple, no JVD, no lymphadenopathy. RESPIRATORY: Lungs sounds essentially clear throughout, diminished to his bilateral bases. Respirations are symmetrical and nonlabored. Currently on room air with oxygen saturations 97%. Able to achieve 0191-5166 mL on his incentive spirometry. Strong cough. CARDIOVASCULAR: Regular rhythm and rate. S1 and S2 present, negative for S3, gallop or murmur. Palpable peripheral pulses bilaterally. No calf pain or tenderness noted. Knee-high sequential compression devices in place to his bilateral lower extremities. GASTROINTESTINAL: Abdomen soft, nontender, nondistended. Active bowel sounds present 4 quadrants. Tolerating diet. Passing flatus. No guarding or rigidity. GENITOURINARY: Gordon present draining clear, yellow urine. Urine output 575 mL in the last 8 hours. INTEGUMENTARY: Skin is warm and dry with no evidence of clubbing or cyanosis. NEUROLOGIC: Cranial nerves II through XII intact. No focal deficits. MUSKULOSKELETAL: Able to move all extremities, strength equal bilaterally. PSYCHIATRIC: Alert and oriented to person place and time, appropriate affect, intact judgment and insight. - Allied health notes Allied health notes reviewed: nursing - Labs CBC & Chem 7: 05/25/23 04:57 05/25/23 04:57 Labs: Abnormal Lab Results - Last 24 Hours (Table) 05/23/23 05/24/23 05/25/23 Range/Units 03:39 07:58 04:57 RBC (4.30-5.90) m/uL Hgb (13.0-17.5) gm/dL Hct (39.0-53.0) % APTT 48.2 H (22.0-30.0) sec Sodium 135 L (137-145) mmol/L BUN 24 H (9-20) mg/dL Creatinine 1.47 H (0.66-1.25) mg/dL Glucose 150 H (74-99) mg/dL Total PSA 7.3 H (<=4.0) ng/mL 05/25/23 05/25/23 Range/Units 04:57 04:57 RBC 3.87 L (4.30-5.90) m/uL Hgb 12.5 L (13.0-17.5) gm/dL Hct 35.7 L (39.0-53.0) % APTT 47.1 H (22.0-30.0) sec Sodium (137-145) mmol/L BUN (9-20) mg/dL Creatinine (0.66-1.25) mg/dL Glucose (74-99) mg/dL Total PSA (<=4.0) ng/mL - Imaging and Cardiology Chest x-ray: report reviewed, image reviewed Assessment and Plan Assessment: Triple-vessel coronary artery disease Chest pain, non-STEMI this admission Abdominal pain with nausea and vomiting, likely secondary to above Acute kidney injury Obstructive uropathy status post Gordon catheter placement Hypertension History of fatty liver disease History of right-sided traumatic lung injury in his 20s History of testicular cancer Previous tobacco dependence with cessation many years ago Plan: Encourage use of his incentive spirometry 10 times every hour while awake. Plan is for myocardial revascularization surgery on 05/27/2023 with left internal mammary artery, endoscopic vein harvest, exclusion left atrial appendage, intraoperative transesophageal echocardiogram to be performed by Dr. Waller. We will stop his GISSELLE inhibitor 48 hours prior to surgery to prevent vasaoplegia postoperatively. Heparin drip management and recommendations per cardiology. An STS risk score was Completed to discuss with the patient. A 5 minute walk test was completed yesterday 05/24/23, time 1: 3.05 Seconds, time 2: 3.30 Seconds, time 3: 2.51 Seconds. He will be made nothing by mouth after midnight on 05/27/2023. Continue to maximize medical therapy with aspirin, statin and beta adelaida. Medical management and other comorbidities per primary care, urology, cardiology and pulmonary/critical care services. More recommendations to follow based on patient's clinical course. Time with Patient: Greater than 30
[2023-05-25] MEDS: ASPIRIN 81 MG PO SCH (08:20)
[2023-05-25] MEDS: MUPIROCIN 2% OINT 22 GM TUBE NASAL SCH ×2 (08:20→20:48)
[2023-05-25] MEDS: ATORVASTATIN 40 MG TAB PO SCH (08:20)
[2023-05-25] MEDS: METOPROLOL TARTRATE 50 MG TAB PO SCH ×2 (08:20→20:47)
--- NOTE | 2023-05-25 09:53 | P.PN ---
Subjective Progress Note Date: 05/25/23 68-year-old male with no significant past medical history, other than a pneumothorax many years ago. The patient presents with the emergency department on May 21, which chest pain, vomiting, and not feeling well for about 4 days according to his family members. He apparently was in bed for the last 4 days, with a possible viral syndrome. He apparently had pain in his chest and abdomen, nausea vomiting, and generally not feeling well, not eating or drinking, and feeling very weak. His primary care physician is Dr. Dey, but he has not see him on a regular basis. The patient takes no medications at home. The patient had very abnormal laboratory data, including a white count of 10.9, hemoglobin 13.9, hematocrit 38.8, and a normal platelet count. Sodium 139, potassium 6.7, chlorides 105, CO2 12, anion gap 22, BUN 90, creatinine 10.38. Glucose 170. Magnesium 2.4, troponin 0.644, and lipase 192. A thoracic CT was done to rule out dissection. It showed bilateral pleural effusions. The chest x-ray was normal. On 05/22/2023, the patient is awake and alert and communicating. His abdominal pain has subsided. He is still having some chest pain and for that reason the patient has been kept on nitroglycerin drip. Nitrol drip is running at 45 mcg/m. Is also on IV heparin. As mentioned earlier, he presented with chest pain and abdominal pain. He had obstructive uropathy and hydronephrosis. He also had an obstructing calculus. Gordon catheter was inserted and immediately and 4 L of urine output was produced. The urine output was bloody. Cultures are still pending for now. The ultrasound the kidneys showed no evidence of any hydronephrosis. The original CT a of the abdomen showed some hydronephrosis on the left. The creatinine continues to improve. The blood work from today shows a drop in the creatinine from as high as 12 down to 3.06. The patient remains on bicarb infusion. Serum bicarbonate of 28 with a sodium level is at 139.. His troponin peaked at extreme. His proBNP level is at 6620 and the patient is undergoing a echocardiogram today. Is on no pressors. His cardiac rhythm is sinus. The patient is going to need a cardiac catheterization and this will be done within the next 24-48 hours once the renal function stabilizes further. Neurologically, he is awake and alert and communicating. He is currently on oxygen at 2 L. His chest x-ray showed small bilateral pleural effusions. Cardiomegaly. On today's evaluation of 05/23/2023, the patient is free of any chest pain. The patient is still on IV heparin. The patient is also on nitroglycerin drip which is running at 30 g per minute. He is on room air oxygen. He is hemodynamic ally stable on no pressors. At the same time the patient's renal function continues to improve. He does have some minimal amount of hematuria and a Gordon catheter in place. He is still on IV fluids with normal saline at rate of 75 mL an hour. The bicarb infusion was discontinued yesterday. Based on today's blood work, the creatinine is down to 1.7 which is improved significantly compared to yesterday. He has a potassium level of 3.4 which is being replaced. Sodium levels of 137. BUN is at 23. Bicarb level is at 28. His nose at 6.2 with a hemoglobin of 11.5 and platelet count of 142. Cardiology evaluated the patient and the patient will likely go for a diagnostic cardiac catheterization today. He remains on aspirin. Remains on metoprolol 25 mg by mouth twice a day. Cardiac rhythm is sinus. On today's evaluation of 05/24/2023, the patient is feeling well. He is on room air oxygen. He has no major respiratory distress. He continues to improve his renal function and a creatinine is down to 1.38. Note that the patient had sustained an acute non-ST segment elevation myocardial infarction. Cardiac catheterization was done yesterday and the patient was found to have significant disease involving 100% LAD stenosis with a right to left septal and left to left collaterals. Patient also had an 80% diagonal disease, 70% circumflex disease, 80% RCA disease and his left ventricle end-diastolic pressure was quite elevated. Based on all this, cardiothoracic surgery consultation was obtained for possibility of undergoing a cardiac bypass surgery. He is doing well for n ow. He remains on IV heparin. His hematuria has cleared. Is W physical 107.0 with a hemoglobin of 12.8, PTT is at 48.2, sodium is at 136, BUN is at 22 with a creatinine of 1.38. Carotid Doppler was also done and the patient did not have any significant carotid artery disease. Today's evaluation of 05/25/2023, the patient remains on room air oxygen. No chest pain. Renal function is stable with a creatinine of 1.47 and a BUN of 24. No respiratory distress. No chest pain. No hemodynamic instability. The plan is to proceed with cardiac bypass surgery Monday of this week which is on . The patient has no specific complaints otherwise. He has a preserved FEV1 on a bedside spirometry. The patient was on IV heparin. He developed a hematoma in his right forearm. As such, then to cognition was not. PTT last was at 47. Hemoglobin is at 12.5. The white cycles of 7.6. Sodium levels of 135. Cardiology is on the case. Cardiothoracic surgery is on the case. He continues to Gordon catheter in place. No evidence of any bleeding. Objective - Vital Signs Vital signs: Vital Signs Temp 98.1 F 05/25/23 08:00 Pulse 93 05/25/23 09:00 Resp 17 05/25/23 09:00 BP 104/76 05/25/23 09:00 Pulse Ox 97 05/25/23 09:00 FiO2 Intake & Output 05/24/23 05/25/23 05/25/23 18:59 06:59 18:59 Intake Total 1644.607 540 645.757 Output Total 1405 1085 155 Balance 239.607 -545 490.757 Weight 69.5 kg Intake: Intake, IV Titration 144.607 155.757 Amount Heparin Sod,Pork in 0.45% 144.607 155.757 NaCl 25,000 unit In 0.45 % NaCl 1 250ml.bag @ 12 UNITS/KG/HR 8.688 mls/hr IV .Q24H [facility] Rx#: [id number] Oral 1500 540 490 Output: Urine 1405 1085 155 Other: Voiding Method Indwelling Catheter Indwelling Catheter - Exam No acute distress, oriented 3. The patient is currently on RA oxygen. Saturations are 98%. HEENT examination is grossly unremarkable. Mucous membranes are dry. Neck supple. Full range of motion. No adenopathy thyromegaly or neck vein di stention. Cardiovascular examination reveals regular rhythm rate. S1-S2 normal. No S3 or S4. No discernible murmur noted. Lungs reveal clear breath sounds. Breath sounds are equal bilaterally. No adventitious lung sounds including wheezes rhonchi or crackles. Abdomen soft with bowel sounds. No masses or tenderness. Extremities are intact. No cyanosis clubbing or edema. Skin is without rash or lesion. Neurologic examination is brief but nonfocal. - Labs CBC & Chem 7: 05/25/23 04:57 05/25/23 04:57 Labs: Abnormal Lab Results - Last 24 Hours (Table) 05/23/23 05/25/23 05/25/23 Range/Units 03:39 04:57 04:57 RBC 3.87 L (4.30-5.90) m/uL Hgb 12.5 L (13.0-17.5) gm/dL Hct 35.7 L (39.0-53.0) % APTT (22.0-30.0) sec Sodium 135 L (137-145) mmol/L BUN 24 H (9-20) mg/dL Creatinine 1.47 H (0.66-1.25) mg/dL Glucose 150 H (74-99) mg/dL Total PSA 7.3 H (<=4.0) ng/mL 05/25/23 Range/Units 04:57 RBC (4.30-5.90) m/uL Hgb (13.0-17.5) gm/dL Hct (39.0-53.0) % APTT 47.1 H (22.0-30.0) sec Sodium (137-145) mmol/L BUN (9-20) mg/dL Creatinine (0.66-1.25) mg/dL Glucose (74-99) mg/dL Total PSA (<=4.0) ng/mL Assessment and Plan Plan: Acute kidney injury with associated hyperkalemia, and anion gap metabolic acidosis. The patient had obstructive uropathy, calculus that he has passed into his bladder. His post Gordon catheter insertion and the relief of the obstruction. No hydronephrosis and the follow-up ultrasound the kidneys and the patient is producing adequate amount of urine output at this point in the renal function continues to improve. Creatinine at 1.47 Non-anion gap metabolic acidosis, recovered Mild hematuria could be related to kidney stones , recovered BPH Multivessel coronary artery disease as discussed above and the patient is post acute non-ST segment elevation myocardial infarction, currently off the IV heparin Emergency old anteroseptal myocardial infarction based on Q waves seen on the EKG at the time of admission Nausea and vomiting, with dehydration. Recovered Hypertensive urgency, secondary to acute renal failure , recovered Small right forearm hematoma Plan: Continue normal saline at KVO stop IV heparin Echocardiogram was done yesterday and the patient has a mild impairment of LV function with an ejection fraction of 40-45%, mild aortic insufficiency Cardiac catheterization was noted and the patient is going to undergo coronary artery bypass surgery Monitor renal function, creatinine continues to improve Obt access spirometry was done and the patient is a 51 was about 70% without any significant obstructive pattern Continue aspirin Continue metoprolol 25 mg by mouth twice a day oxygen on RA We'll continue to follow.
--- NOTE | 2023-05-25 11:33 | P.PN ---
Subjective patient is seen for follow-up for acute kidney injury, obstructive uropathy with significantly improved renal function post Gordon catheter placement. Patient had significant postobstructive diuresis, now improved. Status post cardiac catheterization on 05/23/2023 which showed 100% LAD stenosis 80% diagonal disease and 70% disease in circumflex. Surgical consult has been placed. No complaints of chest pains. Serum creatinine at 1.38 mg/dL. Objective - Vital Signs Vital signs: Vital Signs Temp 98.1 F 05/25/23 08:00 Pulse 78 05/25/23 11:00 Resp 17 05/25/23 11:00 BP 114/78 05/25/23 11:00 Pulse Ox 96 05/25/23 11:00 FiO2 Intake & Output 05/24/23 05/25/23 05/25/23 18:59 06:59 18:59 Intake Total 1644.607 540 645.757 Output Total 1405 1085 355 Balance 239.607 -545 290.757 Weight 69.5 kg Intake: Intake, IV Titration 144.607 155.757 Amount Heparin Sod,Pork in 0.45% 144.607 155.757 NaCl 25,000 unit In 0.45 % NaCl 1 250ml.bag @ 12 UNITS/KG/HR 8.688 mls/hr IV .Q24H [facility] Rx#: [id number] Oral 1500 540 490 Output: Urine 1405 1085 355 Other: Voiding Method Indwelling Catheter Indwelling Catheter - Exam Patient is awake, comfortable, no acute distress. Alert oriented 3 Examination of the heart S1 and S2 Examination of the lungs bilateral breath sounds are heard Abdomen is soft nontender Examination of lower extremities shows no significant edema INFRASTRUCTURE DEVELOPER exam grossly intact - Labs CBC & Chem 7: 05/25/23 04:57 05/25/23 04:57 Labs: Abnormal Lab Results - Last 24 Hours (Table) 05/25/23 05/25/23 05/25/23 Range/Units 04:57 04:57 04:57 RBC 3.87 L (4.30-5.90) m/uL Hgb 12.5 L (13.0-17.5) gm/dL Hct 35.7 L (39.0-53.0) % APTT 47.1 H (22.0-30.0) sec Sodium 135 L (137-145) mmol/L BUN 24 H (9-20) mg/dL Creatinine 1.47 H (0.66-1.25) mg/dL Glucose 150 H (74-99) mg/dL Assessment and Plan Assessment: 1. Acute kidney injury secondary to obstructive uropathy and possible component of ATN. Currently with indwelling Gordon catheter and improving renal function. Serum creatinine has decreased to 1.38 from 12.54 on initial admission. 2. Hyperkalemia associated with acute kidney injury and urine retention 3. Anion gap metabolic acidosis associated with severe acute kidney injury and obstructive uropathy, resolved 4. Elevated troponins rule out acute [place] 5. Left renal stone with left hydronephrosis noted on CTA. Ultrasound of the kidneys shows possible bladder stone. Urology is on consult. 6. Significant coronary artery disease status post cardiac catheterization on 05/23/2023 with surgical consult Plan: continue with normal saline Repeat labs in a.m. Continue to monitor urine output.
--- NOTE | 2023-05-25 11:37 | P.PN ---
Subjective patient is seen for follow-up for acute kidney injury, obstructive uropathy with significantly improved renal function post Gordon catheter placement. Patient had significant postobstructive diuresis, now improved. Status post cardiac catheterization on 05/23/2023 which showed 100% LAD stenosis 80% diagonal disease and 70% disease in circumflex. Surgical consult has been placed. No complaints of chest pains. Serum creatinine at 1.47 mg/dL. 24 hour urine output of 2.49 L Objective - Vital Signs Vital signs: Vital Signs Temp 98.1 F 05/25/23 08:00 Pulse 78 05/25/23 11:00 Resp 17 05/25/23 11:00 BP 114/78 05/25/23 11:00 Pulse Ox 96 05/25/23 11:00 FiO2 Intake & Output 05/24/23 05/25/23 05/25/23 18:59 06:59 18:59 Intake Total 1644.607 540 645.757 Output Total 1405 1085 355 Balance 239.607 -545 290.757 Weight 69.5 kg Intake: Intake, IV Titration 144.607 155.757 Amount Heparin Sod,Pork in 0.45% 144.607 155.757 NaCl 25,000 unit In 0.45 % NaCl 1 250ml.bag @ 12 UNITS/KG/HR 8.688 mls/hr IV .Q24H [facility] Rx#: [id number] Oral 1500 540 490 Output: Urine 1405 1085 355 Other: Voiding Method Indwelling Catheter Indwelling Catheter - Exam Patient is awake, comfortable, no acute distress. Alert oriented 3 Examination of the heart S1 and S2 Examination of the lungs bilateral breath sounds are heard Abdomen is soft nontender Examination of lower extremities shows no significant edema. Hematoma noted at the site of cardiac cath on right wrist ORACLE MANAGER exam grossly intact - Labs CBC & Chem 7: 05/25/23 04:57 05/25/23 04:57 Labs: Abnormal Lab Results - Last 24 Hours (Table) 05/25/23 05/25/23 05/25/23 Range/Units 04:57 04:57 04:57 RBC 3.87 L (4.30-5.90) m/uL Hgb 12.5 L (13.0-17.5) gm/dL Hct 35.7 L (39.0-53.0) % APTT 47.1 H (22.0-30.0) sec Sodium 135 L (137-145) mmol/L BUN 24 H (9-20) mg/dL Creatinine 1.47 H (0.66-1.25) mg/dL Glucose 150 H (74-99) mg/dL Assessment and Plan Assessment: 1. Acute kidney injury secondary to obstructive uropathy and possible component of ATN. Currently with indwelling Gordon catheter and improving renal function. Serum creatinine has decreased to 1.4 from 12.54 on initial admission. 2. Hyperkalemia associated with acute kidney injury and urine retention 3. Anion gap metabolic acidosis associated with severe acute kidney injury and obstructive uropathy, resolved 4. Elevated troponins rule out acute [place] 5. Left renal stone with left hydronephrosis noted on CTA. Ultrasound of the kidneys shows possible bladder stone. Urology is on consult. 6. Significant coronary artery disease status post cardiac catheterization on 05/23/2023 with surgical consult Plan: Plans to proceed with coronary artery bypass surgery. Avoid hypotension Repeat labs in a.m. Continue to monitor urine output.
--- NOTE | 2023-05-25 12:37 | P.PN ---
Subjective Progress Note Date: 05/25/23 * 68-year-old gentleman with history of pneumonectomy/right lung presents to the emergency department with complains of fatigue, malaise, nausea and abdominal pain. Patient states his been having intractable postprandial vomiting, patient states symptom onset has been last 3 days before presentation. Kendra ayala did mention to the emergency department team that he had streaks of blood in the emesis as well. While in ER patient had extensive workup done including CT aorta abdomen which was negative for dissection however did show urinary retention and hydronephrosis, likely secondary to retention and Gordon catheter was placed. Patient was also given a GI cocktail in ED with minimal relief, patient continued to have recurrent nausea/vomiting. * Patient said he has not seen a doctor in 2 years, previous blood work reviewed did show normal creatinine function * Chest x-ray obtained in ER was within normal * Serum chemistry obtained in ER showed WBC of 10.9 hemoglobin 13.9 platelet count of 192, neutrophil count of 9.7, serum sodium 139, potassium 5.2, B UN 100 creatinine 12.54, lactate of 2.1, initial troponin of 0.171 * While in ER patient was given insulin, dextrose, sodium bicarbonate, 1 L fluid bolus, started on IV heparin drip * Secondary to critical illness and instability patient to be admitted to medical ICU with consultation from nephrology, cardiology and Urology * 05/22/2023 : Patient seen and evaluated bedside, patient is alert and oriented to person place and situation. Seen by nephrology Gordon catheter in place, acute kidney injury secondary to obstructive uropathy with significant improvement in renal function continue patient on fluid resuscitation cardiology following will plan cardiac catheterization during this hospitalization. Appreciate input from medical ICU as well continue patient on nitroglycerin drip, continue medical management * 05/23/2023: Patient seen and evaluated and bedside, patient has multi-vessel coronary artery disease, seen after cardiac catheterization, renal function improving patient has been on nitroglycerin drip that has been weaned off. Continue current medications including aspirin, Lipitor, metoprolol further instructions from cardiology continue to monitor renal function, cardiac surgery consulted * 05/24/2023: Patient seen and evaluated bedside, patient is chest pain-free, seen by intensive care unit team as well as cardiology, cardiac surgery team following plan for CABG to be done by 05/27/2023. Continue patient on IV hepar in * 05/25/2023: Patient seen and evaluated and bedside, IV heparin has been paused patient did have slight right radial hematoma, nephrology following, hemoglobin 12.5, creatinine 1.47, patient scheduled for CABG on 05/27/23 REVIEW OF SYSTEMS: Nausea, vomiting, abdominal pain, chest pain fatigue, malaise RESOLVED 05/22 CONSTITUTIONAL: Nausea, vomiting, abdominal pain, chest pain fatigue, malaise HEENT: No recent visual problems or hearing problems. Denied any sore throat. CARDIOVASCULAR: No chest pain, orthopnea, PND, no palpitations, no syncope. PULMONARY: No shortness of breath, no cough, no hemoptysis. GASTROINTESTINAL: Nausea, vomiting, abdominal pain, chest pain fatigue, malaise NEUROLOGICAL: No headaches, no weakness, no numbness. HEMATOLOGICAL: Denies any bleeding or petechiae. GENITOURINARY: Denies any burning micturition, frequency, or urgency. MUSCULOSKELETAL/RHEUMATOLOGICAL: Denies any joint pain, swelling, or any muscle pain. ENDOCRINE: Denies any polyuria or polydipsia. PHYSICAL EXAMINATION: GENERAL: The patient is alert and oriented x3, improvement noted, not apparent toxic HEENT: Pupils are round and equally reacting to light. EOMI. CARDIOVASCULAR: S1 and S2 present. Rate within normal limits, right radial access post cardiac catheterization hematoma noted PULMONARY: Chest is clear to auscultation, no wheezing or crackles. ABDOMEN: Soft, nontender, nondistended, normoactive bowel sounds. Gordon cathet er in place MUSCULOSKELETAL: No joint swelling or deformity. EXTREMITIES: No cyanosis, clubbing, or pedal edema. NEUROLOGICAL: No focal deficit noted, alert to person place and situation Objective - Vital Signs Vital signs: Vital Signs Temp 98.1 F 05/25/23 08:00 Pulse 78 05/25/23 11:00 Resp 17 05/25/23 11:00 BP 114/78 05/25/23 11:00 Pulse Ox 96 05/25/23 11:00 FiO2 Intake & Output 05/24/23 05/25/23 05/25/23 18:59 06:59 18:59 Intake Total 1644.607 540 645.757 Output Total 1405 1085 355 Balance 239.607 -545 290.757 Weight 69.5 kg Intake: Intake, IV Titration 144.607 155.757 Amount Heparin Sod,Pork in 0.45% 144.607 155.757 NaCl 25,000 unit In 0.45 % NaCl 1 250ml.bag @ 12 UNITS/KG/HR 8.688 mls/hr IV .Q24H [facility] Rx#: [id number] Oral 1500 540 490 Output: Urine 1405 1085 355 Other: Voiding Method Indwelling Catheter Indwelling Catheter Indwelling Catheter - Labs CBC & Chem 7: 05/25/23 04:57 05/25/23 04:57 Labs: Abnormal Lab Results - Last 24 Hours (Table) 05/25/23 05/25/23 05/25/23 Range/Units 04:57 04:57 04:57 RBC 3.87 L (4.30-5.90) m/uL Hgb 12.5 L (13.0-17.5) gm/dL Hct 35.7 L (39.0-53.0) % APTT 47.1 H (22.0-30.0) sec Sodium 135 L (137-145) mmol/L BUN 24 H (9-20) mg/dL Creatinine 1.47 H (0.66-1.25) mg/dL Glucose 150 H (74-99) mg/dL Assessment and Plan Assessment: Assessment and plan * Acute renal failure with uremic symptoms/obstructive uropathy * Acute metabolic encephalopathy improved * Acute hyperkalemia resolved * Metabolic acidosis resolved * Non-ST elevated W[place] with multivessel coronary artery disease * Hypertensive urgency * Acute urinary retention with hydronephrosis status post Gordon placement * Consultation obtained from medical ICU, cardiology, nephrology, urology * * In regards to acute hyperkalemia, patient was given insulin, dextrose, sodium bicarbonate, calcium gluconate in follow-up potassium levels within normal limits * In regards to elevated troponin/multivessel coronary artery disease, cardiology consulted, echocardiogram ordered shows ejection fraction of 40- 45%, patient was on IV nitroglycerin drip that is weaned off, status post cardiac catheterization multivessel coronary artery disease noted, cardiac surgery consulted, continue IV heparin , intermittently positive for right radial hematoma , workup for CABG initiated, gradual for surgery 05/27/2023 * In regards to renal failure, metabolic acidosis continue to maintain Gordon catheter continue to monitor intake and output, nephrology consulted, , and if can improvement in renal function * In regards to urinary retention, maintain Gordon catheter, significant improvement in renal function * In regards to hypertensive urgency, was on nitroglycerin drip plan to weaned off * Patient remains critically ill, admitted to ICU * CODE STATUS is full code
[2023-05-25] MEDS: HEPARIN SOD,PORK IN 0.45% NACL 25,000 UNIT in 0.45% NACL 1 250ML.BAG IV SCH (17:10)
[2023-05-26] MEDS: HEPARIN SOD,PORK IN 0.45% NACL 25,000 UNIT in 0.45% NACL 1 250ML.BAG IV SCH ×3 (00:16→23:01)
[2023-05-26] MEDS: HEPARIN SODIUM 1,000 UN/ML (10ML VL) IV PRN (00:18)
[2023-05-26] MEDS: NITROGLYCERIN OINT 1 INCH/GM PACKET TOPICAL SCH ×3 (00:23→17:05)
[2023-05-26 06:11] LABS: Basophils % (A) 0 %; Eosinophils # (A) 0.4 k/uL (0-0.7); Eosinophils % (A) 6 %; HCT 36.6 % (39.0-53.0); Lymphocytes # (A) 1.2 k/uL (1.0-4.8); Lymphocytes % (A) 16 %; MCH 32.9 pg (25.0-35.0); MCHC 35.5 g/dL (31.0-37.0); MCV 92.7 fL (80.0-100.0); Mean Platelet Volume 9.5; Monocytes # (A) 0.5 k/uL (0-1.0); Monocytes % (A) 6 %; Neutrophils # (A) 5.5 k/uL (1.3-7.7); Neutrophils % (A) 70 %; Platelet Count 163 k/uL (150-450); RBC 3.95 m/uL (4.30-5.90); RDW 12.6 % (11.5-15.5); WBC 7.8 k/uL (3.8-10.6)
[2023-05-26 07:02] LABS: ALT 21 U/L (4-49); AST 27 U/L (17-59); African American GFR (CKD) 49 (>60 ml/min/1.73 sqM); Albumin 3.5 g/dL (3.5-5.0); Alkaline Phosphatase 73 U/L (38-126); Anion Gap 9 mmol/L; Blood Urea Nitrogen 32 mg/dL (9-20); Calcium 8.8 mg/dL (8.4-10.2); Carbon Dioxide 24 mmol/L (22-30); Chloride 103 mmol/L (98-107); Glucose 147 mg/dL (74-99); Non-African American GFR(CKD) 42 (>60 ml/min/1.73 sqM); Potassium 4.1 mmol/L (3.5-5.1); Sodium 136 mmol/L (137-145); Total Bilirubin 0.5 mg/dL (0.2-1.3)
--- NOTE | 2023-05-26 07:23 | P.PN ---
Subjective Progress Note Date: 05/26/23 PROGRESS NOTE The patient is a 68-year-old male with no prior documented history of cardiac disease who presented with an acute episode of chest discomfort, troponin elevation and was found to have acute renal injury. He has no further pain this morning. He is feeling better. His breathing is stable. He denies any dizziness or palpitations. He has no nausea or vomiting. May 23: The patient feels well this morning, he denies any chest discomfort, dizziness or palpitations. He continues to be in sinus mechanism. He continues to be on IV heparin and IV nitroglycerin. His urine is pink. He continues to have an indwelling Gordon catheter. His echocardiogram was technically difficult and sh owed an ejection fraction of 40-45% with mild AI but no clear reported segmental wall motion abnormality May 24: The patient is feeling well this morning, denies any chest discomfort, dizziness or palpitations. He underwent cardiac catheterization yesterday and was found to have severe triple-vessel disease. He was evaluated at the surgical team for CABG. He is back on IV heparin continues to be in sinus mechanism. His blood pressure has been elevated at times. There is no evidence of malignant arrhythmia. Carotid ultrasound revealed no evidence of significant obstructive disease. May 25: The patient is up in the chair, feels well. He denies any chest discomfort, dizziness or palpitations. He is in sinus mechanism with no hemodynamic compromise. His urinary output has been.. He has a hematoma in the right forearm related to infiltration of his intravenous heparin. He is scheduled to undergo CABG on Monday. May 26: The patient feels well this morning, he is awake and alert. He denies any chest discomfort, dizziness or palpitations. He denies any nausea or vomiting. Hemodynamically he is stable. He is in sinus mechanism. He is scheduled to undergo CABG tomorrow. He continues to be on IV heparin. Medications: Aspirin, Lipitor 40 mg daily, IV heparin, metoprolol 50 mg twice a day, Nitropaste 1 inch every 8 hours PHYSICAL EXAMINATION: Blood pressure 109/70 heart rate 70 LUNGS: Clear to auscultation HEART: Regular rate and rhythm, S1, S2. No S3. No systolic murmur ABDOMEN: Soft, nontender, no organomegaly EXTREMETIES: No edema, pressure dressing on the right forearm LAB: BUN 32, creatinine 1.63, potassium 4.1, hemoglobin 13 IMPRESSION: 1. Acute renal injury, improving, with obstructive uropathy 2. Acute myocardial infarction probable in the LAD distribution 3. Hyperkalemia resolved 4. Obstructive uropathy 5. Cardiomyopathy PLAN: 1. Continue present therapy 2. Follow renal functions 3. Incentive spirometry 4. Proceed with CABG on Monday Objective - Vital Signs Vital signs: Vital Signs Temp 98.8 F 05/26/23 04:00 Pulse 70 05/26/23 04:00 Resp 14 05/26/23 04:00 BP 109/70 05/26/23 04:00 Pulse Ox 98 05/26/23 04:00 FiO2 Intake & Output 05/25/23 05/26/23 05/26/23 18:59 06:59 18:59 Intake Total 881.757 72.980 Output Total 655 1405 Balance 226.757 -1332.020 Weight 71 kg Intake: Intake, IV Titration 155.757 72.980 Amount Heparin Sod,Pork in 0.45% 155.757 72.980 NaCl 25,000 unit In 0.45 % NaCl 1 250ml.bag @ 12 UNITS/KG/HR 8.688 mls/hr IV .Q24H [facility] Rx#: [id number] Oral 726 Output: Urine 655 1405 Other: Voiding Method Indwelling Catheter Indwelling Catheter - Labs CBC & Chem 7: 05/26/23 06:00 05/26/23 06:00 Labs: Abnormal Lab Results - Last 24 Hours (Table) 05/25/23 05/26/23 05/26/23 Range/Units 22:36 06:00 06:00 RBC 3.95 L (4.30-5.90) m/uL Hct 36.6 L (39.0-53.0) % APTT 38.0 H (22.0-30.0) sec Sodium 136 L (137-145) mmol/L BUN 32 H (9-20) mg/dL Creatinine 1.63 H (0.66-1.25) mg/dL Glucose 147 H (74-99) mg/dL Total Protein 6.0 L (6.3-8.2) g/dL 05/26/23 Range/Units 06:00 RBC (4.30-5.90) m/uL Hct (39.0-53.0) % APTT 67.6 H (22.0-30.0) sec Sodium (137-145) mmol/L BUN (9-20) mg/dL Creatinine (0.66-1.25) mg/dL Glucose (74-99) mg/dL Total Protein (6.3-8.2) g/dL
[2023-05-26] MEDS: ATORVASTATIN 40 MG TAB PO SCH (08:22)
[2023-05-26] MEDS: ASPIRIN 81 MG PO SCH (08:22)
[2023-05-26] MEDS: MUPIROCIN 2% OINT 22 GM TUBE NASAL SCH ×2 (08:22→19:54)
[2023-05-26] MEDS: METOPROLOL TARTRATE 50 MG TAB PO SCH ×2 (08:22→19:54)
--- NOTE | 2023-05-26 09:22 | P.PN ---
Subjective Progress Note Date: 05/26/23 68-year-old male with no significant past medical history, other than a pneumothorax many years ago. The patient presents with the emergency department on May 21, which chest pain, vomiting, and not feeling well for about 4 days according to his family members. He apparently was in bed for the last 4 days, with a possible viral syndrome. He apparently had pain in his chest and abdomen, nausea vomiting, and generally not feeling well, not eating or drinking, and feeling very weak. His primary care physician is Dr. Dey, but he has not see him on a regular basis. The patient takes no medications at home. The patient had very abnormal laboratory data, including a white count of 10.9, hemoglobin 13.9, hematocrit 38.8, and a normal platelet count. Sodium 139, potassium 6.7, chlorides 105, CO2 12, anion gap 22, BUN 90, creatinine 10.38. Glucose 170. Magnesium 2.4, troponin 0.644, and lipase 192. A thoracic CT was done to rule out dissection. It showed bilateral pleural effusions. The chest x-ray was normal. On 05/22/2023, the patient is awake and alert and communicating. His abdominal pain has subsided. He is still having some chest pain and for that reason the patient has been kept on nitroglycerin drip. Nitrol drip is running at 45 mcg/m. Is also on IV heparin. As mentioned earlier, he presented with chest pain and abdominal pain. He had obstructive uropathy and hydronephrosis. He also had an obstructing calculus. Gordon catheter was inserted and immediately and 4 L of urine output was produced. The urine output was bloody. Cultures are still pending for now. The ultrasound the kidneys showed no evidence of any hydronephrosis. The original CT a of the abdomen showed some hydronephrosis on the left. The creatinine continues to improve. The blood work from today shows a drop in the creatinine from as high as 12 down to 3.06. The patient remains on bicarb infusion. Serum bicarbonate of 28 with a sodium level is at 139.. His troponin peaked at extreme. His proBNP level is at 6620 and the patient is undergoing a echocardiogram today. Is on no pressors. His cardiac rhythm is sinus. The patient is going to need a cardiac catheterization and this will be done within the next 24-48 hours once the renal function stabilizes further. Neurologically, he is awake and alert and communicating. He is currently on oxygen at 2 L. His chest x-ray showed small bilateral pleural effusions. Cardiomegaly. On today's evaluation of 05/23/2023, the patient is free of any chest pain. The patient is still on IV heparin. The patient is also on nitroglycerin drip which is running at 30 g per minute. He is on room air oxygen. He is hemodynamic ally stable on no pressors. At the same time the patient's renal function continues to improve. He does have some minimal amount of hematuria and a Gordon catheter in place. He is still on IV fluids with normal saline at rate of 75 mL an hour. The bicarb infusion was discontinued yesterday. Based on today's blood work, the creatinine is down to 1.7 which is improved significantly compared to yesterday. He has a potassium level of 3.4 which is being replaced. Sodium levels of 137. BUN is at 23. Bicarb level is at 28. His nose at 6.2 with a hemoglobin of 11.5 and platelet count of 142. Cardiology evaluated the patient and the patient will likely go for a diagnostic cardiac catheterization today. He remains on aspirin. Remains on metoprolol 25 mg by mouth twice a day. Cardiac rhythm is sinus. On today's evaluation of 05/24/2023, the patient is feeling well. He is on room air oxygen. He has no major respiratory distress. He continues to improve his renal function and a creatinine is down to 1.38. Note that the patient had sustained an acute non-ST segment elevation myocardial infarction. Cardiac catheterization was done yesterday and the patient was found to have significant disease involving 100% LAD stenosis with a right to left septal and left to left collaterals. Patient also had an 80% diagonal disease, 70% circumflex disease, 80% RCA disease and his left ventricle end-diastolic pressure was quite elevated. Based on all this, cardiothoracic surgery consultation was obtained for possibility of undergoing a cardiac bypass surgery. He is doing well for n ow. He remains on IV heparin. His hematuria has cleared. Is W physical 107.0 with a hemoglobin of 12.8, PTT is at 48.2, sodium is at 136, BUN is at 22 with a creatinine of 1.38. Carotid Doppler was also done and the patient did not have any significant carotid artery disease. Today's evaluation of 05/25/2023, the patient remains on room air oxygen. No chest pain. Renal function is stable with a creatinine of 1.47 and a BUN of 24. No respiratory distress. No chest pain. No hemodynamic instability. The plan is to proceed with cardiac bypass surgery Monday of this week which is on . The patient has no specific complaints otherwise. He has a preserved FEV1 on a bedside spirometry. The patient was on IV heparin. He developed a hematoma in his right forearm. As such, then to cognition was not. PTT last was at 47. Hemoglobin is at 12.5. The white cycles of 7.6. Sodium levels of 135. Cardiology is on the case. Cardiothoracic surgery is on the case. He continues to Gordon catheter in place. No evidence of any bleeding. On 05/26/2023, I'm seeing the patient for a follow-up. Awake and alert and communicating. No chest pain. Hemodynamically stable. The patient is scheduled to undergo is bypass surgery tomorrow. He is on room air oxygen. He is using the Balzo spirometer. Cardiac rhythm is sinus. Labs from today shows inability to 7.8, hemoglobin 13, BUN is at 32 with a creatinine of 1.6 and a sodium level is at 136.. Patient is on IV heparin. No bleeding complications. Pulse ox 97% on room air oxygen. Objective - Vital Signs Vital signs: Vital Signs Temp 97.9 F 05/26/23 08:00 Pulse 90 05/26/23 08:00 Resp 17 05/26/23 08:00 BP 126/74 05/26/23 08:00 Pulse Ox 97 05/26/23 08:00 FiO2 Intake & Output 05/25/23 05/26/23 05/26/23 18:59 06:59 18:59 Intake Total 881.757 72.980 Output Total 655 1405 250 Balance 226.757 -1332.020 -250 Weight 71 kg Intake: Intake, IV Titration 155.757 72.980 Amount Heparin Sod,Pork in 0.45% 155.757 72.980 NaCl 25,000 unit In 0.45 % NaCl 1 250ml.bag @ 12 UNITS/KG/HR 8.688 mls/hr IV .Q24H [facility] Rx#: [id number] Oral 726 Output: Urine 655 1405 250 Other: Voiding Method Indwelling Catheter Indwelling Catheter Indwelling Catheter - Exam No acute distress, oriented 3. The patient is currently on RA oxygen. Saturations are 98%. HEENT examination is grossly unremarkable. Mucous membranes are dry. Neck supple. Full range of motion. No adenopathy thyromegaly or neck vein distention. Cardiovascular examination reveals regular rhythm rate. S1-S2 normal. No S3 or S4. No discernible murmur noted. Lungs reveal clear breath sounds. Breath sounds are equal bilaterally. No adventitious lung sounds including wheezes rhonchi or crackles. Abdomen soft with bowel sounds. No masses or tenderness. Extremities are intact. No cyanosis clubbing or edema. Skin is without rash or lesion. Neurologic examination is brief but nonfocal. - Labs CBC & Chem 7: 05/26/23 06:00 05/26/23 06:00 Labs: Abnormal Lab Results - Last 24 Hours (Table) 05/25/23 05/26/23 05/26/23 Range/Units 22:36 06:00 06:00 RBC 3.95 L (4.30-5.90) m/uL Hct 36.6 L (39.0-53.0) % APTT 38.0 H (22.0-30.0) sec Sodium (137-145) mmol/L BUN (9-20) mg/dL Creatinine (0.66-1.25) mg/dL Glucose (74-99) mg/dL Total Protein (6.3-8.2) g/dL Crossmatch See Detail 05/26/23 05/26/23 Range/Units 06:00 06:00 RBC (4.30-5.90) m/uL Hct (39.0-53.0) % APTT 67.6 H (22.0-30.0) sec Sodium 136 L (137-145) mmol/L BUN 32 H (9-20) mg/dL Creatinine 1.63 H (0.66-1.25) mg/dL Glucose 147 H (74-99) mg/dL Total Protein 6.0 L (6.3-8.2) g/dL Crossmatch Assessment and Plan Plan: Multivessel coronary artery disease, awaiting coronary artery bypass surgery and this is scheduled to be done on 05/27/2023 mile free of any chest pain and the patient continues to be on IV heparin Systolic heart failure with an ejection fraction of 40-45% with mild aortic insufficiency Acute kidney injury with associated hyperkalemia, and anion gap metabolic acidosis. The patient had obstructive uropathy, calculus that he has passed into his bladder. His post Gordon catheter insertion and the relief of the obstruction. No hydronephrosis and the follow-up ultrasound the kidneys and the patient is producing adequate amount of urine output at this point in the renal function continues to improve. Creatinine at 1.63 Non-anion gap metabolic acidosis, recovered Mild hematuria could be related to kidney stones , recovered BPH old anteroseptal myocardial infarction based on Q waves seen on the EKG at the time of admission Nausea and vomiting, with dehydration. Recovered Hypertensive urgency, secondary to acute renal failure , recovered Small right forearm hematoma, recovered Plan: Continue normal saline at KVO Continue IV heparin Echocardiogram was done yesterday and the patient has a mild impairment of LV function with an ejection fraction of 40-45%, mild aortic insufficiency Cardiac catheterization was noted and the patient is going to undergo coronary artery bypass surgery on 05/27/2023 Monitor renal function, creatinine is stable Continue incentive spirometer and the bedside spirometry was done and the patient and an FEV1 of above 70% without any significant obstructive pattern Continue aspirin Continue metoprolol 25 mg by mouth twice a day oxygen on RA We'll continue to follow.
--- NOTE | 2023-05-26 10:45 | P.PN ---
Subjective Progress Note Date: 05/26/23 * 68-year-old gentleman with history of pneumonectomy/right lung presents to the emergency department with complains of fatigue, malaise, nausea and abdominal pain. Patient states his been having intractable postprandial vomiting, patient states symptom onset has been last 3 days before presentation. Kendra ayala did mention to the emergency department team that he had streaks of blood in the emesis as well. While in ER patient had extensive workup done including CT aorta abdomen which was negative for dissection however did show urinary retention and hydronephrosis, likely secondary to retention and Gordon catheter was placed. Patient was also given a GI cocktail in ED with minimal relief, patient continued to have recurrent nausea/vomiting. * Patient said he has not seen a doctor in 2 years, previous blood work reviewed did show normal creatinine function * Chest x-ray obtained in ER was within normal * Serum chemistry obtained in ER showed WBC of 10.9 hemoglobin 13.9 platelet count of 192, neutrophil count of 9.7, serum sodium 139, potassium 5.2, B UN 100 creatinine 12.54, lactate of 2.1, initial troponin of 0.171 * While in ER patient was given insulin, dextrose, sodium bicarbonate, 1 L fluid bolus, started on IV heparin drip * Secondary to critical illness and instability patient to be admitted to medical ICU with consultation from nephrology, cardiology and Urology * 05/22/2023 : Patient seen and evaluated bedside, patient is alert and oriented to person place and situation. Seen by nephrology Gordon catheter in place, acute kidney injury secondary to obstructive uropathy with significant improvement in renal function continue patient on fluid resuscitation cardiology following will plan cardiac catheterization during this hospitalization. Appreciate input from medical ICU as well continue patient on nitroglycerin drip, continue medical management * 05/23/2023: Patient seen and evaluated and bedside, patient has multi-vessel coronary artery disease, seen after cardiac catheterization, renal function improving patient has been on nitroglycerin drip that has been weaned off. Continue current medications including aspirin, Lipitor, metoprolol further instructions from cardiology continue to monitor renal function, cardiac surgery consulted * 05/24/2023: Patient seen and evaluated bedside, patient is chest pain-free, seen by intensive care unit team as well as cardiology, cardiac surgery team following plan for CABG to be done by 05/27/2023. Continue patient on IV hepar in * 05/25/2023: Patient seen and evaluated and bedside, IV heparin has been paused patient did have slight right radial hematoma, nephrology following, hemoglobin 12.5, creatinine 1.47, patient scheduled for CABG on 05/27/23 * 05/26/2023: Patient seen and evaluated bedside, patient is on IV heparin drip, right radial hematoma improved, pressure bandage placed. [facility] paperwork for completed. Cardiac surgery planning CABG 05/27/23. Blood work reviewed REVIEW OF SYSTEMS: Nausea, vomiting, abdominal pain, chest pain fatigue, malaise RESOLVED 05/22 CONSTITUTIONAL: Nausea, vomiting, abdominal pain, chest pain fatigue, malaise HEENT: No recent visual problems or hearing problems. Denied any sore throat. CARDIOVASCULAR: No chest pain, orthopnea, PND, no palpitations, no syncope. PULMONARY: No shortness of breath, no cough, no hemoptysis. GASTROINTESTINAL: Nausea, vomiting, abdominal pain, chest pain fatigue, malaise NEUROLOGICAL: No headaches, no weakness, no numbness. HEMATOLOGICAL: Denies any bleeding or petechiae. GENITOURINARY: Denies any burning micturition, frequency, or urgency. MUSCULOSKELETAL/RHEUMATOLOGICAL: Denies any joint pain, swelling, or any muscle pain. ENDOCRINE: Denies any polyuria or polydipsia. PHYSICAL EXAMINATION: GENERAL: The patient is alert and oriented x3, improvement noted, not apparent toxic HEENT: Pupils are round and equally reacting to light. EOMI. CARDIOVASCULAR: S1 and S2 present. Rate within normal limits, right radial access post cardiac catheterization hematoma noted improved PULMONARY: Chest is clear to auscultation, no wheezing or crackles. ABDOMEN: Soft, nontender, nondistended, normoactive bowel sounds. Gordon catheter in place MUSCULOSKELETAL: No joint swelling or deformity. EXTREMITIES: No cyanosis, clubbing, or pedal edema. NEUROLOGICAL: No focal deficit noted, alert to person place and situation Objective - Vital Signs Vital signs: Vital Signs Temp 97.9 F 05/26/23 08:00 Pulse 90 05/26/23 08:00 Resp 17 05/26/23 08:00 BP 126/74 05/26/23 08:00 Pulse Ox 97 05/26/23 08:00 FiO2 Intake & Output 05/25/23 05/26/23 05/26/23 18:59 06:59 18:59 Intake Total 881.757 72.980 Output Total 655 1405 250 Balance 226.757 -1332.020 -250 Weight 71 kg 71 kg Intake: Intake, IV Titration 155.757 72.980 Amount Heparin Sod,Pork in 0.45% 155.757 72.980 NaCl 25,000 unit In 0.45 % NaCl 1 250ml.bag @ 12 UNITS/KG/HR 8.688 mls/hr IV .Q24H [facility] Rx#: [id number] Oral 726 Output: Urine 655 1405 250 Other: Voiding Method Indwelling Catheter Indwelling Catheter Indwelling Catheter - Labs CBC & Chem 7: 05/26/23 06:00 05/26/23 06:00 Labs: Abnormal Lab Results - Last 24 Hours (Table) 05/25/23 05/26/23 05/26/23 Range/Units 22:36 06:00 06:00 RBC 3.95 L (4.30-5.90) m/uL Hct 36.6 L (39.0-53.0) % APTT 38.0 H (22.0-30.0) sec Sodium (137-145) mmol/L BUN (9-20) mg/dL Creatinine (0.66-1.25) mg/dL Glucose (74-99) mg/dL Total Protein (6.3-8.2) g/dL Crossmatch See Detail 05/26/23 05/26/23 Range/Units 06:00 06:00 RBC (4.30-5.90) m/uL Hct (39.0-53.0) % APTT 67.6 H (22.0-30.0) sec Sodium 136 L (137-145) mmol/L BUN 32 H (9-20) mg/dL Creatinine 1.63 H (0.66-1.25) mg/dL Glucose 147 H (74-99) mg/dL Total Protein 6.0 L (6.3-8.2) g/dL Crossmatch Assessment and Plan Assessment: Assessment and plan * Acute renal failure with uremic symptoms/obstructive uropathy * Acute metabolic encephalopathy improved * Acute hyperkalemia resolved * Metabolic acidosis resolved * Non-ST elevated SD with multivessel coronary artery disease * Hypertensive urgency * Acute urinary retention with hydronephrosis status post Gordon placement * Consultation obtained from medical ICU, cardiology, nephrology, urology * In regards to elevated troponin/multivessel coronary artery disease, cardiology consulted, echocardiogram ordered shows ejection fraction of 40- 45%, patient was on IV nitroglycerin drip that is weaned off, status post cardiac catheterization multivessel coronary artery disease noted, cardiac surgery consulted, continue IV heparin , intermittently paused for right radial hematoma , workup for CABG initiated, plan for surgery 05/27/2023 * In regards to acute hyperkalemia, patient was given insulin, dextrose, sodium bicarbonate, calcium gluconate in follow-up potassium levels within normal limits> RESOLVED * In regards to renal failure, metabolic acidosis continue to maintain Gordon catheter continue to monitor intake and output, nephrology consulted, , creatinine improving * In regards to urinary retention, maintain Gordon catheter, significant improvement in renal function * In regards to hypertensive urgency, was on nitroglycerin drip plan to weaned off, continue metoprolol, lisinopril discontinued in anticipation of surgery * Patient remains critically ill, admitted to ICU * CODE STATUS is full code
--- NOTE | 2023-05-26 12:14 | P.PN ---
Subjective patient is seen for follow-up for acute kidney injury, obstructive uropathy with significantly improved renal function post Gordon catheter placement. Patient had significant postobstructive diuresis, now improved. Status post cardiac catheterization on 05/23/2023 which showed 100% LAD stenosis 80% diagonal disease and 70% disease in circumflex. Patient is scheduled for coronary artery bypass surgery tomorrow No complaints of chest pains. Serum creatinine increased to 1.6 mg/dL. 24 hour urine output of 2.0 L Objective - Vital Signs Vital signs: Vital Signs Temp 97.9 F 05/26/23 08:00 Pulse 90 05/26/23 08:00 Resp 17 05/26/23 08:00 BP 126/74 05/26/23 08:00 Pulse Ox 97 05/26/23 08:00 FiO2 Intake & Output 05/25/23 05/26/23 05/26/23 18:59 06:59 18:59 Intake Total 881.757 72.980 Output Total 655 1405 250 Balance 226.757 -1332.020 -250 Weight 71 kg 71 kg Intake: Intake, IV Titration 155.757 72.980 Amount Heparin Sod,Pork in 0.45% 155.757 72.980 NaCl 25,000 unit In 0.45 % NaCl 1 250ml.bag @ 12 UNITS/KG/HR 8.688 mls/hr IV .Q24H [facility] Rx#: [id number] Oral 726 Output: Urine 655 1405 250 Other: Voiding Method Indwelling Catheter Indwelling Catheter Indwelling Catheter - Exam Patient is awake, comfortable, no acute distress. Alert oriented 3 Patient is euvolemic Examination of lower extremities shows no significant edema. Hematoma noted at the site of cardiac cath on right wrist [employer] exam grossly intact - Labs CBC & Chem 7: 05/26/23 06:00 05/26/23 06:00 Labs: Abnormal Lab Results - Last 24 Hours (Table) 05/25/23 05/26/23 05/26/23 Range/Units 22:36 06:00 06:00 RBC 3.95 L (4.30-5.90) m/uL Hct 36.6 L (39.0-53.0) % APTT 38.0 H (22.0-30.0) sec Sodium (137-145) mmol/L BUN (9-20) mg/dL Creatinine (0.66-1.25) mg/dL Glucose (74-99) mg/dL Total Protein (6.3-8.2) g/dL Crossmatch See Detail 05/26/23 05/26/23 Range/Units 06:00 06:00 RBC (4.30-5.90) m/uL Hct (39.0-53.0) % APTT 67.6 H (22.0-30.0) sec Sodium 136 L (137-145) mmol/L BUN 32 H (9-20) mg/dL Creatinine 1.63 H (0.66-1.25) mg/dL Glucose 147 H (74-99) mg/dL Total Protein 6.0 L (6.3-8.2) g/dL Crossmatch Microbiology - Last 24 Hours (Table) 05/23/23 17:27 Nasal Screen MRSA/MSSA - Final Nasopharyngeal Swab Assessment and Plan Assessment: 1. Acute kidney injury secondary to obstructive uropathy and possible component of ATN. Currently with indwelling Gordon catheter and improving renal function. Serum creatinine has decreased to 1.4 and increased to 1.6 today most likely secondary to ATN from IV contrast and possible component of volume depletion as well. 2. Hyperkalemia associated with acute kidney injury and urine retention, resolved 3. Anion gap metabolic acidosis associated with severe acute kidney injury and obstructive uropathy, resolved 4. Elevated troponins rule out acute ID 5. Left renal stone with left hydronephrosis noted on CTA. Ultrasound of the kidneys shows possible bladder stone. Urology is on consult. 6. Significant coronary artery disease status post cardiac catheterization on 05/23/2023 , scheduled for coronary artery bypass surgery in a.m. Plan: Add IV fluids Continue to monitor renal function
[2023-05-26] MEDS: SODIUM CHLORIDE 0.9% 1,000 ML IV SCH (14:36)
--- NOTE | 2023-05-26 15:48 | P.PN ---
Subjective Progress Note Date: 05/26/23 Principal diagnosis: Triple-vessel coronary artery disease, non-ST elevated myocardial infarction this admission with symptoms of abdominal pain, nausea and vomiting. Past medical history significant for fatty liver disease, right-sided traumatic lung injury in his 20s, testicular cancer, and previous tobacco dependence with cessation many years ago, and has not been on any medical therapy at home. The patient was seen and examined in follow-up today 05/26/2023 at his bedside in the intensive care unit. He is currently sitting up to the bedside chair, is awake, alert, oriented 3 and is in no acute apparent distress. Oxygen saturation are 98% on room air and he is achieving 2500 mL on his incentive spirometry with encouragement. Bedside telemetry showing normal sinus rhythm heart rate 89 BPM. He remains hemodynamically stable and currently on no inotropic pressure support. Heparin drip remains infusing per protocol. The patient is scheduled for off-pump myocardial revascularization surgery with left internal mammary artery, endoscopic vein harvest, possible endoscopic left radial artery harvest, exclusion left atrial appendage and intraoperative transesophageal echocardiogram. Preoperative teaching reinforce. Laboratory results reviewed. Objective - Vital Signs Vital signs: Vital Signs Temp 97.8 F 05/26/23 12:00 Pulse 80 05/26/23 12:00 Resp 14 05/26/23 12:00 BP 137/85 05/26/23 12:00 Pulse Ox 98 05/26/23 12:00 FiO2 Intake & Output 05/25/23 05/26/23 05/26/23 18:59 06:59 18:59 Intake Total 881.757 72.980 370 Output Total 655 1405 750 Balance 226.757 -1332.020 -380 Weight 71 kg 71 kg Intake: Intake, IV Titration 155.757 72.980 70 Amount Heparin Sod,Pork in 0.45% 155.757 72.980 NaCl 25,000 unit In 0.45 % NaCl 1 250ml.bag @ 12 UNITS/KG/HR 8.688 mls/hr IV .Q24H [facility] Rx#: [id number] Sodium Chloride 0.9% 1, 70 000 ml @ 70 mls/hr IV . [id number] [facility] Rx#: [id number] Oral 726 300 Output: Urine 655 1405 750 Other: Voiding Method Indwelling Catheter Indwelling Catheter Indwelling Catheter - Exam CONSTITUTIONAL: Sitting up to bedside chair in the intensive care unit, appears comfortable, cooperative, no apparent acute distress. HEENT: Neck is supple, no JVD, no lymphadenopathy. RESPIRATORY: Lungs sounds essentially clear throughout, diminished to his bilateral bases. Respirations are symmetrical and nonlabored. Currently on room air with oxygen saturations 98%. Able to achieve 2500 mL on his incentive spirometry. Strong cough. CARDIOVASCULAR: Regular rhythm and rate. S1 and S2 present, negative for S3, gallop or murmur. Palpable peripheral pulses bilaterally. No calf pain or tenderness noted. Knee-high sequential compression devices in place to his bilat eral lower extremities. GASTROINTESTINAL: Abdomen soft, nontender, nondistended. Active bowel sounds present 4 quadrants. Tolerating diet. Passing flatus. No guarding or rigidity. GENITOURINARY: Gordon present draining clear, yellow urine. Urine output 1130 mL in the last 8 hours. INTEGUMENTARY: Skin is warm and dry with no evidence of clubbing or cyanosis. NEUROLOGIC: Cranial nerves II through XII intact. No focal deficits. MUSKULOSKELETAL: Able to move all extremities, strength equal bilaterally. PSYCHIATRIC: Alert and oriented to person place and time, appropriate affect, intact judgment and insight. - Allied health notes Allied health notes reviewed: nursing - Labs CBC & Chem 7: 05/26/23 06:00 05/26/23 06:00 Labs: Abnormal Lab Results - Last 24 Hours (Table) 05/25/23 05/26/23 05/26/23 Range/Units 22:36 06:00 06:00 RBC 3.95 L (4.30-5.90) m/uL Hct 36.6 L (39.0-53.0) % APTT 38.0 H (22.0-30.0) sec Sodium (137-145) mmol/L BUN (9-20) mg/dL Creatinine (0.66-1.25) mg/dL Glucose (74-99) mg/dL Total Protein (6.3-8.2) g/dL Crossmatch See Detail 05/26/23 05/26/23 Range/Units 06:00 06:00 RBC (4.30-5.90) m/uL Hct (39.0-53.0) % APTT 67.6 H (22.0-30.0) sec Sodium 136 L (137-145) mmol/L BUN 32 H (9-20) mg/dL Creatinine 1.63 H (0.66-1.25) mg/dL Glucose 147 H (74-99) mg/dL Total Protein 6.0 L (6.3-8.2) g/dL Crossmatch Microbiology - Last 24 Hours (Table) 05/23/23 17:27 Nasal Screen MRSA/MSSA - Final Nasopharyngeal Swab Assessment and Plan Assessment: Triple-vessel coronary artery disease Chest pain, non-STEMI this admission Abdominal pain with nausea and vomiting, likely secondary to above Acute kidney injury Obstructive uropathy status post Gordon catheter placement Hypertension History of fatty liver disease History of right-sided traumatic lung injury in his 20s History of testicular cancer Previous tobacco dependence with cessation many years ago Plan: Encourage use of his incentive spirometry 10 times every hour while awake. Plan is for off-pump myocardial revascularization surgery on 05/27/2023 with left internal mammary artery, endoscopic vein harvest, possible endoscopic left radial harvest, exclusion left atrial appendage, intraoperative transesophageal echocardiogram to be performed by Dr. Waller. Heparin drip management and recommendations per cardiology. Turn off heparin drip at 6 AM. An STS risk score was Completed to discuss with the patient. A 5 minute walk test was completed 05/24/23, time 1: 3.05 Seconds, time 2: 3.30 Seconds, time 3: 2.51 Seconds. He will be made nothing by mouth after midnight. Continue to maximize medical therapy with aspirin, statin and beta adelaida. Medical management and other comorbidities per primary care, urology, cardiology and pulmonary/critical care services. More recommendations to follow based on patient's clinical course. Time with Patient: Greater than 30
[2023-05-27] MEDS: SODIUM CHLORIDE 0.9% 1,000 ML IV SCH (00:42)
[2023-05-27] MEDS: NITROGLYCERIN OINT 1 INCH/GM PACKET TOPICAL SCH (00:48)
[2023-05-27] MEDS ORDERED: ALBUMIN HUMAN 5% 500 ML in EMPTY BAG 1 BAG IVPB ONE ×6 (05:00)
[2023-05-27] MEDS ORDERED: ASPIRIN 325 MG TAB PO ONE (06:00)
[2023-05-27] MEDS ORDERED: CHLORHEXIDINE GLUCONATE 15 ML CUP MUCOUS MEM ONE (06:00)
[2023-05-27] MEDS ORDERED: ATORVASTATIN 10 MG TAB PO ONE (06:00)
[2023-05-27] MEDS ORDERED: METOPROLOL TARTRATE 12.5 MG TAB PO ONE (06:00)
[2023-05-27 06:25] LABS: Basophils % (A) 0 %; Eosinophils # (A) 0.3 k/uL (0-0.7); Eosinophils % (A) 4 %; HCT 36.6 % (39.0-53.0); HGB 12.6 gm/dL (13.0-17.5); Lymphocytes # (A) 0.7 k/uL (1.0-4.8); Lymphocytes % (A) 10 %; MCH 32.6 pg (25.0-35.0); MCHC 34.4 g/dL (31.0-37.0); MCV 94.9 fL (80.0-100.0); Mean Platelet Volume 9.1; Monocytes # (A) 0.5 k/uL (0-1.0); Monocytes % (A) 7 %; Neutrophils # (A) 5.5 k/uL (1.3-7.7); Neutrophils % (A) 77 %; Platelet Count 178 k/uL (150-450); RBC 3.86 m/uL (4.30-5.90); RDW 12.8 % (11.5-15.5); WBC 7.2 k/uL (3.8-10.6)
[2023-05-27 06:59] LABS: African American GFR (CKD) 51 (>60 ml/min/1.73 sqM); Anion Gap 7 mmol/L; Blood Urea Nitrogen 26 mg/dL (9-20); Carbon Dioxide 27 mmol/L (22-30); Chloride 104 mmol/L (98-107); Glucose 170 mg/dL (74-99); Magnesium 1.8 mg/dL (1.6-2.3); Non-African American GFR(CKD) 44 (>60 ml/min/1.73 sqM); Potassium 4.4 mmol/L (3.5-5.1); Sodium 138 mmol/L (137-145)
[2023-05-27] MEDS ORDERED: CALCIUM CHLORIDE 100 MG/ML 10 ML SYRINGE IVP ONE (07:00)
[2023-05-27] MEDS ORDERED: PHENYLEPHRINE 10 MG/ML VIAL IV ONE (07:00)
[2023-05-27] MEDS ORDERED: ELECTROLYTE-A SOLUTION 1,000 ML with POTASSIUM CHLORIDE 40 MEQ, MAGNESIUM SULFATE 16 ME... IV ONE ×5 (07:00)
[2023-05-27] MEDS ORDERED: HEPARIN SODIUM,PORCINE (1 ML) 5,000 UNIT in SODIUM CHLORIDE 0.9% 500 ML 500 ML IV ONE (07:00)
[2023-05-27] MEDS ORDERED: NITROGLYCERIN-D5W PMX 50 MG in DEXTROSE/WATER 1 250ML.BAG IV SCH ×2 (07:00→12:38)
[2023-05-27] MEDS ORDERED: TRANEXAMIC ACID 2,000 MG in SODIUM CHLORIDE 0.9% 80 ML IV ONE (07:00)
[2023-05-27] MEDS ORDERED: ELECTROLYTE-A SOLUTION 1,000 ML with POTASSIUM CHLORIDE 100 MEQ, MAGNESIUM SULFATE 16 M... IV ONE ×5 (07:00)
[2023-05-27] MEDS ORDERED: NITROGLYCERIN-D5W PMX 25 MG/250 ML BTL IV ONE (07:00)
[2023-05-27] MEDS ORDERED: CLEVIDIPINE BUTYRATE 25 MG in EMPTY BAG 1 BAG IV SCH (07:00)
[2023-05-27] MEDS ORDERED: NOREPINEPHRINE 4 MG in SODIUM CHLORIDE 0.9% 250 ML IV SCH (07:00)
[2023-05-27] MEDS ORDERED: PROTAMINE SULFATE 250 MG in EMPTY BAG 1 BAG IV ONE (07:00)
[2023-05-27] MEDS ORDERED: MANNITOL 25% 12.5 GM/50 ML VIAL IV ONE ×2 (07:00)
[2023-05-27] MEDS ORDERED: MAGNESIUM SULFATE 16.24 MEQ in EMPTY SYRINGE 1 SYR IV ONE (07:00)
[2023-05-27] MEDS ORDERED: ceFAZolin 1,000 MG in SODIUM CHLORIDE 0.9% IRRIGATIO 1,000 ML IRRIGATION ONE (07:00)
[2023-05-27] MEDS ORDERED: PAPAVERINE 360 MG in SODIUM CHLORIDE 0.9% 90 ML IV ONE (07:00)
[2023-05-27] MEDS ORDERED: SODIUM BICARB 8.4% 50 ML SYR (1 MEQ/ML) IV ONE (07:00)
[2023-05-27] MEDS ORDERED: PHENYLEPHRINE 40 MG in SODIUM CHLORIDE 0.9% 250 ML IV ONE (07:00)
[2023-05-27] MEDS ORDERED: HEPARIN SODIUM 1,000 UN/ML (10ML VL) IV ONE (07:00)
[2023-05-27] MEDS ORDERED: PROTAMINE SULFATE 10 MG/ML 25 ML VIAL IV ONE ×2 (07:00→07:47)
[2023-05-27] MEDS ORDERED: INSULIN REGULAR 100 UNIT in SODIUM CHLORIDE 0.9% 100 ML IV SCH (07:00)
[2023-05-27] MEDS ORDERED: ALBUMIN HUMAN 25% 50 ML in EMPTY BAG 1 BAG IVPB ONE (07:00)
[2023-05-27] MEDS ORDERED: VECURONIUM 10 MG VIAL IV ONE (07:47)
[2023-05-27] MEDS ORDERED: INSULIN REGULAR 100 UNIT/ML VIAL (IV) ONE (07:47)
[2023-05-27] MEDS ORDERED: SODIUM BICARB 8.4% 50 ML SYR (1 MEQ/ML) ONE (07:47)
[2023-05-27] MEDS ORDERED: MIDAZOLAM HCL 10 MG/10 ML VIAL ONE (07:47)
[2023-05-27] MEDS ORDERED: PROPOFOL 10 MG/ML 20 ML VIAL IV ONE (07:47)
[2023-05-27] MEDS ORDERED: HEPARIN SODIUM,PORCINE 5,000 UNIT/ML 1 ML VIAL ONE (07:47)
[2023-05-27] MEDS ORDERED: ALBUMIN HUMAN 5% (25gm) 500 ML VIAL IVPB ONE (07:47)
[2023-05-27] MEDS ORDERED: SODIUM CHLORIDE 0.9% IRRIG 1,000 ML BTL IRRIGATION ONE (07:47)
[2023-05-27] MEDS ORDERED: fentaNYL (PF) 50 MCG/ML 50 ML VIAL ONE (07:47)
[2023-05-27] MEDS ORDERED: HEPARIN SODIUM,PORCINE 10,000 UNIT/ML 1 ML VIAL ONE (07:47)
[2023-05-27] MEDS ORDERED: NITROGLYCERIN-D5W PMX 50 MG/250 ML BOTTLE IV ONE (07:47)
[2023-05-27] MEDS ORDERED: LIDOCAINE 1% INJ 10MG/ML (20 ML MDV) ONE (07:47)
[2023-05-27 08:35] LABS: ABG Base Excess -0.7 mmol/L; ABG Glucose Whole Blood 132 mg/dL (75-99); ABG HCO3 23 mmol/L (21-25); ABG Hematocrit 33 % (34.0-46.0); ABG Ionized Calcium 4.8 mg/dL (4.5-5.3); ABG PCO2 35 mmHg (35-45); ABG PH 7.44 (7.35-7.45); ABG PO2 281 mmHg (83-108); ABG Potassium Whole Blood 4.1 mmol/L (3.4-4.5); ABG Sodium Whole Blood 139 mmol/L (135-146); ABG TCO2 24 mmol/L (19-24); Allen Test Performed? Yes
--- NOTE | 2023-05-27 08:44 | P.ANPRN ---
Procedure Note - Anesthesia - Invasive Line Right Arterial Line Time Out Performed: Yes (0717) Date of Procedure: 05/27/23 Time of Procedure: 07:18 Location of Patient: Phase I Preparation: Sterile Prep, Sterile Dressing Arterial Line Location: Radial (right) Ultrasound Used: No Purpose - Visualization and Identification of Vasculature: No Image Stored and Saved: No Narrative: Central line placement per sterile protocol utilized. 20g right radial arterial line placed in 2 attempts using ultrasound. No image saved. Secured. Bled and flushed. Good waveform
--- NOTE | 2023-05-27 08:46 | P.ANPRN ---
Procedure Note - Anesthesia - Invasive Line Right Central Line Time Out Performed: Yes (0717) Date of Procedure: 05/27/23 Time of Procedure: 07:25 Location of Patient: Phase I Preparation: Sterile Prep, Sterile Dressing Central Line Location: Internal Jugular (right IJ Cordis) Ultrasound Used: Yes Purpose - Visualization and Identification of Vasculature: Yes Needle Guage: 18g angio Image Stored and Saved: Yes Narrative: Central line placement per sterile protocol utilized. +sterile prep +local;+angio +cvp+jwire +uneventful dilation and introduction right IJ Cordis. Free flow and nonpulsitile. secured. Bled and dressed.
--- NOTE | 2023-05-27 08:48 | P.ANPRN ---
Procedure Note - Anesthesia - Invasive Line Right [place] Segun Time Out Performed: Yes (0717) Date of Procedure: 05/27/23 Time of Procedure: 07:39 Location of Patient: Phase I Preparation: Sterile Prep, Sterile Dressing [place] Seg[place] Line Location: Internal Jugular (right) Ultrasound Used: No Purpose - Visualization and Identification of Vasculature: No Image Stored and Saved: No Narrative: Central line placement per sterile protocol utilized. after flushing lumens and testing balloon. alannah mars floated in sheath in one attempt to PA. Wedge at 48, b/d w/d to 43cm. Secured in sheath at 43cm.
--- NOTE | 2023-05-27 08:51 | P.ANPRN ---
Procedure Note - Anesthesia - MARYAM Intraop Pre Bypass MARYAM Intraop - Anesthesia Indication: Offpump cabg Date of Procedure: 05/27/23 Pre-operative Diagnosis: cad Post-operative Diagnosis: same Surgeon: Gabe Waller Left Ventricle: wnl Ejection Fraction: Normal Regional Wall Motion Abnormalities: None Left Ventricle Hypertrophy: No R. Ventricle Function: Normal Anatomy: Trileaflet Aortic Stenosis: None Aortic Regurgitation: Mild Mitral Stenosis: None Mitral Regurgitation: None Tricuspid Stenosis: None Tricuspid Regurgitation: None Pulmonic Stenosis: None Pulmonic Regurgitation: None R. Atrial Dilation: No R. Atrial PFO: No L. Atrial Dilation: No Aortic Dissection: No Aortic Calcification: None Plural Effusion: None
[2023-05-27] MEDS: DILTIAZEM 125 MG in SODIUM CHLORIDE 0.9% 100 ML IV SCH ×2 (08:59→13:34)
[2023-05-27 09:44] LABS: ABG Base Excess -2.4 mmol/L; ABG Glucose Whole Blood 137 mg/dL (75-99); ABG HCO3 22 mmol/L (21-25); ABG Hematocrit 28 % (34.0-46.0); ABG Ionized Calcium 4.6 mg/dL (4.5-5.3); ABG Lactic Acid Whole Blood 0.5 mmol/L (0.5-1.6); ABG PCO2 37 mmHg (35-45); ABG PH 7.39 (7.35-7.45); ABG PO2 308 mmHg (83-108); ABG Potassium Whole Blood 4.2 mmol/L (3.4-4.5); ABG Sodium Whole Blood 140 mmol/L (135-146); ABG TCO2 23 mmol/L (19-24); Allen Test Performed? Yes
[2023-05-27 10:48] LABS: ABG Base Excess 0.5 mmol/L; ABG Glucose Whole Blood 148 mg/dL (75-99); ABG HCO3 24 mmol/L (21-25); ABG Hematocrit 28 % (34.0-46.0); ABG Ionized Calcium 4.5 mg/dL (4.5-5.3); ABG Lactic Acid Whole Blood 0.6 mmol/L (0.5-1.6); ABG PCO2 35 mmHg (35-45); ABG PH 7.45 (7.35-7.45); ABG PO2 329 mmHg (83-108); ABG Sodium Whole Blood 141 mmol/L (135-146); ABG TCO2 25 mmol/L (19-24); Allen Test Performed? Yes
[2023-05-27 11:13] LABS: ABG Base Excess -0.3 mmol/L; ABG Glucose Whole Blood 142 mg/dL (75-99); ABG HCO3 24 mmol/L (21-25); ABG Hematocrit 29 % (34.0-46.0); ABG Ionized Calcium 4.6 mg/dL (4.5-5.3); ABG Lactic Acid Whole Blood 0.8 mmol/L (0.5-1.6); ABG PCO2 36 mmHg (35-45); ABG PH 7.43 (7.35-7.45); ABG PO2 312 mmHg (83-108); ABG Potassium Whole Blood 3.7 mmol/L (3.4-4.5); ABG Sodium Whole Blood 141 mmol/L (135-146); ABG TCO2 25 mmol/L (19-24); Allen Test Performed? Yes
[2023-05-27] MEDS ORDERED: HYDROcodone/APAP 10-325MG 1 EACH TAB PO PRN (12:38)
[2023-05-27] MEDS ORDERED: CALCIUM GLUCONATE IN NACL 2 GM in SALINE 1 100ML.BAG IVPB PRN (12:38)
[2023-05-27] MEDS ORDERED: DEXTROSE 5% IN WATER 100 ML with AMIODARONE 150 MG IV PRN (12:38)
[2023-05-27] MEDS ORDERED: Phosphorus Replacement Protoco 1 EACH MISC MISCELLANE PRN (12:38)
[2023-05-27] MEDS ORDERED: Potassium Replacement Protocol 1 EACH MISC MISCELLANE PRN (12:38)
[2023-05-27] MEDS ORDERED: Magnesium Replacement Protocol 1 EACH MISC MISCELLANE PRN (12:38)
[2023-05-27] MEDS ORDERED: IPRATROPIUM-ALBUTEROL 3 ML NEB INHALATION PRN (12:38)
[2023-05-27] MEDS ORDERED: METOCLOPRAMIDE 5 MG/ML 2 ML VIAL IVP PRN (12:38)
[2023-05-27] MEDS ORDERED: ONDANSETRON 4 MG/2 ML VIAL IVP PRN (12:38)
[2023-05-27] MEDS ORDERED: ALBUMIN HUMAN 5% 250 ML in EMPTY BAG 1 BAG IVPB PRN (12:38)
[2023-05-27] MEDS ORDERED: AMIODARONE 360 MG in DEXTROSE 5% IN WATER 200 ML IV PRN ×2 (12:38)
[2023-05-27] MEDS ORDERED: AMIODARONE 450 MG in DEXTROSE 5% IN WATER 250 ML IV PRN ×2 (12:38)
[2023-05-27] MEDS ORDERED: DEXTROSE 50% SYRINGE 50 ML IVP PRN ×2 (12:38)
[2023-05-27] MEDS ORDERED: BENZOCAINE/MENTHOL LOZENG 1 EACH LOZENGE MUCOUS MEM PRN (12:38)
--- NOTE | 2023-05-27 12:54 | P.OP ---
Date of Procedure: 05/27/23 Preoperative Diagnosis: 3v CAD, NSTEMI HTN HLD CHASIDY Postoperative Diagnosis: Same Procedure(s) Performed: 1. Off pump coronary artery bypass grafting x 4. Left internal thoracic artery (in-situ) sequential to second diagonal and left anterior descending coronary artery. Radial artery from aorta to obtuse marginal artery #3. Greater saphenous vein from aorta to proximal posterior descending coronary artery. 2. Left atrial appendage ligation using #35mm AtriClip 3. Endoscopic left radial and right greater saphenous vein harvest 4. Graft flow measurements using the Medi-Stim flow meter 5. Trans-esophageal echo Anesthesia: GETA Surgeon: Gabe Waller Ballet Teacher #1: Chetan Tobar Ballet Teacher #2: Aaron Guerrero Estimated Blood Loss (ml): 175 Pathology: none sent Condition: critical Disposition: ICU Indications for Procedure: This patient is a 68 year-old male with a hx of htn, hld, former smoker who presented with chest pain. 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 He was also noted to be in acute renal failure from prostatic obtruction. Urology was consulted who placed a somers and once his renal function returned to baseline, CABG was recommended. All risks, benefits and alternatives including his STS risk of morbidity and mortality was discussed with the patient and he was in agreement to proceed. Operative Findings: SAEED good conduit 1.75mm, 1st diagonal too small, 2nd diagonal 1.5mm good target, LAD diffusely disease but decent target measuring 1.5mm. SAEED-D2 Flow 61 ml/min, P.I. 4.1, D2-LAD Flow 55ml/min, P.I. 3.7 Saphenous vein 2.25mm decent conduit, Proximal PDA 1.5mm good target GSV-PDA Flow 74 ml/min, P.I. 1.5 Radial artery 2.0mm great conduit, OM3 1.5mm good target. RA-OM3 Flow 30 ml/min, P.I. 1.9 Description of Procedure: The patient underwent central line, arterial line, and [place] Segun catheter placement in the pre-operative suite by the anesthesia team. The patient was then brought to the operating room and placed in the supine position. General anesthesia was induced and the patient was prepped from the chin to the ankles in the usual sterile fashion. A time-out was performed and antibiotics were given. A midline incision was made on the chest and carried down to bone. A median sternotomy was performed. Hemostasis on the bone was achieved using electrocautery. The left pleura was entered and the left internal thoracic artery was harvested in a skeletonized fashion. Simultaneously a physician grants assistant harvested the right greater saphenous vein as well as the left radial artery in an endoscopic fashion. The patient was systemically heparinized and the SAEED was transected and placed in a papaverine jacuzzi. A left sided chest tube was placed. The right pleura was incised. The pericardium was incised in a reverse T-fashion and a pericardial cradle was created. Stay sutures were placed. A 35mm AtriClip was placed on the left atrial appendage. The left pericardium was incised to make a pathway for the mammary. The first diagonal branch was too small for bypass. The second diagonal branch was stabilized using the octopus stabilizer and arteriortomy created. 1.5mm flow through was was inserted and it was a good target. A side to side anastomosis between the SAEED and the second diagonal artery was created using a running 7-0 prolene. The stabilizer was placed on the LAD at the mid-distal portion. An arteriorotomy was made and 1.5mm flow through was inserted. An end to side anastomisis between the VAUGHN and LAD was performed using a running 7-0 prolene. Next, the inferior wall was exposed and a stay suture was placed on the diaphragm near the IVC and another one in the oblique sinus. The PDA was exposed and stabilized proximally Arteriorotomy was performed and 1.5mm flow through was inserted. An end to side anastomosis between the saphenous vein and PDA was performed using a running 7-0 prolene. Next the lateral wall was exposed and the third obtuse marginal artery was exposed and stabilized. An arteriortomy was made and, a 1.5mm flow through was inserted. An end to side anastomosis between the radial artery and OM3 was performed using a running 7-0 prolene. The flow through was once again removed prior to tieing down the anastomosis. The second OM was scratched but too small for bypass even proximally. At this point the radial artery and saphenous vein were fastened to the ascending aorta using 6-0 and 5-0 prolene respectively and heart string device x 2. Graft flow measurement was conducted using the Medi-Stim flow meter and it was excellent in all grafts. The pericardium was partially closed. A 32F chest tube and 19F Tristen were placed in the mediastinum and right pleura respectively. The sternum was re- approximated using cables. The fascia was closed with Ethibond and the subcutaneous tissues and skin, the sternum, arm and leg were closed in Vicryl layers. The patient was transported to the ICU without any major complications or prolonged period of hypotension.
[2023-05-27 13:18] LABS: Glucose,Whole Blood 171 mg/dL (70-110)
[2023-05-27] MEDS: CLEVIDIPINE BUTYRATE 25 MG in EMPTY BAG 1 BAG IV SCH ×2 (13:20→19:32)
[2023-05-27] MEDS: LACTATED RINGERS 1,000 ML IV SCH (13:21)
--- NOTE | 2023-05-27 13:29 | P.PN ---
Subjective Progress Note Date: 05/27/23 PROGRESS NOTE The patient is a 68-year-old male with no prior documented history of cardiac disease who presented with an acute episode of chest discomfort, troponin elevation and was found to have acute renal injury. He has no further pain this morning. He is feeling better. His breathing is stable. He denies any dizziness or palpitations. He has no nausea or vomiting. May 23: The patient feels well this morning, he denies any chest discomfort, dizziness or palpitations. He continues to be in sinus mechanism. He continues to be on IV heparin and IV nitroglycerin. His urine is pink. He continues to have an indwelling Gordon catheter. His echocardiogram was technically difficult and sh owed an ejection fraction of 40-45% with mild AI but no clear reported segmental wall motion abnormality May 24: The patient is feeling well this morning, denies any chest discomfort, dizziness or palpitations. He underwent cardiac catheterization yesterday and was found to have severe triple-vessel disease. He was evaluated at the surgical team for CABG. He is back on IV heparin continues to be in sinus mechanism. His blood pressure has been elevated at times. There is no evidence of malignant arrhythmia. Carotid ultrasound revealed no evidence of significant obstructive disease. May 25: The patient is up in the chair, feels well. He denies any chest discomfort, dizziness or palpitations. He is in sinus mechanism with no hemodynamic compromise. His urinary output has been.. He has a hematoma in the right forearm related to infiltration of his intravenous heparin. He is scheduled to undergo CABG on Monday. May 26: The patient feels well this morning, he is awake and alert. He denies any chest discomfort, dizziness or palpitations. He denies any nausea or vomiting. Hemodynamically he is stable. He is in sinus mechanism. He is scheduled to undergo CABG tomorrow. He continues to be on IV heparin. May 27: The patient is seen in the ICU following CABG. He underwent off-pump surgery this morning, he received a VAUGHN to the LAD and sequential to the second diagonal branch, radial to the OM and SVG to the PDA. He is intubated, sedated. He is in sinus mechanism. His blood pressure is on the high side. He is on IV nitroglycerin. There is no evidence of arrhythmia. Medications: Aspirin, IV nitroglycerin PHYSICAL EXAMINATION: Blood pressure 166/70 heart rate 85, intubated and sedated LUNGS: Clear to auscultation anteriorly HEART: Regular rate and rhythm, S1, S2. No S3. No systolic murmur ABDOMEN: Soft, nontender, no organomegaly EXTREMETIES: No edema, LAB: BUN 26, creatinine 1.59, potassium 4.4, hemoglobin 12.6 IMPRESSION: 1. Status post CABG 2. Acute renal injury with obstructive uropathy, improved 3. Moderate ischemic cardiomyopathy 4. Obstructive uropathy 5. Hematuria, resolved PLAN: 1. Continue routine postoperative care 2. Wean and extubate as tolerated 3. Reinitiate beta adelaida and statin 4. Depending on his progress further recommendations will be made Objective - Vital Signs Vital signs: Vital Signs Temp 98.1 F 05/27/23 04:00 Pulse 78 05/27/23 04:00 Resp 13 05/27/23 04:00 BP 136/76 05/27/23 04:00 Pulse Ox 97 05/27/23 04:00 FiO2 100 05/27/23 13:04 Intake & Output 05/26/23 05/27/23 05/27/23 18:59 06:59 18:59 Intake Total 920 775 54 Output Total 1500 1600 1250 Balance -221 -000 -5123 Weight 71 kg 70.2 kg Intake: IV 525 54 Sodium Chloride 0.9% 1, 525 000 ml In Empty Bag 1 bag @ 75 mls/hr IV .[id number] [facility] Rx#:[id number] Intake, IV Titration 70 250 Amount Heparin Sod,Pork in 0.45% 250 NaCl 25,000 unit In 0.45 % NaCl 1 250ml.bag @ 12 UNITS/KG/HR 8.688 mls/hr IV .Q24H [facility] Rx#: [id number] Sodium Chloride 0.9% 1, 70 000 ml @ 70 mls/hr IV . [id number] [facility] Rx#:[id number] Oral 850 Output: Urine 1500 1600 850 Estimated Blood Loss 400 Other: Voiding Method Indwelling Catheter Indwelling Catheter - Labs CBC & Chem 7: 05/27/23 05:41 05/27/23 05:41 Labs: Abnormal Lab Results - Last 24 Hours (Table) 05/26/23 05/27/23 05/27/23 Range/Units 06:00 05:41 05:41 RBC 3.86 L (4.30-5.90) m/uL Hgb 12.6 L (13.0-17.5) gm/dL Hct 36.6 L (39.0-53.0) % Lymphocytes # 0.7 L (1.0-4.8) k/uL APTT 40.5 H (22.0-30.0) sec BUN (9-20) mg/dL Creatinine (0.66-1.25) mg/dL Glucose (74-99) mg/dL POC Glucose (mg/dL) (70-110) mg/dL Crossmatch See Detail 05/27/23 05/27/23 Range/Units 05:41 13:17 RBC (4.30-5.90) m/uL Hgb (13.0-17.5) gm/dL Hct (39.0-53.0) % Lymphocytes # (1.0-4.8) k/uL APTT (22.0-30.0) sec BUN 26 H (9-20) mg/dL Creatinine 1.59 H (0.66-1.25) mg/dL Glucose 170 H (74-99) mg/dL POC Glucose (mg/dL) 171 H (70-110) mg/dL Crossmatch Microbiology - Last 24 Hours (Table) 05/23/23 17:27 Nasal Screen MRSA/MSSA - Final Nasopharyngeal Swab
[2023-05-27 13:34] LABS: Basophils % (A) 0 %; Eosinophils # (A) 0.1 k/uL (0-0.7); Eosinophils % (A) 2 %; HCT 23.5 % (39.0-53.0); Lymphocytes # (A) 0.6 k/uL (1.0-4.8); Lymphocytes % (A) 8 %; MCH 33.4 pg (25.0-35.0); MCV 92.8 fL (80.0-100.0); Mean Platelet Volume 10.5; Monocytes # (A) 0.3 k/uL (0-1.0); Monocytes % (A) 5 %; Neutrophils # (A) 6.4 k/uL (1.3-7.7); Neutrophils % (A) 85 %; Platelet Count 107 k/uL (150-450); RBC 2.53 m/uL (4.30-5.90); RDW 12.6 % (11.5-15.5); WBC 7.5 k/uL (3.8-10.6)
[2023-05-27] MEDS: INSULIN REGULAR 100 UNIT in SODIUM CHLORIDE 0.9% 100 ML IV SCH (13:41)
[2023-05-27] MEDS ORDERED: DILTIAZEM 125 MG in SODIUM CHLORIDE 0.9% 100 ML IV SCH (13:45)
--- NOTE | 2023-05-27 13:45 | XR ---
EXAMINATION TYPE: XR chest 1V portable DATE OF EXAM: 05/27/2023 Comparison: 05/21/2023 Clinical History: 68-year-old male Tube placement Findings: ET tube is satisfactory. NG tube tip not well seen by suspected to be near the GE junction level. Rec ommend further advancement and reassessment of follow-up. Epicardial pacer leads. Mediastinal drain a nd left-sided chest tube. No appreciable pneumothorax. Right IJ [place]-Segun catheter with tip at the ma in pulmonary outflow tract. Median sternotomy wires and post-CABG clips. Patchy retrocardiac opacity. Impression: 1. Postoperative changes. The NG tube appears slightly short. Tip estimated to be at the GE junction level. Recommend further advancement into the stomach. 2. Patchy retrocardiac postoperative atelectasis.
[2023-05-27 13:46] LABS: ABG Base Excess 0.2 mmol/L; ABG HCO3 24 mmol/L (21-25); ABG PCO2 34 mmHg (35-45); ABG PH 7.46 (7.35-7.45); ABG PO2 >400 mmHg (83-108); ABG TCO2 25 mmol/L (19-24)
[2023-05-27 13:52] LABS: INR 1.2 (<1.2); Partial Thromboplastin Time 35.7 sec (22.0-30.0); Prothrombin Time 13.2 sec (10.0-12.5)
[2023-05-27 14:03] LABS: HGB 8.5 gm/dL (13.0-17.5)
[2023-05-27 14:09] LABS: Ionized Calcium 4.5 mg/dL (4.5-5.3)
[2023-05-27 14:13] LABS: Glucose,Whole Blood 194 mg/dL (70-110)
[2023-05-27 14:19] LABS: ALT 13 U/L (4-49); AST 18 U/L (17-59); African American GFR (CKD) 77 (>60 ml/min/1.73 sqM); Albumin 2.7 g/dL (3.5-5.0); Alkaline Phosphatase 43 U/L (38-126); Anion Gap 8 mmol/L; Blood Urea Nitrogen 21 mg/dL (9-20); Calcium 7.7 mg/dL (8.4-10.2); Carbon Dioxide 22 mmol/L (22-30); Chloride 108 mmol/L (98-107); Glucose 148 mg/dL (74-99); Magnesium 1.5 mg/dL (1.6-2.3); Non-African American GFR(CKD) 66 (>60 ml/min/1.73 sqM); Potassium 3.7 mmol/L (3.5-5.1); Sodium 138 mmol/L (137-145); Total Bilirubin 0.4 mg/dL (0.2-1.3); Total Protein 4.4 g/dL (6.3-8.2)
[2023-05-27] MEDS: ACETAMINOPHEN IV (For NPO) 1,000 MG in EMPTY BAG 1 BAG IVPB SCH ×2 (14:21→18:59)
[2023-05-27 15:02] LABS: Glucose,Whole Blood 200 mg/dL (70-110)
[2023-05-27] MEDS ORDERED: DEXMEDETOMIDINE/0.9% NACL(PMX) 400 MCG in EMPTY BAG 1 BAG IV SCH (15:45)
[2023-05-27] MEDS: IPRATROPIUM-ALBUTEROL 3 ML NEB INHALATION SCH ×3 (15:46→20:53)
[2023-05-27 16:20] LABS: Glucose,Whole Blood 195 mg/dL (70-110)
[2023-05-27 16:36] LABS: Basophils % (A) 0 %; Eosinophils # (A) 0.1 k/uL (0-0.7); Eosinophils % (A) 1 %; HCT 28.1 % (39.0-53.0); Lymphocytes # (A) 0.6 k/uL (1.0-4.8); Lymphocytes % (A) 5 %; MCH 32.5 pg (25.0-35.0); MCHC 35.5 g/dL (31.0-37.0); MCV 91.5 fL (80.0-100.0); Mean Platelet Volume 9.7; Monocytes # (A) 0.6 k/uL (0-1.0); Monocytes % (A) 5 %; Neutrophils # (A) 10.5 k/uL (1.3-7.7); Neutrophils % (A) 89 %; RBC 3.07 m/uL (4.30-5.90); RDW 12.7 % (11.5-15.5); WBC 11.9 k/uL (3.8-10.6)
[2023-05-27] MEDS: MAGNESIUM SULFATE-D5W PMX 1 GM in DEXTROSE/WATER 1 100ML.BAG IVPB SCH ×2 (16:52→18:11)
[2023-05-27 16:53] LABS: Platelet Count 172 k/uL (150-450)
[2023-05-27] MEDS: POTASSIUM CHLORIDE 10 MEQ in WATER FOR INJECTION 1 100ML.BAG IVPB SCH ×2 (16:53→18:11)
--- NOTE | 2023-05-27 17:15 | P.PN ---
Subjective Progress Note Date: 05/27/23 68-year-old male with no significant past medical history, other than a pneumothorax many years ago. The patient presents with the emergency department on May 21, which chest pain, vomiting, and not feeling well for about 4 days according to his family members. He apparently was in bed for the last 4 days, with a possible viral syndrome. He apparently had pain in his chest and abdomen, nausea vomiting, and generally not feeling well, not eating or drinking, and feeling very weak. His primary care physician is Dr. Dey, but he has not see him on a regular basis. The patient takes no medications at home. The patient had very abnormal laboratory data, including a white count of 10.9, hemoglobin 13.9, hematocrit 38.8, and a normal platelet count. Sodium 139, potassium 6.7, chlorides 105, CO2 12, anion gap 22, BUN 90, creatinine 10.38. Glucose 170. Magnesium 2.4, troponin 0.644, and lipase 192. A thoracic CT was done to rule out dissection. It showed bilateral pleural effusions. The chest x-ray was normal. On 05/22/2023, the patient is awake and alert and communicating. His abdominal pain has subsided. He is still having some chest pain and for that reason the patient has been kept on nitroglycerin drip. Nitrol drip is running at 45 mcg/m. Is also on IV heparin. As mentioned earlier, he presented with chest pain and abdominal pain. He had obstructive uropathy and hydronephrosis. He also had an obstructing calculus. Gordon catheter was inserted and immediately and 4 L of urine output was produced. The urine output was bloody. Cultures are still pending for now. The ultrasound the kidneys showed no evidence of any hydronephrosis. The original CT a of the abdomen showed some hydronephrosis on the left. The creatinine continues to improve. The blood work from today shows a drop in the creatinine from as high as 12 down to 3.06. The patient remains on bicarb infusion. Serum bicarbonate of 28 with a sodium level is at 139.. His troponin peaked at extreme. His proBNP level is at 6620 and the patient is undergoing a echocardiogram today. Is on no pressors. His cardiac rhythm is sinus. The patient is going to need a cardiac catheterization and this will be done within the next 24-48 hours once the renal function stabilizes further. Neurologically, he is awake and alert and communicating. He is currently on oxygen at 2 L. His chest x-ray showed small bilateral pleural effusions. Cardiomegaly. On today's evaluation of 05/23/2023, the patient is free of any chest pain. The patient is still on IV heparin. The patient is also on nitroglycerin drip which is running at 30 g per minute. He is on room air oxygen. He is hemodynamic ally stable on no pressors. At the same time the patient's renal function continues to improve. He does have some minimal amount of hematuria and a Gordon catheter in place. He is still on IV fluids with normal saline at rate of 75 mL an hour. The bicarb infusion was discontinued yesterday. Based on today's blood work, the creatinine is down to 1.7 which is improved significantly compared to yesterday. He has a potassium level of 3.4 which is being replaced. Sodium levels of 137. BUN is at 23. Bicarb level is at 28. His nose at 6.2 with a hemoglobin of 11.5 and platelet count of 142. Cardiology evaluated the patient and the patient will likely go for a diagnostic cardiac catheterization today. He remains on aspirin. Remains on metoprolol 25 mg by mouth twice a day. Cardiac rhythm is sinus. On today's evaluation of 05/24/2023, the patient is feeling well. He is on room air oxygen. He has no major respiratory distress. He continues to improve his renal function and a creatinine is down to 1.38. Note that the patient had sustained an acute non-ST segment elevation myocardial infarction. Cardiac catheterization was done yesterday and the patient was found to have significant disease involving 100% LAD stenosis with a right to left septal and left to left collaterals. Patient also had an 80% diagonal disease, 70% circumflex disease, 80% RCA disease and his left ventricle end-diastolic pressure was quite elevated. Based on all this, cardiothoracic surgery consultation was obtained for possibility of undergoing a cardiac bypass surgery. He is doing well for n ow. He remains on IV heparin. His hematuria has cleared. Is W physical 107.0 with a hemoglobin of 12.8, PTT is at 48.2, sodium is at 136, BUN is at 22 with a creatinine of 1.38. Carotid Doppler was also done and the patient did not have any significant carotid artery disease. Today's evaluation of 05/25/2023, the patient remains on room air oxygen. No chest pain. Renal function is stable with a creatinine of 1.47 and a BUN of 24. No respiratory distress. No chest pain. No hemodynamic instability. The plan is to proceed with cardiac bypass surgery Monday of this week which is on . The patient has no specific complaints otherwise. He has a preserved FEV1 on a bedside spirometry. The patient was on IV heparin. He developed a hematoma in his right forearm. As such, then to cognition was not. PTT last was at 47. Hemoglobin is at 12.5. The white cycles of 7.6. Sodium levels of 135. Cardiology is on the case. Cardiothoracic surgery is on the case. He continues to Gordon catheter in place. No evidence of any bleeding. On 05/26/2023, I'm seeing the patient for a follow-up. Awake and alert and communicating. No chest pain. Hemodynamically stable. The patient is scheduled to undergo is bypass surgery tomorrow. He is on room air oxygen. He is using the Ar[employer] spirometer. Cardiac rhythm is sinus. Labs from today shows inability to 7.8, hemoglobin 13, BUN is at 32 with a creatinine of 1.6 and a sodium level is at 136.. Patient is on IV heparin. No bleeding complications. Pulse ox 97% on room air oxygen. On 05/27/2023, the patient is being seen immediately after he arrived to the intensive care unit as the patient underwent a off coronary artery bypass surgery 4 with VAUGHN to sequential diagonal and LAD and he also had the radial artery to acute marginal and SVG to PDA. The patient is currently sedated on propofol. He was getting still restless and agitated while being on propofol and based on that, Precedex was added and the sedation is being titrated for now. The patient is currently on 15 mics of propofol per minutes and the patient is also on Precedex running at 0.4 microvascular kilogram per hour. He is on a mechanical ventilator. Initially was an FiO2 of 100% with a rate of 40 and a tidal volume of 600 and a PEEP of 5. The blood gas showed a pH of 7.39 with a pCO2 of 85 and pO2 of 303. Based on that, the FiO2 was dropped down to 50%. The patient's chest x-ray shows adequate expansion of both lungs. No evidence of any pneumothorax. The patient is a mediastinal and the right lower lobe and left lower chest tube. Some intermittent air leak is present in the mediastinal chest tube. The patient is currently on a nitroglycerin drip. The patient on Cardizem drip. Nitroglycerin drip is at 50 mcg/m and Cardizem drip at 5 mg an hour. The patient is also on insulin drip at 4 units an hour. Cardiac output is at 7 with an index of 3.0. Pulmonary artery pressures aren't 17/10. Producing adequate amount of urine output. Afebrile. Blood work shows a dull discomfort 11.9, hemoglobin is at 10 and a platelet count is at 272. Cardiac rhythm is sinus. Objective - Vital Signs Vital signs: Vital Signs Temp 97.7 F 05/27/23 16:00 Pulse 86 05/27/23 16:34 Resp 20 05/27/23 16:00 BP 136/76 05/27/23 04:00 Pulse Ox 100 05/27/23 16:00 FiO2 40 05/27/23 16:00 Intake & Output 05/26/23 05/27/23 05/27/23 18:59 06:59 18:59 Intake Total 920 775 381.658 Output Total 1500 1600 2290 Balance -580 -932 -4982.342 Weight 71 kg 70.2 kg 70.2 kg Intake: IV 525 141 0.9NS FOR CO/CI 60 PRESSURE BAG 27 Sodium Chloride 0.9% 1, 525 000 ml In Empty Bag 1 bag @ 75 mls/hr IV .[id number] [facility] Rx#:[id number] Intake, IV Titration 70 250 240.658 Amount Clevidipine Butyrate 25 5.533 mg In Empty Bag 1 bag @ 1 MG/HR 2 mls/hr IV .Q24H [facility] Rx#:[id number] Dexmedetomidine/0.9% NaCl 5.557 (Pmx) 400 mcg In Empty Bag 1 bag @ 0.2 MCG/KG/HR 3.51 mls/hr IV .Q24H [facility] Rx#:[id number] Diltiazem 125 mg In 15 Sodium Chloride 0.9% 100 ml @ 5 MG/HR 5 mls/hr IV .Q24H [facility] Rx#:[id number] Heparin Sod,Pork in 0.45% 250 NaCl 25,000 unit In 0.45 % NaCl 1 250ml.bag @ 12 UNITS/KG/HR 8.688 mls/hr IV .Q24H [facility] Rx#: [id number] Insulin Regular 100 unit 7.390 In Sodium Chloride 0.9% 100 ml @ Per Protocol IV .Q0M [facility] Rx#:[id number] Lactated Ringers 1,000 ml 150 @ 50 mls/hr IV .Q20H [facility] Rx#:[id number] Sodium Chloride 0.9% 1, 70 000 ml @ 70 mls/hr IV . [id number] [facility] Rx#:[id number] propofoL 1,000 mg In 57.178 Empty Bag 1 bag @ Titrate IV .Q0M [facility] Rx#: [id number] Oral 850 Output: Chest Tube Drainage 265 Chest Tube Mediastinal 190 Pleural Catheter 75 Bilateral Urine 1500 1600 1625 Estimated Blood Loss 400 Other: Voiding Method Indwelling Catheter Indwelling Catheter Indwelling Catheter ABP, PAP, CO, CI - Last Documented Arterial Blood Pressure 130/49 Pulmonary Artery Pressure 21/10 Cardiac Output 5.7 Cardiac Index 3 - Exam Patient is currently intubated on a mechanical ventilator, sedated, or check and and orogastric tube are both in place Head exam was generally normal. There was no scleral icterus or corneal arcus. Mucous membranes were moist. Neck was supple and without jugular venous distension, thyromegaly, or carotid bruits. Carotids were easily palpable bilaterally. There was no adenopathy. The patient has a right IJ Cordis and [place] catheter which is in place Lungs sounds are diminished bilaterally and the patient has a scar over the sternum and the patient also has the mediastinal and the right lower lobe and left lower chest tube. No evidence of any air leak and the pleural chest tubes. Cardiac exam revealed the PMI to be normally situated and sized. The rhythm was regular and no extrasystoles were noted during several minutes of auscultation. The first and second heart sounds were normal and physiologic splitting of the second heart sound was noted. There were no murmurs, rubs, clicks, or gallops. Abdominal exam revealed normal bowel sounds. The abdomen was soft, non-tender, and without masses, organomegaly, or appreciable enlargement of the abdominal aorta. Examination of the extremities revealed easily palpable radial, femoral and pedal pulses. There was no cyanosis, clubbing or edema. Examination of the skin revealed no evidence of significant rashes, suspicious appearing nevi or other concerning lesions. Neurologically sedated - Labs CBC & Chem 7: 05/27/23 16:18 05/27/23 13:20 Labs: Abnormal Lab Results - Last 24 Hours (Table) 05/26/23 05/27/23 05/27/23 Range/Units 06:00 05:41 05:41 WBC (3.8-10.6) k/uL RBC 3.86 L (4.30-5.90) m/uL Hgb 12.6 L (13.0-17.5) gm/dL Hct 36.6 L (39.0-53.0) % Plt Count (150-450) k/uL Neutrophils # (1.3-7.7) k/uL Lymphocytes # 0.7 L (1.0-4.8) k/uL PT (10.0-12.5) sec INR (<1.2) APTT 40.5 H (22.0-30.0) sec ABG pO2 (83-108) mmHg ABG Total CO2 (19-24) mmol/L ABG O2 Saturation (94-97) % ABG Hematocrit (34.0-46.0) % ABG Glucose (75-99) mg/dL Hemoglobin (13.0-17.5) gm/dL Chloride (98-107) mmol/L BUN (9-20) mg/dL Creatinine (0.66-1.25) mg/dL Glucose (74-99) mg/dL POC Glucose (mg/dL) (70-110) mg/dL Calcium (8.4-10.2) mg/dL Magnesium (1.6-2.3) mg/dL Total Protein (6.3-8.2) g/dL Albumin (3.5-5.0) g/dL Arterial Blood Glucose (75-99) mg/dL Crossmatch See Detail 05/27/23 05/27/23 05/27/23 Range/Units 05:41 08:30 09:43 WBC (3.8-10.6) k/uL RBC (4.30-5.90) m/uL Hgb (13.0-17.5) gm/dL Hct (39.0-53.0) % Plt Count (150-450) k/uL Neutrophils # (1.3-7.7) k/uL Lymphocytes # (1.0-4.8) k/uL PT (10.0-12.5) sec INR (<1.2) APTT (22.0-30.0) sec ABG pO2 281 H 308 H (83-108) mmHg ABG Total CO2 (19-24) mmol/L ABG O2 Saturation 100.0 H 100.0 H (94-97) % ABG Hematocrit 33 L 28 L (34.0-46.0) % ABG Glucose 132 H 137 H (75-99) mg/dL Hemoglobin 10.9 L 9.1 L (13.0-17.5) gm/dL Chloride (98-107) mmol/L BUN 26 H (9-20) mg/dL Creatinine 1.59 H (0.66-1.25) mg/dL Glucose 170 H (74-99) mg/dL POC Glucose (mg/dL) (70-110) mg/dL Calcium (8.4-10.2) mg/dL Magnesium (1.6-2.3) mg/dL Total Protein (6.3-8.2) g/dL Albumin (3.5-5.0) g/dL Arterial Blood Glucose 132 H 137 H (75-99) mg/dL Crossmatch 05/27/23 05/27/23 05/27/23 Range/Units 10:47 11:12 13:17 WBC (3.8-10.6) k/uL RBC (4.30-5.90) m/uL Hgb (13.0-17.5) gm/dL Hct (39.0-53.0) % Plt Count (150-450) k/uL Neutrophils # (1.3-7.7) k/uL Lymphocytes # (1.0-4.8) k/uL PT (10.0-12.5) sec INR (<1.2) APTT (22.0-30.0) sec ABG pO2 329 H 312 H (83-108) mmHg ABG Total CO2 25 H 25 H (19-24) mmol/L ABG O2 Saturation 100.0 H 100.0 H (94-97) % ABG Hematocrit 28 L 29 L (34.0-46.0) % ABG Glucose 148 H 142 H (75-99) mg/dL Hemoglobin 9.2 L 9.4 L (13.0-17.5) gm/dL Chloride (98-107) mmol/L BUN (9-20) mg/dL Creatinine (0.66-1.25) mg/dL Glucose (74-99) mg/dL POC Glucose (mg/dL) 171 H (70-110) mg/dL Calcium (8.4-10.2) mg/dL Magnesium (1.6-2.3) mg/dL Total Protein (6.3-8.2) g/dL Albumin (3.5-5.0) g/dL Arterial Blood Glucose 148 H 142 H (75-99) mg/dL Crossmatch 05/27/23 05/27/23 05/27/23 Range/Units 13:20 13:20 13:20 WBC (3.8-10.6) k/uL RBC 2.53 L (4.30-5.90) m/uL Hgb 8.5 L D (13.0-17.5) gm/dL Hct 23.5 L (39.0-53.0) % Plt Count 107 L (150-450) k/uL Neutrophils # (1.3-7.7) k/uL Lymphocytes # 0.6 L (1.0-4.8) k/uL PT 13.2 H (10.0-12.5) sec INR 1.2 H (<1.2) APTT 35.7 H (22.0-30.0) sec ABG pO2 (83-108) mmHg ABG Total CO2 (19-24) mmol/L ABG O2 Saturation (94-97) % ABG Hematocrit (34.0-46.0) % ABG Glucose (75-99) mg/dL Hemoglobin (13.0-17.5) gm/dL Chloride 108 H (98-107) mmol/L BUN 21 H (9-20) mg/dL Creatinine (0.66-1.25) mg/dL Glucose 148 H (74-99) mg/dL POC Glucose (mg/dL) (70-110) mg/dL Calcium 7.7 L (8.4-10.2) mg/dL Magnesium 1.5 L (1.6-2.3) mg/dL Total Protein 4.4 L (6.3-8.2) g/dL Albumin 2.7 L (3.5-5.0) g/dL Arterial Blood Glucose (75-99) mg/dL Crossmatch 05/27/23 05/27/23 05/27/23 Range/Units 14:11 15:00 16:18 WBC 11.9 H (3.8-10.6) k/uL RBC 3.07 L (4.30-5.90) m/uL Hgb 10.0 L D (13.0-17.5) gm/dL Hct 28.1 L (39.0-53.0) % Plt Count (150-450) k/uL Neutrophils # 10.5 H (1.3-7.7) k/uL Lymphocytes # 0.6 L (1.0-4.8) k/uL PT (10.0-12.5) sec INR (<1.2) APTT (22.0-30.0) sec ABG pO2 (83-108) mmHg ABG Total CO2 (19-24) mmol/L ABG O2 Saturation (94-97) % ABG Hematocrit (34.0-46.0) % ABG Glucose (75-99) mg/dL Hemoglobin (13.0-17.5) gm/dL Chloride (98-107) mmol/L BUN (9-20) mg/dL Creatinine (0.66-1.25) mg/dL Glucose (74-99) mg/dL POC Glucose (mg/dL) 194 H 200 H (70-110) mg/dL Calcium (8.4-10.2) mg/dL Magnesium (1.6-2.3) mg/dL Total Protein (6.3-8.2) g/dL Albumin (3.5-5.0) g/dL Arterial Blood Glucose (75-99) mg/dL Crossmatch 05/27/23 Range/Units 16:19 WBC (3.8-10.6) k/uL RBC (4.30-5.90) m/uL Hgb (13.0-17.5) gm/dL Hct (39.0-53.0) % Plt Count (150-450) k/uL Neutrophils # (1.3-7.7) k/uL Lymphocytes # (1.0-4.8) k/uL PT (10.0-12.5) sec INR (<1.2) APTT (22.0-30.0) sec ABG pO2 (83-108) mmHg ABG Total CO2 (19-24) mmol/L ABG O2 Saturation (94-97) % ABG Hematocrit (34.0-46.0) % ABG Glucose (75-99) mg/dL Hemoglobin (13.0-17.5) gm/dL Chloride (98-107) mmol/L BUN (9-20) mg/dL Creatinine (0.66-1.25) mg/dL Glucose (74-99) mg/dL POC Glucose (mg/dL) 195 H (70-110) mg/dL Calcium (8.4-10.2) mg/dL Magnesium (1.6-2.3) mg/dL Total Protein (6.3-8.2) g/dL Albumin (3.5-5.0) g/dL Arterial Blood Glucose (75-99) mg/dL Crossmatch Assessment and Plan Plan: Multivessel coronary artery disease, patient is post 4 vessel bypass surgery off pump and the patient is currently postop day #0. The patient is hemodynamically stable. The patient is currently on a combination of Cardizem drip and a n itroglycerin drip. Postthoracotomy, currently intubated on a mechanical ventilator. Chest is in pl [facility] and the patient is a mediastinal and the right and the left pleural chest tubes. Intermittent air leak through the NaSal of chest tube. Chest x-ray showed adequate expansion of both lungs. No evidence of any pneumothorax Blood loss anemia, expected outcome of surgery and the hemoglobin is stable for now Systolic heart failure with an ejection fraction of 40-45% with mild aortic insufficiency Acute kidney injury with associated hyperkalemia, recovered Non-anion gap metabolic acidosis, recovered Mild hematuria could be related to kidney stones , recovered BPH old anteroseptal myocardial infarction based on Q waves seen on the EKG at the time of admission Nausea and vomiting, with dehydration. Recovered Hypertensive urgency, secondary to acute renal failure , recovered Small right forearm hematoma, recovered Plan: Continue ventilator support Wean off propofol and continue with Precedex Monitor hemodynamic parameters Dropped down FiO2 further Continue nitroglycerin drip Continue the Cardizem drip Monitor output from the chest tubes May extubated the next few hours Overall condition is stable Critical care evaluation that was done in more than 30 minutes Time with Patient: Greater than 30
[2023-05-27 17:18] LABS: Glucose,Whole Blood 163 mg/dL (70-110)
[2023-05-27] MEDS: HEPARIN SODIUM,PORCINE 5,000 UNIT/ML 1 ML VIAL SQ SCH ×2 (17:43→23:44)
[2023-05-27 18:21] LABS: Glucose,Whole Blood 161 mg/dL (70-110)
[2023-05-27 18:49] LABS: ABG Base Excess -1.7 mmol/L; ABG HCO3 24 mmol/L (21-25); ABG PCO2 43 mmHg (35-45); ABG PH 7.36 (7.35-7.45); ABG PO2 137 mmHg (83-108); ABG TCO2 25 mmol/L (19-24)
[2023-05-27 18:51] LABS: Allen Test Performed? no
[2023-05-27 18:51] LABS: Allen Test Performed? no
[2023-05-27 19:12] LABS: Glucose,Whole Blood 180 mg/dL (70-110)
[2023-05-27 19:23] LABS: Basophils % (A) 0 %; Eosinophils % (A) 0 %; HCT 29.9 % (39.0-53.0); HGB 10.6 gm/dL (13.0-17.5); Lymphocytes # (A) 0.4 k/uL (1.0-4.8); Lymphocytes % (A) 2 %; MCH 32.9 pg (25.0-35.0); MCHC 35.3 g/dL (31.0-37.0); MCV 93.1 fL (80.0-100.0); Mean Platelet Volume 9.2; Monocytes # (A) 0.7 k/uL (0-1.0); Monocytes % (A) 4 %; Neutrophils # (A) 16.2 k/uL (1.3-7.7); Neutrophils % (A) 93 %; Platelet Count 209 k/uL (150-450); RBC 3.21 m/uL (4.30-5.90); RDW 12.8 % (11.5-15.5); WBC 17.5 k/uL (3.8-10.6)
[2023-05-27 20:05] LABS: Glucose,Whole Blood 144 mg/dL (70-110)
[2023-05-27 21:04] LABS: Glucose,Whole Blood 117 mg/dL (70-110)
[2023-05-27 22:03] LABS: Glucose,Whole Blood 108 mg/dL (70-110)
[2023-05-27 22:54] LABS: Glucose,Whole Blood 137 mg/dL (70-110)
[2023-05-27] MEDS ORDERED: HYDROcodone/APAP 5-325MG 1 EACH TAB PO PRN (23:29)
[2023-05-27 23:52] LABS: Glucose,Whole Blood 128 mg/dL (70-110)
[2023-05-28 01:04] LABS: Glucose,Whole Blood 113 mg/dL (70-110)
[2023-05-28 02:10] LABS: Glucose,Whole Blood 129 mg/dL (70-110)
[2023-05-28 03:04] LABS: Glucose,Whole Blood 135 mg/dL (70-110)
[2023-05-28 04:00] LABS: Glucose,Whole Blood 131 mg/dL (70-110)
[2023-05-28 04:11] LABS: Basophils % (A) 0 %; Eosinophils # (A) 0.1 k/uL (0-0.7); Eosinophils % (A) 1 %; HCT 28.4 % (39.0-53.0); HGB 10.1 gm/dL (13.0-17.5); Lymphocytes # (A) 0.3 k/uL (1.0-4.8); Lymphocytes % (A) 2 %; MCH 32.9 pg (25.0-35.0); MCHC 35.4 g/dL (31.0-37.0); MCV 92.9 fL (80.0-100.0); Mean Platelet Volume 9.2; Monocytes # (A) 0.5 k/uL (0-1.0); Monocytes % (A) 5 %; Neutrophils # (A) 9.7 k/uL (1.3-7.7); Neutrophils % (A) 92 %; Platelet Count 178 k/uL (150-450); RBC 3.06 m/uL (4.30-5.90); RDW 12.7 % (11.5-15.5); WBC 10.6 k/uL (3.8-10.6)
[2023-05-28 04:15] LABS: Ionized Calcium 4.8 mg/dL (4.5-5.3)
[2023-05-28 04:33] LABS: ALT 17 U/L (4-49); AST 30 U/L (17-59); African American GFR (CKD) 69 (>60 ml/min/1.73 sqM); Albumin 3.4 g/dL (3.5-5.0); Alkaline Phosphatase 46 U/L (38-126); Anion Gap 10 mmol/L; Blood Urea Nitrogen 22 mg/dL (9-20); Calcium 8.5 mg/dL (8.4-10.2); Carbon Dioxide 22 mmol/L (22-30); Chloride 105 mmol/L (98-107); Glucose 120 mg/dL (74-99); Magnesium 2.3 mg/dL (1.6-2.3); Non-African American GFR(CKD) 59 (>60 ml/min/1.73 sqM); Potassium 4.5 mmol/L (3.5-5.1); Sodium 137 mmol/L (137-145); Total Bilirubin 0.5 mg/dL (0.2-1.3); Total Protein 5.4 g/dL (6.3-8.2)
[2023-05-28 05:05] LABS: Glucose,Whole Blood 108 mg/dL (70-110)
[2023-05-28] MEDS ORDERED: KETOROLAC 15 MG/ML 1 ML VIAL IVP STA (05:26)
[2023-05-28 07:06] LABS: Glucose,Whole Blood 147 mg/dL (70-110)
[2023-05-28 08:09] LABS: Glucose,Whole Blood 178 mg/dL (70-110)
[2023-05-28] MEDS: METOPROLOL TARTRATE 25 MG TAB PO SCH ×2 (08:52→20:03)
[2023-05-28] MEDS: ATORVASTATIN 40 MG TAB PO SCH (08:53)
[2023-05-28] MEDS: ASPIRIN 325 MG TAB PO SCH (08:53)
[2023-05-28] MEDS: CLOPIDOGREL 75 MG TAB PO SCH (08:53)
[2023-05-28] MEDS: HEPARIN SODIUM,PORCINE 5,000 UNIT/ML 1 ML VIAL SQ SCH ×3 (08:54→23:48)
[2023-05-28] MEDS: amLODIPine 5 MG TAB PO SCH (08:59)
[2023-05-28] MEDS ORDERED: MAGNESIUM HYDROXIDE 2,400 MG/30 ML CUP PO PRN (09:00)
[2023-05-28] MEDS ORDERED: PANTOPRAZOLE 40 MG/10 ML VIAL IVP SCH (09:00)
[2023-05-28] MEDS ORDERED: bisacodyL 10 MG SUPP RECTAL PRN (09:00)
[2023-05-28] MEDS ORDERED: METOPROLOL TARTRATE 12.5 MG TAB PO SCH (09:00)
[2023-05-28 09:03] LABS: Glucose,Whole Blood 209 mg/dL (70-110)
[2023-05-28] MEDS: IPRATROPIUM-ALBUTEROL 3 ML NEB INHALATION SCH ×4 (09:18→20:54)
--- NOTE | 2023-05-28 09:30 | P.PN ---
Subjective Progress Note Date: 05/28/23 68-year-old male with no significant past medical history, other than a pneumothorax many years ago. The patient presents with the emergency department on May 21, which chest pain, vomiting, and not feeling well for about 4 days according to his family members. He apparently was in bed for the last 4 days, with a possible viral syndrome. He apparently had pain in his chest and abdomen, nausea vomiting, and generally not feeling well, not eating or drinking, and feeling very weak. His primary care physician is Dr. Dey, but he has not see him on a regular basis. The patient takes no medications at home. The patient had very abnormal laboratory data, including a white count of 10.9, hemoglobin 13.9, hematocrit 38.8, and a normal platelet count. Sodium 139, potassium 6.7, chlorides 105, CO2 12, anion gap 22, BUN 90, creatinine 10.38. Glucose 170. Magnesium 2.4, troponin 0.644, and lipase 192. A thoracic CT was done to rule out dissection. It showed bilateral pleural effusions. The chest x-ray was normal. On 05/22/2023, the patient is awake and alert and communicating. His abdominal pain has subsided. He is still having some chest pain and for that reason the patient has been kept on nitroglycerin drip. Nitrol drip is running at 45 mcg/m. Is also on IV heparin. As mentioned earlier, he presented with chest pain and abdominal pain. He had obstructive uropathy and hydronephrosis. He also had an obstructing calculus. Gordon catheter was inserted and immediately and 4 L of urine output was produced. The urine output was bloody. Cultures are still pending for now. The ultrasound the kidneys showed no evidence of any hydronephrosis. The original CT a of the abdomen showed some hydronephrosis on the left. The creatinine continues to improve. The blood work from today shows a drop in the creatinine from as high as 12 down to 3.06. The patient remains on bicarb infusion. Serum bicarbonate of 28 with a sodium level is at 139.. His troponin peaked at extreme. His proBNP level is at 6620 and the patient is undergoing a echocardiogram today. Is on no pressors. His cardiac rhythm is sinus. The patient is going to need a cardiac catheterization and this will be done within the next 24-48 hours once the renal function stabilizes further. Neurologically, he is awake and alert and communicating. He is currently on oxygen at 2 L. His chest x-ray showed small bilateral pleural effusions. Cardiomegaly. On today's evaluation of 05/23/2023, the patient is free of any chest pain. The patient is still on IV heparin. The patient is also on nitroglycerin drip which is running at 30 g per minute. He is on room air oxygen. He is hemodynamic ally stable on no pressors. At the same time the patient's renal function continues to improve. He does have some minimal amount of hematuria and a Gordon catheter in place. He is still on IV fluids with normal saline at rate of 75 mL an hour. The bicarb infusion was discontinued yesterday. Based on today's blood work, the creatinine is down to 1.7 which is improved significantly compared to yesterday. He has a potassium level of 3.4 which is being replaced. Sodium levels of 137. BUN is at 23. Bicarb level is at 28. His nose at 6.2 with a hemoglobin of 11.5 and platelet count of 142. Cardiology evaluated the patient and the patient will likely go for a diagnostic cardiac catheterization today. He remains on aspirin. Remains on metoprolol 25 mg by mouth twice a day. Cardiac rhythm is sinus. On today's evaluation of 05/24/2023, the patient is feeling well. He is on room air oxygen. He has no major respiratory distress. He continues to improve his renal function and a creatinine is down to 1.38. Note that the patient had sustained an acute non-ST segment elevation myocardial infarction. Cardiac catheterization was done yesterday and the patient was found to have significant disease involving 100% LAD stenosis with a right to left septal and left to left collaterals. Patient also had an 80% diagonal disease, 70% circumflex disease, 80% RCA disease and his left ventricle end-diastolic pressure was quite elevated. Based on all this, cardiothoracic surgery consultation was obtained for possibility of undergoing a cardiac bypass surgery. He is doing well for n ow. He remains on IV heparin. His hematuria has cleared. Is W physical 107.0 with a hemoglobin of 12.8, PTT is at 48.2, sodium is at 136, BUN is at 22 with a creatinine of 1.38. Carotid Doppler was also done and the patient did not have any significant carotid artery disease. Today's evaluation of 05/25/2023, the patient remains on room air oxygen. No chest pain. Renal function is stable with a creatinine of 1.47 and a BUN of 24. No respiratory distress. No chest pain. No hemodynamic instability. The plan is to proceed with cardiac bypass surgery Monday of this week which is on . The patient has no specific complaints otherwise. He has a preserved FEV1 on a bedside spirometry. The patient was on IV heparin. He developed a hematoma in his right forearm. As such, then to cognition was not. PTT last was at 47. Hemoglobin is at 12.5. The white cycles of 7.6. Sodium levels of 135. Cardiology is on the case. Cardiothoracic surgery is on the case. He continues to Gordon catheter in place. No evidence of any bleeding. On 05/26/2023, I'm seeing the patient for a follow-up. Awake and alert and communicating. No chest pain. Hemodynamically stable. The patient is scheduled to undergo is bypass surgery tomorrow. He is on room air oxygen. He is using the [employer] spirometer. Cardiac rhythm is sinus. Labs from today shows inability to 7.8, hemoglobin 13, BUN is at 32 with a creatinine of 1.6 and a sodium level is at 136.. Patient is on IV heparin. No bleeding complications. Pulse ox 97% on room air oxygen. On 05/27/2023, the patient is being seen immediately after he arrived to the intensive care unit as the patient underwent a off coronary artery bypass surgery 4 with VAUGHN to sequential diagonal and LAD and he also had the radial artery to acute marginal and SVG to PDA. The patient is currently sedated on propofol. He was getting still restless and agitated while being on propofol and based on that, Precedex was added and the sedation is being titrated for now. The patient is currently on 15 mics of propofol per minutes and the patient is also on Precedex running at 0.4 microvascular kilogram per hour. He is on a mechanical ventilator. Initially was an FiO2 of 100% with a rate of 40 and a tidal volume of 600 and a PEEP of 5. The blood gas showed a pH of 7.39 with a pCO2 of 85 and pO2 of 303. Based on that, the FiO2 was dropped down to 50%. The patient's chest x-ray shows adequate expansion of both lungs. No evidence of any pneumothorax. The patient is a mediastinal and the right lower lobe and left lower chest tube. Some intermittent air leak is present in the mediastinal chest tube. The patient is currently on a nitroglycerin drip. The patient on Cardizem drip. Nitroglycerin drip is at 50 mcg/m and Cardizem drip at 5 mg an hour. The patient is also on insulin drip at 4 units an hour. Cardiac output is at 7 with an index of 3.0. Pulmonary artery pressures aren't 17/10. Producing adequate amount of urine output. Afebrile. Blood work shows a dull discomfort 11.9, hemoglobin is at 10 and a platelet count is at 272. Cardiac rhythm is sinus. 05/28/2023, the patient is postop day #1. He underwent four-vessel bypass surgery. He is doing extremely well. Is sitting up on a chair and is on room air oxygen. No respiratory distress. He weaned off the mechanical ventilator and was extubated without any major difficulties. The chest x-ray shows expansion of the lungs bilaterally. No evidence of any pneumothorax. Chest tubes are all in place. [place] catheter still in place. Cardiac operative 5.2 with an index of 2.7. Clinically stable. Hemodynamically stable. No evidence of air leak through the chest tube and output is minimal. The right and the left pleural chest tubes are connected. The mediastinal chest tube has no air leak on today's evaluation. Cardiac rhythm is sinus. He is not being paced at this point in time. He remains on Cardizem drip at 5 mg an hour. Nit roglycerin drip was discontinued. He is also on insulin drip at 5.5 units an hour. His hemoglobin today is at 10.1. White cell count of 10.6. BUN is at 22 with a creatinine of 1.2. Sodium level is at 137. Awake and alert and communicating. Moving all 4 extremities. ZAHIDA drain in his left upper extremity and output is minimal. Adequate progress postop day #1. Objective - Vital Signs Vital signs: Vital Signs Temp 99.1 F 05/28/23 04:00 Pulse 78 05/28/23 07:15 Resp 20 05/28/23 07:15 BP 128/55 05/28/23 07:15 Pulse Ox 98 05/28/23 07:00 FiO2 40 05/27/23 18:08 Intake & Output 05/27/23 05/28/23 05/28/23 18:59 06:59 18:59 Intake Total 864.317 883.173 120.929 Output Total 2570 1731 100 Balance -1705.683 -847.827 20.929 Weight 70.2 kg 74.4 kg Intake: IV 199 788 118 0.9NS FOR CO/CI 100 80 Lactated Ringers 1,000 ml 600 100 @ 20 mls/hr IV .Q24H [facility] Rx#:[id number] PRESSURE BAG 45 108 18 Intake, IV Titration 665.317 95.173 2.929 Amount Clevidipine Butyrate 25 5.533 15.666 mg In Empty Bag 1 bag @ 1 MG/HR 2 mls/hr IV .Q24H [facility] Rx#:[id number] Dexmedetomidine/0.9% NaCl 12.431 0.293 (Pmx) 400 mcg In Empty Bag 1 bag @ 0.2 MCG/KG/HR 3.51 mls/hr IV .Q24H [facility] Rx#:[id number] Diltiazem 125 mg In 25 Sodium Chloride 0.9% 100 ml @ 5 MG/HR 5 mls/hr IV .Q24H [facility] Rx#:[id number] Insulin Regular 100 unit 15.175 33.314 2.929 In Sodium Chloride 0.9% 100 ml @ Per Protocol IV .Q0M [facility] Rx#:[id number] Lactated Ringers 1,000 ml 250 @ 20 mls/hr IV .Q24H [facility] Rx#:[id number] Magnesium Sulfate-D5w Pmx 100 1 gm In Dextrose/Water 1 100ml.bag @ 100 mls/hr IVPB Q1H [facility] Rx#: [id number] Nitroglycerin-D5w Pmx 50 45.9 mg In Dextrose/Water 1 250ml.bag @ 5 MCG/MIN 1.5 mls/hr IV .Q24H [facility] Rx#: [id number] Potassium Chloride 10 meq 100 In Water For Injection 1 100ml.bag @ 100 mls/hr IVPB Q1H [facility] Rx#: [id number] ceFAZolin 2 gm In Sodium 100 Chloride 0.9% 50 ml @ 100 mls/hr IVPB Q8HR [facility] Rx# :[id number] propofoL 1,000 mg In 57.178 Empty Bag 1 bag @ Titrate IV .Q0M [facility] Rx#: [id number] Output: Chest Tube Drainage 335 301 10 Chest Tube Mediastinal 240 200 10 Pleural Catheter 95 101 0 Bilateral Urine 1835 1430 90 Estimated Blood Loss 400 Other: Voiding Method Indwelling Catheter Indwelling Catheter ABP, PAP, CO, CI - Last Documented Arterial Blood Pressure 124/30 Pulmonary Artery Pressure 60/43 Cardiac Output 5.2 Cardiac Index 2.7 - Exam Patient is currently sitting up on a chair and the patient is on room air oxygen Head exam was generally normal. There was no scleral icterus or corneal arcus. Mucous membranes were moist. Neck was supple and without jugular venous distension, thyromegaly, or carotid bruits. Carotids were easily palpable bilaterally. There was no adenopathy. The patient has a right IJ Cordis and [place] catheter which is in place Lungs sounds are diminished bilaterally and the patient has a scar over the sternum and the patient also has the mediastinal and the right lower lobe and left lower chest tube. No evidence of any air leak and the pleural chest tubes. Cardiac exam revealed the PMI to be normally situated and sized. The rhythm was regular and no extrasystoles were noted during several minutes of auscultation. The first and second heart sounds were normal and physiologic splitting of the second heart sound was noted. There were no murmurs, rubs, clicks, or gallops. Abdominal exam revealed normal bowel sounds. The abdomen was soft, non-tender, and without masses, organomegaly, or appreciable enlargement of the abdominal aorta. Examination of the extremities revealed easily palpable radial, femoral and pedal pulses. There was no cyanosis, clubbing or edema. Examination of the skin revealed no evidence of significant rashes, suspicious appearing nevi or other concerning lesions. Neurologically sedated - Labs CBC & Chem 7: 05/28/23 04:00 05/28/23 04:00 Labs: Abnormal Lab Results - Last 24 Hours (Table) 05/26/23 05/27/23 05/27/23 Range/Units 06:00 08:30 09:43 WBC (3.8-10.6) k/uL RBC (4.30-5.90) m/uL Hgb (13.0-17.5) gm/dL Hct (39.0-53.0) % Plt Count (150-450) k/uL Neutrophils # (1.3-7.7) k/uL Lymphocytes # (1.0-4.8) k/uL PT (10.0-12.5) sec INR (<1.2) APTT (22.0-30.0) sec ABG pH (7.35-7.45) ABG pCO2 (35-45) mmHg ABG pO2 281 H 308 H (83-108) mmHg ABG Total CO2 (19-24) mmol/L ABG O2 Saturation 100.0 H 100.0 H (94-97) % ABG Hematocrit 33 L 28 L (34.0-46.0) % ABG Glucose 132 H 137 H (75-99) mg/dL Hemoglobin 10.9 L 9.1 L (13.0-17.5) gm/dL Chloride (98-107) mmol/L BUN (9-20) mg/dL Glucose (74-99) mg/dL POC Glucose (mg/dL) (70-110) mg/dL Calcium (8.4-10.2) mg/dL Magnesium (1.6-2.3) mg/dL Total Protein (6.3-8.2) g/dL Albumin (3.5-5.0) g/dL Arterial Blood Glucose 132 H 137 H (75-99) mg/dL Crossmatch See Detail 05/27/23 05/27/23 05/27/23 Range/Units 10:47 11:12 13:17 WBC (3.8-10.6) k/uL RBC (4.30-5.90) m/uL Hgb (13.0-17.5) gm/dL Hct (39.0-53.0) % Plt Count (150-450) k/uL Neutrophils # (1.3-7.7) k/uL Lymphocytes # (1.0-4.8) k/uL PT (10.0-12.5) sec INR (<1.2) APTT (22.0-30.0) sec ABG pH (7.35-7.45) ABG pCO2 (35-45) mmHg ABG pO2 329 H 312 H (83-108) mmHg ABG Total CO2 25 H 25 H (19-24) mmol/L ABG O2 Saturation 100.0 H 100.0 H (94-97) % ABG Hematocrit 28 L 29 L (34.0-46.0) % ABG Glucose 148 H 142 H (75-99) mg/dL Hemoglobin 9.2 L 9.4 L (13.0-17.5) gm/dL Chloride (98-107) mmol/L BUN (9-20) mg/dL Glucose (74-99) mg/dL POC Glucose (mg/dL) 171 H (70-110) mg/dL Calcium (8.4-10.2) mg/dL Magnesium (1.6-2.3) mg/dL Total Protein (6.3-8.2) g/dL Albumin (3.5-5.0) g/dL Arterial Blood Glucose 148 H 142 H (75-99) mg/dL Crossmatch 05/27/23 05/27/23 05/27/23 Range/Units 13:20 13:20 13:20 WBC (3.8-10.6) k/uL RBC 2.53 L (4.30-5.90) m/uL Hgb 8.5 L D (13.0-17.5) gm/dL Hct 23.5 L (39.0-53.0) % Plt Count 107 L (150-450) k/uL Neutrophils # (1.3-7.7) k/uL Lymphocytes # 0.6 L (1.0-4.8) k/uL PT 13.2 H (10.0-12.5) sec INR 1.2 H (<1.2) APTT 35.7 H (22.0-30.0) sec ABG pH (7.35-7.45) ABG pCO2 (35-45) mmHg ABG pO2 (83-108) mmHg ABG Total CO2 (19-24) mmol/L ABG O2 Saturation (94-97) % ABG Hematocrit (34.0-46.0) % ABG Glucose (75-99) mg/dL Hemoglobin (13.0-17.5) gm/dL Chloride 108 H (98-107) mmol/L BUN 21 H (9-20) mg/dL Glucose 148 H (74-99) mg/dL POC Glucose (mg/dL) (70-110) mg/dL Calcium 7.7 L (8.4-10.2) mg/dL Magnesium 1.5 L (1.6-2.3) mg/dL Total Protein 4.4 L (6.3-8.2) g/dL Albumin 2.7 L (3.5-5.0) g/dL Arterial Blood Glucose (75-99) mg/dL Crossmatch 05/27/23 05/27/23 05/27/23 Range/Units 13:44 14:11 15:00 WBC (3.8-10.6) k/uL RBC (4.30-5.90) m/uL Hgb (13.0-17.5) gm/dL Hct (39.0-53.0) % Plt Count (150-450) k/uL Neutrophils # (1.3-7.7) k/uL Lymphocytes # (1.0-4.8) k/uL PT (10.0-12.5) sec INR (<1.2) APTT (22.0-30.0) sec ABG pH 7.46 H (7.35-7.45) ABG pCO2 34 L (35-45) mmHg ABG pO2 >400 H (83-108) mmHg ABG Total CO2 25 H (19-24) mmol/L ABG O2 Saturation 100.0 H (94-97) % ABG Hematocrit (34.0-46.0) % ABG Glucose (75-99) mg/dL Hemoglobin (13.0-17.5) gm/dL Chloride (98-107) mmol/L BUN (9-20) mg/dL Glucose (74-99) mg/dL POC Glucose (mg/dL) 194 H 200 H (70-110) mg/dL Calcium (8.4-10.2) mg/dL Magnesium (1.6-2.3) mg/dL Total Protein (6.3-8.2) g/dL Albumin (3.5-5.0) g/dL Arterial Blood Glucose (75-99) mg/dL Crossmatch 05/27/23 05/27/23 05/27/23 Range/Units 16:18 16:19 17:17 WBC 11.9 H (3.8-10.6) k/uL RBC 3.07 L (4.30-5.90) m/uL Hgb 10.0 L D (13.0-17.5) gm/dL Hct 28.1 L (39.0-53.0) % Plt Count (150-450) k/uL Neutrophils # 10.5 H (1.3-7.7) k/uL Lymphocytes # 0.6 L (1.0-4.8) k/uL PT (10.0-12.5) sec INR (<1.2) APTT (22.0-30.0) sec ABG pH (7.35-7.45) ABG pCO2 (35-45) mmHg ABG pO2 (83-108) mmHg ABG Total CO2 (19-24) mmol/L ABG O2 Saturation (94-97) % ABG Hematocrit (34.0-46.0) % ABG Glucose (75-99) mg/dL Hemoglobin (13.0-17.5) gm/dL Chloride (98-107) mmol/L BUN (9-20) mg/dL Glucose (74-99) mg/dL POC Glucose (mg/dL) 195 H 163 H (70-110) mg/dL Calcium (8.4-10.2) mg/dL Magnesium (1.6-2.3) mg/dL Total Protein (6.3-8.2) g/dL Albumin (3.5-5.0) g/dL Arterial Blood Glucose (75-99) mg/dL Crossmatch 05/27/23 05/27/23 05/27/23 Range/Units 18:20 18:48 19:10 WBC (3.8-10.6) k/uL RBC (4.30-5.90) m/uL Hgb (13.0-17.5) gm/dL Hct (39.0-53.0) % Plt Count (150-450) k/uL Neutrophils # (1.3-7.7) k/uL Lymphocytes # (1.0-4.8) k/uL PT (10.0-12.5) sec INR (<1.2) APTT (22.0-30.0) sec ABG pH (7.35-7.45) ABG pCO2 (35-45) mmHg ABG pO2 137 H (83-108) mmHg ABG Total CO2 25 H (19-24) mmol/L ABG O2 Saturation 99.0 H (94-97) % ABG Hematocrit (34.0-46.0) % ABG Glucose (75-99) mg/dL Hemoglobin (13.0-17.5) gm/dL Chloride (98-107) mmol/L BUN (9-20) mg/dL Glucose (74-99) mg/dL POC Glucose (mg/dL) 161 H 180 H (70-110) mg/dL Calcium (8.4-10.2) mg/dL Magnesium (1.6-2.3) mg/dL Total Protein (6.3-8.2) g/dL Albumin (3.5-5.0) g/dL Arterial Blood Glucose (75-99) mg/dL Crossmatch 05/27/23 05/27/23 05/27/23 Range/Units 19:11 20:03 21:03 WBC 17.5 H (3.8-10.6) k/uL RBC 3.21 L (4.30-5.90) m/uL Hgb 10.6 L (13.0-17.5) gm/dL Hct 29.9 L (39.0-53.0) % Plt Count (150-450) k/uL Neutrophils # 16.2 H (1.3-7.7) k/uL Lymphocytes # 0.4 L (1.0-4.8) k/uL PT (10.0-12.5) sec INR (<1.2) APTT (22.0-30.0) sec ABG pH (7.35-7.45) ABG pCO2 (35-45) mmHg ABG pO2 (83-108) mmHg ABG Total CO2 (19-24) mmol/L ABG O2 Saturation (94-97) % ABG Hematocrit (34.0-46.0) % ABG Glucose (75-99) mg/dL Hemoglobin (13.0-17.5) gm/dL Chloride (98-107) mmol/L BUN (9-20) mg/dL Glucose (74-99) mg/dL POC Glucose (mg/dL) 144 H 117 H (70-110) mg/dL Calcium (8.4-10.2) mg/dL Magnesium (1.6-2.3) mg/dL Total Protein (6.3-8.2) g/dL Albumin (3.5-5.0) g/dL Arterial Blood Glucose (75-99) mg/dL Crossmatch 05/27/23 05/27/23 05/28/23 Range/Units 22:52 23:49 01:02 WBC (3.8-10.6) k/uL RBC (4.30-5.90) m/uL Hgb (13.0-17.5) gm/dL Hct (39.0-53.0) % Plt Count (150-450) k/uL Neutrophils # (1.3-7.7) k/uL Lymphocytes # (1.0-4.8) k/uL PT (10.0-12.5) sec INR (<1.2) APTT (22.0-30.0) sec ABG pH (7.35-7.45) ABG pCO2 (35-45) mmHg ABG pO2 (83-108) mmHg ABG Total CO2 (19-24) mmol/L ABG O2 Saturation (94-97) % ABG Hematocrit (34.0-46.0) % ABG Glucose (75-99) mg/dL Hemoglobin (13.0-17.5) gm/dL Chloride (98-107) mmol/L BUN (9-20) mg/dL Glucose (74-99) mg/dL POC Glucose (mg/dL) 137 H 128 H 113 H (70-110) mg/dL Calcium (8.4-10.2) mg/dL Magnesium (1.6-2.3) mg/dL Total Protein (6.3-8.2) g/dL Albumin (3.5-5.0) g/dL Arterial Blood Glucose (75-99) mg/dL Crossmatch 05/28/23 05/28/23 05/28/23 Range/Units 02:08 03:03 03:58 WBC (3.8-10.6) k/uL RBC (4.30-5.90) m/uL Hgb (13.0-17.5) gm/dL Hct (39.0-53.0) % Plt Count (150-450) k/uL Neutrophils # (1.3-7.7) k/uL Lymphocytes # (1.0-4.8) k/uL PT (10.0-12.5) sec INR (<1.2) APTT (22.0-30.0) sec ABG pH (7.35-7.45) ABG pCO2 (35-45) mmHg ABG pO2 (83-108) mmHg ABG Total CO2 (19-24) mmol/L ABG O2 Saturation (94-97) % ABG Hematocrit (34.0-46.0) % ABG Glucose (75-99) mg/dL Hemoglobin (13.0-17.5) gm/dL Chloride (98-107) mmol/L BUN (9-20) mg/dL Glucose (74-99) mg/dL POC Glucose (mg/dL) 129 H 135 H 131 H (70-110) mg/dL Calcium (8.4-10.2) mg/dL Magnesium (1.6-2.3) mg/dL Total Protein (6.3-8.2) g/dL Albumin (3.5-5.0) g/dL Arterial Blood Glucose (75-99) mg/dL Crossmatch 05/28/23 05/28/23 05/28/23 Range/Units 04:00 04:00 07:05 WBC (3.8-10.6) k/uL RBC 3.06 L (4.30-5.90) m/uL Hgb 10.1 L (13.0-17.5) gm/dL Hct 28.4 L (39.0-53.0) % Plt Count (150-450) k/uL Neutrophils # 9.7 H (1.3-7.7) k/uL Lymphocytes # 0.3 L (1.0-4.8) k/uL PT (10.0-12.5) sec INR (<1.2) APTT (22.0-30.0) sec ABG pH (7.35-7.45) ABG pCO2 (35-45) mmHg ABG pO2 (83-108) mmHg ABG Total CO2 (19-24) mmol/L ABG O2 Saturation (94-97) % ABG Hematocrit (34.0-46.0) % ABG Glucose (75-99) mg/dL Hemoglobin (13.0-17.5) gm/dL Chloride (98-107) mmol/L BUN 22 H (9-20) mg/dL Glucose 120 H (74-99) mg/dL POC Glucose (mg/dL) 147 H (70-110) mg/dL Calcium (8.4-10.2) mg/dL Magnesium (1.6-2.3) mg/dL Total Protein 5.4 L (6.3-8.2) g/dL Albumin 3.4 L (3.5-5.0) g/dL Arterial Blood Glucose (75-99) mg/dL Crossmatch 05/28/23 05/28/23 Range/Units 08:07 09:01 WBC (3.8-10.6) k/uL RBC (4.30-5.90) m/uL Hgb (13.0-17.5) gm/dL Hct (39.0-53.0) % Plt Count (150-450) k/uL Neutrophils # (1.3-7.7) k/uL Lymphocytes # (1.0-4.8) k/uL PT (10.0-12.5) sec INR (<1.2) APTT (22.0-30.0) sec ABG pH (7.35-7.45) ABG pCO2 (35-45) mmHg ABG pO2 (83-108) mmHg ABG Total CO2 (19-24) mmol/L ABG O2 Saturation (94-97) % ABG Hematocrit (34.0-46.0) % ABG Glucose (75-99) mg/dL Hemoglobin (13.0-17.5) gm/dL Chloride (98-107) mmol/L BUN (9-20) mg/dL Glucose (74-99) mg/dL POC Glucose (mg/dL) 178 H 209 H (70-110) mg/dL Calcium (8.4-10.2) mg/dL Magnesium (1.6-2.3) mg/dL Total Protein (6.3-8.2) g/dL Albumin (3.5-5.0) g/dL Arterial Blood Glucose (75-99) mg/dL Crossmatch Assessment and Plan Plan: Multivessel coronary artery disease, patient is post 4 vessel bypass surgery off pump and the patient is currently postop day #1. The patient is hemodynamically stable. Extubated without any major difficulties. The patient is on a Cardizem drip at 5 mg an hour and this will be switched to oral Norvasc. Postthoracotomy, currently intubated on a mechanical ventilator. Chest is in place and the patient is a mediastinal and the right and the left pleural chest tubes. Intermittent air leak through the NaSal of chest tube. Chest x-ray showed adequate expansion of both lungs. No evidence of any pneumothorax Blood loss anemia, expected outcome of surgery and the hemoglobin is stable for now Systolic heart failure with an ejection fraction of 40-45% with mild aortic insufficiency Acute kidney injury with associated hyperkalemia, recovered Non-anion gap metabolic acidosis, recovered Mild hematuria could be related to kidney stones , recovered BPH old anteroseptal myocardial infarction based on Q waves seen on the EKG at the time of admission Nausea and vomiting, with dehydration. Recovered Hypertensive urgency, secondary to acute renal failure , recovered Small right forearm hematoma, recovered Plan: Continue using incentive spirometer Extubated the patient is currently on room air oxygen Remote the [place] catheter Discontinue the Cardizem drip and switch this patient to oral Norvasc continue the insulin drip for another 24 hours Provide diet We'll continue to follow
--- NOTE | 2023-05-28 09:44 | P.PN ---
Subjective Progress Note Date: 05/28/23 PROGRESS NOTE The patient is a 68-year-old male with no prior documented history of cardiac disease who presented with an acute episode of chest discomfort, troponin elevation and was found to have acute renal injury. He has no further pain this morning. He is feeling better. His breathing is stable. He denies any dizziness or palpitations. He has no nausea or vomiting. May 23: The patient feels well this morning, he denies any chest discomfort, dizziness or palpitations. He continues to be in sinus mechanism. He continues to be on IV heparin and IV nitroglycerin. His urine is pink. He continues to have an indwelling Gordon catheter. His echocardiogram was technically difficult and sh owed an ejection fraction of 40-45% with mild AI but no clear reported segmental wall motion abnormality May 24: The patient is feeling well this morning, denies any chest discomfort, dizziness or palpitations. He underwent cardiac catheterization yesterday and was found to have severe triple-vessel disease. He was evaluated at the surgical team for CABG. He is back on IV heparin continues to be in sinus mechanism. His blood pressure has been elevated at times. There is no evidence of malignant arrhythmia. Carotid ultrasound revealed no evidence of significant obstructive disease. May 25: The patient is up in the chair, feels well. He denies any chest discomfort, dizziness or palpitations. He is in sinus mechanism with no hemodynamic compromise. His urinary output has been.. He has a hematoma in the right forearm related to infiltration of his intravenous heparin. He is scheduled to undergo CABG on Monday. May 26: The patient feels well this morning, he is awake and alert. He denies any chest discomfort, dizziness or palpitations. He denies any nausea or vomiting. Hemodynamically he is stable. He is in sinus mechanism. He is scheduled to undergo CABG tomorrow. He continues to be on IV heparin. May 27: The patient is seen in the ICU following CABG. He underwent off-pump surgery this morning, he received a VAUGHN to the LAD and sequential to the second diagonal branch, radial to the OM and SVG to the PDA. He is intubated, sedated. He is in sinus mechanism. His blood pressure is on the high side. He is on IV nitroglycerin. There is no evidence of arrhythmia. May 28: The patient is extubated, sitting up in the chair. He feels well. He denies any chest discomfort, dizziness or palpitations. He continues to be in sinus mechanism. Hemodynamically he is stable. There is no evidence of atrial fibrillation or ventricular arrhythmia. Medications: Aspirin, Plavix, Norvasc 5 mg daily, Lipitor 40 mg daily, Lopressor 25 mg twice a day PHYSICAL EXAMINATION: Blood pressure 112/50 heart rate 80 LUNGS: Clear to auscultation with few crackles at the base HEART: Regular rate and rhythm, S1, S2. No S3. No systolic murmur ABDOMEN: Soft, nontender, no organomegaly EXTREMETIES: No edema, LAB: BUN 22, creatinine 1.24, potassium 4.5, hemoglobin 10.1 IMPRESSION: 1. Status post CABG 2. Acute renal injury with obstructive uropathy, improved 3. Moderate ischemic cardiomyopathy 4. Obstructive uropathy 5. Hematuria, resolved PLAN: 1. Continue routine postoperative care 2. Incentive spirometry 3. Increase physical activity 4. Depending on his blood pressure further adjustment of his medication Objective - Vital Signs Vital signs: Vital Signs Temp 99.1 F 05/28/23 04:00 Pulse 78 05/28/23 07:15 Resp 20 05/28/23 07:15 BP 128/55 05/28/23 07:15 Pulse Ox 98 05/28/23 07:00 FiO2 40 05/27/23 18:08 Intake & Output 05/27/23 05/28/23 05/28/23 18:59 06:59 18:59 Intake Total 864.317 883.173 120.929 Output Total 2570 1731 100 Balance -1705.683 -847.827 20.929 Weight 70.2 kg 74.4 kg Intake: IV 199 788 118 0.9NS FOR CO/CI 100 80 Lactated Ringers 1,000 ml 600 100 @ 20 mls/hr IV .Q24H [facility] Rx#:[id number] PRESSURE BAG 45 108 18 Intake, IV Titration 665.317 95.173 2.929 Amount Clevidipine Butyrate 25 5.533 15.666 mg In Empty Bag 1 bag @ 1 MG/HR 2 mls/hr IV .Q24H [facility] Rx#:[id number] Dexmedetomidine/0.9% NaCl 12.431 0.293 (Pmx) 400 mcg In Empty Bag 1 bag @ 0.2 MCG/KG/HR 3.51 mls/hr IV .Q24H [facility] Rx#:[id number] Diltiazem 125 mg In 25 Sodium Chloride 0.9% 100 ml @ 5 MG/HR 5 mls/hr IV .Q24H [facility] Rx#:[id number] Insulin Regular 100 unit 15.175 33.314 2.929 In Sodium Chloride 0.9% 100 ml @ Per Protocol IV .Q0M [facility] Rx#:[id number] Lactated Ringers 1,000 ml 250 @ 20 mls/hr IV .Q24H [facility] Rx#:[id number] Magnesium Sulfate-D5w Pmx 100 1 gm In Dextrose/Water 1 100ml.bag @ 100 mls/hr IVPB Q1H [facility] Rx#: [id number] Nitroglycerin-D5w Pmx 50 45.9 mg In Dextrose/Water 1 250ml.bag @ 5 MCG/MIN 1.5 mls/hr IV .Q24H [facility] Rx#: [id number] Potassium Chloride 10 meq 100 In Water For Injection 1 100ml.bag @ 100 mls/hr IVPB Q1H [facility] Rx#: [id number] ceFAZolin 2 gm In Sodium 100 Chloride 0.9% 50 ml @ 100 mls/hr IVPB Q8HR [facility] Rx# :[id number] propofoL 1,000 mg In 57.178 Empty Bag 1 bag @ Titrate IV .Q0M [facility] Rx#: [id number] Output: Chest Tube Drainage 335 301 10 Chest Tube Mediastinal 240 200 10 Pleural Catheter 95 101 0 Bilateral Urine 1835 1430 90 Estimated Blood Loss 400 Other: Voiding Method Indwelling Catheter Indwelling Catheter ABP, PAP, CO, CI - Last Documented Arterial Blood Pressure 124/30 Pulmonary Artery Pressure 60/43 Cardiac Output 5.2 Cardiac Index 2.7 - Labs CBC & Chem 7: 05/28/23 04:00 05/28/23 04:00 Labs: Abnormal Lab Results - Last 24 Hours (Table) 05/26/23 05/27/23 05/27/23 Range/Units 06:00 08:30 09:43 WBC (3.8-10.6) k/uL RBC (4.30-5.90) m/uL Hgb (13.0-17.5) gm/dL Hct (39.0-53.0) % Plt Count (150-450) k/uL Neutrophils # (1.3-7.7) k/uL Lymphocytes # (1.0-4.8) k/uL PT (10.0-12.5) sec INR (<1.2) APTT (22.0-30.0) sec ABG pH (7.35-7.45) ABG pCO2 (35-45) mmHg ABG pO2 281 H 308 H (83-108) mmHg ABG Total CO2 (19-24) mmol/L ABG O2 Saturation 100.0 H 100.0 H (94-97) % ABG Hematocrit 33 L 28 L (34.0-46.0) % ABG Glucose 132 H 137 H (75-99) mg/dL Hemoglobin 10.9 L 9.1 L (13.0-17.5) gm/dL Chloride (98-107) mmol/L BUN (9-20) mg/dL Glucose (74-99) mg/dL POC Glucose (mg/dL) (70-110) mg/dL Calcium (8.4-10.2) mg/dL Magnesium (1.6-2.3) mg/dL Total Protein (6.3-8.2) g/dL Albumin (3.5-5.0) g/dL Arterial Blood Glucose 132 H 137 H (75-99) mg/dL Crossmatch See Detail 05/27/23 05/27/23 05/27/23 Range/Units 10:47 11:12 13:17 WBC (3.8-10.6) k/uL RBC (4.30-5.90) m/uL Hgb (13.0-17.5) gm/dL Hct (39.0-53.0) % Plt Count (150-450) k/uL Neutrophils # (1.3-7.7) k/uL Lymphocytes # (1.0-4.8) k/uL PT (10.0-12.5) sec INR (<1.2) APTT (22.0-30.0) sec ABG pH (7.35-7.45) ABG pCO2 (35-45) mmHg ABG pO2 329 H 312 H (83-108) mmHg ABG Total CO2 25 H 25 H (19-24) mmol/L ABG O2 Saturation 100.0 H 100.0 H (94-97) % ABG Hematocrit 28 L 29 L (34.0-46.0) % ABG Glucose 148 H 142 H (75-99) mg/dL Hemoglobin 9.2 L 9.4 L (13.0-17.5) gm/dL Chloride (98-107) mmol/L BUN (9-20) mg/dL Glucose (74-99) mg/dL POC Glucose (mg/dL) 171 H (70-110) mg/dL Calcium (8.4-10.2) mg/dL Magnesium (1.6-2.3) mg/dL Total Protein (6.3-8.2) g/dL Albumin (3.5-5.0) g/dL Arterial Blood Glucose 148 H 142 H (75-99) mg/dL Crossmatch 05/27/23 05/27/23 05/27/23 Range/Units 13:20 13:20 13:20 WBC (3.8-10.6) k/uL RBC 2.53 L (4.30-5.90) m/uL Hgb 8.5 L D (13.0-17.5) gm/dL Hct 23.5 L (39.0-53.0) % Plt Count 107 L (150-450) k/uL Neutrophils # (1.3-7.7) k/uL Lymphocytes # 0.6 L (1.0-4.8) k/uL PT 13.2 H (10.0-12.5) sec INR 1.2 H (<1.2) APTT 35.7 H (22.0-30.0) sec ABG pH (7.35-7.45) ABG pCO2 (35-45) mmHg ABG pO2 (83-108) mmHg ABG Total CO2 (19-24) mmol/L ABG O2 Saturation (94-97) % ABG Hematocrit (34.0-46.0) % ABG Glucose (75-99) mg/dL Hemoglobin (13.0-17.5) gm/dL Chloride 108 H (98-107) mmol/L BUN 21 H (9-20) mg/dL Glucose 148 H (74-99) mg/dL POC Glucose (mg/dL) (70-110) mg/dL Calcium 7.7 L (8.4-10.2) mg/dL Magnesium 1.5 L (1.6-2.3) mg/dL Total Protein 4.4 L (6.3-8.2) g/dL Albumin 2.7 L (3.5-5.0) g/dL Arterial Blood Glucose (75-99) mg/dL Crossmatch 05/27/23 05/27/23 05/27/23 Range/Units 13:44 14:11 15:00 WBC (3.8-10.6) k/uL RBC (4.30-5.90) m/uL Hgb (13.0-17.5) gm/dL Hct (39.0-53.0) % Plt Count (150-450) k/uL Neutrophils # (1.3-7.7) k/uL Lymphocytes # (1.0-4.8) k/uL PT (10.0-12.5) sec INR (<1.2) APTT (22.0-30.0) sec ABG pH 7.46 H (7.35-7.45) ABG pCO2 34 L (35-45) mmHg ABG pO2 >400 H (83-108) mmHg ABG Total CO2 25 H (19-24) mmol/L ABG O2 Saturation 100.0 H (94-97) % ABG Hematocrit (34.0-46.0) % ABG Glucose (75-99) mg/dL Hemoglobin (13.0-17.5) gm/dL Chloride (98-107) mmol/L BUN (9-20) mg/dL Glucose (74-99) mg/dL POC Glucose (mg/dL) 194 H 200 H (70-110) mg/dL Calcium (8.4-10.2) mg/dL Magnesium (1.6-2.3) mg/dL Total Protein (6.3-8.2) g/dL Albumin (3.5-5.0) g/dL Arterial Blood Glucose (75-99) mg/dL Crossmatch 05/27/23 05/27/23 05/27/23 Range/Units 16:18 16:19 17:17 WBC 11.9 H (3.8-10.6) k/uL RBC 3.07 L (4.30-5.90) m/uL Hgb 10.0 L D (13.0-17.5) gm/dL Hct 28.1 L (39.0-53.0) % Plt Count (150-450) k/uL Neutrophils # 10.5 H (1.3-7.7) k/uL Lymphocytes # 0.6 L (1.0-4.8) k/uL PT (10.0-12.5) sec INR (<1.2) APTT (22.0-30.0) sec ABG pH (7.35-7.45) ABG pCO2 (35-45) mmHg ABG pO2 (83-108) mmHg ABG Total CO2 (19-24) mmol/L ABG O2 Saturation (94-97) % ABG Hematocrit (34.0-46.0) % ABG Glucose (75-99) mg/dL Hemoglobin (13.0-17.5) gm/dL Chloride (98-107) mmol/L BUN (9-20) mg/dL Glucose (74-99) mg/dL POC Glucose (mg/dL) 195 H 163 H (70-110) mg/dL Calcium (8.4-10.2) mg/dL Magnesium (1.6-2.3) mg/dL Total Protein (6.3-8.2) g/dL Albumin (3.5-5.0) g/dL Arterial Blood Glucose (75-99) mg/dL Crossmatch 05/27/23 05/27/23 05/27/23 Range/Units 18:20 18:48 19:10 WBC (3.8-10.6) k/uL RBC (4.30-5.90) m/uL Hgb (13.0-17.5) gm/dL Hct (39.0-53.0) % Plt Count (150-450) k/uL Neutrophils # (1.3-7.7) k/uL Lymphocytes # (1.0-4.8) k/uL PT (10.0-12.5) sec INR (<1.2) APTT (22.0-30.0) sec ABG pH (7.35-7.45) ABG pCO2 (35-45) mmHg ABG pO2 137 H (83-108) mmHg ABG Total CO2 25 H (19-24) mmol/L ABG O2 Saturation 99.0 H (94-97) % ABG Hematocrit (34.0-46.0) % ABG Glucose (75-99) mg/dL Hemoglobin (13.0-17.5) gm/dL Chloride (98-107) mmol/L BUN (9-20) mg/dL Glucose (74-99) mg/dL POC Glucose (mg/dL) 161 H 180 H (70-110) mg/dL Calcium (8.4-10.2) mg/dL Magnesium (1.6-2.3) mg/dL Total Protein (6.3-8.2) g/dL Albumin (3.5-5.0) g/dL Arterial Blood Glucose (75-99) mg/dL Crossmatch 05/27/23 05/27/23 05/27/23 Range/Units 19:11 20:03 21:03 WBC 17.5 H (3.8-10.6) k/uL RBC 3.21 L (4.30-5.90) m/uL Hgb 10.6 L (13.0-17.5) gm/dL Hct 29.9 L (39.0-53.0) % Plt Count (150-450) k/uL Neutrophils # 16.2 H (1.3-7.7) k/uL Lymphocytes # 0.4 L (1.0-4.8) k/uL PT (10.0-12.5) sec INR (<1.2) APTT (22.0-30.0) sec ABG pH (7.35-7.45) ABG pCO2 (35-45) mmHg ABG pO2 (83-108) mmHg ABG Total CO2 (19-24) mmol/L ABG O2 Saturation (94-97) % ABG Hematocrit (34.0-46.0) % ABG Glucose (75-99) mg/dL Hemoglobin (13.0-17.5) gm/dL Chloride (98-107) mmol/L BUN (9-20) mg/dL Glucose (74-99) mg/dL POC Glucose (mg/dL) 144 H 117 H (70-110) mg/dL Calcium (8.4-10.2) mg/dL Magnesium (1.6-2.3) mg/dL Total Protein (6.3-8.2) g/dL Albumin (3.5-5.0) g/dL Arterial Blood Glucose (75-99) mg/dL Crossmatch 05/27/23 05/27/23 05/28/23 Range/Units 22:52 23:49 01:02 WBC (3.8-10.6) k/uL RBC (4.30-5.90) m/uL Hgb (13.0-17.5) gm/dL Hct (39.0-53.0) % Plt Count (150-450) k/uL Neutrophils # (1.3-7.7) k/uL Lymphocytes # (1.0-4.8) k/uL PT (10.0-12.5) sec INR (<1.2) APTT (22.0-30.0) sec ABG pH (7.35-7.45) ABG pCO2 (35-45) mmHg ABG pO2 (83-108) mmHg ABG Total CO2 (19-24) mmol/L ABG O2 Saturation (94-97) % ABG Hematocrit (34.0-46.0) % ABG Glucose (75-99) mg/dL Hemoglobin (13.0-17.5) gm/dL Chloride (98-107) mmol/L BUN (9-20) mg/dL Glucose (74-99) mg/dL POC Glucose (mg/dL) 137 H 128 H 113 H (70-110) mg/dL Calcium (8.4-10.2) mg/dL Magnesium (1.6-2.3) mg/dL Total Protein (6.3-8.2) g/dL Albumin (3.5-5.0) g/dL Arterial Blood Glucose (75-99) mg/dL Crossmatch 05/28/23 05/28/23 05/28/23 Range/Units 02:08 03:03 03:58 WBC (3.8-10.6) k/uL RBC (4.30-5.90) m/uL Hgb (13.0-17.5) gm/dL Hct (39.0-53.0) % Plt Count (150-450) k/uL Neutrophils # (1.3-7.7) k/uL Lymphocytes # (1.0-4.8) k/uL PT (10.0-12.5) sec INR (<1.2) APTT (22.0-30.0) sec ABG pH (7.35-7.45) ABG pCO2 (35-45) mmHg ABG pO2 (83-108) mmHg ABG Total CO2 (19-24) mmol/L ABG O2 Saturation (94-97) % ABG Hematocrit (34.0-46.0) % ABG Glucose (75-99) mg/dL Hemoglobin (13.0-17.5) gm/dL Chloride (98-107) mmol/L BUN (9-20) mg/dL Glucose (74-99) mg/dL POC Glucose (mg/dL) 129 H 135 H 131 H (70-110) mg/dL Calcium (8.4-10.2) mg/dL Magnesium (1.6-2.3) mg/dL Total Protein (6.3-8.2) g/dL Albumin (3.5-5.0) g/dL Arterial Blood Glucose (75-99) mg/dL Crossmatch 05/28/23 05/28/23 05/28/23 Range/Units 04:00 04:00 07:05 WBC (3.8-10.6) k/uL RBC 3.06 L (4.30-5.90) m/uL Hgb 10.1 L (13.0-17.5) gm/dL Hct 28.4 L (39.0-53.0) % Plt Count (150-450) k/uL Neutrophils # 9.7 H (1.3-7.7) k/uL Lymphocytes # 0.3 L (1.0-4.8) k/uL PT (10.0-12.5) sec INR (<1.2) APTT (22.0-30.0) sec ABG pH (7.35-7.45) ABG pCO2 (35-45) mmHg ABG pO2 (83-108) mmHg ABG Total CO2 (19-24) mmol/L ABG O2 Saturation (94-97) % ABG Hematocrit (34.0-46.0) % ABG Glucose (75-99) mg/dL Hemoglobin (13.0-17.5) gm/dL Chloride (98-107) mmol/L BUN 22 H (9-20) mg/dL Glucose 120 H (74-99) mg/dL POC Glucose (mg/dL) 147 H (70-110) mg/dL Calcium (8.4-10.2) mg/dL Magnesium (1.6-2.3) mg/dL Total Protein 5.4 L (6.3-8.2) g/dL Albumin 3.4 L (3.5-5.0) g/dL Arterial Blood Glucose (75-99) mg/dL Crossmatch 05/28/23 05/28/23 Range/Units 08:07 09:01 WBC (3.8-10.6) k/uL RBC (4.30-5.90) m/uL Hgb (13.0-17.5) gm/dL Hct (39.0-53.0) % Plt Count (150-450) k/uL Neutrophils # (1.3-7.7) k/uL Lymphocytes # (1.0-4.8) k/uL PT (10.0-12.5) sec INR (<1.2) APTT (22.0-30.0) sec ABG pH (7.35-7.45) ABG pCO2 (35-45) mmHg ABG pO2 (83-108) mmHg ABG Total CO2 (19-24) mmol/L ABG O2 Saturation (94-97) % ABG Hematocrit (34.0-46.0) % ABG Glucose (75-99) mg/dL Hemoglobin (13.0-17.5) gm/dL Chloride (98-107) mmol/L BUN (9-20) mg/dL Glucose (74-99) mg/dL POC Glucose (mg/dL) 178 H 209 H (70-110) mg/dL Calcium (8.4-10.2) mg/dL Magnesium (1.6-2.3) mg/dL Total Protein (6.3-8.2) g/dL Albumin (3.5-5.0) g/dL Arterial Blood Glucose (75-99) mg/dL Crossmatch
[2023-05-28 10:11] LABS: Glucose,Whole Blood 196 mg/dL (70-110)
--- NOTE | 2023-05-28 11:10 | P.PN ---
Subjective Patient is seen in follow-up for acute kidney injury. Renal function improving. Nonoliguric. Complains of soreness in the chest. Vital signs are stable. General: No acute distress. HEENT: Head exam is unremarkable. On nasal cannula. LUNGS: No audible rhonchi or wheezes. Chest tubes noted. HEART: Rate and Rhythm are regular. ABDOMEN: Nontender. EXTREMITITES: No edema. Objective - Vital Signs Vital signs: Vital Signs Temp 98.8 F 05/28/23 08:00 Pulse 88 05/28/23 09:30 Resp 15 05/28/23 09:30 BP 112/54 05/28/23 09:30 Pulse Ox 97 05/28/23 09:30 FiO2 40 05/27/23 18:08 Intake & Output 05/27/23 05/28/23 05/28/23 18:59 06:59 18:59 Intake Total 864.317 883.173 160.390 Output Total 2570 1731 140 Balance -1705.683 -847.827 20.390 Weight 70.2 kg 74.4 kg Intake: IV 199 788 147 0.9NS FOR CO/CI 100 80 Lactated Ringers 1,000 ml 600 120 @ 20 mls/hr IV .Q24H [facility] Rx#:[id number] PRESSURE BAG 45 108 27 Intake, IV Titration 665.317 95.173 13.390 Amount Clevidipine Butyrate 25 5.533 15.666 mg In Empty Bag 1 bag @ 1 MG/HR 2 mls/hr IV .Q24H [facility] Rx#:[id number] Dexmedetomidine/0.9% NaCl 12.431 0.293 (Pmx) 400 mcg In Empty Bag 1 bag @ 0.2 MCG/KG/HR 3.51 mls/hr IV .Q24H [facility] Rx#:[id number] Diltiazem 125 mg In 25 Sodium Chloride 0.9% 100 ml @ 5 MG/HR 5 mls/hr IV .Q24H [facility] Rx#:[id number] Insulin Regular 100 unit 15.175 33.314 13.390 In Sodium Chloride 0.9% 100 ml @ Per Protocol IV .Q0M [facility] Rx#:[id number] Lactated Ringers 1,000 ml 250 @ 20 mls/hr IV .Q24H [facility] Rx#:[id number] Magnesium Sulfate-D5w Pmx 100 1 gm In Dextrose/Water 1 100ml.bag @ 100 mls/hr IVPB Q1H [facility] Rx#: [id number] Nitroglycerin-D5w Pmx 50 45.9 mg In Dextrose/Water 1 250ml.bag @ 5 MCG/MIN 1.5 mls/hr IV .Q24H [facility] Rx#: [id number] Potassium Chloride 10 meq 100 In Water For Injection 1 100ml.bag @ 100 mls/hr IVPB Q1H [facility] Rx#: [id number] ceFAZolin 2 gm In Sodium 100 Chloride 0.9% 50 ml @ 100 mls/hr IVPB Q8HR [facility] Rx# :[id number] propofoL 1,000 mg In 57.178 Empty Bag 1 bag @ Titrate IV .Q0M [facility] Rx#: [id number] Output: Chest Tube Drainage 335 301 10 Chest Tube Mediastinal 240 200 10 Pleural Catheter 95 101 0 Bilateral Urine 1835 1430 130 Estimated Blood Loss 400 Other: Voiding Method Indwelling Catheter Indwelling Catheter ABP, PAP, CO, CI - Last Documented Arterial Blood Pressure Pulmonary Artery Pressure 60/43 Cardiac Output 5.2 Cardiac Index 2.7 - Labs CBC & Chem 7: 05/28/23 04:00 05/28/23 04:00 Labs: Abnormal Lab Results - Last 24 Hours (Table) 05/26/23 05/27/23 05/27/23 Range/Units 06:00 08:30 09:43 WBC (3.8-10.6) k/uL RBC (4.30-5.90) m/uL Hgb (13.0-17.5) gm/dL Hct (39.0-53.0) % Plt Count (150-450) k/uL Neutrophils # (1.3-7.7) k/uL Lymphocytes # (1.0-4.8) k/uL PT (10.0-12.5) sec INR (<1.2) APTT (22.0-30.0) sec ABG pH (7.35-7.45) ABG pCO2 (35-45) mmHg ABG pO2 281 H 308 H (83-108) mmHg ABG Total CO2 (19-24) mmol/L ABG O2 Saturation 100.0 H 100.0 H (94-97) % ABG Hematocrit 33 L 28 L (34.0-46.0) % ABG Glucose 132 H 137 H (75-99) mg/dL Hemoglobin 10.9 L 9.1 L (13.0-17.5) gm/dL Chloride (98-107) mmol/L BUN (9-20) mg/dL Glucose (74-99) mg/dL POC Glucose (mg/dL) (70-110) mg/dL Calcium (8.4-10.2) mg/dL Magnesium (1.6-2.3) mg/dL Total Protein (6.3-8.2) g/dL Albumin (3.5-5.0) g/dL Arterial Blood Glucose 132 H 137 H (75-99) mg/dL Crossmatch See Detail 05/27/23 05/27/23 05/27/23 Range/Units 10:47 11:12 13:17 WBC (3.8-10.6) k/uL RBC (4.30-5.90) m/uL Hgb (13.0-17.5) gm/dL Hct (39.0-53.0) % Plt Count (150-450) k/uL Neutrophils # (1.3-7.7) k/uL Lymphocytes # (1.0-4.8) k/uL PT (10.0-12.5) sec INR (<1.2) APTT (22.0-30.0) sec ABG pH (7.35-7.45) ABG pCO2 (35-45) mmHg ABG pO2 329 H 312 H (83-108) mmHg ABG Total CO2 25 H 25 H (19-24) mmol/L ABG O2 Saturation 100.0 H 100.0 H (94-97) % ABG Hematocrit 28 L 29 L (34.0-46.0) % ABG Glucose 148 H 142 H (75-99) mg/dL Hemoglobin 9.2 L 9.4 L (13.0-17.5) gm/dL Chloride (98-107) mmol/L BUN (9-20) mg/dL Glucose (74-99) mg/dL POC Glucose (mg/dL) 171 H (70-110) mg/dL Calcium (8.4-10.2) mg/dL Magnesium (1.6-2.3) mg/dL Total Protein (6.3-8.2) g/dL Albumin (3.5-5.0) g/dL Arterial Blood Glucose 148 H 142 H (75-99) mg/dL Crossmatch 05/27/23 05/27/23 05/27/23 Range/Units 13:20 13:20 13:20 WBC (3.8-10.6) k/uL RBC 2.53 L (4.30-5.90) m/uL Hgb 8.5 L D (13.0-17.5) gm/dL Hct 23.5 L (39.0-53.0) % Plt Count 107 L (150-450) k/uL Neutrophils # (1.3-7.7) k/uL Lymphocytes # 0.6 L (1.0-4.8) k/uL PT 13.2 H (10.0-12.5) sec INR 1.2 H (<1.2) APTT 35.7 H (22.0-30.0) sec ABG pH (7.35-7.45) ABG pCO2 (35-45) mmHg ABG pO2 (83-108) mmHg ABG Total CO2 (19-24) mmol/L ABG O2 Saturation (94-97) % ABG Hematocrit (34.0-46.0) % ABG Glucose (75-99) mg/dL Hemoglobin (13.0-17.5) gm/dL Chloride 108 H (98-107) mmol/L BUN 21 H (9-20) mg/dL Glucose 148 H (74-99) mg/dL POC Glucose (mg/dL) (70-110) mg/dL Calcium 7.7 L (8.4-10.2) mg/dL Magnesium 1.5 L (1.6-2.3) mg/dL Total Protein 4.4 L (6.3-8.2) g/dL Albumin 2.7 L (3.5-5.0) g/dL Arterial Blood Glucose (75-99) mg/dL Crossmatch 05/27/23 05/27/23 05/27/23 Range/Units 13:44 14:11 15:00 WBC (3.8-10.6) k/uL RBC (4.30-5.90) m/uL Hgb (13.0-17.5) gm/dL Hct (39.0-53.0) % Plt Count (150-450) k/uL Neutrophils # (1.3-7.7) k/uL Lymphocytes # (1.0-4.8) k/uL PT (10.0-12.5) sec INR (<1.2) APTT (22.0-30.0) sec ABG pH 7.46 H (7.35-7.45) ABG pCO2 34 L (35-45) mmHg ABG pO2 >400 H (83-108) mmHg ABG Total CO2 25 H (19-24) mmol/L ABG O2 Saturation 100.0 H (94-97) % ABG Hematocrit (34.0-46.0) % ABG Glucose (75-99) mg/dL Hemoglobin (13.0-17.5) gm/dL Chloride (98-107) mmol/L BUN (9-20) mg/dL Glucose (74-99) mg/dL POC Glucose (mg/dL) 194 H 200 H (70-110) mg/dL Calcium (8.4-10.2) mg/dL Magnesium (1.6-2.3) mg/dL Total Protein (6.3-8.2) g/dL Albumin (3.5-5.0) g/dL Arterial Blood Glucose (75-99) mg/dL Crossmatch 05/27/23 05/27/23 05/27/23 Range/Units 16:18 16:19 17:17 WBC 11.9 H (3.8-10.6) k/uL RBC 3.07 L (4.30-5.90) m/uL Hgb 10.0 L D (13.0-17.5) gm/dL Hct 28.1 L (39.0-53.0) % Plt Count (150-450) k/uL Neutrophils # 10.5 H (1.3-7.7) k/uL Lymphocytes # 0.6 L (1.0-4.8) k/uL PT (10.0-12.5) sec INR (<1.2) APTT (22.0-30.0) sec ABG pH (7.35-7.45) ABG pCO2 (35-45) mmHg ABG pO2 (83-108) mmHg ABG Total CO2 (19-24) mmol/L ABG O2 Saturation (94-97) % ABG Hematocrit (34.0-46.0) % ABG Glucose (75-99) mg/dL Hemoglobin (13.0-17.5) gm/dL Chloride (98-107) mmol/L BUN (9-20) mg/dL Glucose (74-99) mg/dL POC Glucose (mg/dL) 195 H 163 H (70-110) mg/dL Calcium (8.4-10.2) mg/dL Magnesium (1.6-2.3) mg/dL Total Protein (6.3-8.2) g/dL Albumin (3.5-5.0) g/dL Arterial Blood Glucose (75-99) mg/dL Crossmatch 05/27/23 05/27/23 05/27/23 Range/Units 18:20 18:48 19:10 WBC (3.8-10.6) k/uL RBC (4.30-5.90) m/uL Hgb (13.0-17.5) gm/dL Hct (39.0-53.0) % Plt Count (150-450) k/uL Neutrophils # (1.3-7.7) k/uL Lymphocytes # (1.0-4.8) k/uL PT (10.0-12.5) sec INR (<1.2) APTT (22.0-30.0) sec ABG pH (7.35-7.45) ABG pCO2 (35-45) mmHg ABG pO2 137 H (83-108) mmHg ABG Total CO2 25 H (19-24) mmol/L ABG O2 Saturation 99.0 H (94-97) % ABG Hematocrit (34.0-46.0) % ABG Glucose (75-99) mg/dL Hemoglobin (13.0-17.5) gm/dL Chloride (98-107) mmol/L BUN (9-20) mg/dL Glucose (74-99) mg/dL POC Glucose (mg/dL) 161 H 180 H (70-110) mg/dL Calcium (8.4-10.2) mg/dL Magnesium (1.6-2.3) mg/dL Total Protein (6.3-8.2) g/dL Albumin (3.5-5.0) g/dL Arterial Blood Glucose (75-99) mg/dL Crossmatch 05/27/23 05/27/23 05/27/23 Range/Units 19:11 20:03 21:03 WBC 17.5 H (3.8-10.6) k/uL RBC 3.21 L (4.30-5.90) m/uL Hgb 10.6 L (13.0-17.5) gm/dL Hct 29.9 L (39.0-53.0) % Plt Count (150-450) k/uL Neutrophils # 16.2 H (1.3-7.7) k/uL Lymphocytes # 0.4 L (1.0-4.8) k/uL PT (10.0-12.5) sec INR (<1.2) APTT (22.0-30.0) sec ABG pH (7.35-7.45) ABG pCO2 (35-45) mmHg ABG pO2 (83-108) mmHg ABG Total CO2 (19-24) mmol/L ABG O2 Saturation (94-97) % ABG Hematocrit (34.0-46.0) % ABG Glucose (75-99) mg/dL Hemoglobin (13.0-17.5) gm/dL Chloride (98-107) mmol/L BUN (9-20) mg/dL Glucose (74-99) mg/dL POC Glucose (mg/dL) 144 H 117 H (70-110) mg/dL Calcium (8.4-10.2) mg/dL Magnesium (1.6-2.3) mg/dL Total Protein (6.3-8.2) g/dL Albumin (3.5-5.0) g/dL Arterial Blood Glucose (75-99) mg/dL Crossmatch 05/27/23 05/27/23 05/28/23 Range/Units 22:52 23:49 01:02 WBC (3.8-10.6) k/uL RBC (4.30-5.90) m/uL Hgb (13.0-17.5) gm/dL Hct (39.0-53.0) % Plt Count (150-450) k/uL Neutrophils # (1.3-7.7) k/uL Lymphocytes # (1.0-4.8) k/uL PT (10.0-12.5) sec INR (<1.2) APTT (22.0-30.0) sec ABG pH (7.35-7.45) ABG pCO2 (35-45) mmHg ABG pO2 (83-108) mmHg ABG Total CO2 (19-24) mmol/L ABG O2 Saturation (94-97) % ABG Hematocrit (34.0-46.0) % ABG Glucose (75-99) mg/dL Hemoglobin (13.0-17.5) gm/dL Chloride (98-107) mmol/L BUN (9-20) mg/dL Glucose (74-99) mg/dL POC Glucose (mg/dL) 137 H 128 H 113 H (70-110) mg/dL Calcium (8.4-10.2) mg/dL Magnesium (1.6-2.3) mg/dL Total Protein (6.3-8.2) g/dL Albumin (3.5-5.0) g/dL Arterial Blood Glucose (75-99) mg/dL Crossmatch 05/28/23 05/28/23 05/28/23 Range/Units 02:08 03:03 03:58 WBC (3.8-10.6) k/uL RBC (4.30-5.90) m/uL Hgb (13.0-17.5) gm/dL Hct (39.0-53.0) % Plt Count (150-450) k/uL Neutrophils # (1.3-7.7) k/uL Lymphocytes # (1.0-4.8) k/uL PT (10.0-12.5) sec INR (<1.2) APTT (22.0-30.0) sec ABG pH (7.35-7.45) ABG pCO2 (35-45) mmHg ABG pO2 (83-108) mmHg ABG Total CO2 (19-24) mmol/L ABG O2 Saturation (94-97) % ABG Hematocrit (34.0-46.0) % ABG Glucose (75-99) mg/dL Hemoglobin (13.0-17.5) gm/dL Chloride (98-107) mmol/L BUN (9-20) mg/dL Glucose (74-99) mg/dL POC Glucose (mg/dL) 129 H 135 H 131 H (70-110) mg/dL Calcium (8.4-10.2) mg/dL Magnesium (1.6-2.3) mg/dL Total Protein (6.3-8.2) g/dL Albumin (3.5-5.0) g/dL Arterial Blood Glucose (75-99) mg/dL Crossmatch 05/28/23 05/28/23 05/28/23 Range/Units 04:00 04:00 07:05 WBC (3.8-10.6) k/uL RBC 3.06 L (4.30-5.90) m/uL Hgb 10.1 L (13.0-17.5) gm/dL Hct 28.4 L (39.0-53.0) % Plt Count (150-450) k/uL Neutrophils # 9.7 H (1.3-7.7) k/uL Lymphocytes # 0.3 L (1.0-4.8) k/uL PT (10.0-12.5) sec INR (<1.2) APTT (22.0-30.0) sec ABG pH (7.35-7.45) ABG pCO2 (35-45) mmHg ABG pO2 (83-108) mmHg ABG Total CO2 (19-24) mmol/L ABG O2 Saturation (94-97) % ABG Hematocrit (34.0-46.0) % ABG Glucose (75-99) mg/dL Hemoglobin (13.0-17.5) gm/dL Chloride (98-107) mmol/L BUN 22 H (9-20) mg/dL Glucose 120 H (74-99) mg/dL POC Glucose (mg/dL) 147 H (70-110) mg/dL Calcium (8.4-10.2) mg/dL Magnesium (1.6-2.3) mg/dL Total Protein 5.4 L (6.3-8.2) g/dL Albumin 3.4 L (3.5-5.0) g/dL Arterial Blood Glucose (75-99) mg/dL Crossmatch 05/28/23 05/28/23 05/28/23 Range/Units 08:07 09:01 09:59 WBC (3.8-10.6) k/uL RBC (4.30-5.90) m/uL Hgb (13.0-17.5) gm/dL Hct (39.0-53.0) % Plt Count (150-450) k/uL Neutrophils # (1.3-7.7) k/uL Lymphocytes # (1.0-4.8) k/uL PT (10.0-12.5) sec INR (<1.2) APTT (22.0-30.0) sec ABG pH (7.35-7.45) ABG pCO2 (35-45) mmHg ABG pO2 (83-108) mmHg ABG Total CO2 (19-24) mmol/L ABG O2 Saturation (94-97) % ABG Hematocrit (34.0-46.0) % ABG Glucose (75-99) mg/dL Hemoglobin (13.0-17.5) gm/dL Chloride (98-107) mmol/L BUN (9-20) mg/dL Glucose (74-99) mg/dL POC Glucose (mg/dL) 178 H 209 H 196 H (70-110) mg/dL Calcium (8.4-10.2) mg/dL Magnesium (1.6-2.3) mg/dL Total Protein (6.3-8.2) g/dL Albumin (3.5-5.0) g/dL Arterial Blood Glucose (75-99) mg/dL Crossmatch Assessment and Plan Plan: Assessment: 1. Acute kidney injury secondary to obstructive uropathy and ATN. Creatinine 12.5 on admission and is down to 1.24 today. Nonoliguric. 2. Coronary artery disease status post catheterization on May 23 and CABG 05/27/2023. 3. Urinary retention. Has Gordon catheter. Urology following. 4. Benign hypertension. 5. Metabolic acidosis secondary to acute kidney injury. Stable. Plan: Encourage oral intake. Avoid nephrotoxins. Discontinue Toradol. Okay to use Tylenol if needed for pain. Continue to monitor renal function and urine output.
--- NOTE | 2023-05-28 11:23 | P.PN ---
Subjective Progress Note Date: 05/28/23 Principal diagnosis: Triple-vessel coronary artery disease, non-ST elevated myocardial infarction this admission with symptoms of abdominal pain, nausea and vomiting. Past medical history significant for fatty liver disease, right-sided traumatic lung injury in his 20s, testicular cancer, and previous tobacco dependence with cessation many years ago, and has not been on any medical therapy at home. POD #1 Off pump coronary artery bypass grafting x 4. Left internal thoracic artery (in-situ) sequential to second diagonal and left anterior descending coronary artery. Radial artery from aorta to obtuse marginal artery #3. Greater saphenous vein from aorta to proximal posterior descending coronary artery, Left atrial appendage ligation using #35mm AtriClip, Endoscopic left radial and right greater saphenous vein harvest, Graft flow measurements using the Metaps-Stim flow meter, intraoperative transesophageal echocardiogram performed by anesthesia. Postoperative acute blood loss anemia, expected given hemodilution. Patient was seen and examined in follow-up today 05/28/2023 at his bedside in the intensive care unit. The patient was successfully extubated at 6:57 PM last evening, he is currently sitting up to the bedside chair, is awake, alert, oriented 3 and is in no acute apparent distress. Oxygen saturations are 98% on room air and he is achieving 1000 mL on his incentive spirometry with encouragement. Bedside telemetry showing normal sinus rhythm heart rate 78 BPM. Right IJ Cordis and Vincent-Segun catheter remains in place with current hemodynamic showing a cardiac output 5.2, cardiac index 2.7, PA pressures 26/10, CVP 7 mmHg. Mediastinal and bilateral pleural chest tubes remain in place to low continuous wall suction -20 cm H2O. Intermittent air leak present to his mediastinal chest tube. Mediastinal chest tube draining thin serosanguineous d rainage with 100 mL output in the last 8 hours and 400 mL output since surgery. His bilateral pleural chest tubes are draining thin serosanguineous drainage with 40 mL output in the last 8 hours and 210 mL output since surgery. Laboratory and chest x-ray results reviewed. Objective - Vital Signs Vital signs: Vital Signs Temp 99.1 F 05/28/23 04:00 Pulse 78 05/28/23 07:15 Resp 20 05/28/23 07:15 BP 128/55 05/28/23 07:15 Pulse Ox 98 05/28/23 07:00 FiO2 40 05/27/23 18:08 Intake & Output 05/27/23 05/28/23 05/28/23 18:59 06:59 18:59 Intake Total 864.317 883.173 120.929 Output Total 2570 1731 100 Balance -1705.683 -847.827 20.929 Weight 70.2 kg 74.4 kg Intake: IV 199 788 118 0.9NS FOR CO/CI 100 80 Lactated Ringers 1,000 ml 600 100 @ 20 mls/hr IV .Q24H [facility] Rx#:[id number] PRESSURE BAG 45 108 18 Intake, IV Titration 665.317 95.173 2.929 Amount Clevidipine Butyrate 25 5.533 15.666 mg In Empty Bag 1 bag @ 1 MG/HR 2 mls/hr IV .Q24H [facility] Rx#:[id number] Dexmedetomidine/0.9% NaCl 12.431 0.293 (Pmx) 400 mcg In Empty Bag 1 bag @ 0.2 MCG/KG/HR 3.51 mls/hr IV .Q24H [facility] Rx#:[id number] Diltiazem 125 mg In 25 Sodium Chloride 0.9% 100 ml @ 5 MG/HR 5 mls/hr IV .Q24H [facility] Rx#:[id number] Insulin Regular 100 unit 15.175 33.314 2.929 In Sodium Chloride 0.9% 100 ml @ Per Protocol IV .Q0M [facility] Rx#:[id number] Lactated Ringers 1,000 ml 250 @ 20 mls/hr IV .Q24H [facility] Rx#:[id number] Magnesium Sulfate-D5w Pmx 100 1 gm In Dextrose/Water 1 100ml.bag @ 100 mls/hr IVPB Q1H [facility] Rx#: [id number] Nitroglycerin-D5w Pmx 50 45.9 mg In Dextrose/Water 1 250ml.bag @ 5 MCG/MIN 1.5 mls/hr IV .Q24H [facility] Rx#: [id number] Potassium Chloride 10 meq 100 In Water For Injection 1 100ml.bag @ 100 mls/hr IVPB Q1H [facility] Rx#: [id number] ceFAZolin 2 gm In Sodium 100 Chloride 0.9% 50 ml @ 100 mls/hr IVPB Q8HR [facility] Rx# :[id number] propofoL 1,000 mg In 57.178 Empty Bag 1 bag @ Titrate IV .Q0M [facility] Rx#: [id number] Output: Chest Tube Drainage 335 301 10 Chest Tube Mediastinal 240 200 10 Pleural Catheter 95 101 0 Bilateral Urine 1835 1430 90 Estimated Blood Loss 400 Other: Voiding Method Indwelling Catheter Indwelling Catheter ABP, PAP, CO, CI - Last Documented Arterial Blood Pressure 124/30 Pulmonary Artery Pressure 60/43 Cardiac Output 5.2 Cardiac Index 2.7 - Exam CONSTITUTIONAL: Sitting up to the bedside chair in the intensive care unit, appears comfortable, cooperative, no apparent acute distress. HEENT: Neck is supple, no JVD, no lymphadenopathy. Right IJ Cordis and Vincent- Segun catheter in place and functioning. RESPIRATORY: Lungs sounds essentially clear throughout, diminished to his bilateral bases. Respirations are symmetrical and nonlabored. Currently on room air with oxygen saturations 98%. Able to achieve 1000 mL on his incentive spirometry. Strong cough. CARDIOVASCULAR: Regular rhythm and rate. S1 and S2 present, negative for S3, gallop or murmur. Sternum is stable. Palpable peripheral pulses bilaterally, no edema to his bilateral lower extremities. No calf pain or tenderness noted. Heart hugger in place with patient demonstrating appropriate use. Knee-high OTILIO hose and sequential compression devices in place to his bilateral lower extremities. GASTROINTESTINAL: Abdomen soft, nontender, nondistended. Hypoactive bowel sounds present 4 quadrants. Tolerating diet. Denies flatus. No guarding or rigidity. GENITOURINARY: Gordon present draining clear, yellow urine. 565 mL of urine output in the last 8 hours. INTEGUMENTARY: Skin is warm and dry with no evidence of clubbing or cyanosis. Midline sternal incision clean dry and well approximated, covered with dry intact dressing. Right lower extremity EVH site well approximated without redness or drainage. Left arm radial artery harvest sites clean, dry and approximated. No drainage or redness is present. NEUROLOGIC: Cranial nerves II through XII intact. No focal deficits. MUSKULOSKELETAL: Able to move all extremities, strength equal bilaterally, generalized weakness. PSYCHIATRIC: Alert and oriented to person place and time, appropriate affect, intact judgment and insight. INVASIVE LINES AND TUBES: Mediastinal/left/right pleural chest tubes present and connected to low continuous wall suction, no air leaks present. Mediastinal tube with 100 mL of thin serosanguineous drainage overnight, 400 mL output in the last 24 hours. Left/right pleural chest tube with me 40 mL of thin serosanguineous drainage overnight, 210 mL output in the last 24 hours. Ventricular epicardial pacemaker wires present, connected to generator, VVI backup rate 50 bpm. Right internal jugular Vincent/Cordis, right radial arterial line present. Last CO 5.2, CI 2.7, PA 26/10 and CVP 7 mmHg. Left arm ZAHIDA drain in place with scant thin serosanguineous drainage, 20 mL output in the last 8 hours. - Allied health notes Allied health notes reviewed: nursing - Labs CBC & Chem 7: 05/28/23 04:00 05/28/23 04:00 Labs: Abnormal Lab Results - Last 24 Hours (Table) 05/26/23 05/27/23 05/27/23 Range/Units 06:00 08:30 09:43 WBC (3.8-10.6) k/uL RBC (4.30-5.90) m/uL Hgb (13.0-17.5) gm/dL Hct (39.0-53.0) % Plt Count (150-450) k/uL Neutrophils # (1.3-7.7) k/uL Lymphocytes # (1.0-4.8) k/uL PT (10.0-12.5) sec INR (<1.2) APTT (22.0-30.0) sec ABG pH (7.35-7.45) ABG pCO2 (35-45) mmHg ABG pO2 281 H 308 H (83-108) mmHg ABG Total CO2 (19-24) mmol/L ABG O2 Saturation 100.0 H 100.0 H (94-97) % ABG Hematocrit 33 L 28 L (34.0-46.0) % ABG Glucose 132 H 137 H (75-99) mg/dL Hemoglobin 10.9 L 9.1 L (13.0-17.5) gm/dL Chloride (98-107) mmol/L BUN (9-20) mg/dL Glucose (74-99) mg/dL POC Glucose (mg/dL) (70-110) mg/dL Calcium (8.4-10.2) mg/dL Magnesium (1.6-2.3) mg/dL Total Protein (6.3-8.2) g/dL Albumin (3.5-5.0) g/dL Arterial Blood Glucose 132 H 137 H (75-99) mg/dL Crossmatch See Detail 05/27/23 05/27/23 05/27/23 Range/Units 10:47 11:12 13:17 WBC (3.8-10.6) k/uL RBC (4.30-5.90) m/uL Hgb (13.0-17.5) gm/dL Hct (39.0-53.0) % Plt Count (150-450) k/uL Neutrophils # (1.3-7.7) k/uL Lymphocytes # (1.0-4.8) k/uL PT (10.0-12.5) sec INR (<1.2) APTT (22.0-30.0) sec ABG pH (7.35-7.45) ABG pCO2 (35-45) mmHg ABG pO2 329 H 312 H (83-108) mmHg ABG Total CO2 25 H 25 H (19-24) mmol/L ABG O2 Saturation 100.0 H 100.0 H (94-97) % ABG Hematocrit 28 L 29 L (34.0-46.0) % ABG Glucose 148 H 142 H (75-99) mg/dL Hemoglobin 9.2 L 9.4 L (13.0-17.5) gm/dL Chloride (98-107) mmol/L BUN (9-20) mg/dL Glucose (74-99) mg/dL POC Glucose (mg/dL) 171 H (70-110) mg/dL Calcium (8.4-10.2) mg/dL Magnesium (1.6-2.3) mg/dL Total Protein (6.3-8.2) g/dL Albumin (3.5-5.0) g/dL Arterial Blood Glucose 148 H 142 H (75-99) mg/dL Crossmatch 05/27/23 05/27/23 05/27/23 Range/Units 13:20 13:20 13:20 WBC (3.8-10.6) k/uL RBC 2.53 L (4.30-5.90) m/uL Hgb 8.5 L D (13.0-17.5) gm/dL Hct 23.5 L (39.0-53.0) % Plt Count 107 L (150-450) k/uL Neutrophils # (1.3-7.7) k/uL Lymphocytes # 0.6 L (1.0-4.8) k/uL PT 13.2 H (10.0-12.5) sec INR 1.2 H (<1.2) APTT 35.7 H (22.0-30.0) sec ABG pH (7.35-7.45) ABG pCO2 (35-45) mmHg ABG pO2 (83-108) mmHg ABG Total CO2 (19-24) mmol/L ABG O2 Saturation (94-97) % ABG Hematocrit (34.0-46.0) % ABG Glucose (75-99) mg/dL Hemoglobin (13.0-17.5) gm/dL Chloride 108 H (98-107) mmol/L BUN 21 H (9-20) mg/dL Glucose 148 H (74-99) mg/dL POC Glucose (mg/dL) (70-110) mg/dL Calcium 7.7 L (8.4-10.2) mg/dL Magnesium 1.5 L (1.6-2.3) mg/dL Total Protein 4.4 L (6.3-8.2) g/dL Albumin 2.7 L (3.5-5.0) g/dL Arterial Blood Glucose (75-99) mg/dL Crossmatch 05/27/23 05/27/23 05/27/23 Range/Units 13:44 14:11 15:00 WBC (3.8-10.6) k/uL RBC (4.30-5.90) m/uL Hgb (13.0-17.5) gm/dL Hct (39.0-53.0) % Plt Count (150-450) k/uL Neutrophils # (1.3-7.7) k/uL Lymphocytes # (1.0-4.8) k/uL PT (10.0-12.5) sec INR (<1.2) APTT (22.0-30.0) sec ABG pH 7.46 H (7.35-7.45) ABG pCO2 34 L (35-45) mmHg ABG pO2 >400 H (83-108) mmHg ABG Total CO2 25 H (19-24) mmol/L ABG O2 Saturation 100.0 H (94-97) % ABG Hematocrit (34.0-46.0) % ABG Glucose (75-99) mg/dL Hemoglobin (13.0-17.5) gm/dL Chloride (98-107) mmol/L BUN (9-20) mg/dL Glucose (74-99) mg/dL POC Glucose (mg/dL) 194 H 200 H (70-110) mg/dL Calcium (8.4-10.2) mg/dL Magnesium (1.6-2.3) mg/dL Total Protein (6.3-8.2) g/dL Albumin (3.5-5.0) g/dL Arterial Blood Glucose (75-99) mg/dL Crossmatch 05/27/23 05/27/23 05/27/23 Range/Units 16:18 16:19 17:17 WBC 11.9 H (3.8-10.6) k/uL RBC 3.07 L (4.30-5.90) m/uL Hgb 10.0 L D (13.0-17.5) gm/dL Hct 28.1 L (39.0-53.0) % Plt Count (150-450) k/uL Neutrophils # 10.5 H (1.3-7.7) k/uL Lymphocytes # 0.6 L (1.0-4.8) k/uL PT (10.0-12.5) sec INR (<1.2) APTT (22.0-30.0) sec ABG pH (7.35-7.45) ABG pCO2 (35-45) mmHg ABG pO2 (83-108) mmHg ABG Total CO2 (19-24) mmol/L ABG O2 Saturation (94-97) % ABG Hematocrit (34.0-46.0) % ABG Glucose (75-99) mg/dL Hemoglobin (13.0-17.5) gm/dL Chloride (98-107) mmol/L BUN (9-20) mg/dL Glucose (74-99) mg/dL POC Glucose (mg/dL) 195 H 163 H (70-110) mg/dL Calcium (8.4-10.2) mg/dL Magnesium (1.6-2.3) mg/dL Total Protein (6.3-8.2) g/dL Albumin (3.5-5.0) g/dL Arterial Blood Glucose (75-99) mg/dL Crossmatch 05/27/23 05/27/23 05/27/23 Range/Units 18:20 18:48 19:10 WBC (3.8-10.6) k/uL RBC (4.30-5.90) m/uL Hgb (13.0-17.5) gm/dL Hct (39.0-53.0) % Plt Count (150-450) k/uL Neutrophils # (1.3-7.7) k/uL Lymphocytes # (1.0-4.8) k/uL PT (10.0-12.5) sec INR (<1.2) APTT (22.0-30.0) sec ABG pH (7.35-7.45) ABG pCO2 (35-45) mmHg ABG pO2 137 H (83-108) mmHg ABG Total CO2 25 H (19-24) mmol/L ABG O2 Saturation 99.0 H (94-97) % ABG Hematocrit (34.0-46.0) % ABG Glucose (75-99) mg/dL Hemoglobin (13.0-17.5) gm/dL Chloride (98-107) mmol/L BUN (9-20) mg/dL Glucose (74-99) mg/dL POC Glucose (mg/dL) 161 H 180 H (70-110) mg/dL Calcium (8.4-10.2) mg/dL Magnesium (1.6-2.3) mg/dL Total Protein (6.3-8.2) g/dL Albumin (3.5-5.0) g/dL Arterial Blood Glucose (75-99) mg/dL Crossmatch 05/27/23 05/27/23 05/27/23 Range/Units 19:11 20:03 21:03 WBC 17.5 H (3.8-10.6) k/uL RBC 3.21 L (4.30-5.90) m/uL Hgb 10.6 L (13.0-17.5) gm/dL Hct 29.9 L (39.0-53.0) % Plt Count (150-450) k/uL Neutrophils # 16.2 H (1.3-7.7) k/uL Lymphocytes # 0.4 L (1.0-4.8) k/uL PT (10.0-12.5) sec INR (<1.2) APTT (22.0-30.0) sec ABG pH (7.35-7.45) ABG pCO2 (35-45) mmHg ABG pO2 (83-108) mmHg ABG Total CO2 (19-24) mmol/L ABG O2 Saturation (94-97) % ABG Hematocrit (34.0-46.0) % ABG Glucose (75-99) mg/dL Hemoglobin (13.0-17.5) gm/dL Chloride (98-107) mmol/L BUN (9-20) mg/dL Glucose (74-99) mg/dL POC Glucose (mg/dL) 144 H 117 H (70-110) mg/dL Calcium (8.4-10.2) mg/dL Magnesium (1.6-2.3) mg/dL Total Protein (6.3-8.2) g/dL Albumin (3.5-5.0) g/dL Arterial Blood Glucose (75-99) mg/dL Crossmatch 05/27/23 05/27/23 05/28/23 Range/Units 22:52 23:49 01:02 WBC (3.8-10.6) k/uL RBC (4.30-5.90) m/uL Hgb (13.0-17.5) gm/dL Hct (39.0-53.0) % Plt Count (150-450) k/uL Neutrophils # (1.3-7.7) k/uL Lymphocytes # (1.0-4.8) k/uL PT (10.0-12.5) sec INR (<1.2) APTT (22.0-30.0) sec ABG pH (7.35-7.45) ABG pCO2 (35-45) mmHg ABG pO2 (83-108) mmHg ABG Total CO2 (19-24) mmol/L ABG O2 Saturation (94-97) % ABG Hematocrit (34.0-46.0) % ABG Glucose (75-99) mg/dL Hemoglobin (13.0-17.5) gm/dL Chloride (98-107) mmol/L BUN (9-20) mg/dL Glucose (74-99) mg/dL POC Glucose (mg/dL) 137 H 128 H 113 H (70-110) mg/dL Calcium (8.4-10.2) mg/dL Magnesium (1.6-2.3) mg/dL Total Protein (6.3-8.2) g/dL Albumin (3.5-5.0) g/dL Arterial Blood Glucose (75-99) mg/dL Crossmatch 05/28/23 05/28/23 05/28/23 Range/Units 02:08 03:03 03:58 WBC (3.8-10.6) k/uL RBC (4.30-5.90) m/uL Hgb (13.0-17.5) gm/dL Hct (39.0-53.0) % Plt Count (150-450) k/uL Neutrophils # (1.3-7.7) k/uL Lymphocytes # (1.0-4.8) k/uL PT (10.0-12.5) sec INR (<1.2) APTT (22.0-30.0) sec ABG pH (7.35-7.45) ABG pCO2 (35-45) mmHg ABG pO2 (83-108) mmHg ABG Total CO2 (19-24) mmol/L ABG O2 Saturation (94-97) % ABG Hematocrit (34.0-46.0) % ABG Glucose (75-99) mg/dL Hemoglobin (13.0-17.5) gm/dL Chloride (98-107) mmol/L BUN (9-20) mg/dL Glucose (74-99) mg/dL POC Glucose (mg/dL) 129 H 135 H 131 H (70-110) mg/dL Calcium (8.4-10.2) mg/dL Magnesium (1.6-2.3) mg/dL Total Protein (6.3-8.2) g/dL Albumin (3.5-5.0) g/dL Arterial Blood Glucose (75-99) mg/dL Crossmatch 05/28/23 05/28/23 05/28/23 Range/Units 04:00 04:00 07:05 WBC (3.8-10.6) k/uL RBC 3.06 L (4.30-5.90) m/uL Hgb 10.1 L (13.0-17.5) gm/dL Hct 28.4 L (39.0-53.0) % Plt Count (150-450) k/uL Neutrophils # 9.7 H (1.3-7.7) k/uL Lymphocytes # 0.3 L (1.0-4.8) k/uL PT (10.0-12.5) sec INR (<1.2) APTT (22.0-30.0) sec ABG pH (7.35-7.45) ABG pCO2 (35-45) mmHg ABG pO2 (83-108) mmHg ABG Total CO2 (19-24) mmol/L ABG O2 Saturation (94-97) % ABG Hematocrit (34.0-46.0) % ABG Glucose (75-99) mg/dL Hemoglobin (13.0-17.5) gm/dL Chloride (98-107) mmol/L BUN 22 H (9-20) mg/dL Glucose 120 H (74-99) mg/dL POC Glucose (mg/dL) 147 H (70-110) mg/dL Calcium (8.4-10.2) mg/dL Magnesium (1.6-2.3) mg/dL Total Protein 5.4 L (6.3-8.2) g/dL Albumin 3.4 L (3.5-5.0) g/dL Arterial Blood Glucose (75-99) mg/dL Crossmatch 05/28/23 05/28/23 Range/Units 08:07 09:01 WBC (3.8-10.6) k/uL RBC (4.30-5.90) m/uL Hgb (13.0-17.5) gm/dL Hct (39.0-53.0) % Plt Count (150-450) k/uL Neutrophils # (1.3-7.7) k/uL Lymphocytes # (1.0-4.8) k/uL PT (10.0-12.5) sec INR (<1.2) APTT (22.0-30.0) sec ABG pH (7.35-7.45) ABG pCO2 (35-45) mmHg ABG pO2 (83-108) mmHg ABG Total CO2 (19-24) mmol/L ABG O2 Saturation (94-97) % ABG Hematocrit (34.0-46.0) % ABG Glucose (75-99) mg/dL Hemoglobin (13.0-17.5) gm/dL Chloride (98-107) mmol/L BUN (9-20) mg/dL Glucose (74-99) mg/dL POC Glucose (mg/dL) 178 H 209 H (70-110) mg/dL Calcium (8.4-10.2) mg/dL Magnesium (1.6-2.3) mg/dL Total Protein (6.3-8.2) g/dL Albumin (3.5-5.0) g/dL Arterial Blood Glucose (75-99) mg/dL Crossmatch - Imaging and Cardiology Chest x-ray: report reviewed, image reviewed Assessment and Plan Assessment: Triple-vessel coronary artery disease, status post four-vessel coronary artery bypass grafting surgery Chest pain, non-STEMI this admission Abdominal pain with nausea and vomiting, likely secondary to above Acute kidney injury Obstructive uropathy status post Gordon catheter placement Hypertension History of fatty liver disease History of right-sided traumatic lung injury in his 20s History of testicular cancer Previous tobacco dependence with cessation many years ago Postoperative acute blood loss anemia, expected given hemodilution Plan: Continue to maximize medical therapy with aspirin, statin, Plavix and beta adelaida. Will increase his metoprolol tartrate 25 mg by mouth twice a day with hold parameters. Discontinue IV nitroglycerin drip and Cardizem drip. Start Norvasc 5 mg by mouth daily for radial artery spasm prophylaxis. Wean O2 as tolerated. Encourage incentive spirometry use 10 times every hour while awake. Bronchodilators per pulmonology. Increase activity, ambulate as tolerated. PT/OT/cardiac rehab consulted. Will monitor daily labs and chest x-rays. Electrolyte replacement per protocol. GI/DVT prophylaxis. Pain control per current medication regimen. Avoid nephrotoxic agents as the patient has a history of elevated BUN and creatinine preoperatively Insulin management per internal medicine service. Patient's hemoglobin A1c 6.7%. Needs to remain on insulin drip for 48 hours, then may transition to subcutaneous per protocol Discontinue Vincent. Connect right IJ Cordis to continuous CVP monitoring Discontinue ZAHIDA drain to his left arm. Remove mediastinal chest tube. Keep left/right pleural chest tubes for another 24 hours, monitor output, we will split his right and left pleural chest tubes. Continue Gordon catheter for another 24 hours, continue to record strict accurate intake and output Daily weights Keep ventricular epicardial pacemaker wires in place, place pacemaker generator to a VVI mode with a backup rate of 50 bpm. More recommendations to follow based on patient's clinical course. Time with Patient: Greater than 30
--- NOTE | 2023-05-28 11:25 | XR ---
EXAMINATION TYPE: XR chest 1V portable DATE OF EXAM: 05/28/2023 Comparison: 05/27/2023 Clinical History: 68-year-old male Post Operative Cardiac Surgery Findings: Right IJ [place]-Segun catheter tip at the main pulmonary outflow tract. Mediastinal drains are present w ith epicardial pacer leads. Median sternotomy wires with post-CABG clips. Left-sided chest tube. Mild interstitial prominence has increased. Patchy retrocardiac opacity persists. Patchy right basilar op acity slightly increased. Interval extubation. Impression: There may be some developing mild pulmonary vascular congestion. Patchy postsurgical atelectasis at t he left base is similar.
[2023-05-28 11:32] LABS: Glucose,Whole Blood 152 mg/dL (70-110)
[2023-05-28] MEDS ORDERED: KETOROLAC 15 MG/ML 1 ML VIAL IVP SCH (12:00)
[2023-05-28] MEDS: ACETAMINOPHEN TAB 500 MG TAB PO PRN ×2 (12:17→20:09)
[2023-05-28 12:23] LABS: Glucose,Whole Blood 113 mg/dL (70-110)
[2023-05-28 13:09] LABS: Glucose,Whole Blood 184 mg/dL (70-110)
[2023-05-28] MEDS: INSULIN REGULAR 100 UNIT in SODIUM CHLORIDE 0.9% 100 ML IV SCH (13:09)
[2023-05-28 14:13] LABS: Glucose,Whole Blood 194 mg/dL (70-110)
[2023-05-28] MEDS: LACTATED RINGERS 1,000 ML IV SCH (14:23)
[2023-05-28 15:15] LABS: Glucose,Whole Blood 167 mg/dL (70-110)
[2023-05-28 16:01] LABS: Glucose,Whole Blood 148 mg/dL (70-110)
[2023-05-28 17:20] LABS: Glucose,Whole Blood 139 mg/dL (70-110)
[2023-05-28 18:20] LABS: Glucose,Whole Blood 168 mg/dL (70-110)
[2023-05-28 19:07] LABS: Glucose,Whole Blood 151 mg/dL (70-110)
[2023-05-28] MEDS: SENNOSIDES-DOCUSATE SODIUM 1 EACH TAB PO SCH (20:03)
[2023-05-28 20:15] LABS: Glucose,Whole Blood 104 mg/dL (70-110)
[2023-05-28 21:16] LABS: Glucose,Whole Blood 141 mg/dL (70-110)
[2023-05-28 22:04] LABS: Glucose,Whole Blood 146 mg/dL (70-110)
[2023-05-28 23:02] LABS: Glucose,Whole Blood 115 mg/dL (70-110)
[2023-05-29 00:02] LABS: Glucose,Whole Blood 99 mg/dL (70-110)
[2023-05-29 01:03] LABS: Glucose,Whole Blood 118 mg/dL (70-110)
[2023-05-29] MEDS: ACETAMINOPHEN TAB 500 MG TAB PO PRN ×4 (01:52→22:47)
[2023-05-29 02:04] LABS: Glucose,Whole Blood 106 mg/dL (70-110)
[2023-05-29 03:02] LABS: Glucose,Whole Blood 133 mg/dL (70-110)
[2023-05-29 04:04] LABS: Glucose,Whole Blood 112 mg/dL (70-110)
[2023-05-29 04:39] LABS: Basophils % (A) 0 %; Eosinophils # (A) 0.1 k/uL (0-0.7); Eosinophils % (A) 1 %; HCT 25.8 % (39.0-53.0); Lymphocytes # (A) 0.4 k/uL (1.0-4.8); Lymphocytes % (A) 4 %; MCH 32.5 pg (25.0-35.0); MCV 92.9 fL (80.0-100.0); Mean Platelet Volume 12.1; Monocytes # (A) 0.7 k/uL (0-1.0); Monocytes % (A) 7 %; Neutrophils # (A) 8.3 k/uL (1.3-7.7); Neutrophils % (A) 87 %; Platelet Count 121 k/uL (150-450); RBC 2.78 m/uL (4.30-5.90); RDW 13.2 % (11.5-15.5); WBC 9.6 k/uL (3.8-10.6)
[2023-05-29 05:02] LABS: Glucose,Whole Blood 128 mg/dL (70-110)
[2023-05-29 06:22] LABS: Glucose,Whole Blood 108 mg/dL (70-110)
[2023-05-29 06:42] LABS: ALT 15 U/L (4-49); AST 31 U/L (17-59); African American GFR (CKD) 61 (>60 ml/min/1.73 sqM); Albumin 3.2 g/dL (3.5-5.0); Alkaline Phosphatase 57 U/L (38-126); Anion Gap 9 mmol/L; Blood Urea Nitrogen 20 mg/dL (9-20); Calcium 8.7 mg/dL (8.4-10.2); Carbon Dioxide 23 mmol/L (22-30); Chloride 103 mmol/L (98-107); Glucose 107 mg/dL (74-99); Non-African American GFR(CKD) 52 (>60 ml/min/1.73 sqM); Potassium 4.3 mmol/L (3.5-5.1); Sodium 135 mmol/L (137-145); Total Bilirubin 0.5 mg/dL (0.2-1.3); Total Protein 5.2 g/dL (6.3-8.2)
[2023-05-29] MEDS: PANTOPRAZOLE 40 MG TABLET PO SCH (06:45)
--- NOTE | 2023-05-29 07:28 | P.PN ---
Subjective 68-year-old gentleman with history of pneumonectomy/right lung presents to the emergency department with complains of fatigue, malaise, nausea and abdominal pain. Patient states his been having intractable postprandial vomiting, patient states symptom onset has been last 3 days before presentation. Patient did mention to the emergency department team that he had streaks of blood in the emesis as well. While in ER patient had extensive workup done including CT aorta abdomen which was negative for dissection however did show urinary retention and hydronephrosis, likely secondary to retention and Gordon catheter was placed. Patient was also given a GI cocktail in ED with minimal relief, patient continued to have recurrent nausea/vomiting. Patient said he has not seen a doctor in 2 years, previous blood work reviewed did show normal creatinine function Chest x-ray obtained in ER was within normal Serum chemistry obtained in ER showed WBC of 10.9 hemoglobin 13.9 platelet count of 192, neutrophil count of 9.7, serum sodium 139, potassium 5.2, B UN 100 creatinine 12.54, lactate of 2.1, initial troponin of 0.171 While in ER patient was given insulin, dextrose, sodium bicarbonate, 1 L fluid bolus, started on IV heparin drip Secondary to critical illness and instability patient to be admitted to medical ICU with consultation from nephrology, cardiology and Urology 05/22/2023 : Patient seen and evaluated bedside, patient is alert and oriented to person place and situation. Seen by nephrology Gordon catheter in place, acut e kidney injury secondary to obstructive uropathy with significant improvement in renal function continue patient on fluid resuscitation cardiology following will plan cardiac catheterization during this hospitalization. Appreciate input from medical ICU as well continue patient on nitroglycerin drip, continue medical management 05/23/2023: Patient seen and evaluated and bedside, patient has multi-vessel coronary artery disease, seen after cardiac catheterization, renal function improving patient has been on nitroglycerin drip that has been weaned off. Continue current medications including aspirin, Lipitor, metoprolol further instructions from cardiology continue to monitor renal function, cardiac surgery consulted 05/24/2023: Patient seen and evaluated bedside, patient is chest pain-free, seen by intensive care unit team as well as cardiology, cardiac surgery team following plan for CABG to be done by 05/27/2023. Continue patient on IV heparin 05/25/2023: Patient seen and evaluated and bedside, IV heparin has been paused patient did have slight right radial hematoma, nephrology following, hemoglobin 12.5, creatinine 1.47, patient scheduled for CABG on 05/27/23 05/26/2023: Patient seen and evaluated bedside, patient is on IV heparin drip, right radial hematoma improved, pressure bandage placed. [facility] paperwork for completed. Cardiac surgery planning CABG 05/27/23. Blood work reviewed 05/27/2023 Patient status post coronary artery bypass grafting first. Triple-vessel coronary artery disease. Today is postoperative day #0. Patient is still complaining from pain in his chest Vitals stable His sugars controlled on insulin drip, his hemoglobin A1c is only mildly madeleine vated at 6.7% Is on aspirin 325 mg, Plavix also he is on metoprolol and Norvasc. Continue with amiodarone per screening technician. Labs and vitals are stable Objective - Vital Signs Vital signs: Vital Signs Temp 98.1 F 05/27/23 04:00 Pulse 78 05/27/23 04:00 Resp 13 05/27/23 04:00 BP 136/76 05/27/23 04:00 Pulse Ox 97 05/27/23 04:00 FiO2 Intake & Output 05/26/23 05/27/23 05/27/23 18:59 06:59 18:59 Intake Total 920 775 54 Output Total 1500 1600 Balance -580 -825 54 Weight 71 kg 70.2 kg Intake: IV 525 54 Sodium Chloride 0.9% 1, 525 000 ml In Empty Bag 1 bag @ 75 mls/hr IV .[id number] [facility] Rx#:[id number] Intake, IV Titration 70 250 Amount Heparin Sod,Pork in 0.45% 250 NaCl 25,000 unit In 0.45 % NaCl 1 250ml.bag @ 12 UNITS/KG/HR 8.688 mls/hr IV .Q24H [facility] Rx#: [id number] Sodium Chloride 0.9% 1, 70 000 ml @ 70 mls/hr IV . [id number] [facility] Rx#:[id number] Oral 850 Output: Urine 1500 1600 Other: Voiding Method Indwelling Catheter Indwelling Catheter - Exam GENERAL: The patient is alert and oriented x3, not in any acute distress. Well developed, well nourished. HEENT: Pupils are round and equally reacting to light. EOMI. No scleral icterus. No conjunctival pallor. Normocephalic, atraumatic. No pharyngeal erythema. No thyromegaly. -CARDIOVASCULAR: S1 and S2 present. No murmurs, rubs, or gallops. Surgical wound healing with Pitressin in a Place PULMONARY: Chest is clear to auscultation, no wheezing , no crackles. ABDOMEN: Soft, nontender, nondistended, normoactive bowel sounds. No palpable organomegaly. MUSCULOSKELETAL: No joint swelling or deformity. EXTREMITIES: No cyanosis, clubbing, or pedal edema. NEUROLOGICAL: Gross neurological examination did not reveal any focal deficits. SKIN: No rashes. no petechiae. - Labs CBC & Chem 7: 05/29/23 04:30 05/29/23 04:30 Labs: Abnormal Lab Results - Last 24 Hours (Table) 05/26/23 05/27/23 05/27/23 Range/Units 06:00 05:41 05:41 RBC 3.86 L (4.30-5.90) m/uL Hgb 12.6 L (13.0-17.5) gm/dL Hct 36.6 L (39.0-53.0) % Lymphocytes # 0.7 L (1.0-4.8) k/uL APTT 40.5 H (22.0-30.0) sec BUN (9-20) mg/dL Creatinine (0.66-1.25) mg/dL Glucose (74-99) mg/dL Crossmatch See Detail 05/27/23 Range/Units 05:41 RBC (4.30-5.90) m/uL Hgb (13.0-17.5) gm/dL Hct (39.0-53.0) % Lymphocytes # (1.0-4.8) k/uL APTT (22.0-30.0) sec BUN 26 H (9-20) mg/dL Creatinine 1.59 H (0.66-1.25) mg/dL Glucose 170 H (74-99) mg/dL Crossmatch Microbiology - Last 24 Hours (Table) 05/23/23 17:27 Nasal Screen MRSA/MSSA - Final Nasopharyngeal Swab Assessment and Plan Assessment: Acute renal failure with uremic symptoms/obstructive uropathy Acute metabolic encephalopathy improved Acute hyperkalemia resolved Metabolic acidosis resolved Non-ST elevated AK with multivessel coronary artery disease Hypertensive urgency Acute urinary retention with hydronephrosis status post Gordon placement Plan: Continue with aspirin and Plavix Continue with metoprolol and monitor blood pressure closely and Insulin drip can be discontinued and patient continued on insulin sliding scale. Glucose eventually [place] controlled with diet alone. continue with Gordon catheter Several consultants on the case including surgery primary team, screening technician, mercerizing range feeder, cyberathlete and urologist. Labs and medication were reviewed.. Continue same treatment. Continue with symptomatic treatment. Resume home medication. Monitor labs and vitals. DVT and GI prophylaxis. Further recommendations as per clinical course of the patient DVT prophylaxis: Subcutaneous heparin GI Prophylaxis: Ppi Prognosis is guarded
--- NOTE | 2023-05-29 07:31 | P.PN ---
Subjective 68-year-old gentleman with history of pneumonectomy/right lung presents to the emergency department with complains of fatigue, malaise, nausea and abdominal pain. Patient states his been having intractable postprandial vomiting, patient states symptom onset has been last 3 days before presentation. Patient did mention to the emergency department team that he had streaks of blood in the emesis as well. While in ER patient had extensive workup done including CT aorta abdomen which was negative for dissection however did show urinary retention and hydronephrosis, likely secondary to retention and Gordon catheter was placed. Patient was also given a GI cocktail in ED with minimal relief, patient continued to have recurrent nausea/vomiting. Patient said he has not seen a doctor in 2 years, previous blood work reviewed did show normal creatinine function Chest x-ray obtained in ER was within normal Serum chemistry obtained in ER showed WBC of 10.9 hemoglobin 13.9 platelet count of 192, neutrophil count of 9.7, serum sodium 139, potassium 5.2, B UN 100 creatinine 12.54, lactate of 2.1, initial troponin of 0.171 While in ER patient was given insulin, dextrose, sodium bicarbonate, 1 L fluid bolus, started on IV heparin drip Secondary to critical illness and instability patient to be admitted to medical ICU with consultation from nephrology, cardiology and Urology 05/22/2023 : Patient seen and evaluated bedside, patient is alert and oriented to person place and situation. Seen by nephrology Gordon catheter in place, acut e kidney injury secondary to obstructive uropathy with significant improvement in renal function continue patient on fluid resuscitation cardiology following will plan cardiac catheterization during this hospitalization. Appreciate input from medical ICU as well continue patient on nitroglycerin drip, continue medical management 05/23/2023: Patient seen and evaluated and bedside, patient has multi-vessel coronary artery disease, seen after cardiac catheterization, renal function improving patient has been on nitroglycerin drip that has been weaned off. Continue current medications including aspirin, Lipitor, metoprolol further instructions from cardiology continue to monitor renal function, cardiac surgery consulted 05/24/2023: Patient seen and evaluated bedside, patient is chest pain-free, seen by intensive care unit team as well as cardiology, cardiac surgery team following plan for CABG to be done by 05/27/2023. Continue patient on IV heparin 05/25/2023: Patient seen and evaluated and bedside, IV heparin has been paused patient did have slight right radial hematoma, nephrology following, hemoglobin 12.5, creatinine 1.47, patient scheduled for CABG on 05/27/23 05/26/2023: Patient seen and evaluated bedside, patient is on IV heparin drip, right radial hematoma improved, pressure bandage placed. [facility] paperwork for completed. Cardiac surgery planning CABG 05/27/23. Blood work reviewed 05/27/2023 Patient status post coronary artery bypass grafting first. Triple-vessel coronary artery disease. Today is postoperative day #0. Patient is still complaining from pain in his chest Vitals stable His sugars controlled on insulin drip, his hemoglobin A1c is only mildly madeleine vated at 6.7% Is on aspirin 325 mg, Plavix also he is on metoprolol and Norvasc. Continue with amiodarone per painter barrel. Labs and vitals are stable 05/28/2023 Patient lying in bed and comfortable, complains from mild pain in the sternum. No other new complaints and he has good appetite. Family at bedside. Vitals and labs reviewed in the looks stable. Creatinine improved down to 1.3 patient's nonoliguric. Sugar controlled Currently continued on aspirin Plavix and metoprolol Objective - Vital Signs Vital signs: Vital Signs Temp 98.8 F 05/28/23 08:00 Pulse 75 05/28/23 11:30 Resp 20 05/28/23 11:30 BP 121/60 05/28/23 11:30 Pulse Ox 98 05/28/23 11:30 FiO2 40 05/27/23 18:08 Intake & Output 05/27/23 05/28/23 05/28/23 18:59 06:59 18:59 Intake Total 864.317 883.173 228.995 Output Total 2570 1731 260 Balance -1705.683 -847.827 -31.005 Weight 70.2 kg 74.4 kg Intake: IV 199 788 205 0.9NS FOR CO/CI 100 80 Lactated Ringers 1,000 ml 600 160 @ 20 mls/hr IV .Q24H [facility] Rx#:[id number] PRESSURE BAG 45 108 45 Intake, IV Titration 665.317 95.173 23.995 Amount Clevidipine Butyrate 25 5.533 15.666 mg In Empty Bag 1 bag @ 1 MG/HR 2 mls/hr IV .Q24H [facility] Rx#:[id number] Dexmedetomidine/0.9% NaCl 12.431 0.293 (Pmx) 400 mcg In Empty Bag 1 bag @ 0.2 MCG/KG/HR 3.51 mls/hr IV .Q24H [facility] Rx#:[id number] Diltiazem 125 mg In 25 Sodium Chloride 0.9% 100 ml @ 5 MG/HR 5 mls/hr IV .Q24H [facility] Rx#:[id number] Insulin Regular 100 unit 15.175 33.314 23.995 In Sodium Chloride 0.9% 100 ml @ Per Protocol IV .Q0M [facility] Rx#:[id number] Lactated Ringers 1,000 ml 250 @ 20 mls/hr IV .Q24H [facility] Rx#:[id number] Magnesium Sulfate-D5w Pmx 100 1 gm In Dextrose/Water 1 100ml.bag @ 100 mls/hr IVPB Q1H [facility] Rx#: [id number] Nitroglycerin-D5w Pmx 50 45.9 mg In Dextrose/Water 1 250ml.bag @ 5 MCG/MIN 1.5 mls/hr IV .Q24H [facility] Rx#: [id number] Potassium Chloride 10 meq 100 In Water For Injection 1 100ml.bag @ 100 mls/hr IVPB Q1H [facility] Rx#: [id number] ceFAZolin 2 gm In Sodium 100 Chloride 0.9% 50 ml @ 100 mls/hr IVPB Q8HR [facility] Rx# :[id number] propofoL 1,000 mg In 57.178 Empty Bag 1 bag @ Titrate IV .Q0M [facility] Rx#: [id number] Output: Chest Tube Drainage 335 301 70 Chest Tube Mediastinal 240 200 50 Pleural Catheter 95 101 20 Bilateral Urine 1835 1430 190 Estimated Blood Loss 400 Other: Voiding Method Indwelling Catheter Indwelling Catheter ABP, PAP, CO, CI - Last Documented Arterial Blood Pressure 154/43 Pulmonary Artery Pressure 60/43 Cardiac Output 5.2 Cardiac Index 2.7 - Exam GENERAL: The patient is alert and oriented x3, not in any acute distress. Well developed, well nourished. HEENT: Pupils are round and equally reacting to light. EOMI. No scleral icterus. No conjunctival pallor. Normocephalic, atraumatic. No pharyngeal erythema. No thyromegaly. -CARDIOVASCULAR: S1 and S2 present. No murmurs, rubs, or gallops. Surgical wound healing with Pitressin in a Place PULMONARY: Chest is clear to auscultation, no wheezing , no crackles. ABDOMEN: Soft, nontender, nondistended, normoactive bowel sounds. No palpable organomegaly. MUSCULOSKELETAL: No joint swelling or deformity. EXTREMITIES: No cyanosis, clubbing, or pedal edema. NEUROLOGICAL: Gross neurological examination did not reveal any focal deficits. SKIN: No rashes. no petechiae. - Labs CBC & Chem 7: 05/29/23 04:30 05/29/23 04:30 Labs: Abnormal Lab Results - Last 24 Hours (Table) 05/26/23 05/27/23 05/27/23 Range/Units 06:00 08:30 09:43 WBC (3.8-10.6) k/uL RBC (4.30-5.90) m/uL Hgb (13.0-17.5) gm/dL Hct (39.0-53.0) % Plt Count (150-450) k/uL Neutrophils # (1.3-7.7) k/uL Lymphocytes # (1.0-4.8) k/uL PT (10.0-12.5) sec INR (<1.2) APTT (22.0-30.0) sec ABG pH (7.35-7.45) ABG pCO2 (35-45) mmHg ABG pO2 281 H 308 H (83-108) mmHg ABG Total CO2 (19-24) mmol/L ABG O2 Saturation 100.0 H 100.0 H (94-97) % ABG Hematocrit 33 L 28 L (34.0-46.0) % ABG Glucose 132 H 137 H (75-99) mg/dL Hemoglobin 10.9 L 9.1 L (13.0-17.5) gm/dL Chloride (98-107) mmol/L BUN (9-20) mg/dL Glucose (74-99) mg/dL POC Glucose (mg/dL) (70-110) mg/dL Calcium (8.4-10.2) mg/dL Magnesium (1.6-2.3) mg/dL Total Protein (6.3-8.2) g/dL Albumin (3.5-5.0) g/dL Arterial Blood Glucose 132 H 137 H (75-99) mg/dL Crossmatch See Detail 05/27/23 05/27/23 05/27/23 Range/Units 10:47 11:12 13:17 WBC (3.8-10.6) k/uL RBC (4.30-5.90) m/uL Hgb (13.0-17.5) gm/dL Hct (39.0-53.0) % Plt Count (150-450) k/uL Neutrophils # (1.3-7.7) k/uL Lymphocytes # (1.0-4.8) k/uL PT (10.0-12.5) sec INR (<1.2) APTT (22.0-30.0) sec ABG pH (7.35-7.45) ABG pCO2 (35-45) mmHg ABG pO2 329 H 312 H (83-108) mmHg ABG Total CO2 25 H 25 H (19-24) mmol/L ABG O2 Saturation 100.0 H 100.0 H (94-97) % ABG Hematocrit 28 L 29 L (34.0-46.0) % ABG Glucose 148 H 142 H (75-99) mg/dL Hemoglobin 9.2 L 9.4 L (13.0-17.5) gm/dL Chloride (98-107) mmol/L BUN (9-20) mg/dL Glucose (74-99) mg/dL POC Glucose (mg/dL) 171 H (70-110) mg/dL Calcium (8.4-10.2) mg/dL Magnesium (1.6-2.3) mg/dL Total Protein (6.3-8.2) g/dL Albumin (3.5-5.0) g/dL Arterial Blood Glucose 148 H 142 H (75-99) mg/dL Crossmatch 05/27/23 05/27/23 05/27/23 Range/Units 13:20 13:20 13:20 WBC (3.8-10.6) k/uL RBC 2.53 L (4.30-5.90) m/uL Hgb 8.5 L D (13.0-17.5) gm/dL Hct 23.5 L (39.0-53.0) % Plt Count 107 L (150-450) k/uL Neutrophils # (1.3-7.7) k/uL Lymphocytes # 0.6 L (1.0-4.8) k/uL PT 13.2 H (10.0-12.5) sec INR 1.2 H (<1.2) APTT 35.7 H (22.0-30.0) sec ABG pH (7.35-7.45) ABG pCO2 (35-45) mmHg ABG pO2 (83-108) mmHg ABG Total CO2 (19-24) mmol/L ABG O2 Saturation (94-97) % ABG Hematocrit (34.0-46.0) % ABG Glucose (75-99) mg/dL Hemoglobin (13.0-17.5) gm/dL Chloride 108 H (98-107) mmol/L BUN 21 H (9-20) mg/dL Glucose 148 H (74-99) mg/dL POC Glucose (mg/dL) (70-110) mg/dL Calcium 7.7 L (8.4-10.2) mg/dL Magnesium 1.5 L (1.6-2.3) mg/dL Total Protein 4.4 L (6.3-8.2) g/dL Albumin 2.7 L (3.5-5.0) g/dL Arterial Blood Glucose (75-99) mg/dL Crossmatch 05/27/23 05/27/23 05/27/23 Range/Units 13:44 14:11 15:00 WBC (3.8-10.6) k/uL RBC (4.30-5.90) m/uL Hgb (13.0-17.5) gm/dL Hct (39.0-53.0) % Plt Count (150-450) k/uL Neutrophils # (1.3-7.7) k/uL Lymphocytes # (1.0-4.8) k/uL PT (10.0-12.5) sec INR (<1.2) APTT (22.0-30.0) sec ABG pH 7.46 H (7.35-7.45) ABG pCO2 34 L (35-45) mmHg ABG pO2 >400 H (83-108) mmHg ABG Total CO2 25 H (19-24) mmol/L ABG O2 Saturation 100.0 H (94-97) % ABG Hematocrit (34.0-46.0) % ABG Glucose (75-99) mg/dL Hemoglobin (13.0-17.5) gm/dL Chloride (98-107) mmol/L BUN (9-20) mg/dL Glucose (74-99) mg/dL POC Glucose (mg/dL) 194 H 200 H (70-110) mg/dL Calcium (8.4-10.2) mg/dL Magnesium (1.6-2.3) mg/dL Total Protein (6.3-8.2) g/dL Albumin (3.5-5.0) g/dL Arterial Blood Glucose (75-99) mg/dL Crossmatch 05/27/23 05/27/23 05/27/23 Range/Units 16:18 16:19 17:17 WBC 11.9 H (3.8-10.6) k/uL RBC 3.07 L (4.30-5.90) m/uL Hgb 10.0 L D (13.0-17.5) gm/dL Hct 28.1 L (39.0-53.0) % Plt Count (150-450) k/uL Neutrophils # 10.5 H (1.3-7.7) k/uL Lymphocytes # 0.6 L (1.0-4.8) k/uL PT (10.0-12.5) sec INR (<1.2) APTT (22.0-30.0) sec ABG pH (7.35-7.45) ABG pCO2 (35-45) mmHg ABG pO2 (83-108) mmHg ABG Total CO2 (19-24) mmol/L ABG O2 Saturation (94-97) % ABG Hematocrit (34.0-46.0) % ABG Glucose (75-99) mg/dL Hemoglobin (13.0-17.5) gm/dL Chloride (98-107) mmol/L BUN (9-20) mg/dL Glucose (74-99) mg/dL POC Glucose (mg/dL) 195 H 163 H (70-110) mg/dL Calcium (8.4-10.2) mg/dL Magnesium (1.6-2.3) mg/dL Total Protein (6.3-8.2) g/dL Albumin (3.5-5.0) g/dL Arterial Blood Glucose (75-99) mg/dL Crossmatch 05/27/23 05/27/23 05/27/23 Range/Units 18:20 18:48 19:10 WBC (3.8-10.6) k/uL RBC (4.30-5.90) m/uL Hgb (13.0-17.5) gm/dL Hct (39.0-53.0) % Plt Count (150-450) k/uL Neutrophils # (1.3-7.7) k/uL Lymphocytes # (1.0-4.8) k/uL PT (10.0-12.5) sec INR (<1.2) APTT (22.0-30.0) sec ABG pH (7.35-7.45) ABG pCO2 (35-45) mmHg ABG pO2 137 H (83-108) mmHg ABG Total CO2 25 H (19-24) mmol/L ABG O2 Saturation 99.0 H (94-97) % ABG Hematocrit (34.0-46.0) % ABG Glucose (75-99) mg/dL Hemoglobin (13.0-17.5) gm/dL Chloride (98-107) mmol/L BUN (9-20) mg/dL Glucose (74-99) mg/dL POC Glucose (mg/dL) 161 H 180 H (70-110) mg/dL Calcium (8.4-10.2) mg/dL Magnesium (1.6-2.3) mg/dL Total Protein (6.3-8.2) g/dL Albumin (3.5-5.0) g/dL Arterial Blood Glucose (75-99) mg/dL Crossmatch 05/27/23 05/27/23 05/27/23 Range/Units 19:11 20:03 21:03 WBC 17.5 H (3.8-10.6) k/uL RBC 3.21 L (4.30-5.90) m/uL Hgb 10.6 L (13.0-17.5) gm/dL Hct 29.9 L (39.0-53.0) % Plt Count (150-450) k/uL Neutrophils # 16.2 H (1.3-7.7) k/uL Lymphocytes # 0.4 L (1.0-4.8) k/uL PT (10.0-12.5) sec INR (<1.2) APTT (22.0-30.0) sec ABG pH (7.35-7.45) ABG pCO2 (35-45) mmHg ABG pO2 (83-108) mmHg ABG Total CO2 (19-24) mmol/L ABG O2 Saturation (94-97) % ABG Hematocrit (34.0-46.0) % ABG Glucose (75-99) mg/dL Hemoglobin (13.0-17.5) gm/dL Chloride (98-107) mmol/L BUN (9-20) mg/dL Glucose (74-99) mg/dL POC Glucose (mg/dL) 144 H 117 H (70-110) mg/dL Calcium (8.4-10.2) mg/dL Magnesium (1.6-2.3) mg/dL Total Protein (6.3-8.2) g/dL Albumin (3.5-5.0) g/dL Arterial Blood Glucose (75-99) mg/dL Crossmatch 05/27/23 05/27/23 05/28/23 Range/Units 22:52 23:49 01:02 WBC (3.8-10.6) k/uL RBC (4.30-5.90) m/uL Hgb (13.0-17.5) gm/dL Hct (39.0-53.0) % Plt Count (150-450) k/uL Neutrophils # (1.3-7.7) k/uL Lymphocytes # (1.0-4.8) k/uL PT (10.0-12.5) sec INR (<1.2) APTT (22.0-30.0) sec ABG pH (7.35-7.45) ABG pCO2 (35-45) mmHg ABG pO2 (83-108) mmHg ABG Total CO2 (19-24) mmol/L ABG O2 Saturation (94-97) % ABG Hematocrit (34.0-46.0) % ABG Glucose (75-99) mg/dL Hemoglobin (13.0-17.5) gm/dL Chloride (98-107) mmol/L BUN (9-20) mg/dL Glucose (74-99) mg/dL POC Glucose (mg/dL) 137 H 128 H 113 H (70-110) mg/dL Calcium (8.4-10.2) mg/dL Magnesium (1.6-2.3) mg/dL Total Protein (6.3-8.2) g/dL Albumin (3.5-5.0) g/dL Arterial Blood Glucose (75-99) mg/dL Crossmatch 05/28/23 05/28/23 05/28/23 Range/Units 02:08 03:03 03:58 WBC (3.8-10.6) k/uL RBC (4.30-5.90) m/uL Hgb (13.0-17.5) gm/dL Hct (39.0-53.0) % Plt Count (150-450) k/uL Neutrophils # (1.3-7.7) k/uL Lymphocytes # (1.0-4.8) k/uL PT (10.0-12.5) sec INR (<1.2) APTT (22.0-30.0) sec ABG pH (7.35-7.45) ABG pCO2 (35-45) mmHg ABG pO2 (83-108) mmHg ABG Total CO2 (19-24) mmol/L ABG O2 Saturation (94-97) % ABG Hematocrit (34.0-46.0) % ABG Glucose (75-99) mg/dL Hemoglobin (13.0-17.5) gm/dL Chloride (98-107) mmol/L BUN (9-20) mg/dL Glucose (74-99) mg/dL POC Glucose (mg/dL) 129 H 135 H 131 H (70-110) mg/dL Calcium (8.4-10.2) mg/dL Magnesium (1.6-2.3) mg/dL Total Protein (6.3-8.2) g/dL Albumin (3.5-5.0) g/dL Arterial Blood Glucose (75-99) mg/dL Crossmatch 05/28/23 05/28/23 05/28/23 Range/Units 04:00 04:00 07:05 WBC (3.8-10.6) k/uL RBC 3.06 L (4.30-5.90) m/uL Hgb 10.1 L (13.0-17.5) gm/dL Hct 28.4 L (39.0-53.0) % Plt Count (150-450) k/uL Neutrophils # 9.7 H (1.3-7.7) k/uL Lymphocytes # 0.3 L (1.0-4.8) k/uL PT (10.0-12.5) sec INR (<1.2) APTT (22.0-30.0) sec ABG pH (7.35-7.45) ABG pCO2 (35-45) mmHg ABG pO2 (83-108) mmHg ABG Total CO2 (19-24) mmol/L ABG O2 Saturation (94-97) % ABG Hematocrit (34.0-46.0) % ABG Glucose (75-99) mg/dL Hemoglobin (13.0-17.5) gm/dL Chloride (98-107) mmol/L BUN 22 H (9-20) mg/dL Glucose 120 H (74-99) mg/dL POC Glucose (mg/dL) 147 H (70-110) mg/dL Calcium (8.4-10.2) mg/dL Magnesium (1.6-2.3) mg/dL Total Protein 5.4 L (6.3-8.2) g/dL Albumin 3.4 L (3.5-5.0) g/dL Arterial Blood Glucose (75-99) mg/dL Crossmatch 05/28/23 05/28/23 05/28/23 Range/Units 08:07 09:01 09:59 WBC (3.8-10.6) k/uL RBC (4.30-5.90) m/uL Hgb (13.0-17.5) gm/dL Hct (39.0-53.0) % Plt Count (150-450) k/uL Neutrophils # (1.3-7.7) k/uL Lymphocytes # (1.0-4.8) k/uL PT (10.0-12.5) sec INR (<1.2) APTT (22.0-30.0) sec ABG pH (7.35-7.45) ABG pCO2 (35-45) mmHg ABG pO2 (83-108) mmHg ABG Total CO2 (19-24) mmol/L ABG O2 Saturation (94-97) % ABG Hematocrit (34.0-46.0) % ABG Glucose (75-99) mg/dL Hemoglobin (13.0-17.5) gm/dL Chloride (98-107) mmol/L BUN (9-20) mg/dL Glucose (74-99) mg/dL POC Glucose (mg/dL) 178 H 209 H 196 H (70-110) mg/dL Calcium (8.4-10.2) mg/dL Magnesium (1.6-2.3) mg/dL Total Protein (6.3-8.2) g/dL Albumin (3.5-5.0) g/dL Arterial Blood Glucose (75-99) mg/dL Crossmatch 05/28/23 Range/Units 11:30 WBC (3.8-10.6) k/uL RBC (4.30-5.90) m/uL Hgb (13.0-17.5) gm/dL Hct (39.0-53.0) % Plt Count (150-450) k/uL Neutrophils # (1.3-7.7) k/uL Lymphocytes # (1.0-4.8) k/uL PT (10.0-12.5) sec INR (<1.2) APTT (22.0-30.0) sec ABG pH (7.35-7.45) ABG pCO2 (35-45) mmHg ABG pO2 (83-108) mmHg ABG Total CO2 (19-24) mmol/L ABG O2 Saturation (94-97) % ABG Hematocrit (34.0-46.0) % ABG Glucose (75-99) mg/dL Hemoglobin (13.0-17.5) gm/dL Chloride (98-107) mmol/L BUN (9-20) mg/dL Glucose (74-99) mg/dL POC Glucose (mg/dL) 152 H (70-110) mg/dL Calcium (8.4-10.2) mg/dL Magnesium (1.6-2.3) mg/dL Total Protein (6.3-8.2) g/dL Albumin (3.5-5.0) g/dL Arterial Blood Glucose (75-99) mg/dL Crossmatch Assessment and Plan Assessment: Acute renal failure with uremic symptoms/obstructive uropathy Acute metabolic encephalopathy improved Acute hyperkalemia resolved Metabolic acidosis resolved Non-ST elevated DE with multivessel coronary artery disease Hypertensive urgency Acute urinary retention with hydronephrosis status post Gordon placement Plan: Continue with aspirin and Plavix Continue with metoprolol and monitor blood pressure closely and Insulin drip can be discontinued and patient continued on insulin sliding scale. Glucose eventually [place] controlled with diet alone. continue with Gordon catheter Several consultants on the case including surgery primary team, painter barrel, commercial sewing instructor, grease renderer and urologist. Labs and medication were reviewed.. Continue same treatment. Continue with symptomatic treatment. Resume home medication. Monitor labs and vitals. DVT and GI prophylaxis. Further recommendations as per clinical course of the patient DVT prophylaxis: Subcutaneous heparin GI Prophylaxis: Ppi Prognosis is guarded
[2023-05-29] MEDS ORDERED: fentaNYL (PF) 50 MCG/ML 2 ML AMP IVP ONE (08:17)
[2023-05-29] MEDS: HEPARIN SODIUM,PORCINE 5,000 UNIT/ML 1 ML VIAL SQ SCH ×2 (08:28→16:35)
[2023-05-29 08:34] LABS: Glucose,Whole Blood 186 mg/dL (70-110)
--- NOTE | 2023-05-29 08:39 | XR ---
EXAMINATION TYPE: XR chest 1V portable DATE OF EXAM: 05/29/2023 Comparison: 05/28/2023 Clinical History: 68-year-old male Post Operative Cardiac Surgery Findings: Median sternotomy wires and post-CABG clips. Mild patchy postoperative atelectasis in the lower lungs , left greater than right. Heart upper limits of normal in size. Right IJ sheath in place with remova l of the [place]Seg[place] catheter and mediastinal drains. Retained epicardial pacer leads. Left-sided chest tube in place. Questionable trace 3 mm left apical pneumothorax appears to be present. Impression: 1. Left sided chest tube in place. Suspect a trace 3 mm left apical pneumothorax. 2. Mild patchy postoperative atelectasis in the lower lungs. The interstitium is improving from prior .
[2023-05-29] MEDS: METOPROLOL TARTRATE 50 MG TAB PO SCH ×2 (08:51→18:40)
[2023-05-29] MEDS: CLOPIDOGREL 75 MG TAB PO SCH (08:51)
[2023-05-29] MEDS: ASPIRIN 325 MG TAB PO SCH (08:51)
[2023-05-29] MEDS: amLODIPine 5 MG TAB PO SCH (08:51)
[2023-05-29] MEDS: ATORVASTATIN 40 MG TAB PO SCH (08:51)
[2023-05-29] MEDS: IPRATROPIUM-ALBUTEROL 3 ML NEB INHALATION SCH ×4 (09:00→21:00)
[2023-05-29 09:04] LABS: Glucose,Whole Blood 209 mg/dL (70-110)
--- NOTE | 2023-05-29 09:07 | P.PN ---
Subjective 68-year-old gentleman with history of pneumonectomy/right lung presents to the emergency department with complains of fatigue, malaise, nausea and abdominal pain. Patient states his been having intractable postprandial vomiting, patient states symptom onset has been last 3 days before presentation. Patient did mention to the emergency department team that he had streaks of blood in the emesis as well. While in ER patient had extensive workup done including CT aorta abdomen which was negative for dissection however did show urinary retention and hydronephrosis, likely secondary to retention and Gordon catheter was placed. Patient was also given a GI cocktail in ED with minimal relief, patient continued to have recurrent nausea/vomiting. Patient said he has not seen a doctor in 2 years, previous blood work reviewed did show normal creatinine function Chest x-ray obtained in ER was within normal Serum chemistry obtained in ER showed WBC of 10.9 hemoglobin 13.9 platelet count of 192, neutrophil count of 9.7, serum sodium 139, potassium 5.2, B UN 100 creatinine 12.54, lactate of 2.1, initial troponin of 0.171 While in ER patient was given insulin, dextrose, sodium bicarbonate, 1 L fluid bolus, started on IV heparin drip Secondary to critical illness and instability patient to be admitted to medical ICU with consultation from nephrology, cardiology and Urology 05/22/2023 : Patient seen and evaluated bedside, patient is alert and oriented to person place and situation. Seen by nephrology Gordon catheter in place, acut e kidney injury secondary to obstructive uropathy with significant improvement in renal function continue patient on fluid resuscitation cardiology following will plan cardiac catheterization during this hospitalization. Appreciate input from medical ICU as well continue patient on nitroglycerin drip, continue medical management 05/23/2023: Patient seen and evaluated and bedside, patient has multi-vessel coronary artery disease, seen after cardiac catheterization, renal function improving patient has been on nitroglycerin drip that has been weaned off. Continue current medications including aspirin, Lipitor, metoprolol further instructions from cardiology continue to monitor renal function, cardiac surgery consulted 05/24/2023: Patient seen and evaluated bedside, patient is chest pain-free, seen by intensive care unit team as well as cardiology, cardiac surgery team following plan for CABG to be done by 05/27/2023. Continue patient on IV heparin 05/25/2023: Patient seen and evaluated and bedside, IV heparin has been paused patient did have slight right radial hematoma, nephrology following, hemoglobin 12.5, creatinine 1.47, patient scheduled for CABG on 05/27/23 05/26/2023: Patient seen and evaluated bedside, patient is on IV heparin drip, right radial hematoma improved, pressure bandage placed. [facility] paperwork for completed. Cardiac surgery planning CABG 05/27/23. Blood work reviewed 05/27/2023 Patient status post coronary artery bypass grafting first. Triple-vessel coronary artery disease. Today is postoperative day #0. Patient is still complaining from pain in his chest Vitals stable His sugars controlled on insulin drip, his hemoglobin A1c is only mildly madeleine vated at 6.7% Is on aspirin 325 mg, Plavix also he is on metoprolol and Norvasc. Continue with amiodarone per program coordinator executive education. Labs and vitals are stable 05/28/2023 Patient lying in bed and comfortable, complains from mild pain in the sternum. No other new complaints and he has good appetite. Family at bedside. Vitals and labs reviewed in the looks stable. Creatinine improved down to 1.3 patient's nonoliguric. Sugar controlled Currently continued on aspirin Plavix and metoprolol 05/29/2023 Patient complaining of from some pain at the surgical site, no other new complaints. Blood pressure controlled Hemoglobin is stable at 9, creatinine 1.37, Glucose controlled Patient says he is not using diabetes medication at home, he was informed he has mild diabetes and he agrees with diet control for now. 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 Discontinue it on aspirin and Plavix. Objective - Vital Signs Vital signs: Vital Signs Temp 98.2 F 05/29/23 08:00 Pulse 105 H 05/29/23 09:00 Resp 26 H 05/29/23 08:00 BP 126/69 05/29/23 08:00 Pulse Ox 94 L 05/29/23 08:00 FiO2 40 05/27/23 18:08 Intake & Output 05/28/23 05/29/23 05/29/23 18:59 06:59 18:59 Intake Total 426.936 335.133 26 Output Total 675 890 120 Balance -248.064 -554.867 -94 Weight 73.2 kg Intake: IV 366 299 26 Lactated Ringers 1,000 ml 300 260 20 @ 20 mls/hr IV .Q24H [facility] Rx#:[id number] PRESSURE BAG 66 39 6 Intake, IV Titration 60.936 36.133 0 Amount Insulin Regular 100 unit 60.936 36.133 0 In Sodium Chloride 0.9% 100 ml @ Per Protocol IV .Q0M [facility] Rx#:[id number] Output: Chest Tube Drainage 140 180 0 Chest Tube Mediastinal 50 Left Pleural Chest Tube 25 65 0 Pleural Catheter 20 Bilateral Right Pleural Chest Tube 45 115 0 Urine 535 710 120 Other: Voiding Method Indwelling Catheter Indwelling Catheter ABP, PAP, CO, CI - Last Documented Arterial Blood Pressure 159/47 Pulmonary Artery Pressure 60/43 Cardiac Output 5.2 Cardiac Index 2.7 - Exam GENERAL: The patient is alert and oriented x3, not in any acute distress. Well developed, well nourished. HEENT: Pupils are round and equally reacting to light. EOMI. No scleral icterus. No conjunctival pallor. Normocephalic, atraumatic. No pharyngeal erythema. No thyromegaly. -CARDIOVASCULAR: S1 and S2 present. No murmurs, rubs, or gallops. Surgical wound healing with Pitressin in a Place PULMONARY: Chest is clear to auscultation, no wheezing , no crackles. ABDOMEN: Soft, nontender, nondistended, normoactive bowel sounds. No palpable organomegaly. MUSCULOSKELETAL: No joint swelling or deformity. EXTREMITIES: No cyanosis, clubbing, or pedal edema. NEUROLOGICAL: Gross neurological examination did not reveal any focal deficits. SKIN: No rashes. no petechiae. - Labs CBC & Chem 7: 05/29/23 04:30 05/29/23 04:30 Labs: Abnormal Lab Results - Last 24 Hours (Table) 05/28/23 05/28/23 05/28/23 Range/Units 09:59 11:30 12:21 RBC (4.30-5.90) m/uL Hgb (13.0-17.5) gm/dL Hct (39.0-53.0) % Plt Count (150-450) k/uL Neutrophils # (1.3-7.7) k/uL Lymphocytes # (1.0-4.8) k/uL Sodium (137-145) mmol/L Creatinine (0.66-1.25) mg/dL Glucose (74-99) mg/dL POC Glucose (mg/dL) 196 H 152 H 113 H (70-110) mg/dL Total Protein (6.3-8.2) g/dL Albumin (3.5-5.0) g/dL 05/28/23 05/28/23 05/28/23 Range/Units 13:07 14:11 15:12 RBC (4.30-5.90) m/uL Hgb (13.0-17.5) gm/dL Hct (39.0-53.0) % Plt Count (150-450) k/uL Neutrophils # (1.3-7.7) k/uL Lymphocytes # (1.0-4.8) k/uL Sodium (137-145) mmol/L Creatinine (0.66-1.25) mg/dL Glucose (74-99) mg/dL POC Glucose (mg/dL) 184 H 194 H 167 H (70-110) mg/dL Total Protein (6.3-8.2) g/dL Albumin (3.5-5.0) g/dL 05/28/23 05/28/23 05/28/23 Range/Units 15:58 17:18 18:19 RBC (4.30-5.90) m/uL Hgb (13.0-17.5) gm/dL Hct (39.0-53.0) % Plt Count (150-450) k/uL Neutrophils # (1.3-7.7) k/uL Lymphocytes # (1.0-4.8) k/uL Sodium (137-145) mmol/L Creatinine (0.66-1.25) mg/dL Glucose (74-99) mg/dL POC Glucose (mg/dL) 148 H 139 H 168 H (70-110) mg/dL Total Protein (6.3-8.2) g/dL Albumin (3.5-5.0) g/dL 05/28/23 05/28/23 05/28/23 Range/Units 19:05 21:15 22:02 RBC (4.30-5.90) m/uL Hgb (13.0-17.5) gm/dL Hct (39.0-53.0) % Plt Count (150-450) k/uL Neutrophils # (1.3-7.7) k/uL Lymphocytes # (1.0-4.8) k/uL Sodium (137-145) mmol/L Creatinine (0.66-1.25) mg/dL Glucose (74-99) mg/dL POC Glucose (mg/dL) 151 H 141 H 146 H (70-110) mg/dL Total Protein (6.3-8.2) g/dL Albumin (3.5-5.0) g/dL 05/28/23 05/29/23 05/29/23 Range/Units 23:00 01:01 03:00 RBC (4.30-5.90) m/uL Hgb (13.0-17.5) gm/dL Hct (39.0-53.0) % Plt Count (150-450) k/uL Neutrophils # (1.3-7.7) k/uL Lymphocytes # (1.0-4.8) k/uL Sodium (137-145) mmol/L Creatinine (0.66-1.25) mg/dL Glucose (74-99) mg/dL POC Glucose (mg/dL) 115 H 118 H 133 H (70-110) mg/dL Total Protein (6.3-8.2) g/dL Albumin (3.5-5.0) g/dL 05/29/23 05/29/23 05/29/23 Range/Units 04:02 04:30 04:30 RBC 2.78 L (4.30-5.90) m/uL Hgb 9.0 L (13.0-17.5) gm/dL Hct 25.8 L (39.0-53.0) % Plt Count 121 L (150-450) k/uL Neutrophils # 8.3 H (1.3-7.7) k/uL Lymphocytes # 0.4 L (1.0-4.8) k/uL Sodium 135 L (137-145) mmol/L Creatinine 1.37 H (0.66-1.25) mg/dL Glucose 107 H (74-99) mg/dL POC Glucose (mg/dL) 112 H (70-110) mg/dL Total Protein 5.2 L (6.3-8.2) g/dL Albumin 3.2 L (3.5-5.0) g/dL 05/29/23 05/29/23 05/29/23 Range/Units 04:59 08:32 09:03 RBC (4.30-5.90) m/uL Hgb (13.0-17.5) gm/dL Hct (39.0-53.0) % Plt Count (150-450) k/uL Neutrophils # (1.3-7.7) k/uL Lymphocytes # (1.0-4.8) k/uL Sodium (137-145) mmol/L Creatinine (0.66-1.25) mg/dL Glucose (74-99) mg/dL POC Glucose (mg/dL) 128 H 186 H 209 H (70-110) mg/dL Total Protein (6.3-8.2) g/dL Albumin (3.5-5.0) g/dL Assessment and Plan Assessment: Acute renal failure with uremic symptoms/obstructive uropathy Acute metabolic encephalopathy improved Acute hyperkalemia resolved Metabolic acidosis resolved Non-ST elevated ID with multivessel coronary artery disease Hypertensive urgency Acute urinary retention with hydronephrosis status post Gordon placement Plan: Continue with aspirin and Plavix Continue with metoprolol and monitor blood pressure closely and Insulin drip can be discontinued and patient continued on insulin sliding scale. Glucose eventually [place] controlled with diet alone. continue with Godron catheter Several consultants on the case including surgery primary team, program coordinator executive education, low heel builder, crop or grain farmworker and urologist. Labs and medication were reviewed.. Continue same treatment. Continue with symptomatic treatment. Resume home medication. Monitor labs and vitals. DVT and GI prophylaxis. Further recommendations as per clinical course of the patient DVT prophylaxis: Subcutaneous heparin GI Prophylaxis: Ppi Prognosis is guarded
--- NOTE | 2023-05-29 10:04 | P.PN ---
Subjective Patient is seen in follow-up for acute kidney injury. Renal function fairly stable. Nonoliguric. Oral intake fair. Chest tubes removed. Vital signs are stable. General: No acute distress. HEENT: Head exam is unremarkable. On nasal cannula. LUNGS: No audible rhonchi or wheezes. HEART: Rate and Rhythm are regular. ABDOMEN: Nontender. EXTREMITITES: No edema. Objective - Vital Signs Vital signs: Vital Signs Temp 98.2 F 05/29/23 08:00 Pulse 102 H 05/29/23 09:18 Resp 26 H 05/29/23 08:00 BP 126/69 05/29/23 08:00 Pulse Ox 94 L 05/29/23 08:00 FiO2 40 05/27/23 18:08 Intake & Output 05/28/23 05/29/23 05/29/23 18:59 06:59 18:59 Intake Total 426.936 335.133 28.609 Output Total 675 890 120 Balance -248.064 -554.867 -91.391 Weight 73.2 kg Intake: IV 366 299 26 Lactated Ringers 1,000 ml 300 260 20 @ 20 mls/hr IV .Q24H [facility] Rx#:[id number] PRESSURE BAG 66 39 6 Intake, IV Titration 60.936 36.133 2.609 Amount Insulin Regular 100 unit 60.936 36.133 2.609 In Sodium Chloride 0.9% 100 ml @ Per Protocol IV .Q0M [facility] Rx#:[id number] Output: Chest Tube Drainage 140 180 0 Chest Tube Mediastinal 50 Left Pleural Chest Tube 25 65 0 Pleural Catheter 20 Bilateral Right Pleural Chest Tube 45 115 0 Urine 535 710 120 Other: Voiding Method Indwelling Catheter Indwelling Catheter ABP, PAP, CO, CI - Last Documented Arterial Blood Pressure 159/47 Pulmonary Artery Pressure 60/43 Cardiac Output 5.2 Cardiac Index 2.7 - Labs CBC & Chem 7: 05/29/23 04:30 05/29/23 04:30 Labs: Abnormal Lab Results - Last 24 Hours (Table) 05/28/23 05/28/23 05/28/23 Range/Units 09:59 11:30 12:21 RBC (4.30-5.90) m/uL Hgb (13.0-17.5) gm/dL Hct (39.0-53.0) % Plt Count (150-450) k/uL Neutrophils # (1.3-7.7) k/uL Lymphocytes # (1.0-4.8) k/uL Sodium (137-145) mmol/L Creatinine (0.66-1.25) mg/dL Glucose (74-99) mg/dL POC Glucose (mg/dL) 196 H 152 H 113 H (70-110) mg/dL Total Protein (6.3-8.2) g/dL Albumin (3.5-5.0) g/dL 05/28/23 05/28/23 05/28/23 Range/Units 13:07 14:11 15:12 RBC (4.30-5.90) m/uL Hgb (13.0-17.5) gm/dL Hct (39.0-53.0) % Plt Count (150-450) k/uL Neutrophils # (1.3-7.7) k/uL Lymphocytes # (1.0-4.8) k/uL Sodium (137-145) mmol/L Creatinine (0.66-1.25) mg/dL Glucose (74-99) mg/dL POC Glucose (mg/dL) 184 H 194 H 167 H (70-110) mg/dL Total Protein (6.3-8.2) g/dL Albumin (3.5-5.0) g/dL 05/28/23 05/28/23 05/28/23 Range/Units 15:58 17:18 18:19 RBC (4.30-5.90) m/uL Hgb (13.0-17.5) gm/dL Hct (39.0-53.0) % Plt Count (150-450) k/uL Neutrophils # (1.3-7.7) k/uL Lymphocytes # (1.0-4.8) k/uL Sodium (137-145) mmol/L Creatinine (0.66-1.25) mg/dL Glucose (74-99) mg/dL POC Glucose (mg/dL) 148 H 139 H 168 H (70-110) mg/dL Total Protein (6.3-8.2) g/dL Albumin (3.5-5.0) g/dL 05/28/23 05/28/23 05/28/23 Range/Units 19:05 21:15 22:02 RBC (4.30-5.90) m/uL Hgb (13.0-17.5) gm/dL Hct (39.0-53.0) % Plt Count (150-450) k/uL Neutrophils # (1.3-7.7) k/uL Lymphocytes # (1.0-4.8) k/uL Sodium (137-145) mmol/L Creatinine (0.66-1.25) mg/dL Glucose (74-99) mg/dL POC Glucose (mg/dL) 151 H 141 H 146 H (70-110) mg/dL Total Protein (6.3-8.2) g/dL Albumin (3.5-5.0) g/dL 05/28/23 05/29/23 05/29/23 Range/Units 23:00 01:01 03:00 RBC (4.30-5.90) m/uL Hgb (13.0-17.5) gm/dL Hct (39.0-53.0) % Plt Count (150-450) k/uL Neutrophils # (1.3-7.7) k/uL Lymphocytes # (1.0-4.8) k/uL Sodium (137-145) mmol/L Creatinine (0.66-1.25) mg/dL Glucose (74-99) mg/dL POC Glucose (mg/dL) 115 H 118 H 133 H (70-110) mg/dL Total Protein (6.3-8.2) g/dL Albumin (3.5-5.0) g/dL 05/29/23 05/29/23 05/29/23 Range/Units 04:02 04:30 04:30 RBC 2.78 L (4.30-5.90) m/uL Hgb 9.0 L (13.0-17.5) gm/dL Hct 25.8 L (39.0-53.0) % Plt Count 121 L (150-450) k/uL Neutrophils # 8.3 H (1.3-7.7) k/uL Lymphocytes # 0.4 L (1.0-4.8) k/uL Sodium 135 L (137-145) mmol/L Creatinine 1.37 H (0.66-1.25) mg/dL Glucose 107 H (74-99) mg/dL POC Glucose (mg/dL) 112 H (70-110) mg/dL Total Protein 5.2 L (6.3-8.2) g/dL Albumin 3.2 L (3.5-5.0) g/dL 05/29/23 05/29/23 05/29/23 Range/Units 04:59 08:32 09:03 RBC (4.30-5.90) m/uL Hgb (13.0-17.5) gm/dL Hct (39.0-53.0) % Plt Count (150-450) k/uL Neutrophils # (1.3-7.7) k/uL Lymphocytes # (1.0-4.8) k/uL Sodium (137-145) mmol/L Creatinine (0.66-1.25) mg/dL Glucose (74-99) mg/dL POC Glucose (mg/dL) 128 H 186 H 209 H (70-110) mg/dL Total Protein (6.3-8.2) g/dL Albumin (3.5-5.0) g/dL Assessment and Plan Plan: Assessment: 1. Acute kidney injury secondary to obstructive uropathy and ATN. Creatinine 12.5 on admission and is stable at 1.37 today. Nonoliguric. 2. Coronary artery disease status post catheterization on May 23 and CABG 05/27/2023. 3. Urinary retention. Has Gordon catheter. Urology following. 4. Benign hypertension. Controlled. 5. Metabolic acidosis secondary to acute kidney injury. Better. Plan: Encouraged oral intake. Avoid nephrotoxins. Discontinued Toradol. Okay to use Tylenol if needed for pain. Continue to monitor renal function and urine output.
[2023-05-29 10:19] LABS: Glucose,Whole Blood 160 mg/dL (70-110)
--- NOTE | 2023-05-29 11:02 | P.PN ---
Subjective Progress Note Date: 05/29/23 Principal diagnosis: Triple-vessel coronary artery disease, non-ST elevated myocardial infarction this admission with symptoms of abdominal pain, nausea and vomiting. Past medical history significant for fatty liver disease, right-sided traumatic lung injury in his 20s, testicular cancer, and previous tobacco dependence with cessation many years ago, and has not been on any medical therapy at home. POD #2 Off pump coronary artery bypass grafting x 4. Left internal thoracic artery (in-situ) sequential to second diagonal and left anterior descending coronary artery. Radial artery from aorta to obtuse marginal artery #3. Greater saphenous vein from aorta to proximal posterior descending coronary artery, Left atrial appendage ligation using #35mm AtriClip, Endoscopic left radial and right greater saphenous vein harvest, Graft flow measurements using the [employer] flow meter, intraoperative transesophageal echocardiogram performed by anesthesia. Postoperative acute blood loss anemia, expected given hemodilution. The patient was seen and examined in follow-up today 05/28/2023 at his bedside in the intensive care unit. He is currently sitting up to the bedside chair, is awake, alert, oriented 3 and is in no acute apparent distress. Oxygen saturations are 97% on room air and he is achieving 1000 mL on his incentive spirometry with encouragement. Bedside telemetry showing sinus tachycardia heart rate 108 BPM. Right IJ Cordis remains in place with continuous CVP monitoring, current CVP 3 mmHg. Bilateral pleural chest tubes remain in place to low continuous wall suction -20 cm H2O. no air leak is present. Left pleural chest tube draining thin serosanguineous drainage with 40 mL output in the last 8 hours and 170 mL output since surgery. His right pleural chest tube right chest is draining thin serosanguineous drainage with 60 mL output in the last 8 hours and 110 mL output since surgery. Laboratory and chest x-ray results reviewed. The patient reports he has been up ambulating in the intensive care unit hallway with standby assistance of nursing and therapy staff and tolerating well. Objective - Vital Signs Vital signs: Vital Signs Temp 98.2 F 05/29/23 08:00 Pulse 99 05/29/23 10:00 Resp 17 05/29/23 10:00 BP 120/62 05/29/23 10:00 Pulse Ox 99 05/29/23 10:00 FiO2 40 05/27/23 18:08 Intake & Output 12/04/1005/29/23 05/29/23 18:59 06:59 18:59 Intake Total 426.936 335.133 83.800 Output Total 675 890 295 Balance -248.064 -554.867 -211.200 Weight 73.2 kg Intake: IV 366 299 72 Lactated Ringers 1,000 ml 300 260 60 @ 20 mls/hr IV .Q24H [facility] Rx#:[id number] PRESSURE BAG 66 39 12 Intake, IV Titration 60.936 36.133 11.800 Amount Insulin Regular 100 unit 60.936 36.133 11.800 In Sodium Chloride 0.9% 100 ml @ Per Protocol IV .Q0M [facility] Rx#:[id number] Output: Chest Tube Drainage 140 180 0 Chest Tube Mediastinal 50 Left Pleural Chest Tube 25 65 0 Pleural Catheter 20 Bilateral Right Pleural Chest Tube 45 115 0 Urine 535 710 295 Other: Voiding Method Indwelling Catheter Indwelling Catheter ABP, PAP, CO, CI - Last Documented Arterial Blood Pressure 159/47 Pulmonary Artery Pressure 60/43 Cardiac Output 5.2 Cardiac Index 2.7 - Exam CONSTITUTIONAL: Sitting up to the bedside chair in the intensive care unit, appears comfortable, cooperative, no apparent acute distress. HEENT: Neck is supple, no JVD, no lymphadenopathy. Right IJ Cordis in place and functioning. RESPIRATORY: Lungs sounds essentially clear throughout, diminished to his bilateral bases. Respirations are symmetrical and nonlabored. Currently on room air with oxygen saturations 97%. Able to achieve 1000 mL on his incentive spirometry. Strong cough. CARDIOVASCULAR: Regular rhythm and rate. S1 and S2 present, negative for S3, gallop or murmur. Bedside telemetry showing sinus tachycardia heart rate 180 bpm. Sternum is stable. Palpable peripheral pulses bilaterally, no edema to his bilateral lower extremities. No calf pain or tenderness noted. Heart hugger in place with patient demonstrating appropriate use. Knee-high OTILIO hose and sequential compression devices in place to his bilateral lower extremities. GASTROINTESTINAL: Abdomen soft, nontender, nondistended. Active bowel sounds present 4 quadrants. Tolerating diet. Passing flatus. No guarding or rigidity. GENITOURINARY: Gordon present draining clear, yellow urine. 480 mL of urine output in the last 8 hours. INTEGUMENTARY: Skin is warm and dry with no evidence of clubbing or cyanosis. Midline sternal incision clean dry and well approximated, covered with dry intact dressing. Right lower extremity EVH site well approximated without redness or drainage. Left arm radial artery harvest sites clean, dry and approximated. No drainage or redness is present. NEUROLOGIC: Cranial nerves II through XII intact. No focal deficits. MUSKULOSKELETAL: Able to move all extremities, strength equal bilaterally. PSYCHIATRIC: Alert and oriented to person place and time, appropriate affect, intact judgment and insight. INVASIVE LINES AND TUBES: Left/right pleural chest tubes present and connected to low continuous wall suction, no air leaks present. Left pleural chest tube with 40 mL of thin serosanguineous drainage overnight, 170 mL output in the last 24 hours. Right pleural chest tube with 60 mL of thin serosanguineous drainage overnight, 210 mL output in the last 24 hours. Ventricular epicardial pacemaker wires present, connected to generator, VVI backup rate 50 bpm. Right internal jugular Cordis, right radial arterial line present. Last CVP 3 mmHg. Left arm ZAHIDA drain in place with scant thin serosanguineous drainage, 10 mL output in the last 8 hours. - Allied health notes Allied health notes reviewed: nursing - Labs CBC & Chem 7: 05/29/23 04:30 05/29/23 04:30 Labs: Abnormal Lab Results - Last 24 Hours (Table) 05/28/23 05/28/23 05/28/23 Range/Units 11:30 12:21 13:07 RBC (4.30-5.90) m/uL Hgb (13.0-17.5) gm/dL Hct (39.0-53.0) % Plt Count (150-450) k/uL Neutrophils # (1.3-7.7) k/uL Lymphocytes # (1.0-4.8) k/uL Sodium (137-145) mmol/L Creatinine (0.66-1.25) mg/dL Glucose (74-99) mg/dL POC Glucose (mg/dL) 152 H 113 H 184 H (70-110) mg/dL Total Protein (6.3-8.2) g/dL Albumin (3.5-5.0) g/dL 05/28/23 05/28/23 05/28/23 Range/Units 14:11 15:12 15:58 RBC (4.30-5.90) m/uL Hgb (13.0-17.5) gm/dL Hct (39.0-53.0) % Plt Count (150-450) k/uL Neutrophils # (1.3-7.7) k/uL Lymphocytes # (1.0-4.8) k/uL Sodium (137-145) mmol/L Creatinine (0.66-1.25) mg/dL Glucose (74-99) mg/dL POC Glucose (mg/dL) 194 H 167 H 148 H (70-110) mg/dL Total Protein (6.3-8.2) g/dL Albumin (3.5-5.0) g/dL 05/28/23 05/28/23 05/28/23 Range/Units 17:18 18:19 19:05 RBC (4.30-5.90) m/uL Hgb (13.0-17.5) gm/dL Hct (39.0-53.0) % Plt Count (150-450) k/uL Neutrophils # (1.3-7.7) k/uL Lymphocytes # (1.0-4.8) k/uL Sodium (137-145) mmol/L Creatinine (0.66-1.25) mg/dL Glucose (74-99) mg/dL POC Glucose (mg/dL) 139 H 168 H 151 H (70-110) mg/dL Total Protein (6.3-8.2) g/dL Albumin (3.5-5.0) g/dL 05/28/23 05/28/23 05/28/23 Range/Units 21:15 22:02 23:00 RBC (4.30-5.90) m/uL Hgb (13.0-17.5) gm/dL Hct (39.0-53.0) % Plt Count (150-450) k/uL Neutrophils # (1.3-7.7) k/uL Lymphocytes # (1.0-4.8) k/uL Sodium (137-145) mmol/L Creatinine (0.66-1.25) mg/dL Glucose (74-99) mg/dL POC Glucose (mg/dL) 141 H 146 H 115 H (70-110) mg/dL Total Protein (6.3-8.2) g/dL Albumin (3.5-5.0) g/dL 05/29/23 05/29/23 05/29/23 Range/Units 01:01 03:00 04:02 RBC (4.30-5.90) m/uL Hgb (13.0-17.5) gm/dL Hct (39.0-53.0) % Plt Count (150-450) k/uL Neutrophils # (1.3-7.7) k/uL Lymphocytes # (1.0-4.8) k/uL Sodium (137-145) mmol/L Creatinine (0.66-1.25) mg/dL Glucose (74-99) mg/dL POC Glucose (mg/dL) 118 H 133 H 112 H (70-110) mg/dL Total Protein (6.3-8.2) g/dL Albumin (3.5-5.0) g/dL 05/29/23 05/29/23 05/29/23 Range/Units 04:30 04:30 04:59 RBC 2.78 L (4.30-5.90) m/uL Hgb 9.0 L (13.0-17.5) gm/dL Hct 25.8 L (39.0-53.0) % Plt Count 121 L (150-450) k/uL Neutrophils # 8.3 H (1.3-7.7) k/uL Lymphocytes # 0.4 L (1.0-4.8) k/uL Sodium 135 L (137-145) mmol/L Creatinine 1.37 H (0.66-1.25) mg/dL Glucose 107 H (74-99) mg/dL POC Glucose (mg/dL) 128 H (70-110) mg/dL Total Protein 5.2 L (6.3-8.2) g/dL Albumin 3.2 L (3.5-5.0) g/dL 05/29/23 05/29/23 05/29/23 Range/Units 08:32 09:03 10:17 RBC (4.30-5.90) m/uL Hgb (13.0-17.5) gm/dL Hct (39.0-53.0) % Plt Count (150-450) k/uL Neutrophils # (1.3-7.7) k/uL Lymphocytes # (1.0-4.8) k/uL Sodium (137-145) mmol/L Creatinine (0.66-1.25) mg/dL Glucose (74-99) mg/dL POC Glucose (mg/dL) 186 H 209 H 160 H (70-110) mg/dL Total Protein (6.3-8.2) g/dL Albumin (3.5-5.0) g/dL - Imaging and Cardiology Chest x-ray: report reviewed, image reviewed Assessment and Plan Assessment: Triple-vessel coronary artery disease, status post four-vessel coronary artery bypass grafting surgery Chest pain, non-STEMI this admission Abdominal pain with nausea and vomiting, likely secondary to above Acute kidney injury Obstructive uropathy status post Gordon catheter placement Hypertension History of fatty liver disease History of right-sided traumatic lung injury in his 20s History of testicular cancer Previous tobacco dependence with cessation many years ago Postoperative acute blood loss anemia, expected given hemodilution Plan: Continue to maximize medical therapy with aspirin, statin, Plavix and beta bloc ker. Will increase his metoprolol tartrate 50 mg by mouth twice a day with hold parameters. Encourage incentive spirometry use 10 times every hour while awake. Bronchodilators per pulmonology. Increase activity, ambulate as tolerated. PT/OT/cardiac rehab following. Will monitor daily labs and chest x-rays. Electrolyte replacement per protocol. GI/DVT prophylaxis. Pain control per current medication regimen. Avoid nephrotoxic agents as the patient has a history of elevated BUN and creatinine preoperatively. Insulin management per internal medicine service. Patient's hemoglobin A1c 6.7%. Needs to remain on insulin drip for 48 hours, then may transition to subcutaneous per protocol Discontinue right IJ Cordis. Discontinue ZAHIDA drain to his left arm. Remove left/right pleural chest tubes today. Continue Gordon catheter for another 24 hours, continue to record strict accurate intake and output. Catheter management per urology recommendations. Daily weights Remove ventricular epicardial pacemaker wires, bedrest for 1 hour post pacemaker wire removal. Transfer orders will be placed to the third floor cardiac stepdown unit. Anticipate discharge home with home health care in the next 24 hours. More recommendations to follow based on patient's clinical course. Time with Patient: Greater than 30
[2023-05-29 11:10] LABS: Glucose,Whole Blood 234 mg/dL (70-110)
[2023-05-29 11:11] LABS: Glucose,Whole Blood 196 mg/dL (70-110)
[2023-05-29] MEDS: INSULIN REGULAR 100 UNIT in SODIUM CHLORIDE 0.9% 100 ML IV SCH (11:12)
--- NOTE | 2023-05-29 11:56 | P.PN ---
Subjective Progress Note Date: 05/29/23 history of a high volume urinary retention status post CABG on May 27. Gordon in place draining clear yellow urine. patient had urinary retention prior to his surgery Objective - Vital Signs Vital signs: Vital Signs Temp 98.2 F 05/29/23 08:00 Pulse 102 H 05/29/23 09:18 Resp 26 H 05/29/23 08:00 BP 126/69 05/29/23 08:00 Pulse Ox 94 L 05/29/23 08:00 FiO2 40 05/27/23 18:08 Intake & Output 05/28/23 05/29/23 05/29/23 18:59 06:59 18:59 Intake Total 426.936 335.133 28.609 Output Total 675 890 120 Balance -248.064 -554.867 -91.391 Weight 73.2 kg Intake: IV 366 299 26 Lactated Ringers 1,000 ml 300 260 20 @ 20 mls/hr IV .Q24H [facility] Rx#:[id number] PRESSURE BAG 66 39 6 Intake, IV Titration 60.936 36.133 2.609 Amount Insulin Regular 100 unit 60.936 36.133 2.609 In Sodium Chloride 0.9% 100 ml @ Per Protocol IV .Q0M [facility] Rx#:[id number] Output: Chest Tube Drainage 140 180 0 Chest Tube Mediastinal 50 Left Pleural Chest Tube 25 65 0 Pleural Catheter 20 Bilateral Right Pleural Chest Tube 45 115 0 Urine 535 710 120 Other: Voiding Method Indwelling Catheter Indwelling Catheter ABP, PAP, CO, CI - Last Documented Arterial Blood Pressure 159/47 Pulmonary Artery Pressure 60/43 Cardiac Output 5.2 Cardiac Index 2.7 - Constitutional General appearance: Present: no acute distress - Gastrointestinal General gastrointestinal: Present: soft. Absent: distended, tenderness - Psychiatric Psychiatric: Present: A&O x's 3 - Labs CBC & Chem 7: 05/29/23 04:30 05/29/23 04:30 Labs: Abnormal Lab Results - Last 24 Hours (Table) 05/28/23 05/28/23 05/28/23 Range/Units 11:30 12:21 13:07 RBC (4.30-5.90) m/uL Hgb (13.0-17.5) gm/dL Hct (39.0-53.0) % Plt Count (150-450) k/uL Neutrophils # (1.3-7.7) k/uL Lymphocytes # (1.0-4.8) k/uL Sodium (137-145) mmol/L Creatinine (0.66-1.25) mg/dL Glucose (74-99) mg/dL POC Glucose (mg/dL) 152 H 113 H 184 H (70-110) mg/dL Total Protein (6.3-8.2) g/dL Albumin (3.5-5.0) g/dL 05/28/23 05/28/23 05/28/23 Range/Units 14:11 15:12 15:58 RBC (4.30-5.90) m/uL Hgb (13.0-17.5) gm/dL Hct (39.0-53.0) % Plt Count (150-450) k/uL Neutrophils # (1.3-7.7) k/uL Lymphocytes # (1.0-4.8) k/uL Sodium (137-145) mmol/L Creatinine (0.66-1.25) mg/dL Glucose (74-99) mg/dL POC Glucose (mg/dL) 194 H 167 H 148 H (70-110) mg/dL Total Protein (6.3-8.2) g/dL Albumin (3.5-5.0) g/dL 05/28/23 05/28/23 05/28/23 Range/Units 17:18 18:19 19:05 RBC (4.30-5.90) m/uL Hgb (13.0-17.5) gm/dL Hct (39.0-53.0) % Plt Count (150-450) k/uL Neutrophils # (1.3-7.7) k/uL Lymphocytes # (1.0-4.8) k/uL Sodium (137-145) mmol/L Creatinine (0.66-1.25) mg/dL Glucose (74-99) mg/dL POC Glucose (mg/dL) 139 H 168 H 151 H (70-110) mg/dL Total Protein (6.3-8.2) g/dL Albumin (3.5-5.0) g/dL 05/28/23 05/28/23 05/28/23 Range/Units 21:15 22:02 23:00 RBC (4.30-5.90) m/uL Hgb (13.0-17.5) gm/dL Hct (39.0-53.0) % Plt Count (150-450) k/uL Neutrophils # (1.3-7.7) k/uL Lymphocytes # (1.0-4.8) k/uL Sodium (137-145) mmol/L Creatinine (0.66-1.25) mg/dL Glucose (74-99) mg/dL POC Glucose (mg/dL) 141 H 146 H 115 H (70-110) mg/dL Total Protein (6.3-8.2) g/dL Albumin (3.5-5.0) g/dL 05/29/23 05/29/23 05/29/23 Range/Units 01:01 03:00 04:02 RBC (4.30-5.90) m/uL Hgb (13.0-17.5) gm/dL Hct (39.0-53.0) % Plt Count (150-450) k/uL Neutrophils # (1.3-7.7) k/uL Lymphocytes # (1.0-4.8) k/uL Sodium (137-145) mmol/L Creatinine (0.66-1.25) mg/dL Glucose (74-99) mg/dL POC Glucose (mg/dL) 118 H 133 H 112 H (70-110) mg/dL Total Protein (6.3-8.2) g/dL Albumin (3.5-5.0) g/dL 05/29/23 05/29/23 05/29/23 Range/Units 04:30 04:30 04:59 RBC 2.78 L (4.30-5.90) m/uL Hgb 9.0 L (13.0-17.5) gm/dL Hct 25.8 L (39.0-53.0) % Plt Count 121 L (150-450) k/uL Neutrophils # 8.3 H (1.3-7.7) k/uL Lymphocytes # 0.4 L (1.0-4.8) k/uL Sodium 135 L (137-145) mmol/L Creatinine 1.37 H (0.66-1.25) mg/dL Glucose 107 H (74-99) mg/dL POC Glucose (mg/dL) 128 H (70-110) mg/dL Total Protein 5.2 L (6.3-8.2) g/dL Albumin 3.2 L (3.5-5.0) g/dL 05/29/23 05/29/23 Range/Units 08:32 09:03 RBC (4.30-5.90) m/uL Hgb (13.0-17.5) gm/dL Hct (39.0-53.0) % Plt Count (150-450) k/uL Neutrophils # (1.3-7.7) k/uL Lymphocytes # (1.0-4.8) k/uL Sodium (137-145) mmol/L Creatinine (0.66-1.25) mg/dL Glucose (74-99) mg/dL POC Glucose (mg/dL) 186 H 209 H (70-110) mg/dL Total Protein (6.3-8.2) g/dL Albumin (3.5-5.0) g/dL Assessment and Plan Assessment: 68-year-old male with history of chronic urinary retention, significant elevation in his postvoid residual prior to surgery had a Gordon catheter prior to his CABG. He is status post CABG on May 27 -He can have a trial of void once he is out of the ICU and ambulating, -we'll start Flomax
[2023-05-29 12:07] LABS: Glucose,Whole Blood 158 mg/dL (70-110)
[2023-05-29] MEDS ORDERED: DEXTROSE 50% SYRINGE 50 ML IVP PRN ×2 (12:52)
[2023-05-29 13:17] LABS: Glucose,Whole Blood 186 mg/dL (70-110)
[2023-05-29] MEDS: INSULIN ASPART (NovoLOG) 100 UNIT/ML VIAL SQ SCH ×3 (13:21→21:02)
--- NOTE | 2023-05-29 14:33 | P.PN ---
Subjective Progress Note Date: 05/29/23 Principal diagnosis: POD #2 Off pump coronary artery bypass grafting x 4. Left internal thoracic artery (in-situ) sequential to second diagonal and left anterior descending coronary artery. Radial artery from aorta to obtuse marginal artery #3. Greater saphenous vein from aorta to proximal posterior descending coronary artery, Left atrial appendage ligation using #35mm AtriClip, Endoscopic left radial and right greater saphenous vein harvest, Graft flow measurements using the [employer] flow meter, intraoperative transesophageal echocardiogram performed by anesthesia. Patient was reevaluated today on 05/29/23, patient is status post four-vessel CABG, presented initially with non-ST elevation myocardial infarction and symptoms of abdominal pain and nausea and vomiting. Patient is now postoperative day #2 CABG 4. Patient is sitting in bed, does not seem to be in any distress, he is actually on room air, achieving 1000 mL with his incentive spirometer. Patient denies any shortness of breath, denies any nausea or vomiting but he feels sore. Bilateral pleural chest tubes remain in place at low continuous wall suction. No air leak noted. Patient has been ambulating in the intensive care unit hallway with assistance. Chest x-ray showed left sided chest tube in place, 3 mm apical tiny pneumothorax is noted. Mild patchy postoperative atelectasis as noted in the lower lobes. WBC count is 9.6 hemoglobin is 9, basic metabolic profile is normal renal profile showed slight increase in his creatinine up to 1.37 from 1.24 yesterday Objective - Vital Signs Vital signs: Vital Signs Temp 98.2 F 05/29/23 08:00 Pulse 101 H 05/29/23 13:00 Resp 22 05/29/23 13:00 BP 113/53 05/29/23 13:00 Pulse Ox 97 05/29/23 13:00 FiO2 40 05/27/23 18:08 Intake & Output 05/28/23 05/29/23 05/29/23 18:59 06:59 18:59 Intake Total 426.936 335.133 134.447 Output Total 675 890 495 Balance -248.064 -554.867 -360.553 Weight 73.2 kg Intake: IV 366 299 112 Lactated Ringers 1,000 ml 300 260 100 @ 20 mls/hr IV .Q24H [facility] Rx#:[id number] PRESSURE BAG 66 39 12 Intake, IV Titration 60.936 36.133 22.447 Amount Insulin Regular 100 unit 60.936 36.133 22.447 In Sodium Chloride 0.9% 100 ml @ Per Protocol IV .Q0M [facility] Rx#:[id number] Output: Chest Tube Drainage 140 180 0 Chest Tube Mediastinal 50 Left Pleural Chest Tube 25 65 0 Pleural Catheter 20 Bilateral Right Pleural Chest Tube 45 115 0 Urine 535 710 495 Other: Voiding Method Indwelling Catheter Indwelling Catheter ABP, PAP, CO, CI - Last Documented Arterial Blood Pressure 159/47 Pulmonary Artery Pressure 60/43 Cardiac Output 5.2 Cardiac Index 2.7 - Exam Physical Exam: Revealed a 68-year-old white male in no distress Head: Atraumatic, normocephalic. HEENT:[Neck is supple.] [No neck masses.] [No thyromegaly.] [No JVD.] Right IJ Cordis in place, functional. Chest: [Clear throughout, no crackles, no rhonchi, no wheezes.]Left/right pleural chest tubes present and connected to low continuous wall suction, no air leaks present. Left pleural chest tube with 40 mL of thin serosanguineous drainage overnight, 170 mL output in the last 24 hours. Right pleural chest tube with 60 mL of thin serosanguineous drainage overnight, 210 mL output in the last 24 hours. Cardiac Exam: [Normal S1 and S2, no S3 gallop, no murmur.] Abdomen: [Soft, nontender, no megaly, no rebound, no guarding, normal bowel anshu nds.] Extremities: [No clubbing, no edema, no cyanosis.] Neurological Exam: [No focal neurologic deficit.] Alert and oriented 3. Psychiatric: Normal mood affect and normal mental status examination. - Labs CBC & Chem 7: 05/29/23 04:30 05/29/23 04:30 Labs: Abnormal Lab Results - Last 24 Hours (Table) 05/28/23 05/28/23 05/28/23 Range/Units 15:12 15:58 17:18 RBC (4.30-5.90) m/uL Hgb (13.0-17.5) gm/dL Hct (39.0-53.0) % Plt Count (150-450) k/uL Neutrophils # (1.3-7.7) k/uL Lymphocytes # (1.0-4.8) k/uL Sodium (137-145) mmol/L Creatinine (0.66-1.25) mg/dL Glucose (74-99) mg/dL POC Glucose (mg/dL) 167 H 148 H 139 H (70-110) mg/dL Total Protein (6.3-8.2) g/dL Albumin (3.5-5.0) g/dL 05/28/23 05/28/23 05/28/23 Range/Units 18:19 19:05 21:15 RBC (4.30-5.90) m/uL Hgb (13.0-17.5) gm/dL Hct (39.0-53.0) % Plt Count (150-450) k/uL Neutrophils # (1.3-7.7) k/uL Lymphocytes # (1.0-4.8) k/uL Sodium (137-145) mmol/L Creatinine (0.66-1.25) mg/dL Glucose (74-99) mg/dL POC Glucose (mg/dL) 168 H 151 H 141 H (70-110) mg/dL Total Protein (6.3-8.2) g/dL Albumin (3.5-5.0) g/dL 05/28/23 05/28/23 05/29/23 Range/Units 22:02 23:00 01:01 RBC (4.30-5.90) m/uL Hgb (13.0-17.5) gm/dL Hct (39.0-53.0) % Plt Count (150-450) k/uL Neutrophils # (1.3-7.7) k/uL Lymphocytes # (1.0-4.8) k/uL Sodium (137-145) mmol/L Creatinine (0.66-1.25) mg/dL Glucose (74-99) mg/dL POC Glucose (mg/dL) 146 H 115 H 118 H (70-110) mg/dL Total Protein (6.3-8.2) g/dL Albumin (3.5-5.0) g/dL 05/29/23 05/29/23 05/29/23 Range/Units 03:00 04:02 04:30 RBC 2.78 L (4.30-5.90) m/uL Hgb 9.0 L (13.0-17.5) gm/dL Hct 25.8 L (39.0-53.0) % Plt Count 121 L (150-450) k/uL Neutrophils # 8.3 H (1.3-7.7) k/uL Lymphocytes # 0.4 L (1.0-4.8) k/uL Sodium (137-145) mmol/L Creatinine (0.66-1.25) mg/dL Glucose (74-99) mg/dL POC Glucose (mg/dL) 133 H 112 H (70-110) mg/dL Total Protein (6.3-8.2) g/dL Albumin (3.5-5.0) g/dL 05/29/23 05/29/23 05/29/23 Range/Units 04:30 04:59 08:32 RBC (4.30-5.90) m/uL Hgb (13.0-17.5) gm/dL Hct (39.0-53.0) % Plt Count (150-450) k/uL Neutrophils # (1.3-7.7) k/uL Lymphocytes # (1.0-4.8) k/uL Sodium 135 L (137-145) mmol/L Creatinine 1.37 H (0.66-1.25) mg/dL Glucose 107 H (74-99) mg/dL POC Glucose (mg/dL) 128 H 186 H (70-110) mg/dL Total Protein 5.2 L (6.3-8.2) g/dL Albumin 3.2 L (3.5-5.0) g/dL 05/29/23 05/29/23 05/29/23 Range/Units 09:03 10:17 11:08 RBC (4.30-5.90) m/uL Hgb (13.0-17.5) gm/dL Hct (39.0-53.0) % Plt Count (150-450) k/uL Neutrophils # (1.3-7.7) k/uL Lymphocytes # (1.0-4.8) k/uL Sodium (137-145) mmol/L Creatinine (0.66-1.25) mg/dL Glucose (74-99) mg/dL POC Glucose (mg/dL) 209 H 160 H 234 H (70-110) mg/dL Total Protein (6.3-8.2) g/dL Albumin (3.5-5.0) g/dL 05/29/23 05/29/23 05/29/23 Range/Units 11:10 12:05 13:16 RBC (4.30-5.90) m/uL Hgb (13.0-17.5) gm/dL Hct (39.0-53.0) % Plt Count (150-450) k/uL Neutrophils # (1.3-7.7) k/uL Lymphocytes # (1.0-4.8) k/uL Sodium (137-145) mmol/L Creatinine (0.66-1.25) mg/dL Glucose (74-99) mg/dL POC Glucose (mg/dL) 196 H 158 H 186 H (70-110) mg/dL Total Protein (6.3-8.2) g/dL Albumin (3.5-5.0) g/dL Assessment and Plan Assessment: Impression: Impression:Triple-vessel coronary artery disease, status post four-vessel coronary artery bypass grafting surgery, postoperative day #2 Acute non-ST elevation myocardial OH on this admission Obstructive uropathy requiring Gordon catheter placement Acute kidney injury Benign essential hypertension History of testicular cancer Ex-smoker Postoperative atelectasis, expected Postoperative tiny apical pneumothorax, expected Recommendation: Continue Plavix beta blockers aspirin and statin Continue ambulation and incentive spirometry Continue bronchodilators Continue GI and DVT prophylaxis Avoid nephrotoxic medications Discontinue on necessary lines and catheters Daily weights. Ambulate We'll continue to follow Time with Patient: Greater than 30
[2023-05-29 17:13] LABS: Glucose,Whole Blood 232 mg/dL (70-110)
[2023-05-29] MEDS ORDERED: INSULIN ASPART (NovoLOG) 100 UNIT/ML VIAL SQ ONE (17:32)
[2023-05-29] MEDS ORDERED: INSULIN DETEMIR (LEVEMIR) 100 UNIT/ML SYR SQ ONE (18:00)
--- NOTE | 2023-05-29 18:40 | P.PN ---
Subjective PROGRESS NOTE The patient is a 68-year-old male with no prior documented history of cardiac disease who presented with an acute episode of chest discomfort, troponin elevation and was found to have acute renal injury. He has no further pain this morning. He is feeling better. His breathing is stable. He denies any dizziness or palpitations. He has no nausea or vomiting. May 23: The patient feels well this morning, he denies any chest discomfort, dizziness or palpitations. He continues to be in sinus mechanism. He continues to be on IV heparin and IV nitroglycerin. His urine is pink. He continues to have an indwelling Gordon catheter. His echocardiogram was technically difficult and showed an ejection fraction of 40-45% with mild AI but no clear reported segmental wall motion abnormality May 24: The patient is feeling well this morning, denies any chest discomfort, dizziness or palpitations. He underwent cardiac catheterization yesterday and was found to have severe triple-vessel disease. He was evaluated at the surgical team for CABG. He is back on IV heparin continues to be in sinus mechanism. His blood pressure has been elevated at times. There is no evidence of malignant arrhythmia. Carotid ultrasound revealed no evidence of significant obstructive disease. May 25: The patient is up in the chair, feels well. He denies any chest discomfort, dizziness or palpitations. He is in sinus mechanism with no hemodynamic compromise. His urinary output has been.. He has a hematoma in the right forearm related to infiltration of his intravenous heparin. He is scheduled to undergo CABG on Monday. May 26: The patient feels well this morning, he is awake and alert. He denies any chest discomfort, dizziness or palpitations. He denies any nausea or vomiting. Hemodynamically he is stable. He is in sinus mechanism. He is scheduled to undergo CABG tomorrow. He continues to be on IV heparin. May 27: The patient is seen in the ICU following CABG. He underwent off-pump surgery this morning, he received a VAUGHN to the LAD and sequential to the second diagonal branch, radial to the OM and SVG to the PDA. He is intubated, sedated. He is in sinus mechanism. His blood pressure is on the high side. He is on IV nitroglycerin. There is no evidence of arrhythmia. May 28: The patient is extubated, sitting up in the chair. He feels well. He denies any chest discomfort, dizziness or palpitations. He continues to be in sinus mechanism. Hemodynamically he is stable. There is no evidence of atrial fibrillation or ventricular arrhythmia. 05/29 Patient seen and examined. Creatinine stable, mildly increased up to 1.3. He has been having some urinary retention. Denies any chest pain currently however does have higher epigastric discomfort, 2 out of 10 and also had some mild chest discomfort at 2 in the morning which she felt really is related to the chest tube. Occasionally borderline tachycardia, unclear if related to some urinary retention. Brief runs of nonsustained VT. Medications: Aspirin, Plavix, Norvasc 5 mg daily, Lipitor 40 mg daily, Lopressor 25 mg twice a day PHYSICAL EXAMINATION: Vitals reviewd LUNGS: Clear to auscultation with few crackles at the base HEART: Regular rate and rhythm, S1, S2. No S3. No systolic murmur ABDOMEN: Soft, nontender, no organomegaly EXTREMETIES: No edema, IMPRESSION: 1. Status post CABG 2. Acute renal injury with obstructive uropathy, improved 3. Moderate ischemic cardiomyopathy 4. Obstructive uropathy 5. Hematuria, resolved PLAN: 1. Continue routine postoperative care 2. Incentive spirometry 3. Increase physical activity 4. Monitor mild tachycardia, increase Metoprolol as able if HR's increasing Objective - Vital Signs Vital signs: Vital Signs Temp 99.0 F 05/29/23 16:00 Pulse 117 H 05/29/23 17:00 Resp 23 05/29/23 17:00 BP 130/70 05/29/23 16:00 Pulse Ox 97 05/29/23 16:00 FiO2 40 05/27/23 18:08 Intake & Output 05/28/23 05/29/23 05/29/23 18:59 06:59 18:59 Intake Total 426.936 335.133 174.447 Output Total 675 890 495 Balance -248.064 -554.867 -320.553 Weight 73.2 kg Intake: IV 366 299 152 Lactated Ringers 1,000 ml 300 260 140 @ 20 mls/hr IV .Q24H [facility] Rx#:[id number] PRESSURE BAG 66 39 12 Intake, IV Titration 60.936 36.133 22.447 Amount Insulin Regular 100 unit 60.936 36.133 22.447 In Sodium Chloride 0.9% 100 ml @ Per Protocol IV .Q0M [facility] Rx#:[id number] Output: Chest Tube Drainage 140 180 0 Chest Tube Mediastinal 50 Left Pleural Chest Tube 25 65 0 Pleural Catheter 20 Bilateral Right Pleural Chest Tube 45 115 0 Urine 535 710 495 Other: Voiding Method Indwelling Catheter Indwelling Catheter Urinal ABP, PAP, CO, CI - Last Documented Arterial Blood Pressure 159/47 Pulmonary Artery Pressure 60/43 Cardiac Output 5.2 Cardiac Index 2.7 - Labs CBC & Chem 7: 05/29/23 04:30 05/29/23 04:30 Labs: Abnormal Lab Results - Last 24 Hours (Table) 05/28/23 05/28/23 05/28/23 Range/Units 19:05 21:15 22:02 RBC (4.30-5.90) m/uL Hgb (13.0-17.5) gm/dL Hct (39.0-53.0) % Plt Count (150-450) k/uL Neutrophils # (1.3-7.7) k/uL Lymphocytes # (1.0-4.8) k/uL Sodium (137-145) mmol/L Creatinine (0.66-1.25) mg/dL Glucose (74-99) mg/dL POC Glucose (mg/dL) 151 H 141 H 146 H (70-110) mg/dL Total Protein (6.3-8.2) g/dL Albumin (3.5-5.0) g/dL 05/28/23 05/29/23 05/29/23 Range/Units 23:00 01:01 03:00 RBC (4.30-5.90) m/uL Hgb (13.0-17.5) gm/dL Hct (39.0-53.0) % Plt Count (150-450) k/uL Neutrophils # (1.3-7.7) k/uL Lymphocytes # (1.0-4.8) k/uL Sodium (137-145) mmol/L Creatinine (0.66-1.25) mg/dL Glucose (74-99) mg/dL POC Glucose (mg/dL) 115 H 118 H 133 H (70-110) mg/dL Total Protein (6.3-8.2) g/dL Albumin (3.5-5.0) g/dL 05/29/23 05/29/23 05/29/23 Range/Units 04:02 04:30 04:30 RBC 2.78 L (4.30-5.90) m/uL Hgb 9.0 L (13.0-17.5) gm/dL Hct 25.8 L (39.0-53.0) % Plt Count 121 L (150-450) k/uL Neutrophils # 8.3 H (1.3-7.7) k/uL Lymphocytes # 0.4 L (1.0-4.8) k/uL Sodium 135 L (137-145) mmol/L Creatinine 1.37 H (0.66-1.25) mg/dL Glucose 107 H (74-99) mg/dL POC Glucose (mg/dL) 112 H (70-110) mg/dL Total Protein 5.2 L (6.3-8.2) g/dL Albumin 3.2 L (3.5-5.0) g/dL 05/29/23 05/29/23 05/29/23 Range/Units 04:59 08:32 09:03 RBC (4.30-5.90) m/uL Hgb (13.0-17.5) gm/dL Hct (39.0-53.0) % Plt Count (150-450) k/uL Neutrophils # (1.3-7.7) k/uL Lymphocytes # (1.0-4.8) k/uL Sodium (137-145) mmol/L Creatinine (0.66-1.25) mg/dL Glucose (74-99) mg/dL POC Glucose (mg/dL) 128 H 186 H 209 H (70-110) mg/dL Total Protein (6.3-8.2) g/dL Albumin (3.5-5.0) g/dL 05/29/23 05/29/23 05/29/23 Range/Units 10:17 11:08 11:10 RBC (4.30-5.90) m/uL Hgb (13.0-17.5) gm/dL Hct (39.0-53.0) % Plt Count (150-450) k/uL Neutrophils # (1.3-7.7) k/uL Lymphocytes # (1.0-4.8) k/uL Sodium (137-145) mmol/L Creatinine (0.66-1.25) mg/dL Glucose (74-99) mg/dL POC Glucose (mg/dL) 160 H 234 H 196 H (70-110) mg/dL Total Protein (6.3-8.2) g/dL Albumin (3.5-5.0) g/dL 05/29/23 05/29/23 05/29/23 Range/Units 12:05 13:16 17:12 RBC (4.30-5.90) m/uL Hgb (13.0-17.5) gm/dL Hct (39.0-53.0) % Plt Count (150-450) k/uL Neutrophils # (1.3-7.7) k/uL Lymphocytes # (1.0-4.8) k/uL Sodium (137-145) mmol/L Creatinine (0.66-1.25) mg/dL Glucose (74-99) mg/dL POC Glucose (mg/dL) 158 H 186 H 232 H (70-110) mg/dL Total Protein (6.3-8.2) g/dL Albumin (3.5-5.0) g/dL
[2023-05-29 20:48] LABS: Glucose,Whole Blood 215 mg/dL (70-110)
[2023-05-29] MEDS: SENNOSIDES-DOCUSATE SODIUM 1 EACH TAB PO SCH (21:03)
[2023-05-30] MEDS: HEPARIN SODIUM,PORCINE 5,000 UNIT/ML 1 ML VIAL SQ SCH ×4 (00:41→23:02)
[2023-05-30 04:48] LABS: Basophils % (A) 0 %; Eosinophils # (A) 0.1 k/uL (0-0.7); Eosinophils % (A) 1 %; HGB 8.6 gm/dL (13.0-17.5); Lymphocytes # (A) 0.6 k/uL (1.0-4.8); Lymphocytes % (A) 8 %; MCH 32.6 pg (25.0-35.0); MCHC 34.5 g/dL (31.0-37.0); MCV 94.3 fL (80.0-100.0); Mean Platelet Volume 9.2; Monocytes # (A) 0.5 k/uL (0-1.0); Monocytes % (A) 7 %; Neutrophils % (A) 83 %; Platelet Count 136 k/uL (150-450); RBC 2.65 m/uL (4.30-5.90); RDW 12.7 % (11.5-15.5); WBC 7.2 k/uL (3.8-10.6)
[2023-05-30 05:04] LABS: ALT 16 U/L (4-49); AST 29 U/L (17-59); African American GFR (CKD) 54 (>60 ml/min/1.73 sqM); Alkaline Phosphatase 71 U/L (38-126); Anion Gap 8 mmol/L; Blood Urea Nitrogen 23 mg/dL (9-20); Calcium 8.4 mg/dL (8.4-10.2); Carbon Dioxide 24 mmol/L (22-30); Chloride 102 mmol/L (98-107); Glucose 98 mg/dL (74-99); Non-African American GFR(CKD) 47 (>60 ml/min/1.73 sqM); Potassium 4.1 mmol/L (3.5-5.1); Sodium 134 mmol/L (137-145); Total Bilirubin 0.5 mg/dL (0.2-1.3); Total Protein 5.1 g/dL (6.3-8.2)
[2023-05-30] MEDS: ACETAMINOPHEN TAB 500 MG TAB PO PRN ×2 (05:47→13:56)
[2023-05-30] MEDS: INSULIN ASPART (NovoLOG) 100 UNIT/ML VIAL SQ SCH ×4 (06:21→20:33)
--- NOTE | 2023-05-30 06:59 | XR ---
EXAMINATION TYPE: XR chest 2V DATE OF EXAM: 05/30/2023 COMPARISON: 05/29/2023 INDICATION: Postop CABG TECHNIQUE: Single frontal view of the chest is obtained. FINDINGS: The heart size is normal. Sternotomy wires are present from the patient's CABG. The pulmonary vasculature is normal. Some curvilinear density at the right base is felt to be some atelectasis. Pneumoperitoneum would be less likely. There is some blunting of right costophrenic angle. Some minimal fluid may be present. IMPRESSION: 1. Right lower lobe atelectasis. Tiny pneumoperitoneum would be unusual. Follow-up is recommended.
[2023-05-30 07:59] LABS: Glucose,Whole Blood 184 mg/dL (70-110)
[2023-05-30] MEDS ORDERED: INSULIN DETEMIR (LEVEMIR) 100 UNIT/ML SYR SQ SCH ×3 (08:07→21:00)
[2023-05-30] MEDS: PANTOPRAZOLE 40 MG TABLET PO SCH (09:16)
[2023-05-30] MEDS: METOPROLOL TARTRATE 25 MG TAB PO SCH ×2 (09:16→20:32)
[2023-05-30] MEDS: ATORVASTATIN 40 MG TAB PO SCH (09:16)
[2023-05-30] MEDS: amLODIPine 5 MG TAB PO SCH (09:17)
[2023-05-30] MEDS: ASPIRIN 325 MG TAB PO SCH (09:17)
[2023-05-30] MEDS: TAMSULOSIN 0.4 MG CAP.ER.24H PO SCH (09:17)
[2023-05-30] MEDS: CLOPIDOGREL 75 MG TAB PO SCH (09:18)
[2023-05-30] MEDS: AMIODARONE 200 MG TAB PO SCH ×2 (09:18→20:31)
[2023-05-30] MEDS: IPRATROPIUM-ALBUTEROL 3 ML NEB INHALATION SCH ×4 (09:36→20:18)
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
--- NOTE | 2023-05-30 10:22 | P.PN ---
Subjective Progress Note Date: 05/30/23 Patient Gordon catheter was removed yesterday, was able to void 2 but his postvoid residual has been trending up this morning was 683 mL. His creatinine is up to 1.5 from 1.37. He denies any dysuria course hematuria, indicated is able to void but not the completion Objective - Vital Signs Vital signs: Vital Signs Temp 98.5 F 05/30/23 09:00 Pulse 89 05/30/23 09:00 Resp 20 05/30/23 09:00 BP 125/69 05/30/23 09:00 Pulse Ox 95 05/30/23 09:00 FiO2 40 05/27/23 18:08 Intake & Output 05/29/23 05/30/23 05/30/23 18:59 06:59 18:59 Intake Total 174.447 270 Output Total 495 475 Balance -320.553 -205 Weight 73.9 kg Intake: IV 152 0 Lactated Ringers 1,000 ml 140 0 @ 20 mls/hr IV .Q24H [facility] Rx#:[id number] PRESSURE BAG 12 Intake, IV Titration 22.447 Amount Insulin Regular 100 unit 22.447 In Sodium Chloride 0.9% 100 ml @ Per Protocol IV .Q0M [facility] Rx#:[id number] Tube Feeding 270 Output: Chest Tube Drainage 0 Left Pleural Chest Tube 0 Right Pleural Chest Tube 0 Urine 495 475 Other: Voiding Method Urinal Urinal # Bowel Movements 1 ABP, PAP, CO, CI - Last Documented Arterial Blood Pressure 159/47 Pulmonary Artery Pressure 60/43 Cardiac Output 5.2 Cardiac Index 2.7 - Constitutional General appearance: Present: no acute distress - Gastrointestinal General gastrointestinal: Present: soft. Absent: distended, tenderness - Psychiatric Psychiatric: Present: A&O x's 3 - Labs CBC & Chem 7: 05/30/23 04:00 05/30/23 04:00 Labs: Abnormal Lab Results - Last 24 Hours (Table) 05/29/23 05/29/23 05/29/23 Range/Units 11:08 11:10 12:05 RBC (4.30-5.90) m/uL Hgb (13.0-17.5) gm/dL Hct (39.0-53.0) % Plt Count (150-450) k/uL Lymphocytes # (1.0-4.8) k/uL Sodium (137-145) mmol/L BUN (9-20) mg/dL Creatinine (0.66-1.25) mg/dL POC Glucose (mg/dL) 234 H 196 H 158 H (70-110) mg/dL Total Protein (6.3-8.2) g/dL Albumin (3.5-5.0) g/dL 05/29/23 05/29/23 05/29/23 Range/Units 13:16 17:12 20:46 RBC (4.30-5.90) m/uL Hgb (13.0-17.5) gm/dL Hct (39.0-53.0) % Plt Count (150-450) k/uL Lymphocytes # (1.0-4.8) k/uL Sodium (137-145) mmol/L BUN (9-20) mg/dL Creatinine (0.66-1.25) mg/dL POC Glucose (mg/dL) 186 H 232 H 215 H (70-110) mg/dL Total Protein (6.3-8.2) g/dL Albumin (3.5-5.0) g/dL 05/30/23 05/30/23 05/30/23 Range/Units 04:00 04:00 07:57 RBC 2.65 L (4.30-5.90) m/uL Hgb 8.6 L (13.0-17.5) gm/dL Hct 25.0 L (39.0-53.0) % Plt Count 136 L (150-450) k/uL Lymphocytes # 0.6 L (1.0-4.8) k/uL Sodium 134 L (137-145) mmol/L BUN 23 H (9-20) mg/dL Creatinine 1.51 H (0.66-1.25) mg/dL POC Glucose (mg/dL) 184 H (70-110) mg/dL Total Protein 5.1 L (6.3-8.2) g/dL Albumin 3.0 L (3.5-5.0) g/dL Assessment and Plan Assessment: 68-year-old male with history of chronic urinary retention, significant elevation in his postvoid residual prior to surgery had a Gordon catheter prior to his CABG. He is status post CABG on May 27. Gordon removed yesterday, was able to void, but his postvoid residual this morning's 683 mL -Repeat trial of void in 2 weeks -Continue Flomax
--- NOTE | 2023-05-30 10:46 | P.PN ---
Subjective Patient is seen in follow-up for acute kidney injury. Renal function slightly worse. Gordon catheter placed this morning for urinary retention. Also on IV amiodarone for A. fib with RVR. Nonoliguric. Oral intake fair. Vital signs are stable. General: No acute distress. HEENT: Head exam is unremarkable. On nasal cannula. LUNGS: No audible rhonchi or wheezes. HEART: Rate and Rhythm are regular. ABDOMEN: Nontender. EXTREMITITES: No edema. Objective - Vital Signs Vital signs: Vital Signs Temp 98.5 F 05/30/23 09:00 Pulse 89 05/30/23 09:00 Resp 20 05/30/23 09:00 BP 125/69 05/30/23 09:00 Pulse Ox 95 05/30/23 09:00 FiO2 40 05/27/23 18:08 Intake & Output 05/29/23 05/30/23 05/30/23 18:59 06:59 18:59 Intake Total 174.447 270 Output Total 495 475 Balance -320.553 -205 Weight 73.9 kg Intake: IV 152 0 Lactated Ringers 1,000 ml 140 0 @ 20 mls/hr IV .Q24H [facility] Rx#:[id number] PRESSURE BAG 12 Intake, IV Titration 22.447 Amount Insulin Regular 100 unit 22.447 In Sodium Chloride 0.9% 100 ml @ Per Protocol IV .Q0M [facility] Rx#:[id number] Tube Feeding 270 Output: Chest Tube Drainage 0 Left Pleural Chest Tube 0 Right Pleural Chest Tube 0 Urine 495 475 Other: Voiding Method Urinal Urinal # Bowel Movements 1 ABP, PAP, CO, CI - Last Documented Arterial Blood Pressure 159/47 Pulmonary Artery Pressure 60/43 Cardiac Output 5.2 Cardiac Index 2.7 - Labs CBC & Chem 7: 05/30/23 04:00 05/30/23 04:00 Labs: Abnormal Lab Results - Last 24 Hours (Table) 05/29/23 05/29/23 05/29/23 Range/Units 11:08 11:10 12:05 RBC (4.30-5.90) m/uL Hgb (13.0-17.5) gm/dL Hct (39.0-53.0) % Plt Count (150-450) k/uL Lymphocytes # (1.0-4.8) k/uL Sodium (137-145) mmol/L BUN (9-20) mg/dL Creatinine (0.66-1.25) mg/dL POC Glucose (mg/dL) 234 H 196 H 158 H (70-110) mg/dL Total Protein (6.3-8.2) g/dL Albumin (3.5-5.0) g/dL 05/29/23 05/29/23 05/29/23 Range/Units 13:16 17:12 20:46 RBC (4.30-5.90) m/uL Hgb (13.0-17.5) gm/dL Hct (39.0-53.0) % Plt Count (150-450) k/uL Lymphocytes # (1.0-4.8) k/uL Sodium (137-145) mmol/L BUN (9-20) mg/dL Creatinine (0.66-1.25) mg/dL POC Glucose (mg/dL) 186 H 232 H 215 H (70-110) mg/dL Total Protein (6.3-8.2) g/dL Albumin (3.5-5.0) g/dL 05/30/23 05/30/23 05/30/23 Range/Units 04:00 04:00 07:57 RBC 2.65 L (4.30-5.90) m/uL Hgb 8.6 L (13.0-17.5) gm/dL Hct 25.0 L (39.0-53.0) % Plt Count 136 L (150-450) k/uL Lymphocytes # 0.6 L (1.0-4.8) k/uL Sodium 134 L (137-145) mmol/L BUN 23 H (9-20) mg/dL Creatinine 1.51 H (0.66-1.25) mg/dL POC Glucose (mg/dL) 184 H (70-110) mg/dL Total Protein 5.1 L (6.3-8.2) g/dL Albumin 3.0 L (3.5-5.0) g/dL Assessment and Plan Plan: Assessment: 1. Acute kidney injury secondary to obstructive uropathy and ATN. Creatinine 12.5 on admission and is stable at 1.51 today. Nonoliguric. 2. Coronary artery disease status post catheterization on May 23 and CABG 05/27/2023. 3. Urinary retention. Gordon catheter reinserted this morning due to persistent retention. Urology following. 4. Benign hypertension. Controlled. 5. Metabolic acidosis secondary to acute kidney injury. Better. 6. A. fib with RVR maintained on amiodarone drip. Plan: Add normal saline at 50 mL an hour. Encouraged oral intake. Avoid nephrotoxins. Discontinued Toradol. Okay to use Tylenol if needed for pain. Continue to monitor renal function and urine output.
[2023-05-30 11:06] VITALS: BMI 21.4
[2023-05-30] MEDS: SODIUM CHLORIDE 0.9% 1,000 ML IV SCH (11:10)
[2023-05-30 12:35] LABS: Glucose,Whole Blood 141 mg/dL (70-110)
--- NOTE | 2023-05-30 14:07 | P.PN ---
Subjective Progress Note Date: 05/30/23 Principal diagnosis: POD #3 Off pump coronary artery bypass grafting x 4. Left internal thoracic artery (in-situ) sequential to second diagonal and left anterior descending coronary artery. Radial artery from aorta to obtuse marginal artery #3. Greater saphenous vein from aorta to proximal posterior descending coronary artery, Left atrial appendage ligation using #35mm AtriClip, Endoscopic left radial and right greater saphenous vein harvest, Graft flow measurements using the Medi-Stim flow meter, intraoperative transesophageal echocardiogram performed by anesthesia. Patient was reevaluated today on 05/29/23, patient is status post four-vessel CABG, presented initially with non-ST elevation myocardial infarction and symptoms of abdominal pain and nausea and vomiting. Patient is now postoperative day #2 CABG 4. Patient is sitting in bed, does not seem to be in any distress, he is actually on room air, achieving 1000 mL with his incentive spirometer. Patient denies any shortness of breath, denies any nausea or vomiting but he feels sore. Bilateral pleural chest tubes remain in place at low continuous wall suction. No air leak noted. Patient has been ambulating in the intensive care unit [facility] with assistance. Chest x-ray showed left sided chest tube in place, 3 mm apical tiny pneumothorax is noted. Mild patchy postoperative atelectasis as noted in the lower lobes. WBC count is 9.6 hemoglobin is 9, basic metabolic profile is normal renal profile showed slight increase in his creatinine up to 1.37 from 1.24 yesterday Reevaluated today on 05/30/2023, patient remains in the ICU, sitting in a bedside chair, awake alert and oriented 3, patient is on room air, does not seem to be in any distress, however the patient is receiving amiodarone drip at 0.5 mg/m. Patient is in sinus rhythm apparently he had an episode of atrial fibrillation last evening with RVR, lasted about 30 minutes, and he was bolused with amiodarone and placed on amiodarone drip. Patient has normal hemodynamics, he has good urine outputs for 75 mL in the last 8 hours, patient continues to have significant fluid retention and Gordon was reinserted by urology again. Chest x-ray showed mostly basilar atelectasis. However patient does have a small amount of free air under the right hemidiaphragm, however clinically the patient does not have any findings to suggest abdominal process. And we'll continue to watch the free air below the right hemidiaphragm. Again patient has no abdominal findings and no abdominal symptoms. WBC count is 7.2 hemoglobin 8.6 basic metabolic profile is normal renal profile showed creatinine up to 1.5, patient is being followed by nephrology Objective - Vital Signs Vital signs: Vital Signs Temp 98.5 F 05/30/23 12:00 Pulse 80 05/30/23 13:00 Resp 22 05/30/23 13:00 BP 107/64 05/30/23 13:00 Pulse Ox 95 05/30/23 12:00 FiO2 40 05/27/23 18:08 Intake & Output 05/29/23 05/30/23 05/30/23 18:59 06:59 18:59 Intake Total 174.447 270 Output Total 397 280 4502 Balance -609.553 - Weight 73.9 kg 73.9 kg Intake: IV 152 0 Lactated Ringers 1,000 ml 140 0 @ 20 mls/hr IV .Q24H [facility] Rx#:[id number] PRESSURE BAG 12 Intake, IV Titration 22.447 Amount Insulin Regular 100 unit 22.447 In Sodium Chloride 0.9% 100 ml @ Per Protocol IV .Q0M [facility] Rx#:[id number] Tube Feeding 270 Output: Chest Tube Drainage 0 Left Pleural Chest Tube 0 Right Pleural Chest Tube 0 Urine 238 593 2548 Post Void Residual 289 684 Other: Voiding Method Urinal Urinal # Bowel Movements 1 ABP, PAP, CO, CI - Last Documented Arterial Blood Pressure 159/47 Pulmonary Artery Pressure 60/43 Cardiac Output 5.2 Cardiac Index 2.7 - Exam Physical Exam: Revealed a 68-year-old white male in no distress, on room Head: Atraumatic, normocephalic. HEENT:[Neck is supple.] [No neck masses.] [No thyromegaly.] [No JVD.] Right IJ Cordis in place, functional. Chest: [Clear throughout, no crackles, no rhonchi, no wheezes.] Cardiac Exam: [Normal S1 and S2, no S3 gallop, no murmur.] Abdomen: [Soft, nontender, no megaly, no rebound, no guarding, normal bowel sounds.] Extremities: [No clubbing, no edema, no cyanosis.] Neurological Exam: [No focal neurologic deficit.] Alert and oriented 3. Psychiatric: Normal mood affect and normal mental status examination. - Labs CBC & Chem 7: 05/30/23 04:00 05/30/23 04:00 Labs: Abnormal Lab Results - Last 24 Hours (Table) 05/29/23 05/29/23 05/30/23 Range/Units 17:12 20:46 04:00 RBC 2.65 L (4.30-5.90) m/uL Hgb 8.6 L (13.0-17.5) gm/dL Hct 25.0 L (39.0-53.0) % Plt Count 136 L (150-450) k/uL Lymphocytes # 0.6 L (1.0-4.8) k/uL Sodium (137-145) mmol/L BUN (9-20) mg/dL Creatinine (0.66-1.25) mg/dL POC Glucose (mg/dL) 232 H 215 H (70-110) mg/dL Total Protein (6.3-8.2) g/dL Albumin (3.5-5.0) g/dL 05/30/23 05/30/23 05/30/23 Range/Units 04:00 07:57 12:32 RBC (4.30-5.90) m/uL Hgb (13.0-17.5) gm/dL Hct (39.0-53.0) % Plt Count (150-450) k/uL Lymphocytes # (1.0-4.8) k/uL Sodium 134 L (137-145) mmol/L BUN 23 H (9-20) mg/dL Creatinine 1.51 H (0.66-1.25) mg/dL POC Glucose (mg/dL) 184 H 141 H (70-110) mg/dL Total Protein 5.1 L (6.3-8.2) g/dL Albumin 3.0 L (3.5-5.0) g/dL Assessment and Plan Assessment: Impression: Impression:Triple-vessel coronary artery disease, status post four-vessel coronary artery bypass grafting surgery, postoperative day #4 Acute non-ST elevation myocardial DE on this admission Obstructive uropathy requiring Gordon catheter placement Acute kidney injury Benign essential hypertension History of testicular cancer Ex-smoker Postoperative atelectasis, expected Postoperative tiny apical pneumothorax, expected Possible free air on the right hemidiaphragm/pneumoperitoneum but no clinical evidence to suggest surgical abdomen, hence we'll continue to follow, if worsens or if the patient develops abdominal symptoms would definitely recommend general surgery evaluation. Recommendation: Continue Plavix beta blockers aspirin and statin Continue ambulation and incentive spirometry Continue bronchodilators Continue GI and DVT prophylaxis Continue to follow closely on his pneumoperitoneum Avoid nephrotoxic medications Daily weights. Ambulate We'll continue to follow Time with Patient: Less than 30
--- NOTE | 2023-05-30 14:57 | P.PN ---
Subjective PROGRESS NOTE The patient is a 68-year-old male with no prior documented history of cardiac disease who presented with an acute episode of chest discomfort, troponin elevation and was found to have acute renal injury. He has no further pain this morning. He is feeling better. His breathing is stable. He denies any dizziness or palpitations. He has no nausea or vomiting. May 23: The patient feels well this morning, he denies any chest discomfort, dizziness or palpitations. He continues to be in sinus mechanism. He continues to be on IV heparin and IV nitroglycerin. His urine is pink. He continues to have an indwelling Gordon catheter. His echocardiogram was technically difficult and showed an ejection fraction of 40-45% with mild AI but no clear reported segmental wall motion abnormality May 24: The patient is feeling well this morning, denies any chest discomfort, dizziness or palpitations. He underwent cardiac catheterization yesterday and was found to have severe triple-vessel disease. He was evaluated at the surgical team for CABG. He is back on IV heparin continues to be in sinus mechanism. His blood pressure has been elevated at times. There is no evidence of malignant arrhythmia. Carotid ultrasound revealed no evidence of significant obstructive disease. May 25: The patient is up in the chair, feels well. He denies any chest discomfort, dizziness or palpitations. He is in sinus mechanism with no hemodynamic compromise. His urinary output has been.. He has a hematoma in the right forearm related to infiltration of his intravenous heparin. He is scheduled to undergo CABG on Monday. May 26: The patient feels well this morning, he is awake and alert. He denies any chest discomfort, dizziness or palpitations. He denies any nausea or vomiting. Hemodynamically he is stable. He is in sinus mechanism. He is scheduled to undergo CABG tomorrow. He continues to be on IV heparin. May 27: The patient is seen in the ICU following CABG. He underwent off-pump surgery this morning, he received a VAUGHN to the LAD and sequential to the second diagonal branch, radial to the OM and SVG to the PDA. He is intubated, sedated. He is in sinus mechanism. His blood pressure is on the high side. He is on IV nitroglycerin. There is no evidence of arrhythmia. May 28: The patient is extubated, sitting up in the chair. He feels well. He denies any chest discomfort, dizziness or palpitations. He continues to be in sinus mechanism. Hemodynamically he is stable. There is no evidence of atrial fibrillation or ventricular arrhythmia. 05/29 Patient seen and examined. Creatinine stable, mildly increased up to 1.3. He has been having some urinary retention. Denies any chest pain currently however does have higher epigastric discomfort, 2 out of 10 and also had some mild chest discomfort at 2 in the morning which she felt really is related to the chest tube. Occasionally borderline tachycardia, unclear if related to some urinary retention. Brief runs of nonsustained VT. 05/30 Patient seen and examined. Patient 1 and SVT, appears likely atrial flutter with RVR with heart rate 140-150 and was started on amiodarone bolus and drip and additionally metoprolol was increased. Episode lasted for approximately 25- 30 minutes. Denies any chest pain or pressure. States his appetite is somewhat better. Medications: Aspirin, Plavix, Norvasc 5 mg daily, Lipitor 40 mg daily, Lopressor 25 mg twice a day PHYSICAL EXAMINATION: Vitals reviewd LUNGS: Clear to auscultation with few crackles at the base HEART: Regular rate and rhythm, S1, S2. No S3. No systolic murmur ABDOMEN: Soft, nontender, no organomegaly EXTREMETIES: No edema, IMPRESSION: 1. Status post CABG 2. Acute renal injury with obstructive uropathy, improved 3. Moderate ischemic cardiomyopathy 4. Obstructive uropathy 5. Hematuria, resolved 6. 25-30 minute of regular SVT, 05/29, likely Aflutter with RVR PLAN: 1. Continue routine postoperative care 2. Incentive spirometry 3. Increase physical activity 4. Patient with an SVT overnight which appears regular and not consistent with A. fib, likely atrial flutter. Continue with amiodarone IV drip for remainder of 24-hour dose at this time as well as oral amiodarone. Increased dose of metoprolol and monitor response. Otherwise continue with routine care. Objective - Vital Signs Vital signs: Vital Signs Temp 98.5 F 05/30/23 12:00 Pulse 80 05/30/23 13:00 Resp 22 05/30/23 13:00 BP 107/64 05/30/23 13:00 Pulse Ox 95 05/30/23 12:00 FiO2 40 05/27/23 18:08 Intake & Output 05/29/23 05/30/23 05/30/23 18:59 06:59 18:59 Intake Total 174.447 270 200 Output Total 508 935 1482 Balance -609.557 -724 -5758 Weight 73.9 kg 73.9 kg Intake: IV 152 0 Lactated Ringers 1,000 ml 140 0 @ 20 mls/hr IV .Q24H [facility] Rx#:[id number] PRESSURE BAG 12 Intake, IV Titration 22.447 200 Amount Insulin Regular 100 unit 22.447 In Sodium Chloride 0.9% 100 ml @ Per Protocol IV .Q0M [facility] Rx#:[id number] Sodium Chloride 0.9% 1, 200 000 ml @ 50 mls/hr IV . Q20H [facility] Rx#:[id number] Tube Feeding 270 Output: Chest Tube Drainage 0 Left Pleural Chest Tube 0 Right Pleural Chest Tube 0 Urine 499 728 8125 Post Void Residual 289 684 Other: Voiding Method Urinal Urinal # Bowel Movements 1 ABP, PAP, CO, CI - Last Documented Arterial Blood Pressure 159/47 Pulmonary Artery Pressure 60/43 Cardiac Output 5.2 Cardiac Index 2.7 - Labs CBC & Chem 7: 05/30/23 04:00 05/30/23 04:00 Labs: Abnormal Lab Results - Last 24 Hours (Table) 05/29/23 05/29/23 05/30/23 Range/Units 17:12 20:46 04:00 RBC 2.65 L (4.30-5.90) m/uL Hgb 8.6 L (13.0-17.5) gm/dL Hct 25.0 L (39.0-53.0) % Plt Count 136 L (150-450) k/uL Lymphocytes # 0.6 L (1.0-4.8) k/uL Sodium (137-145) mmol/L BUN (9-20) mg/dL Creatinine (0.66-1.25) mg/dL POC Glucose (mg/dL) 232 H 215 H (70-110) mg/dL Total Protein (6.3-8.2) g/dL Albumin (3.5-5.0) g/dL 05/30/23 05/30/23 05/30/23 Range/Units 04:00 07:57 12:32 RBC (4.30-5.90) m/uL Hgb (13.0-17.5) gm/dL Hct (39.0-53.0) % Plt Count (150-450) k/uL Lymphocytes # (1.0-4.8) k/uL Sodium 134 L (137-145) mmol/L BUN 23 H (9-20) mg/dL Creatinine 1.51 H (0.66-1.25) mg/dL POC Glucose (mg/dL) 184 H 141 H (70-110) mg/dL Total Protein 5.1 L (6.3-8.2) g/dL Albumin 3.0 L (3.5-5.0) g/dL
[2023-05-30 16:51] LABS: Glucose,Whole Blood 203 mg/dL (70-110)
[2023-05-30 20:04] LABS: Glucose,Whole Blood 244 mg/dL (70-110)
[2023-05-30] MEDS: SENNOSIDES-DOCUSATE SODIUM 1 EACH TAB PO SCH (20:32)
--- NOTE | 2023-05-30 23:43 | P.PN ---
Subjective 68-year-old gentleman with history of pneumonectomy/right lung presents to the emergency department with complains of fatigue, malaise, nausea and abdominal pain. Patient states his been having intractable postprandial vomiting, patient states symptom onset has been last 3 days before presentation. Patient did mention to the emergency department team that he had streaks of blood in the emesis as well. While in ER patient had extensive workup done including CT aorta abdomen which was negative for dissection however did show urinary retention and hydronephrosis, likely secondary to retention and Gordon catheter was placed. Patient was also given a GI cocktail in ED with minimal relief, patient continued to have recurrent nausea/vomiting. Patient said he has not seen a doctor in 2 years, previous blood work reviewed did show normal creatinine function Chest x-ray obtained in ER was within normal Serum chemistry obtained in ER showed WBC of 10.9 hemoglobin 13.9 platelet count of 192, neutrophil count of 9.7, serum sodium 139, potassium 5.2, B UN 100 creatinine 12.54, lactate of 2.1, initial troponin of 0.171 While in ER patient was given insulin, dextrose, sodium bicarbonate, 1 L fluid bolus, started on IV heparin drip Secondary to critical illness and instability patient to be admitted to medical ICU with consultation from nephrology, cardiology and Urology 05/22/2023 : Patient seen and evaluated bedside, patient is alert and oriented to person place and situation. Seen by nephrology Gordon catheter in place, acut e kidney injury secondary to obstructive uropathy with significant improvement in renal function continue patient on fluid resuscitation cardiology following will plan cardiac catheterization during this hospitalization. Appreciate input from medical ICU as well continue patient on nitroglycerin drip, continue medical management 05/23/2023: Patient seen and evaluated and bedside, patient has multi-vessel coronary artery disease, seen after cardiac catheterization, renal function improving patient has been on nitroglycerin drip that has been weaned off. Continue current medications including aspirin, Lipitor, metoprolol further instructions from cardiology continue to monitor renal function, cardiac surgery consulted 05/24/2023: Patient seen and evaluated bedside, patient is chest pain-free, seen by intensive care unit team as well as cardiology, cardiac surgery team following plan for CABG to be done by 05/27/2023. Continue patient on IV heparin 05/25/2023: Patient seen and evaluated and bedside, IV heparin has been paused patient did have slight right radial hematoma, nephrology following, hemoglobin 12.5, creatinine 1.47, patient scheduled for CABG on 05/27/23 05/26/2023: Patient seen and evaluated bedside, patient is on IV heparin drip, right radial hematoma improved, pressure bandage placed. [facility] paperwork for completed. Cardiac surgery planning CABG 05/27/23. Blood work reviewed 05/27/2023 Patient status post coronary artery bypass grafting first. Triple-vessel coronary artery disease. Today is postoperative day #0. Patient is still complaining from pain in his chest Vitals stable His sugars controlled on insulin drip, his hemoglobin A1c is only mildly madeleine vated at 6.7% Is on aspirin 325 mg, Plavix also he is on metoprolol and Norvasc. Continue with amiodarone per acting teacher. Labs and vitals are stable 05/28/2023 Patient lying in bed and comfortable, complains from mild pain in the sternum. No other new complaints and he has good appetite. Family at bedside. Vitals and labs reviewed in the looks stable. Creatinine improved down to 1.3 patient's nonoliguric. Sugar controlled Currently continued on aspirin Plavix and metoprolol 05/29/2023 Patient complaining of from some pain at the surgical site, no other new complaints. Blood pressure controlled Hemoglobin is stable at 9, creatinine 1.37, Glucose controlled Patient says he is not using diabetes medication at home, he was informed he has mild diabetes and he agrees with diet control for now. 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 Discontinue it on aspirin and Plavix. 05/30/2023 Patient generally feels better with no chest pain, no other specific complaints. Patient has evidence of urinary retention more than 600 and Gordon catheter was placed is on Flomax and urologist evaluated the patient This complicated by slight worsening creatinine 1.3 up to 1.5 and hence patient was started on normal saline 50 mL per hour Also patient with evidence of atrial flutter versus SVT he was treated with amiodarone which was switched from IV to oral dose 400 mg twice daily. Metoprolol increased to 75 mg twice a day. Patient continued on aspirin and Plavix (Patient requests Dr. Matthews to start covering him as a new PCP. Dr. Matthews will take care of the patient starting tomorrow 05/31/2023, this was discussed with the primary team) Objective - Vital Signs Vital signs: Vital Signs Temp 98.5 F 05/30/23 12:00 Pulse 80 05/30/23 13:00 Resp 22 05/30/23 13:00 BP 107/64 05/30/23 13:00 Pulse Ox 95 05/30/23 12:00 FiO2 40 05/27/23 18:08 Intake & Output 05/29/23 05/30/23 05/30/23 18:59 06:59 18:59 Intake Total 174.447 270 Output Total 529 108 8369 Balance -609.553 - -2033 Weight 73.9 kg 73.9 kg Intake: IV 152 0 Lactated Ringers 1,000 ml 140 0 @ 20 mls/hr IV .Q24H [facility] Rx#:[id number] PRESSURE BAG 12 Intake, IV Titration 22.447 Amount Insulin Regular 100 unit 22.447 In Sodium Chloride 0.9% 100 ml @ Per Protocol IV .Q0M [facility] Rx#:[id number] Tube Feeding 270 Output: Chest Tube Drainage 0 Left Pleural Chest Tube 0 Right Pleural Chest Tube 0 Urine 227 390 0322 Post Void Residual 289 684 Other: Voiding Method Urinal Urinal # Bowel Movements 1 ABP, PAP, CO, CI - Last Documented Arterial Blood Pressure 159/47 Pulmonary Artery Pressure 60/43 Cardiac Output 5.2 Cardiac Index 2.7 - Exam GENERAL: The patient is alert and oriented x3, not in any acute distress. Well developed, well nourished. HEENT: Pupils are round and equally reacting to light. EOMI. No scleral icterus. No conjunctival pallor. Normocephalic, atraumatic. No pharyngeal erythema. No thyromegaly. -CARDIOVASCULAR: S1 and S2 present. No murmurs, rubs, or gallops. Surgical wound healing with Pitressin in a Place PULMONARY: Chest is clear to auscultation, no wheezing , no crackles. ABDOMEN: Soft, nontender, nondistended, normoactive bowel sounds. No palpable organomegaly. MUSCULOSKELETAL: No joint swelling or deformity. EXTREMITIES: No cyanosis, clubbing, or pedal edema. NEUROLOGICAL: Gross neurological examination did not reveal any focal deficits. SKIN: No rashes. no petechiae. - Labs CBC & Chem 7: 05/30/23 04:00 05/30/23 04:00 Labs: Abnormal Lab Results - Last 24 Hours (Table) 05/29/23 05/29/23 05/30/23 Range/Units 17:12 20:46 04:00 RBC 2.65 L (4.30-5.90) m/uL Hgb 8.6 L (13.0-17.5) gm/dL Hct 25.0 L (39.0-53.0) % Plt Count 136 L (150-450) k/uL Lymphocytes # 0.6 L (1.0-4.8) k/uL Sodium (137-145) mmol/L BUN (9-20) mg/dL Creatinine (0.66-1.25) mg/dL POC Glucose (mg/dL) 232 H 215 H (70-110) mg/dL Total Protein (6.3-8.2) g/dL Albumin (3.5-5.0) g/dL 05/30/23 05/30/23 05/30/23 Range/Units 04:00 07:57 12:32 RBC (4.30-5.90) m/uL Hgb (13.0-17.5) gm/dL Hct (39.0-53.0) % Plt Count (150-450) k/uL Lymphocytes # (1.0-4.8) k/uL Sodium 134 L (137-145) mmol/L BUN 23 H (9-20) mg/dL Creatinine 1.51 H (0.66-1.25) mg/dL POC Glucose (mg/dL) 184 H 141 H (70-110) mg/dL Total Protein 5.1 L (6.3-8.2) g/dL Albumin 3.0 L (3.5-5.0) g/dL Assessment and Plan Assessment: Acute renal failure with uremic symptoms/obstructive uropathy Acute metabolic encephalopathy improved Acute hyperkalemia resolved Metabolic acidosis resolved Non-ST elevated MN with multivessel coronary artery disease Hypertensive urgency Acute urinary retention with hydronephrosis status post Gordon placement Plan: Continue with aspirin and Plavix Continue with metoprolol and monitor blood pressure closely and Insulin drip can be discontinued and patient continued on insulin sliding scale. Glucose eventually [place] controlled with diet alone. continue with Gordon catheter Several consultants on the case including surgery primary team, acting teacher, viscera washer, tunnel elastic operator chainstitch and urologist. Labs and medication were reviewed.. Continue same treatment. Continue with symptomatic treatment. Resume home medication. Monitor labs and vitals. DVT and GI prophylaxis. Further recommendations as per clinical course of the patient DVT prophylaxis: Subcutaneous heparin GI Prophylaxis: Ppi Prognosis is guarded Transfer consult to Dr. Matthews starting 05/31/2023
[2023-05-31] MEDS: ACETAMINOPHEN TAB 500 MG TAB PO PRN (03:38)
[2023-05-31 05:13] LABS: HCT 24.9 % (39.0-53.0); HGB 8.8 gm/dL (13.0-17.5); MCH 33.1 pg (25.0-35.0); MCHC 35.2 g/dL (31.0-37.0); Mean Platelet Volume 9.3; Platelet Count 151 k/uL (150-450); RBC 2.65 m/uL (4.30-5.90); RDW 12.5 % (11.5-15.5); WBC 6.2 k/uL (3.8-10.6)
[2023-05-31 05:30] LABS: African American GFR (CKD) 54 (>60 ml/min/1.73 sqM); Anion Gap 7 mmol/L; Blood Urea Nitrogen 24 mg/dL (9-20); Calcium 8.2 mg/dL (8.4-10.2); Carbon Dioxide 25 mmol/L (22-30); Chloride 103 mmol/L (98-107); Glucose 76 mg/dL (74-99); Non-African American GFR(CKD) 47 (>60 ml/min/1.73 sqM); Potassium 4.2 mmol/L (3.5-5.1); Sodium 135 mmol/L (137-145)
[2023-05-31 06:23] LABS: Glucose,Whole Blood 85 mg/dL (70-110)
[2023-05-31] MEDS: INSULIN ASPART (NovoLOG) 100 UNIT/ML VIAL SQ SCH ×6 (06:45→16:47)
[2023-05-31] MEDS: PANTOPRAZOLE 40 MG TABLET PO SCH (06:45)
[2023-05-31] MEDS: SODIUM CHLORIDE 0.9% 1,000 ML IV SCH (06:46)
--- NOTE | 2023-05-31 07:12 | XR ---
EXAMINATION TYPE: XR chest 2V DATE OF EXAM: 05/31/2023 COMPARISON: 05/30/2023 INDICATION: Postop CABG TECHNIQUE: Frontal and lateral views of the chest are obtained. FINDINGS: The heart size is normal. The pulmonary vasculature is normal. The lungs are clear. Appearance of the right base has improved. Right lower lobe atelectasis and min imal bilateral pleural effusions may be present. IMPRESSION: 1. Right lower lung atelectasis and bilateral pleural effusions. Continued follow-up is recommended.
[2023-05-31] MEDS: IPRATROPIUM-ALBUTEROL 3 ML NEB INHALATION SCH ×3 (08:37→15:01)
[2023-05-31] MEDS: HEPARIN SODIUM,PORCINE 5,000 UNIT/ML 1 ML VIAL SQ SCH ×2 (09:14→16:27)
[2023-05-31] MEDS: ASPIRIN 325 MG TAB PO SCH (09:15)
[2023-05-31] MEDS: TAMSULOSIN 0.4 MG CAP.ER.24H PO SCH (09:15)
[2023-05-31] MEDS: CLOPIDOGREL 75 MG TAB PO SCH (09:15)
[2023-05-31] MEDS: ATORVASTATIN 40 MG TAB PO SCH (09:16)
[2023-05-31] MEDS: AMIODARONE 200 MG TAB PO SCH (09:17)
[2023-05-31] MEDS: METOPROLOL TARTRATE 25 MG TAB PO SCH (09:25)
--- NOTE | 2023-05-31 10:13 | P.PN ---
Subjective Patient is seen in follow-up for acute kidney injury. Renal function stable. Has Gordon catheter for urinary retention. Nonoliguric. Oral intake fair. Vital signs are stable. General: No acute distress. HEENT: Head exam is unremarkable. On nasal cannula. LUNGS: No audible rhonchi or wheezes. HEART: Rate and Rhythm are regular. ABDOMEN: Nontender. EXTREMITITES: No edema. Objective - Vital Signs Vital signs: Vital Signs Temp 98.1 F 05/31/23 08:00 Pulse 80 05/31/23 09:00 Resp 18 05/31/23 09:00 BP 106/56 05/31/23 09:00 Pulse Ox 97 05/31/23 09:00 FiO2 40 05/27/23 18:08 Intake & Output 05/30/23 05/31/23 05/31/23 18:59 06:59 18:59 Intake Total 400 580 170 Output Total 2534 1150 325 Balance -2134 -570 -155 Weight 73.9 kg 73.2 kg Intake: IV 50 Sodium Chloride 0.9% 1, 50 000 ml @ 50 mls/hr IV . Q20H [facility] Rx#:[id number] Intake, IV Titration 400 400 Amount Sodium Chloride 0.9% 1, 400 400 000 ml @ 50 mls/hr IV . Q20H [facility] Rx#:[id number] Oral 180 120 Output: Urine 1850 1150 325 Post Void Residual 684 Other: Voiding Method Indwelling Catheter Indwelling Catheter Indwelling Catheter ABP, PAP, CO, CI - Last Documented Arterial Blood Pressure 159/47 Pulmonary Artery Pressure 60/43 Cardiac Output 5.2 Cardiac Index 2.7 - Labs CBC & Chem 7: 05/31/23 04:44 05/31/23 04:44 Labs: Abnormal Lab Results - Last 24 Hours (Table) 05/30/23 05/30/23 05/30/23 Range/Units 12:32 16:50 20:03 RBC (4.30-5.90) m/uL Hgb (13.0-17.5) gm/dL Hct (39.0-53.0) % Sodium (137-145) mmol/L BUN (9-20) mg/dL Creatinine (0.66-1.25) mg/dL POC Glucose (mg/dL) 141 H 203 H 244 H (70-110) mg/dL Calcium (8.4-10.2) mg/dL 05/31/23 05/31/23 Range/Units 04:44 04:44 RBC 2.65 L (4.30-5.90) m/uL Hgb 8.8 L (13.0-17.5) gm/dL Hct 24.9 L (39.0-53.0) % Sodium 135 L (137-145) mmol/L BUN 24 H (9-20) mg/dL Creatinine 1.50 H (0.66-1.25) mg/dL POC Glucose (mg/dL) (70-110) mg/dL Calcium 8.2 L (8.4-10.2) mg/dL Assessment and Plan Plan: Assessment: 1. Acute kidney injury secondary to obstructive uropathy and ATN. Creatinine 12.5 on admission and is stable at 1.55 today. Nonoliguric. 2. Coronary artery disease status post catheterization on May 23 and CABG 05/27/2023. 3. Urinary retention. Gordon catheter reinserted due to persistent retention. Urology following. 4. Benign hypertension. Controlled. 5. Metabolic acidosis secondary to acute kidney injury. Better. 6. A. fib with RVR maintained on oral meds. Plan: Hep-Lock IV fluids. Encouraged oral intake. Avoid nephrotoxins. Discontinued Toradol. Okay to use Tylenol if needed for pain. Continue to monitor renal function and urine output. Follow-up outpatient 1-2 weeks postdischarge.
--- NOTE | 2023-05-31 10:35 | P.PN ---
Subjective Progress Note Date: 05/31/23 Principal diagnosis: Triple-vessel coronary artery disease, non-ST elevated myocardial infarction this admission, acute kidney injury, obstructive uropathy. Previous medical history of fatty liver disease, right-sided traumatic lung injury in his 20s, testicular cancer, and previous tobacco dependence with cessation many years ago POD #4 Off pump coronary artery bypass grafting x 4. Left internal thoracic artery (in-situ) sequential to second diagonal and left anterior descending coronary artery, radial artery from aorta to obtuse marginal artery #3, greater saphenous vein from aorta to proximal posterior descending coronary artery, left atrial appendage ligation using #35mm AtriClip, endoscopic left radial and right greater saphenous vein harvest, graft flow measurements using the Medi-Stim flow meter, intraoperative transesophageal echocardiogram performed by anesthesia. Postoperative acute blood loss anemia, expected given hemodilution. Paroxysmal atrial fibrillation, a known common occurrence after cardiac surgery, not a complication. The patient was seen and examined this morning sitting up in a recliner eating breakfast in no acute distress. Denies significant postoperative pain or shortness of breath. Currently in sinus rhythm and hemodynamically stable, did go into afib yesterday which was treated with amiodarone. Also, blood sugars elevated, patient found to be diabetic without previous diagnosis as he rarely sees a doctor, needs better blood sugar control. Has been ambulatory without difficulty, currently on room air. Patient did have urine retention requiring re-insertion of somers cathter. No other new concerns. Objective - Vital Signs Vital signs: Vital Signs Temp 98.1 F 05/31/23 08:00 Pulse 85 05/31/23 08:00 Resp 22 05/31/23 08:00 BP 113/57 05/31/23 08:00 Pulse Ox 98 05/31/23 08:00 FiO2 40 05/27/23 18:08 Intake & Output 05/30/23 05/31/23 05/31/23 18:59 06:59 18:59 Intake Total 400 580 170 Output Total 2534 1150 200 Balance -2134 -570 -30 Weight 73.9 kg 73.2 kg Intake: IV 50 Sodium Chloride 0.9% 1, 50 000 ml @ 50 mls/hr IV . Q20H [facility] Rx#:[id number] Intake, IV Titration 400 400 Amount Sodium Chloride 0.9% 1, 400 400 000 ml @ 50 mls/hr IV . Q20H [facility] Rx#:[id number] Oral 180 120 Output: Urine 1850 1150 200 Post Void Residual 684 Other: Voiding Method Indwelling Catheter Indwelling Catheter ABP, PAP, CO, CI - Last Documented Arterial Blood Pressure 159/47 Pulmonary Artery Pressure 60/43 Cardiac Output 5.2 Cardiac Index 2.7 - Exam CONSTITUTIONAL: Appears comfortable, cooperative, no acute distress RESPIRATORY: Lungs sounds diminished bilaterally. Respirations even, nonlabored. Currently on room air with oxygen saturation 97%. Able to achieve 2000 mL on incentive spirometry. Strong cough. CARDIOVASCULAR: S1, S2 present. Regular rate and rhythm, sinus rhythm on telemetry. Sternum stable. Palpable peripheral pulses bilaterally. No edema present. No calf pain or tenderness noted. Heart hugger in place with patient demonstrating appropriate use. Antiembolism stockings, SCDs present. GASTROINTESTINAL: Abdomen soft, nontender, nondistended. Active bowel sounds present 4 quadrants. Tolerating diet. Positive bowel movement 05/29 GENITOURINARY: Somers present draining clear, yellow urine. Output 3000 mL in the last 24 hours INTEGUMENTARY: Skin is warm and dry with evidence of good perfusion. Anterior chest incision well approximated and covered with dry intact dressing. Right lower extremity EVH site as well as left radial artery harvest site well approximated without redness or drainage. NEUROLOGIC: Cranial nerves II through XII intact MUSKULOSKELETAL: Able to move all extremities, strength equal bilaterally, gait normal PSYCHIATRIC: Alert and oriented to person place and time, appropriate affect, intact judgment and insight - Allied health notes Allied health notes reviewed: nursing - Labs CBC & Chem 7: 05/31/23 04:44 05/31/23 04:44 Labs: Abnormal Lab Results - Last 24 Hours (Table) 05/30/23 05/30/23 05/30/23 Range/Units 12:32 16:50 20:03 RBC (4.30-5.90) m/uL Hgb (13.0-17.5) gm/dL Hct (39.0-53.0) % Sodium (137-145) mmol/L BUN (9-20) mg/dL Creatinine (0.66-1.25) mg/dL POC Glucose (mg/dL) 141 H 203 H 244 H (70-110) mg/dL Calcium (8.4-10.2) mg/dL 05/31/23 05/31/23 Range/Units 04:44 04:44 RBC 2.65 L (4.30-5.90) m/uL Hgb 8.8 L (13.0-17.5) gm/dL Hct 24.9 L (39.0-53.0) % Sodium 135 L (137-145) mmol/L BUN 24 H (9-20) mg/dL Creatinine 1.50 H (0.66-1.25) mg/dL POC Glucose (mg/dL) (70-110) mg/dL Calcium 8.2 L (8.4-10.2) mg/dL - Imaging and Cardiology Chest x-ray: report reviewed, image reviewed Assessment and Plan Assessment: Triple-vessel coronary artery disease, non-STEMI this admission Abdominal pain with nausea and vomiting Acute kidney injury Obstructive uropathy status post Somers catheter placement Hypertension History of fatty liver disease History of right-sided traumatic lung injury in his 20s History of testicular cancer Previous tobacco dependence with cessation many years ago Postoperative acute blood loss anemia, expected given hemodilution Paroxysmal atrial fibrillation, a known common occurrence after cardiac surgery, not a complication Plan: Continue to maximize medical therapy with aspirin, statin, Plavix and beta adelaida. Will increase beta adelaida as tolerated Continue amiodarone, will taper weekly per protocol Encourage incentive spirometry use 10 times every hour while awake. Bronchodilators per pulmonology. Increase activity, ambulate as tolerated. PT/OT/cardiac rehab following. Will monitor daily labs and chest x-rays. Electrolyte replacement per protocol. GI/DVT prophylaxis. Pain control per current medication regimen. Avoid nephrotoxic agents due to acute kidney injury Insulin management per internal medicine service. Patient's hemoglobin A1c 6.7%. Patient needs tight glucose control to prevent sternal wound infection Continue Somers catheter per urology recommendations, patient needs teaching for home catheter use Continue to record strict accurate intake and output. Daily weights Transfer orders placed to the third floor cardiac stepdown unit yesterday, no bed availability Anticipate discharge home with home health care once diabetic management in place and patient has been taught somers care, possibly this afternoon vs. tomor row More recommendations to follow
[2023-05-31 11:02] LABS: Glucose,Whole Blood 114 mg/dL (70-110)
[2023-05-31] MEDS ORDERED: amLODIPine 5 MG TAB PO SCH (12:00)
[2023-05-31 12:05] LABS: Glucose,Whole Blood 120 mg/dL (70-110)
--- NOTE | 2023-05-31 13:05 | P.PN ---
Subjective Progress Note Date: 05/31/23 Principal diagnosis: POD #4 Off pump coronary artery bypass grafting x 4. Left internal thoracic artery (in-situ) sequential to second diagonal and left anterior descending coronary artery. Radial artery from aorta to obtuse marginal artery #3. Greater saphenous vein from aorta to proximal posterior descending coronary artery, Left atrial appendage ligation using #35mm AtriClip, Patient was reevaluated today on 05/29/23, patient is status post four-vessel CABG, presented initially with non-ST elevation myocardial infarction and symptoms of abdominal pain and nausea and vomiting. Patient is now postoperative day #2 CABG 4. Patient is sitting in bed, does not seem to be in any distress, he is actually on room air, achieving 1000 mL with his incentive spirometer. Patient denies any shortness of breath, denies any nausea or vomiting but he feels sore. Bilateral pleural chest tubes remain in place at low continuous wall suction. No air leak noted. Patient has been ambulating in the intensive care unit hallway with assistance. Chest x-ray showed left sided chest tube in place, 3 mm apical tiny pneumothorax is noted. Mild patchy postoperative atelectasis as noted in the lower lobes. WBC count is 9.6 hemoglobin is 9, basic metabolic profile is normal renal profile showed slight increase in his creatinine up to 1.37 from 1.24 yesterday Reevaluated today on 05/30/2023, patient remains in the ICU, sitting in a bedside chair, awake alert and oriented 3, patient is on room air, does not seem to be in any distress, however the patient is receiving amiodarone drip at 0.5 mg/m. Patient is in sinus rhythm apparently he had an episode of atrial fibrillation last evening with RVR, lasted about 30 minutes, and he was bolused with amiodarone and placed on amiodarone drip. Patient has normal hemodynamics, he has good urine outputs for 75 mL in the last 8 hours, patient continues to have significant fluid retention and Gordon was reinserted by urology again. Chest x-ray showed mostly basilar atelectasis. However patient does have a small amount of free air under the right hemidiaphragm, however clinically the patient does not have any findings to suggest abdominal process. And we'll continue to watch the free air below the right hemidiaphragm. Again patient has no abdominal findings and no abdominal symptoms. WBC count is 7.2 hemoglobin 8. 6 basic metabolic profile is normal renal profile showed creatinine up to 1.5, patient is being followed by nephrology Reevaluated today on 05/31/2023, patient remains in the ICU, sitting at a bedsid e chair, doing well and relatively asymptomatic, remains on room air. Patient is being considered for possible discharge home today. Creatinine is holding about the same compared to yesterday it is 1.50. Rest of the labs including CBC and basic metabolic profile are normal. Chest x-ray showed minimal right basilar atelectasis, and small tiny effusions. Clinically the patient is doing great, and denies any specific pulmonary complaints. Objective - Vital Signs Vital signs: Vital Signs Temp 97.9 F 05/31/23 12:00 Pulse 80 05/31/23 12:00 Resp 16 05/31/23 12:00 BP 112/69 05/31/23 12:00 Pulse Ox 97 05/31/23 12:00 FiO2 40 05/27/23 18:08 Intake & Output 05/30/23 05/31/23 05/31/23 18:59 06:59 18:59 Intake Total 400 580 170 Output Total 2534 1150 580 Balance -2134 -570 -410 Weight 73.9 kg 73.2 kg Intake: IV 50 Sodium Chloride 0.9% 1, 50 000 ml @ 50 mls/hr IV . Q20H [facility] Rx#:[id number] Intake, IV Titration 400 400 Amount Sodium Chloride 0.9% 1, 400 400 000 ml @ 50 mls/hr IV . Q20H [facility] Rx#:[id number] Oral 180 120 Output: Urine 1850 1150 580 Post Void Residual 684 Other: Voiding Method Indwelling Catheter Indwelling Catheter Indwelling Catheter ABP, PAP, CO, CI - Last Documented Arterial Blood Pressure 159/47 Pulmonary Artery Pressure 60/43 Cardiac Output 5.2 Cardiac Index 2.7 - Exam Physical Exam: Revealed a 68-year-old white male in no distress, on room Head: Atraumatic, normocephalic. HEENT:[Neck is supple.] [No neck masses.] [No thyromegaly.] [No JVD.] Right IJ Cordis in place, functional. Chest: [Clear throughout, no crackles, no rhonchi, no wheezes.] Cardiac Exam: [Normal S1 and S2, no S3 gallop, no murmur.] Abdomen: [Soft, nontender, no megaly, no rebound, no guarding, normal bowel sounds.] Extremities: [No clubbing, no edema, no cyanosis.] Neurological Exam: [No focal neurologic deficit.] Alert and oriented 3. Psychiatric: Normal mood affect and normal mental status examination. - Labs CBC & Chem 7: 05/31/23 04:44 05/31/23 04:44 Labs: Abnormal Lab Results - Last 24 Hours (Table) 05/30/23 05/30/23 05/31/23 Range/Units 16:50 20:03 04:44 RBC 2.65 L (4.30-5.90) m/uL Hgb 8.8 L (13.0-17.5) gm/dL Hct 24.9 L (39.0-53.0) % Sodium (137-145) mmol/L BUN (9-20) mg/dL Creatinine (0.66-1.25) mg/dL POC Glucose (mg/dL) 203 H 244 H (70-110) mg/dL Calcium (8.4-10.2) mg/dL 05/31/23 05/31/23 05/31/23 Range/Units 04:44 11:00 12:04 RBC (4.30-5.90) m/uL Hgb (13.0-17.5) gm/dL Hct (39.0-53.0) % Sodium 135 L (137-145) mmol/L BUN 24 H (9-20) mg/dL Creatinine 1.50 H (0.66-1.25) mg/dL POC Glucose (mg/dL) 114 H 120 H (70-110) mg/dL Calcium 8.2 L (8.4-10.2) mg/dL Assessment and Plan Assessment: Impression: Impression:Triple-vessel coronary artery disease, status post four-vessel coronary artery bypass grafting surgery, postoperative day #5 Acute non-ST elevation myocardial [place] on this admission Obstructive uropathy requiring Gordon catheter placement Acute kidney injury Benign essential hypertension History of testicular cancer Ex-smoker Postoperative atelectasis, expected Postoperative tiny apical pneumothorax, expected Possible free air on the right hemidiaphragm/pneumoperitoneum , clinically the patient has no symptoms any abdominal discomfort or pain. And chest x-ray today showed improvement in the pneumoperitoneum? Recommendation: Continue Plavix beta blockers aspirin and statin Continue ambulation and incentive spirometry Continue bronchodilators Continue GI and DVT prophylaxis Avoid nephrotoxic medications Daily weights. Ambulate Patient is being considered for possible discharge later today or possibly in a.m. We'll continue to follow Time with Patient: Less than 30
[2023-05-31 13:14] VITALS: TEMP 97.9
--- NOTE | 2023-05-31 16:01 | P.PN ---
Subjective PROGRESS NOTE The patient is a 68-year-old male with no prior documented history of cardiac disease who presented with an acute episode of chest discomfort, troponin elevation and was found to have acute renal injury. He has no further pain this morning. He is feeling better. His breathing is stable. He denies any dizziness or palpitations. He has no nausea or vomiting. May 23: The patient feels well this morning, he denies any chest discomfort, dizziness or palpitations. He continues to be in sinus mechanism. He continues to be on IV heparin and IV nitroglycerin. His urine is pink. He continues to have an indwelling Gordon catheter. His echocardiogram was technically difficult and showed an ejection fraction of 40-45% with mild AI but no clear reported segmental wall motion abnormality May 24: The patient is feeling well this morning, denies any chest discomfort, dizziness or palpitations. He underwent cardiac catheterization yesterday and was found to have severe triple-vessel disease. He was evaluated at the surgical team for CABG. He is back on IV heparin continues to be in sinus mechanism. His blood pressure has been elevated at times. There is no evidence of malignant arrhythmia. Carotid ultrasound revealed no evidence of significant obstructive disease. May 25: The patient is up in the chair, feels well. He denies any chest discomfort, dizziness or palpitations. He is in sinus mechanism with no hemodynamic compromise. His urinary output has been.. He has a hematoma in the right forearm related to infiltration of his intravenous heparin. He is scheduled to undergo CABG on Monday. May 26: The patient feels well this morning, he is awake and alert. He denies any chest discomfort, dizziness or palpitations. He denies any nausea or vomiting. Hemodynamically he is stable. He is in sinus mechanism. He is scheduled to undergo CABG tomorrow. He continues to be on IV heparin. May 27: The patient is seen in the ICU following CABG. He underwent off-pump surgery this morning, he received a VAUGHN to the LAD and sequential to the second diagonal branch, radial to the OM and SVG to the PDA. He is intubated, sedated. He is in sinus mechanism. His blood pressure is on the high side. He is on IV nitroglycerin. There is no evidence of arrhythmia. May 28: The patient is extubated, sitting up in the chair. He feels well. He denies any chest discomfort, dizziness or palpitations. He continues to be in sinus mechanism. Hemodynamically he is stable. There is no evidence of atrial fibrillation or ventricular arrhythmia. 05/29 Patient seen and examined. Creatinine stable, mildly increased up to 1.3. He has been having some urinary retention. Denies any chest pain currently however does have higher epigastric discomfort, 2 out of 10 and also had some mild chest discomfort at 2 in the morning which she felt really is related to the chest tube. Occasionally borderline tachycardia, unclear if related to some urinary retention. Brief runs of nonsustained VT. 05/30 Patient seen and examined. Patient 1 and SVT, appears likely atrial flutter with RVR with heart rate 140-150 and was started on amiodarone bolus and drip and additionally metoprolol was increased. Episode lasted for approximately 25- 30 minutes. Denies any chest pain or pressure. States his appetite is somewhat better. 05/31 Patient seen and examined. Patient states he feels much better. No further atrial fibrillation today. He does have Gordon catheter in place Medications: Aspirin, Plavix, Norvasc 5 mg daily, Lipitor 40 mg daily, Lopressor 25 mg twice a day PHYSICAL EXAMINATION: Vitals reviewd LUNGS: Clear to auscultation with few crackles at the base HEART: Regular rate and rhythm, S1, S2. No S3. No systolic murmur ABDOMEN: Soft, nontender, no organomegaly EXTREMETIES: No edema, IMPRESSION: 1. Status post CABG 2. Acute renal injury with obstructive uropathy, improved 3. Moderate ischemic cardiomyopathy 4. Obstructive uropathy 5. Hematuria, resolved 6. 25-30 minute of regular SVT, 05/29, likely Aflutter with RVR PLAN: Patient appears to be improving day by day. Appears stable for discharge home likely this afternoon. Follow-up in office in 1 week after discharge. Objective - Vital Signs Vital signs: Vital Signs Temp 97.9 F 05/31/23 12:00 Pulse 72 05/31/23 13:00 Resp 20 05/31/23 13:27 BP 104/51 05/31/23 13:00 Pulse Ox 96 05/31/23 13:00 FiO2 40 05/27/23 18:08 Intake & Output 05/30/23 05/31/23 05/31/23 18:59 06:59 18:59 Intake Total 400 580 410 Output Total 2534 1150 660 Balance -2134 -570 -250 Weight 73.9 kg 73.2 kg Intake: IV 50 Sodium Chloride 0.9% 1, 50 000 ml @ 50 mls/hr IV . Q20H [facility] Rx#:[id number] Intake, IV Titration 400 400 Amount Sodium Chloride 0.9% 1, 400 400 000 ml @ 50 mls/hr IV . Q20H [facility] Rx#:[id number] Oral 180 360 Output: Urine 1850 1150 660 Post Void Residual 684 Other: Voiding Method Indwelling Catheter Indwelling Catheter Indwelling Catheter ABP, PAP, CO, CI - Last Documented Arterial Blood Pressure 159/47 Pulmonary Artery Pressure 60/43 Cardiac Output 5.2 Cardiac Index 2.7 - Labs CBC & Chem 7: 05/31/23 04:44 05/31/23 04:44 Labs: Abnormal Lab Results - Last 24 Hours (Table) 05/30/23 05/30/23 05/31/23 Range/Units 16:50 20:03 04:44 RBC 2.65 L (4.30-5.90) m/uL Hgb 8.8 L (13.0-17.5) gm/dL Hct 24.9 L (39.0-53.0) % Sodium (137-145) mmol/L BUN (9-20) mg/dL Creatinine (0.66-1.25) mg/dL POC Glucose (mg/dL) 203 H 244 H (70-110) mg/dL Calcium (8.4-10.2) mg/dL 05/31/23 05/31/23 05/31/23 Range/Units 04:44 11:00 12:04 RBC (4.30-5.90) m/uL Hgb (13.0-17.5) gm/dL Hct (39.0-53.0) % Sodium 135 L (137-145) mmol/L BUN 24 H (9-20) mg/dL Creatinine 1.50 H (0.66-1.25) mg/dL POC Glucose (mg/dL) 114 H 120 H (70-110) mg/dL Calcium 8.2 L (8.4-10.2) mg/dL
[2023-05-31 16:10] LABS: Glucose,Whole Blood 222 mg/dL (70-110)
[2023-05-31 16:41] VITALS: BP 96/56; PULSE 80; RESP 27
--- NOTE | 2023-05-31 18:01 | P.DS ---
Providers Date of admission: 05/21/23 04:28 Expected date of discharge: 05/31/23 Attending physician: Rigoberto Aguero Consults: 05/21/23 02:45 Consult Physician Routine Consulting Provider: Karla Gordillo Consult Reason/Comments: chelsy Do you want consulting provider notified?: Yes 05/21/23 03:30 Consult Physician Routine Consulting Provider: Gen Stiles Consult Reason/Comments: chest pain Do you want consulting provider notified?: Yes 05/21/23 04:24 Consult Physician Urgent Consulting Provider: Leonides Thomas Consult Reason/Comments: urinary retention Do you want consulting provider notified?: Yes 05/21/23 08:27 Consult Physician Routine Consulting Provider: Addi Concepcion Consult Reason/Comments: ICU management Do you want consulting provider notified?: Yes 05/23/23 11:19 Consult Physician Urgent Consulting Provider: Gabe Waller Consult Reason/Comments: triple vessel disease Do you want consulting provider notified?: Yes 05/26/23 08:14 Consult to Anesthesia Routine Consulting Provider: Anesthesia,Services Consult Reason/Comments: Cardiac Surgery Pre-Op 05/27/23 12:38 Consult Physician Routine Consulting Provider: Hayden Flores Consult Reason/Comments: medical management Do you want consulting provider notified?: Yes 05/28/23 12:39 Consult Physician Routine Consulting Provider: Devin Coronado Consult Reason/Comments: urinary retention Do you want consulting provider notified?: Yes, Notify in am 05/30/23 11:27 Consult Physician Routine Consulting Provider: Ambrosio Matthews Consult Reason/Comments: medical management Do you want consulting provider notified?: Already Contacted Primary care physician: Yissel Brito [facility] Course: FINAL DIAGNOSIS: 1. Triple-vessel coronary artery disease, non-STEMI this admission 2. Abdominal pain with nausea and vomiting 3. Acute kidney injury 4. Obstructive uropathy status post Somers catheter placement 5. Hypertension 6. History of fatty liver disease 7. History of right-sided traumatic lung injury in his 20s 8. History of testicular cancer 9. Previous tobacco dependence with cessation many years ago 10. Postoperative acute blood loss anemia, expected 11. Paroxysmal atrial fibrillation PRINCIPAL PROCEDURE: 1. Off-pump coronary artery bypass grafting 4, left internal thoracic artery in situ sequential to the second diagonal and left anterior descending coronary artery, radial artery from the aorta to the third obtuse marginal artery, greater saphenous vein from the aorta to the proximal posterior descending coronary artery 2. Left atrial appendage ligation using a 35 mm AtriClip 3. Endoscopic left radial and right greater saphenous vein harvest 4. Graft flow measurements using the Medistim flowmeter 5. Intraoperative transesophageal echocardiogram performed by anesthesia HISTORY OF PRESENT ILLNESS: This is a 68-year-old gentleman who does not follow on a regular basis with any physicians. At home he developed severe sharp chest pain along with abdominal pain and vomiting for 3-4 days. He delayed coming to the hospital as he thought he had food poisoning, however when his pain did not karen he presented to [facility] emergency room for evaluation and treatment. Chest x-ray was unremarkable, thoracic CT was unremarkable, EKG demonstrated sinus rhythm. Lab work revealed elevated troponin and he was ruled in for non-STEMI. Echocardiogram was completed demonstrating reduced left ventricular systolic function with EF 40-45%, mild aortic insufficiency as well as mild tricuspid regurgitation. He was recommended to undergo heart catheterization which demonstrated significant triple vessel coronary artery disease with proximal LAD stenosis 100%, circumflex stenosis 80%, RCA stenosis 80%. Consultation was placed to Dr. Waller from cardiothoracic surgery. He was recommended to undergo coronary artery bypass graft surgery. The usual perioperative course was discussed in detail with the patient and his family, all risks and benefits were explained, all questions were answered, and consent was obtained to proceed with surgery. The patient was kept inpatient due to the nature of his disease process. HOSPITAL COURSE: The patient was brought to the preoperative area 05/27/23, prepared in the usual fashion, and subsequently taken to the operating room where Dr. Waller performed 4 vessel CABG. Upon completion of surgery the patient was transferred to the cardiovascular intensive care unit where he was recovered and monitored hemodynamically. He was extubated, all lines, tubes, and drips were discontinued when appropriate, and transfer orders were placed for 3 S. cardiac stepdown unit, however there was no bed availability and the patient remained on ICU as a stepdown patient until discharge. He did experience paroxysmal atrial fibrillation which was treated successfully with amiodarone. His oxygen was titrated down, he continued to work with physical and occupational therapy, he was tolerating oral diet, his pain was controlled, and he was ready [facility] He received written and verbal instruction regarding his medications, activity restrictions, signs and symptoms requiring physician notification, and follow-up appointments. The patient was discharged to home with a somers catheter in place per urology recommendations to follow up outpatient for repeat trial of void. Patient Condition at Discharge: Serious Plan - Discharge Summary Discharge Rx Participant: Yes New Discharge Prescriptions: New Aspirin 325 mg PO DAILY #30 tab Amiodarone [Cordarone] 400 mg PO BID #44 tab Tamsulosin [Flomax] 0.4 mg PO DAILY #30 cap Atorvastatin [Lipitor] 40 mg PO DAILY #30 tab Clopidogrel [Plavix] 75 mg PO DAILY #30 tab Glimepiride [Amaryl] 1 mg PO AC-BRKFST #30 tab Metoprolol Tartrate [Lopressor] 75 mg PO BID #120 tab amLODIPine [Norvasc] 5 mg PO DAILY@1200 #30 tab Pantoprazole [Protonix] 40 mg PO AC-BRKFST #30 tab Sennosides-Docusate Sodium [Senokot-S] 2 each PO HS PRN tab PRN Reason: Constipation Acetaminophen Tab [Tylenol] 1,000 mg PO Q6HR PRN tab PRN Reason: Fever And/ Or Pain Discharge Medication List Acetaminophen Tab [Tylenol] 1,000 mg PO Q6HR PRN tab 05/31/23 [Rx] Amiodarone [Cordarone] 400 mg PO BID #44 tab 05/31/23 [Rx] Aspirin 325 mg PO DAILY #30 tab 05/31/23 [Rx] Atorvastatin [Lipitor] 40 mg PO DAILY #30 tab 05/31/23 [Rx] Clopidogrel [Plavix] 75 mg PO DAILY #30 tab 05/31/23 [Rx] Glimepiride [Amaryl] 1 mg PO AC-BRKFST #30 tab 05/31/23 [Rx] Metoprolol Tartrate [Lopressor] 75 mg PO BID #120 tab 05/31/23 [Rx] Pantoprazole [Protonix] 40 mg PO AC-BRKFST #30 tab 05/31/23 [Rx] Sennosides-Docusate Sodium [Senokot-S] 2 each PO HS PRN tab 05/31/23 [Rx] Tamsulosin [Flomax] 0.4 mg PO DAILY #30 cap 05/31/23 [Rx] amLODIPine [Norvasc] 5 mg PO DAILY@1200 #30 tab 05/31/23 [Rx] Follow up Appointment(s)/Referral(s): Gen Stiles MD [Medical Doctor] - 06/13/23 3:00 pm Ambrosio Matthews MD [STAFF PHYSICIAN] - 06/05/23 11:10 am Nancy Sarmiento NPC [Nurse Practitioner] - 06/06/23 11:15 am (You will be seen in the surgeon's office behind the hospital in [facility], [address] Office phone number is ) [facility] [NON-STAFF] - 1 Week ([facility] will call you to arrange a visit) [facility] [NON-STAFF] - 4 Weeks (You will receive a phone call in approximately 4-6 weeks for evaluation for cardiac rehab) Gabe Waller MD [STAFF PHYSICIAN] - 06/21/23 10:00 am Devin Coronado MD [STAFF PHYSICIAN] - 2 Weeks (Office indicated they will call with appointment) Kiera Tsai MD [STAFF PHYSICIAN] - 06/21/23 2:00 pm Ambulatory/Diagnostic Orders: Complete Blood Count w/diff [LAB.AMB] Time Frame: 3 Days, Location: None Selected Comprehensive Metabolic Panel [LAB.AMB] Time Frame: 3 Days, Location: None Selected Activity/Diet/Wound Care/Special Instructions: DISCHARGE INSTRUCTIONS: 1. No driving for 4 weeks, or until physician gives their ok. 2. The patient should sleep in their own bed, no medical bed needed. 3. Stairs are not an issue. If the bedroom is upstairs, it is advised that the patient go up at night and down in the morning for the first week. Go slowly, using handrail and take 1 step at a time. 4. OTILIO hose are to be worn for 30 days or until physician discontinues. 5. Heart hugger is to be worn 100% of the time until physician discontinues.(except when showering) 6. No lifting, pushing, or pulling more than 10 pounds for 12 weeks. The physician will advise of any restriction changes. 7. The patient is expected to continue the prescribed walking program. 8. Continue pain control per as needed orders. 9. Continue with incentive spirometry and splinting/heart hugger until otherwise directed by the physician. 10. Must shower daily using liquid antibacterial soap and a separate white washcloth for each individual incision. 11. Routine sternal incision care, no ointments, lotions or powders on the incisions. 12. Please notify surgeon/nurse practitioner for temperature greater than 101F or purulent drainage from incisions 13. Prescriptions for first 30 days given per cardiac surgery service. After 30 days, all prescription refills obtained through cardiology/primary care physician. 14. A red arm and has been placed on this patient it should be worn for 30 days post surgery and will be removed by the cardiothoracic surgeons. If an ER visit is necessary, please make sure the number on the red arm band is called. HOME HEALTH SERVICES TO PROVIDE: RN SKILLED HOME CARE SERVICES FOR POST-OP SURGICAL PATIENTS WITH THE FOLLOWING: Coronary Artery Bypass Surgery (CABG), Mitral Valve Replacement/Repair ( MVR), Aortic Valve Replacement/Repair (AVR) RN TO CONTINUE EDUCATION FROM ``ROAD TO A HEALTH HEART PATIENT EDUCATION MANUAL" (GIVEN TO PATIENT IN THE HOSPITAL) MEDICATION RECONCILIATION WITH EDUCATION NEEDED ON FIRST HOME VISIT EMPHASIZE IMPORTANCE OF WEARING BREAST SUPPORT/HEART HUGGER ENCOURAGE USE OF INCENTIVE SPIROMETER 10 X EVERY HOUR WHILE AWAKE ENCOURAGE UTILIZATION OF LOWER EXTREMITY COMPRESSION STOCKINGS/OTILIO HOSE and ELEVATE LEGS ABOVE LEVEL OF HEART WHILE AT REST. ENCOURAGE AMBULATION 3-5x/day INCREASING TOLERATES, WHILE AVOID EXTREMES IN TEMPERATURE FREQUENCY: RN TO OPEN THE PATIENT WITHIN 24 HOURS OF DISCHARGE FROM THE HOSPITAL WITH [place] [facility] [place] TO VISIT 2-3 X A WEEK FOR 4 WEEKS ESTABLISHED BY PATIENT NEEDS. REMOVAL OF SUTURES: NURSING SERVICES TO REMOVE SUTURES TWO WEEKS POST SURGICAL DATE [ default ]. If any questions regarding suture removal please call the office at [phone]. LABORATORY: CBC, CMP TO BE DRAWN ON THE THIRD DAY HOME, (RAN STAT) FAX RESULTS TO [phone]. TELEHEALTH PARAMETERS: WEIGHT: NOTIFY MD OF WEIGHT GAIN OF 2 LBS IN 24 HOURS OR 5 LBS IN ONE WEEK HR: NOTIFY MD OF HR <55 BPM OR HR>100 BPM BP: NOTIFY MD IF BP <90/55 OR BP>140/100 O2 SAT: NOTIFY MD IF PO2<93% ON ROOM AIR SEND TELEHEALTH REPORT TO RETORT FORKER AND CARDIOVASCULAR SURGEON THE FIRST WEEK OF CARE AND THEN BI-WEEKLY. PLEASE ADDITIONALLY COMMUNICATE ANY ABNORMALS AND NEW FINDINGS TO THE SURGEONS OFFICE. heart healthy diet , low carbohydrate diet 1800 k ita per day activity is restricted till you see your doctor we recommend to check your glucose 4 times a day before each meal and at bed time , keep the results in a log book and bring it to your doctor upon your appointment date if your glucose is less than 70 or more than 400 then call 911 and come to emergency room Discharge Disposition: HOME WITH HOME HEALTH SERVICES
--- NOTE | 2023-05-31 20:56 | CONS ---
CONSULTATION CHIEF COMPLAINT: Coronary artery disease, status post CABG. HISTORY OF PRESENT ILLNESS: This gentleman has recently undergone coronary artery bypass graft. He is in day 1. He has not been a patient in the practice, but apparently he is going to be. I was asked to see him in consult. REVIEW OF SYSTEMS: At the present time, he is comfortable and does not seem to have other complaints. PHYSICAL EXAMINATION: VITAL SIGNS: Normal. GENERAL: He is slightly pale. HEAD, EARS, EYES, NOSE, MOUTH AND THROAT: Normal. CHEST: Breath sounds are heard bilaterally. Sternotomy dressing is dry. Bilateral chest tubes are in place. ABDOMEN: Soft. EXTREMITIES: Normal. IMPRESSION: Coronary artery disease, status post coronary artery bypass graft. 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 MMODL / IJN: [id number] /
--- NOTE | 2023-05-31 22:49 | PN ---
PROGRESS NOTE DATE OF SERVICE: 05/30/2023 CHIEF COMPLAINT: Status post CABG. HISTORY OF PRESENT ILLNESS: This gentleman is doing very well. He has not had any arrhythmias, chest pain, shortness of breath, fever, chills, etc. He remains oriented and alert. PHYSICAL EXAMINATION: GENERAL: He is slightly pale. VITAL SIGNS: Normal. CHEST: Reveals good breath sounds bilaterally. HEART: He is in sinus rhythm. ABDOMEN: Soft. IMPRESSION: 1. Status post coronary artery bypass graft. 2. Diabetes. PLAN: No change in his program. He is doing well. He will probably go home in the next day or 2. MMODL / IJN: [id number] /
--- NOTE | 2023-05-31 22:55 | PN ---
PROGRESS NOTE DATE OF SERVICE: 05/31/2023 CHIEF COMPLAINT: Status post CABG. HISTORY OF PRESENT ILLNESS: This gentleman is doing well and expects to go home later in the day. PHYSICAL EXAMINATION: VITAL SIGNS: Normal. GENERAL: He is awake, and alert. He has had no chest pain or shortness of breath. CHEST: Clear and the incision is dry. CARDIAC: Normal. IMPRESSION: 1. Status post coronary artery bypass graft. 2. Diabetes. PLAN: Probably home later today. MMODL / IJN: [id number] /
== END 2023-05-31 18:00 | disposition home health service (06) | DRG 233 ==
LOC: EC 01:28 → 3SCARD 04:28 → 2SICU 08:43
PROVIDERS: ADMIT Thoracic Surgery (Cardiothoracic Vascular Surgery); ATTEND Hospitalist
PROC: 4A023N7 Measurement of Cardiac Sampling and Pressure, Left Heart, Percutaneous Approach (ICD-10-PCS; 2023-05-23)
PROC: B2111ZZ Fluoroscopy of Multiple Coronary Arteries using Low Osmolar Contrast (ICD-10-PCS; 2023-05-23)
PROC: 06BP4ZZ Excision of Right Saphenous Vein, Percutaneous Endoscopic Approach (ICD-10-PCS; 2023-05-27)
PROC: 05BA4ZZ Excision of Left Brachial Vein, Percutaneous Endoscopic Approach (ICD-10-PCS; 2023-05-27)
PROC: 02L70CK Occlusion of Left Atrial Appendage with Extraluminal Device, Open Approach (ICD-10-PCS; 2023-05-27)
PROC: 4A0305C Measurement of Arterial Flow, Coronary, Open Approach (ICD-10-PCS; 2023-05-27)
PROC: B24BZZ4 Ultrasonography of Heart with Aorta, Transesophageal (ICD-10-PCS; 2023-05-27)
PROC: 30233J1 Transfusion of Nonautologous Serum Albumin into Peripheral Vein, Percutaneous Approach (ICD-10-PCS; 2023-05-27)
PROC: 02110ZC Bypass Coronary Artery, Two Arteries from Thoracic Artery, Open Approach (ICD-10-PCS; principal; 2023-05-27 09:00)
PROC: 02100AW Bypass Coronary Artery, One Artery from Aorta with Autologous Arterial Tissue, Open Approach (ICD-10-PCS; 2023-05-27 09:00)
PROC: 021009W Bypass Coronary Artery, One Artery from Aorta with Autologous Venous Tissue, Open Approach (ICD-10-PCS; 2023-05-27 09:00)
DX: I21.4 Non-ST elevation (NSTEMI) myocardial infarction (principal); G93.41 Metabolic encephalopathy; N17.0 Acute kidney failure with tubular necrosis; E87.20 Acidosis, unspecified; I47.10 Supraventricular tachycardia, unspecified; J93.82 Other air leak; J93.83 Other pneumothorax; I48.92 Unspecified atrial flutter; N13.2 Hydronephrosis with renal and ureteral calculous obstruction; D62 Acute posthemorrhagic anemia; K76.0 Fatty (change of) liver, not elsewhere classified; E11.65 Type 2 diabetes mellitus with hyperglycemia; I25.118 Atherosclerotic heart disease of native coronary artery with other forms of angina pectoris; I48.0 Paroxysmal atrial fibrillation; I16.0 Hypertensive urgency; I10 Essential (primary) hypertension; E86.0 Dehydration; E87.5 Hyperkalemia; E78.5 Hyperlipidemia, unspecified; S50.11XA Contusion of right forearm, initial encounter; I25.5 Ischemic cardiomyopathy; N40.1 Benign prostatic hyperplasia with lower urinary tract symptoms; N14.11 Contrast-induced nephropathy; T50.8X5A Adverse effect of diagnostic agents, initial encounter; N21.0 Calculus in bladder; R33.8 Other retention of urine; R35.1 Nocturia; Y92.239 Unspecified place in hospital as the place of occurrence of the external cause; Z87.891 Personal history of nicotine dependence; Z85.47 Personal history of malignant neoplasm of testis; Z87.828 Personal history of other (healed) physical injury and trauma; Z90.2 Acquired absence of lung [part of]
CPT/HCPCS: 36415; 71045; 71046; 71275; 74174; 76770; 80048; 80053; 80061; 80074; 81001; 82330; 82550; 82805; 83036; 83605; 83690; 83735; 83880; 84132; 84153; 84154; 84443; 84484; 85025; 85027; 85610; 85730; 86850; 86891; 86900; 86901; 86920; 87070; 87086; 93005; 93306; 93458; 93880; 93922; 93970; 94002; 94150; 94640; 94760; 96361; 96365; 96366; 96367; 96368; 96375; 99291; 99292

== ENCOUNTER 2023-10-17 08:00 | Day surgery (SDC) | payer MEDICARE ==
--- NOTE | 2023-10-13 08:22 | P.HPIHPCON ---
History of Present Illness H&P Date: 10/13/23 Chief Complaint: BPH, urinary retention This is a 68-year-old male with history of urinary retention, has failed multiple trial of void. Underwent a cystoscopy that showed evidence of obstructive prostate. Option of a transurethral resection of the prostate, versus CIC versus a chronic Gordon was discussed with him. He agreed to proceed with a TURP. Aware the risk which includes but not limited to bleeding, infection, urinary incontinence, retrograde ejaculation, erectile dysfunction, persistent urinary retention. Discussed he is at a higher risk of cardiac complication given his comorbidities, he was evaluated by cardiology and cleared for surgery. He understood all the risk and agreed to proceed Consent for Procedure: I have explained the operation/procedure to the patient, including the risks, benefits, side effects, alternative therapies (including not receiving the proposed treatment or service), the likelihood of the patient achieving his/her goals, and potential recuperation problems for the procedure/sedation/analgesia, as well as any blood products, if indicated. I also explained to the patient the risks, benefits and side effects of the alternatives, as well as the risks related to not receiving the proposed procedure, care, treatment, or services. Past Medical History Past Medical History: Coronary Artery Disease (CAD), Cancer, Hypertension, Liver Disease Additional Past Medical History / Comment(s): Lung injury with subsequent right- sided pneumothorax; testicular cancer; fatty liver disease History of Any Multi-Drug Resistant Organisms: None Reported Past Surgical History: No Surgical Hx Reported Smoking Status: Former smoker - Past Family History Father Family Medical History: No Reported History Mother Family Medical History: No Reported History Medications and Allergies Home Medications Medication Instructions Recorded Confirmed Type Acetaminophen Tab [Tylenol] 1,000 mg PO Q6HR PRN tab 05/31/23 Rx Amiodarone [Cordarone] 400 mg PO BID #44 tab 05/31/23 Rx Aspirin 325 mg PO DAILY #30 tab 05/31/23 Rx Atorvastatin [Lipitor] 40 mg PO DAILY #30 tab 05/31/23 Rx Clopidogrel [Plavix] 75 mg PO DAILY #30 tab 05/31/23 Rx Glimepiride [Amaryl] 1 mg PO AC-BRKFST #30 tab 05/31/23 Rx Metoprolol Tartrate [Lopressor] 75 mg PO BID #120 tab 05/31/23 Rx Pantoprazole [Protonix] 40 mg PO AC-BRKFST #30 tab 05/31/23 Rx Sennosides-Docusate Sodium 2 each PO HS PRN tab 05/31/23 Rx [Senokot-S] Tamsulosin [Flomax] 0.4 mg PO DAILY #30 cap 05/31/23 Rx amLODIPine [Norvasc] 5 mg PO DAILY@1200 #30 tab 05/31/23 Rx Allergies Allergy/AdvReac Type Severity Reaction Status Date / Time No Known Allergies Allergy Verified 09/22/23 10:35 Surgical - Exam - General no distress, no pain - Eyes normal ocular movement, no pale - ENT normal nares, normal mucosa - Respiratory normal expansion, normal respiratory effort - Abdomen Abdomen: soft, non tender - Psychiatric oriented to time, oriented to person, oriented to place Assessment and Plan Assessment: OR for TURP (Bipolar)
[2023-10-16 09:17] VITALS: BMI 20.9
[~2023-10-17 08:00] MED LIST: HYDROmorphone 0.5 MG/0.5 ML SYRINGE IVP PRN; MIDAZOLAM 2 MG/2 ML VIAL IV PRN
[2023-10-17] MEDS: LIDOCAINE 1% (10MG/ML) FOR IV START INTRADERMA ONE (08:30)
[2023-10-17] MEDS: LACTATED RINGERS 1,000 ML IV SCH (08:30)
[2023-10-17] MEDS: ONDANSETRON 4 MG/2 ML VIAL IVP ONE ×2 (08:45→12:59)
[2023-10-17] MEDS: DEXAMETHASONE SOD PHOSPHATE 4 MG/ML 1 ML VIAL IV ONE (08:45)
[2023-10-17 08:50] LABS: Glucose,Whole Blood 155 mg/dL (70-110)
[2023-10-17] MEDS ORDERED: ePHEDrine 50 MG/ML 1 ML VIAL ONE (09:29)
[2023-10-17] MEDS ORDERED: LIDOCAINE 1% INJ 10MG/ML (20 ML MDV) ONE (09:29)
[2023-10-17] MEDS ORDERED: MIDAZOLAM 2 MG/2 ML VIAL ONE (09:29)
[2023-10-17] MEDS ORDERED: fentaNYL (PF) 50 MCG/ML 2 ML AMP ONE (09:29)
[2023-10-17] MEDS ORDERED: PROPOFOL 10 MG/ML 20 ML VIAL IV ONE (09:29)
[2023-10-17] MEDS ORDERED: HYDROmorphone (PF) 1 MG/ML ONE (09:29)
[2023-10-17 11:44] LABS: Glucose,Whole Blood 172 mg/dL (70-110)
[2023-10-17 11:50] VITALS: RESP 16; TEMP 97
--- NOTE | 2023-10-17 12:00 | P.OP ---
Date of Procedure: 10/17/23 Preoperative Diagnosis: BPH, urinary retention Postoperative Diagnosis: same Procedure(s) Performed: TURP ( bipolar) Anesthesia: EDWARD Surgeon: Leonides Thomas Estimated Blood Loss (ml): 150 Pathology: other (prostate adenoma) Indications for Procedure: This is a 68-year-old male with history of urinary retention, has failed multi ple trial of void. Underwent a cystoscopy that showed evidence of obstructive prostate. Option of a transurethral resection of the prostate, versus CIC versus a chronic Gordon was discussed with him. He agreed to proceed with a TURP. Aware the risk which includes but not limited to bleeding, infection, urinary incontinence, retrograde ejaculation, erectile dysfunction, persistent urinary retention. Discussed he is at a higher risk of cardiac complication given his comorbidities, he was evaluated by cardiology and cleared for surgery. He understood all the risk and agreed to proceed Operative Findings: Trilobar hyperplasia, with significant median lobe enlargement with intravesical extension Description of Procedure: Patient brought to the operating room, general anesthesia was induced. He was prepped and draped in sterile fashion placed in dorsolithotomy position. Resectoscope with a 25 Omani sheath was inserted per urethra, cystoscopy was performed showed evidence of trilobar hyperplasia with a significant enlargement of the median lobe with intravesical extension. Using the bipolar resectoscope the prostate was resected down to the surgical capsule, given the intravesical extension care was taken not to injure the ureteral orifice ease, resection was carried distal to the bladder neck but staying proximal to the Veru. Points of bleeding were controlled with cautery. All prostate adenoma chips were irrigated out. Repeat cystoscopy showed no evidence of bleeding, injury to the bladder or the ureteral orifices, or any remaining chips within the bladder. At this time the resectoscope was withdrawn and a 20 Omani coud catheter with 30 cc in the balloon was inserted. Catheter was irrigated to clear. Patient tolerated procedure well was taken to recovery in stable condition
[2023-10-17] MEDS: SODIUM CHLORIDE 0.9% 1,000 ML IV ONE ×2 (12:02→12:22)
[2023-10-17] MEDS ORDERED: ONDANSETRON 4 MG/2 ML VIAL ONE (12:56)
[2023-10-17] MEDS: droPERidol 5 MG/2 ML VIAL IVP ONE (14:30)
[2023-10-17 15:31] VITALS: BP 124/6; PULSE 61
== END 2023-10-17 15:39 | disposition home or self-care (01) ==
LOC: OR 08:00
PROVIDERS: ATTEND Urology
DX: N40.1 Benign prostatic hyperplasia with lower urinary tract symptoms (principal); R33.8 Other retention of urine; I10 Essential (primary) hypertension; I25.2 Old myocardial infarction; I25.10 Atherosclerotic heart disease of native coronary artery without angina pectoris; K76.0 Fatty (change of) liver, not elsewhere classified; M19.90 Unspecified osteoarthritis, unspecified site; F10.90 Alcohol use, unspecified, uncomplicated; Z79.02 Long term (current) use of antithrombotics/antiplatelets; Z79.84 Long term (current) use of oral hypoglycemic drugs; Z87.891 Personal history of nicotine dependence; Z85.47 Personal history of malignant neoplasm of testis; Z79.899 Other long term (current) drug therapy; Z79.82 Long term (current) use of aspirin; Z95.5 Presence of coronary angioplasty implant and graft; Z90.79 Acquired absence of other genital organ(s)
CPT/HCPCS: 88305; 52601; J2250; J1100; J0690; J2405; J2001; J3010; J1170; J2704; J1790

== ENCOUNTER 2023-10-25 18:55 | Observation (INO) | payer MEDICARE, OTHER ==
--- NOTE | 2023-10-25 19:40 | ED ---
General Adult HPI - General Chief complaint: Recheck/Abnormal Lab/Rx Stated complaint: Post Op Issues Time Seen by Provider: 10/25/23 19:24 Source: patient, RN notes reviewed, old records reviewed Mode of arrival: ambulatory Limitations: no limitations - History of Present Illness Initial comments: 68-year-old male presenting for evaluation of lower abdominal discomfort and inability to urinate. Patient had TURP procedure done 8 days ago. He had his catheter removed earlier this morning and has been unable to urinate in the past 12 hours. No vomiting. No fever. - Related Data Home Medications Medication Instructions Recorded Confirmed Aspirin [Adult Low Dose Aspirin EC] 81 mg PO DAILY 10/16/23 10/25/23 Glimepiride [Amaryl] 1 mg PO DAILY 10/16/23 10/25/23 Metoprolol Tartrate [Lopressor] 25 mg PO BID 10/16/23 10/25/23 Pantoprazole [Protonix] 40 mg PO DAILY 10/16/23 10/25/23 amLODIPine [Norvasc] 5 mg PO DAILY 10/16/23 10/25/23 Atorvastatin [Lipitor] 40 mg PO HS 10/25/23 10/25/23 Nitroglycerin Sl Tabs [Nitrostat] 0.4 mg SUBLINGUAL Q5M PRN 10/25/23 10/25/23 Tamsulosin [Flomax] 0.4 mg PO BID 10/25/23 10/25/23 metFORMIN HCL ER [Glucophage XR] 500 mg PO PC-SUPPER 10/25/23 10/25/23 Previous Rx's Medication Instructions Recorded Clopidogrel [Plavix] 75 mg PO DAILY #30 tab 05/31/23 Allergies Allergy/AdvReac Type Severity Reaction Status Date / Time No Known Allergies Allergy Verified 10/25/23 21:16 Review of Systems ROS Statement: Those systems with pertinent positive or pertinent negative responses have been documented in the HPI. ROS Other: All systems not noted in ROS Statement are negative. Past Medical History Past Medical History: Coronary Artery Disease (CAD), Cancer, Hypertension, Liver Disease Additional Past Medical History / Comment(s): Lung injury with subsequent right- sided pneumothorax; testicular cancer; fatty liver disease History of Any Multi-Drug Resistant Organisms: None Reported Past Surgical History: No Surgical Hx Reported Past Psychological History: No Psychological Hx Reported Smoking Status: Never smoker Past Alcohol Use History: Occasional Past Drug Use History: None Reported - Past Family History Father Family Medical History: No Reported History Mother Family Medical History: Cancer General Exam Limitations: no limitations General appearance: alert, in no apparent distress, anxious Head exam: Present: atraumatic, normocephalic Eye exam: Present: normal appearance, PERRL ENT exam: Present: normal exam Neck exam: Present: normal inspection Respiratory exam: Present: normal lung sounds bilaterally. Absent: respiratory distress, wheezes Cardiovascular Exam: Present: normal rhythm, tachycardia GI/Abdominal exam: Present: soft, tenderness (suprapubic fullness). Absent: distended Extremities exam: Present: normal inspection, normal capillary refill Neurological exam: Present: alert, oriented X3, CN II-XII intact. Absent: motor sensory deficit Psychiatric exam: Present: anxious Skin exam: Present: warm, dry, intact Course Vital Signs 10/25/23 19:14 Temperature 97.9 F Pulse Rate 140 H Respiratory 18 Rate Blood Pressure 153/94 O2 Sat by Pulse 98 Oximetry - Reevaluation(s) Reevaluation #1: 10/25/2320[address] Cehn who will evaluate the patient in the emergency room Medical Decision Making - Medical Decision Making Was pt. sent in by a medical professional or institution (, PA, ACCOUNT CLASSIFICATION CLERK, urgent care, hospital, or senior living...) When possible be specific @ -No Did you speak to anyone other than the patient for history (EMS, parent, family, police, friend...)? What history was obtained from this source @ -No Did you review nursing and triage notes (agree or disagree)? Why? @ -I reviewed and agree with nursing and triage notes Were old charts reviewed (outside hosp., previous admission, EMS record, old EKG, old radiological studies, urgent care reports/EKG's, senior living records)? Report findings @ -No old charts were reviewed Differential Diagnosis urinary retention, hematuria, UTI EKG interpreted by me (3pts min.). @ -As above X-rays interpreted by me (1pt min.). @ -None done CT interpreted by me (1pt min.). @ -None done U/S interpreted by me (1pt. min.). @ -None done What testing was considered but not performed or refused? (CT, X-rays, U/S, labs)? Why? @ -None What meds were considered but not given or refused? Why? @ -None Did you discuss the management of the patient with other professionals (professionals i.e. , PA, ACCOUNT CLASSIFICATION CLERK, lab, RT, psych nurse, outreach and education social worker, workday manager, teacher, security officer supervisor, upper caser)? Give summary @ -Case discussed with Dr. Chen who will admit Was smoking cessation discussed for >3mins.? @ -No Was critical care preformed (if so, how long)? @ -No Were there social determinants of health that impacted care today? How? (Homelessness, low income, unemployed, alcoholism, drug addiction, transportatio n, low edu. Level, literacy, decrease access to med. care, [facility], rehab)? @ -No Was there de-escalation of care discussed even if they declined (Discuss DNR or withdrawal of care, Hospice)? DNR status @ -No What co-morbidities impacted this encounter? (DM, HTN, Smoking, COPD, CAD, Cancer, CVA, ARF, Chemo, Hep., AIDS, mental health diagnosis, sleep apnea, morbid obesity)? @ -[CAD, status post TURP Was patient admitted / discharged? Hospital course, mention meds given and route, prescriptions, significant lab abnormalities, going to OR and other pertinent info. @68-year-old male presenting with urinary retention, hematuria. I was able to place a catheter in the emergency department which initially returned approximately 100 cc of bloody urine. This catheter did clot off and I was unable to drain any further urine or blood. The patient was seen by Dr. Chen covering for urology and he was able to reposition the catheter and irrigate the bladder with resolution in obstruction. Patient will be admitted for observation and the possibility of recurrence. Undiagnosed new problem with uncertain prognosis? @ -No Drug Therapy requiring intensive monitoring for toxicity (Heparin, Nitro, Insulin, Cardizem)? @ -No Were any procedures done? @ -No Diagnosis/symptom? @ -Urinary retention status post TURP, hematuria Acute, or Chronic, or Acute on Chronic? @ -[Acute Uncomplicated (without systemic symptoms) or Complicated (systemic symptoms)? @ -Default Side effects of treatment? @ -No Exacerbation, Progression, or Severe Exacerbation? @ -No Poses a threat to life or bodily function? How? (Chest pain, [place], [place], pneumonia, PE, COPD, DKA, ARF, appy, cholecystitis, CVA, Diverticulitis, Homicidal, Suicidal, threat to staff... and all critical care pts) @ -No - Lab Data Result diagrams: 10/25/23 20:36 10/25/23 20:36 Lab Results 10/25/23 10/25/23 10/25/23 Range/Units 20:36 20:36 20:36 WBC 8.6 (3.8-10.6) k/uL RBC 4.06 L (4.30-5.90) m/uL Hgb 12.5 L (13.0-17.5) gm/dL Hct 35.6 L (39.0-53.0) % MCV 87.7 (80.0-100.0) fL MCH 30.8 (25.0-35.0) pg MCHC 35.1 (31.0-37.0) g/dL RDW 13.8 (11.5-15.5) % Plt Count 235 (150-450) k/uL MPV 8.4 Neutrophils % 83 % Lymphocytes % 10 % Monocytes % 5 % Eosinophils % 0 % Basophils % 0 % Neutrophils # 7.2 (1.3-7.7) k/uL Lymphocytes # 0.9 L (1.0-4.8) k/uL Monocytes # 0.4 (0-1.0) k/uL Eosinophils # 0.0 (0-0.7) k/uL Basophils # 0.0 (0-0.2) k/uL PT 10.9 (10.0-12.5) sec INR 1.0 (<1.2) APTT 23.4 (22.0-30.0) sec Sodium 138 (137-145) mmol/L Potassium 4.0 (3.5-5.1) mmol/L Chloride 110 H (98-107) mmol/L Carbon Dioxide 16 L (22-30) mmol/L Anion Gap 12 mmol/L BUN 26 H (9-20) mg/dL Creatinine 1.51 H (0.66-1.25) mg/dL Est GFR (CKD-EPI)AfAm 54 (>60 ml/min/1.73 sqM) Est GFR (CKD-EPI)NonAf 47 (>60 ml/min/1.73 sqM) Glucose 167 H (74-99) mg/dL Calcium 9.3 (8.4-10.2) mg/dL Total Bilirubin 0.7 (0.2-1.3) mg/dL AST 22 (17-59) U/L ALT 17 (4-49) U/L Alkaline Phosphatase 122 (38-126) U/L Total Protein 6.7 (6.3-8.2) g/dL Albumin 4.3 (3.5-5.0) g/dL Disposition Clinical Impression: Hematuria, Urinary retention, S/P TURP Disposition: ADMITTED IP TO THIS [facility] Condition: Stable Is patient prescribed a controlled substance at d/c from ED?: No Referrals: Kashif Aguiar MD [Primary Care Provider] - 1-2 days Time of Disposition: 21:54
[2023-10-25] MEDS: LORazepam 2 MG/ML INJ IM STA (20:31)
[2023-10-25] MEDS: MORPHINE SULFATE 4 MG/ML SYRINGE IM STA (20:31)
[2023-10-25] MEDS: HYDROmorphone 0.5 MG/0.5 ML SYRINGE IVP STA (21:04)
[2023-10-25 21:08] LABS: Basophils % (A) 0 %; Eosinophils % (A) 0 %; HCT 35.6 % (39.0-53.0); HGB 12.5 gm/dL (13.0-17.5); Lymphocytes # (A) 0.9 k/uL (1.0-4.8); Lymphocytes % (A) 10 %; MCH 30.8 pg (25.0-35.0); MCHC 35.1 g/dL (31.0-37.0); MCV 87.7 fL (80.0-100.0); Mean Platelet Volume 8.4; Monocytes # (A) 0.4 k/uL (0-1.0); Monocytes % (A) 5 %; Neutrophils # (A) 7.2 k/uL (1.3-7.7); Neutrophils % (A) 83 %; Platelet Count 235 k/uL (150-450); RBC 4.06 m/uL (4.30-5.90); RDW 13.8 % (11.5-15.5); WBC 8.6 k/uL (3.8-10.6)
[2023-10-25 21:18] LABS: ALT 17 U/L (4-49); AST 22 U/L (17-59); African American GFR (CKD) 54 (>60 ml/min/1.73 sqM); Albumin 4.3 g/dL (3.5-5.0); Alkaline Phosphatase 122 U/L (38-126); Anion Gap 12 mmol/L; Blood Urea Nitrogen 26 mg/dL (9-20); Calcium 9.3 mg/dL (8.4-10.2); Carbon Dioxide 16 mmol/L (22-30); Chloride 110 mmol/L (98-107); Glucose 167 mg/dL (74-99); Non-African American GFR(CKD) 47 (>60 ml/min/1.73 sqM); Sodium 138 mmol/L (137-145); Total Bilirubin 0.7 mg/dL (0.2-1.3); Total Protein 6.7 g/dL (6.3-8.2)
[2023-10-25 21:32] LABS: Partial Thromboplastin Time 23.4 sec (22.0-30.0); Prothrombin Time 10.9 sec (10.0-12.5)
[2023-10-25] MEDS ORDERED: HYDROmorphone 0.5 MG/0.5 ML SYRINGE IVP PRN (21:49)
[2023-10-25] MEDS ORDERED: NALOXONE 0.4 MG/ML 1 ML VIAL IV PRN (21:49)
[2023-10-25] MEDS ORDERED: ONDANSETRON 4 MG/2 ML VIAL IVP PRN (21:49)
--- NOTE | 2023-10-25 22:26 | P.GSHP ---
History of Present Illness H&P Date: 10/25/23 Chief Complaint: Urinary retention, gross hematuria The patient is a 68-year-old white male who underwent a bipolar TURP on October 17, 2023 for urinary retention. 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 He has resumed his aspirin and Plavix. His Gordon catheter was removed in the office this morning, but the patient was unable to void. He did pass a small amount of blood. He presented to the ER and a 20 Korean coud tip Gordon catheter was placed. After ensuring that the catheter tip was advanced into the bladder, several 100 cc of bloody urine was drained from the bladder. The bladder was then irrigated, and the catheter confirmed to be patent. Only a small number of small clots were removed. Irrigation was continued until I could be confident that there were no residual clots within the bladder. However, the urine failed to clear fully. - Cardiovascular Cardiovascular: Reports high blood pressure - Genitourinary (Male) Genitourinary: Denies dysuria, Denies hematuria Past Medical History Past Medical History: Coronary Artery Disease (CAD), Cancer, Hypertension, Liver Disease Additional Past Medical History / Comment(s): Lung injury with subsequent right- sided pneumothorax; testicular cancer; fatty liver disease History of Any Multi-Drug Resistant Organisms: None Reported Past Surgical History: No Surgical Hx Reported Past Psychological History: No Psychological Hx Reported Smoking Status: Never smoker Past Alcohol Use History: Occasional Past Drug Use History: None Reported - Past Family History Father Family Medical History: No Reported History Mother Family Medical History: Cancer Medications and Allergies Home Medications Medication Instructions Recorded Confirmed Type Clopidogrel [Plavix] 75 mg PO DAILY #30 tab 05/31/23 10/25/23 Rx Aspirin [Adult Low Dose Aspirin EC] 81 mg PO DAILY 10/16/23 10/25/23 History Glimepiride [Amaryl] 1 mg PO DAILY 10/16/23 10/25/23 History Metoprolol Tartrate [Lopressor] 25 mg PO BID 10/16/23 10/25/23 History Pantoprazole [Protonix] 40 mg PO DAILY 10/16/23 10/25/23 History amLODIPine [Norvasc] 5 mg PO DAILY 10/16/23 10/25/23 History Atorvastatin [Lipitor] 40 mg PO HS 10/25/23 10/25/23 History Nitroglycerin Sl Tabs [Nitrostat] 0.4 mg SUBLINGUAL Q5M PRN 10/25/23 10/25/23 History Tamsulosin [Flomax] 0.4 mg PO BID 10/25/23 10/25/23 History metFORMIN HCL ER [Glucophage XR] 500 mg PO PC-SUPPER 10/25/23 10/25/23 History Allergies Allergy/AdvReac Type Severity Reaction Status Date / Time No Known Allergies Allergy Verified 10/25/23 21:16 Surgical - Exam Vital Signs Temp Pulse Resp BP Pulse Ox 97.9 F 140 H 18 153/94 98 10/25/23 19:14 10/25/23 19:14 10/25/23 19:14 10/25/23 19:14 10/25/23 19:14 - General well developed, well nourished, no distress - Respiratory normal respiratory effort - Abdomen Suprapubic distention with tenderness is noted. There is no guarding or re bound. - Genitourinary normal penis with no external lesions, testicles non-tender - Psychiatric oriented to time, oriented to person, oriented to place, speech is normal, memory intact Results - Labs 10/25/23 20:36 10/25/23 20:36 Abnormal Lab Results - Last 24 Hours (Table) 10/25/23 10/25/23 Range/Units 20:36 20:36 RBC 4.06 L (4.30-5.90) m/uL Hgb 12.5 L (13.0-17.5) gm/dL Hct 35.6 L (39.0-53.0) % Lymphocytes # 0.9 L (1.0-4.8) k/uL Chloride 110 H (98-107) mmol/L Carbon Dioxide 16 L (22-30) mmol/L BUN 26 H (9-20) mg/dL Creatinine 1.51 H (0.66-1.25) mg/dL Glucose 167 H (74-99) mg/dL Diabetes panel 10/25/23 Range/Units 20:36 Sodium 138 (137-145) mmol/L Potassium 4.0 (3.5-5.1) mmol/L Chloride 110 H (98-107) mmol/L Carbon Dioxide 16 L (22-30) mmol/L BUN 26 H (9-20) mg/dL Creatinine 1.51 H (0.66-1.25) mg/dL Glucose 167 H (74-99) mg/dL Calcium 9.3 (8.4-10.2) mg/dL AST 22 (17-59) U/L ALT 17 (4-49) U/L Alkaline Phosphatase 122 (38-126) U/L Total Protein 6.7 (6.3-8.2) g/dL Albumin 4.3 (3.5-5.0) g/dL Calcium panel 10/25/23 Range/Units 20:36 Calcium 9.3 (8.4-10.2) mg/dL Albumin 4.3 (3.5-5.0) g/dL Pituitary panel 10/25/23 Range/Units 20:36 Sodium 138 (137-145) mmol/L Potassium 4.0 (3.5-5.1) mmol/L Chloride 110 H (98-107) mmol/L Carbon Dioxide 16 L (22-30) mmol/L BUN 26 H (9-20) mg/dL Creatinine 1.51 H (0.66-1.25) mg/dL Glucose 167 H (74-99) mg/dL Calcium 9.3 (8.4-10.2) mg/dL Adrenal panel 10/25/23 Range/Units 20:36 Sodium 138 (137-145) mmol/L Potassium 4.0 (3.5-5.1) mmol/L Chloride 110 H (98-107) mmol/L Carbon Dioxide 16 L (22-30) mmol/L BUN 26 H (9-20) mg/dL Creatinine 1.51 H (0.66-1.25) mg/dL Glucose 167 H (74-99) mg/dL Calcium 9.3 (8.4-10.2) mg/dL Total Bilirubin 0.7 (0.2-1.3) mg/dL AST 22 (17-59) U/L ALT 17 (4-49) U/L Alkaline Phosphatase 122 (38-126) U/L Total Protein 6.7 (6.3-8.2) g/dL Albumin 4.3 (3.5-5.0) g/dL Assessment and Plan (1) Urinary retention Current Visit: Yes Status: Acute Code(s): R33.9 - RETENTION OF URINE, UNSPECIFIED SNOMED Code(s): 301463225 Plan: As stated, the bladder has been completely drained and the patient was quite comfortable once this was completed. He will be observed overnight in the event the catheter occludes and requires irrigation. Plavix will be held.
[2023-10-25] MEDS: DEXTROSE 5%-0.45% NACL 1,000 ML IV SCH (23:16)
[2023-10-26 00:58] LABS: Glucose,Whole Blood 182 mg/dL (70-110)
[2023-10-26 01:25] LABS: Appearance,Urine Bloody (Clear); Color,Urine Red
[2023-10-26 01:27] LABS: RBC,Urine >182 /hpf (0-5); WBC,Urine 106 /hpf (0-5)
[2023-10-26 06:34] LABS: Basophils % (A) 0 %; Eosinophils # (A) 0.1 k/uL (0-0.7); Eosinophils % (A) 2 %; HCT 28.7 % (39.0-53.0); Lymphocytes # (A) 0.8 k/uL (1.0-4.8); Lymphocytes % (A) 14 %; MCH 30.3 pg (25.0-35.0); MCHC 33.7 g/dL (31.0-37.0); MCV 89.9 fL (80.0-100.0); Mean Platelet Volume 8.5; Monocytes # (A) 0.4 k/uL (0-1.0); Monocytes % (A) 7 %; Neutrophils % (A) 75 %; Platelet Count 178 k/uL (150-450); RBC 3.19 m/uL (4.30-5.90); RDW 13.8 % (11.5-15.5); WBC 5.3 k/uL (3.8-10.6)
[2023-10-26 06:39] LABS: HGB 9.7 gm/dL (13.0-17.5)
[2023-10-26 07:13] LABS: Glucose,Whole Blood 135 mg/dL (70-110)
[2023-10-26] MEDS ORDERED: NITROGLYCERIN SL TABS 0.4 MG TAB SUBLINGUAL PRN (10:00)
[2023-10-26] MEDS: PANTOPRAZOLE 40 MG TABLET PO SCH (11:40)
[2023-10-26] MEDS: METOPROLOL TARTRATE 25 MG TAB PO SCH (11:41)
[2023-10-26] MEDS: amLODIPine 5 MG TAB PO SCH (11:41)
[2023-10-26 12:10] LABS: Glucose,Whole Blood 154 mg/dL (70-110)
[2023-10-26] MEDS: LACTATED RINGERS 1,000 ML IV ONE (14:20)
[2023-10-26] MEDS ORDERED: METOCLOPRAMIDE 5 MG/ML 2 ML VIAL ONE (14:25)
[2023-10-26] MEDS: SCOPOLAMINE 1 MG/72 HR PATCH TRANSDERM ONE (14:25)
[2023-10-26] MEDS: ONDANSETRON 4 MG/2 ML VIAL IVP ONE (14:26)
[2023-10-26] MEDS: DEXAMETHASONE SOD PHOSPHATE 4 MG/ML 1 ML VIAL IVP ONE (14:27)
[2023-10-26] MEDS: METOCLOPRAMIDE 5 MG/ML 2 ML VIAL IVP ONE (14:28)
[2023-10-26] MEDS ORDERED: LIDOCAINE 1% INJ 10MG/ML (20 ML MDV) ONE (14:41)
[2023-10-26] MEDS ORDERED: KETOROLAC 15 MG/ML 1 ML VIAL ONE (14:41)
[2023-10-26] MEDS ORDERED: fentaNYL (PF) 50 MCG/ML 2 ML AMP ONE (14:41)
[2023-10-26] MEDS ORDERED: SODIUM CHLORIDE 0.9% 100 ML BAG ONE (14:41)
[2023-10-26] MEDS ORDERED: ePHEDrine 50 MG/ML 1 ML VIAL ONE (14:41)
[2023-10-26] MEDS ORDERED: PHENYLEPHRINE-0.9% NACL SYG 1,000 MCG/10 ML SYRINGE ONE (14:41)
[2023-10-26] MEDS ORDERED: MIDAZOLAM 2 MG/2 ML VIAL ONE (14:41)
[2023-10-26] MEDS ORDERED: ceFAZolin 1,000 MG VIAL ONE (14:41)
[2023-10-26] MEDS ORDERED: SUCCINYLCHOLINE CHLORIDE 200 MG/10 ML VIAL IV ONE (14:41)
[2023-10-26] MEDS ORDERED: PROPOFOL 10 MG/ML 20 ML VIAL IV ONE (14:41)
[2023-10-26] MEDS ORDERED: diphenhydrAMINE 50 MG/ML 1 ML VIAL ONE (14:41)
[2023-10-26] MEDS: SODIUM CHLORIDE 0.9% 50 ML with ceFAZolin 2,000 MG IV ONE (15:06)
--- NOTE | 2023-10-26 16:42 | P.OP ---
Date of Procedure: 10/26/23 Preoperative Diagnosis: Urinary clot retention Postoperative Diagnosis: Same Procedure(s) Performed: Cystoscopy, evacuation of clot, fulguration of bleeders, limited TURP Anesthesia: NANCIA Surgeon: Rupert Chen Estimated Blood Loss (ml): 50 IV fluids (ml): 600 Pathology: other (Clot and prostate chips) Condition: stable Disposition: PACU Indications for Procedure: The patient is a 68-year-old white male who underwent a bipolar TURP on October 17, 2023 for urinary retention. 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 He has resumed his aspirin and Plavix. His Gordon catheter was removed in the office this morning, but the patient was unable to void. He did pass a small amount of blood. He presented to the ER and a 20 Turkmen coud tip Gordon catheter was placed. After ensuring that the catheter tip was advanced into the bladder, several hundred cc of bloody urine was drained from the bladder. The bladder was then irrigated, and the catheter confirmed to be patent. The patient was admitted but his urine remained bloody overnight. Given that and a significant drop in his hemoglobin level, the decision was made to perform cystoscopy, evacuation of clot, and fulguration of bleeders. Operative Findings: Approximately 50 cc of clots is removed from the bladder. Oozing from the anterior prostatic fossa is noted. Limited resection was performed to obtain hemostasis. Description of Procedure: The patient was taken in the operating room and placed in the dorsolithotomy position. The external genitalia was prepped and draped sterilely. The 30 degree lens was used to introduce the 22 Turkmen start cystoscopic sheath through the urethra and into the bladder under direct vision. Abundant clot was seen within the bladder. The [place] evacuator was used to remove approximately 50 cc of clot from the bladder. Some clot was adherent to the right lateral bladder wall, for unclear reasons. The cystoscope was removed, and the 25-Turkmen ACMI resectoscope sheath was introduced into the bladder. Continuous bladder irrigation was utilized, allowing the bladder to be inspected. The bladder trigone was edematous, and it was not possible to identify the ureteral orifice ease. Some oozing was noted from the anterior prostatic urethra. Using the bipolar cutting loop, a limited TURP was performed as the tissue was friable and difficult to cauterize. Following the limited TURP, I was better able to cauterize bleeders and attain adequate hemostasis. After it was ensured that all clots and tissue fragments had been removed from the bladder, the resectoscope was removed. A 22 Turkmen, 3-Way Gordon catheter was placed. The return was essentially clear. Continuous bladder irrigation was started using 0.9 normal saline. The abdomen was soft and non-distended at the completion of the procedure. The patient tolerated the procedure well was taken to the recovery room in stable condition.
[2023-10-26] MEDS: SODIUM CHLORIDE 0.9% IRRIG 3,000 ML BAG IRRIGATION SCH (17:00)
[2023-10-26 17:24] LABS: Glucose,Whole Blood 174 mg/dL (70-110)
[2023-10-26] MEDS: metFORMIN 500 MG TAB PO SCH (18:01)
[2023-10-26 18:37] LABS: HCT 30.6 % (39.0-53.0); HGB 10.4 gm/dL (13.0-17.5); MCH 30.8 pg (25.0-35.0); MCV 90.6 fL (80.0-100.0); Mean Platelet Volume 8.4; Platelet Count 171 k/uL (150-450); Poikilocytosis Slight; RBC 3.37 m/uL (4.30-5.90); RDW 14.2 % (11.5-15.5)
[2023-10-26 20:35] LABS: Glucose,Whole Blood 313 mg/dL (70-110)
[2023-10-26] MEDS: TAMSULOSIN 0.4 MG CAP.ER.24H PO SCH (20:36)
[2023-10-26] MEDS: ATORVASTATIN 40 MG TAB PO SCH (20:36)
[2023-10-26] MEDS: INSULIN ASPART (NovoLOG) 100 UNIT/ML VIAL SQ SCH (21:23)
[2023-10-27 07:14] LABS: Glucose,Whole Blood 174 mg/dL (70-110)
[2023-10-27 07:34] VITALS: BP 125/59; PULSE 76; RESP 16; TEMP 97.8
[2023-10-27] MEDS: GLIMEPIRIDE 1 MG TAB PO SCH (08:37)
--- NOTE | 2023-10-27 08:50 | P.DS ---
Providers Date of admission: 10/25/23 21:50 Expected date of discharge: 10/27/23 Attending physician: Rupert Chen Primary care physician: Kashif Aguiar - Discharge Diagnosis(es) (1) Urinary retention Current Visit: Yes Status: Acute Hospital Course: The patient was admitted with urinary clot retention. A Gordon catheter was inserted in the ER, and multiple clots were irrigated from the bladder. However, the hematuria persisted and his hemoglobin level dropped from 12.5 to 9.7. In view of this, he was taken to the operating room and underwent cystos copy with evacuation of clots. A limited TURP was performed, and bleeders were fulgurated. His urine was clear following that, and he was comfortable. Procedures: Cystoscopy, evacuation of clot, fulguration of bleeders, limited TURP on October 26, 2023. Patient Condition at Discharge: Good Plan - Discharge Summary Discharge Rx Participant: No New Discharge Prescriptions: No Action Clopidogrel [Plavix] 75 mg PO DAILY #30 tab Glimepiride [Amaryl] 1 mg PO DAILY Pantoprazole [Protonix] 40 mg PO DAILY Metoprolol Tartrate [Lopressor] 25 mg PO BID amLODIPine [Norvasc] 5 mg PO DAILY Aspirin [Adult Low Dose Aspirin EC] 81 mg PO DAILY Nitroglycerin Sl Tabs [Nitrostat] 0.4 mg SUBLINGUAL Q5M PRN PRN Reason: Chest Pain Atorvastatin [Lipitor] 40 mg PO HS metFORMIN HCL ER [Glucophage XR] 500 mg PO PC-SUPPER Tamsulosin [Flomax] 0.4 mg PO BID Discharge Medication List Clopidogrel [Plavix] 75 mg PO DAILY #30 tab 05/31/23 [Rx] Aspirin [Adult Low Dose Aspirin EC] 81 mg PO DAILY 10/16/23 [History] Glimepiride [Amaryl] 1 mg PO DAILY 10/16/23 [History] Metoprolol Tartrate [Lopressor] 25 mg PO BID 10/16/23 [History] Pantoprazole [Protonix] 40 mg PO DAILY 10/16/23 [History] amLODIPine [Norvasc] 5 mg PO DAILY 10/16/23 [History] Atorvastatin [Lipitor] 40 mg PO HS 10/25/23 [History] Nitroglycerin Sl Tabs [Nitrostat] 0.4 mg SUBLINGUAL Q5M PRN 10/25/23 [History] Tamsulosin [Flomax] 0.4 mg PO BID 10/25/23 [History] metFORMIN HCL ER [Glucophage XR] 500 mg PO PC-SUPPER 10/25/23 [History] Follow up Appointment(s)/Referral(s): Kashif Aguiar MD [Primary Care Provider] - 1-2 days Leonides Thomas MD [STAFF PHYSICIAN] - 3 Days Activity/Diet/Wound Care/Special Instructions: Discharge home with Gordon catheter. Hold Plavix. May take other home medications including aspirin 81 mg. Drink plenty of fluids. Avoid straining and strenuous activity. Discharge Disposition: HOME SELF-CARE
== END 2023-10-27 11:25 | disposition home or self-care (01) ==
LOC: EC 18:55 → 5NMEDONC 21:50
PROVIDERS: ADMIT Urology; ATTEND Urology
DX: N40.3 Nodular prostate with lower urinary tract symptoms (principal); R33.8 Other retention of urine; I25.10 Atherosclerotic heart disease of native coronary artery without angina pectoris; I10 Essential (primary) hypertension; Z85.47 Personal history of malignant neoplasm of testis; Z79.82 Long term (current) use of aspirin; Z79.84 Long term (current) use of oral hypoglycemic drugs; Z79.899 Other long term (current) drug therapy; Z79.02 Long term (current) use of antithrombotics/antiplatelets
CPT/HCPCS: 96372; 96374; 99284; 36415; 86900; 86901; 88305; 80053; 85025 ×2; 85027; 85610; 85730; 86850; 81001; 87086; 52001; 52601; G0378 ×3; J2250; J0330; J2060; J2270; J1200; J1100; J2765; J2405; J0690; J2001; J3010; J1885; J2704; J1170; J2371

== ENCOUNTER 2024-01-11 12:06 | Observation (INO) | payer MEDICARE ==
--- NOTE | 2024-01-11 12:22 | ED ---
General Adult HPI - General Chief complaint: Dizziness Stated complaint: Vomiting-Sent by PCP Time Seen by Provider: 01/11/24 12:09 Source: patient Mode of arrival: ambulatory Limitations: no limitations - History of Present Illness Initial comments: Dictation was produced using [employer] dictation software. please excuse any grammatical, word or spelling errors. Chief Complaint: 68-year-old male sent in by physician administrative personal assistant for dizziness dehydration and weight loss History of Present Illness: Patient 68-year-old male he was at the primary care office today. He saw someone that they referred to as "Dr. Balderas" is actually a PA. He was being seen at the clinic for issues including dizziness, dehydration abdominal pain. Patient has poor oral intake. He is unable to keep any thing down except for crackers. He has had 20 pound weight loss in approximately 2 months. Patient complains of constant left lower quadrant abdominal pain. Denies any diarrhea. Patient denies any fever but does complain of some mild chills. Patient has history of UTIs and recently completed a course of Bactrim antibiotics by urology. The ROS documented in this emergency department record has been reviewed and confirmed by me. Those systems with pertinent positive or negative responses have been documented in the HPI. All other systems are other negative and/or noncontributory. - Related Data Home Medications Medication Instructions Recorded Confirmed Aspirin [Adult Low Dose Aspirin EC] 81 mg PO DAILY 10/16/23 01/11/24 Glimepiride [Amaryl] 1 mg PO AC-BRKFST 10/16/23 01/11/24 Metoprolol Tartrate [Lopressor] 25 mg PO BID 10/16/23 01/11/24 Pantoprazole [Protonix] 40 mg PO AC-BRKFST 10/16/23 01/11/24 amLODIPine [Norvasc] 5 mg PO DAILY 10/16/23 01/11/24 Atorvastatin [Lipitor] 40 mg PO DAILY 10/25/23 01/11/24 Nitroglycerin Sl Tabs [Nitrostat] 0.4 mg SUBLINGUAL Q5M PRN 10/25/23 01/11/24 metFORMIN HCL ER [Glucophage XR] 500 mg PO PC-SUPPER 10/25/23 01/11/24 Clopidogrel [Plavix] 75 mg PO DAILY 01/11/24 01/11/24 Allergies Allergy/AdvReac Type Severity Reaction Status Date / Time No Known Allergies Allergy Verified 01/11/24 12:09 Review of Systems ROS Statement: Those systems with pertinent positive or pertinent negative responses have been documented in the HPI. ROS Other: All systems not noted in ROS Statement are negative. Past Medical History Past Medical History: Coronary Artery Disease (CAD), Cancer, Hypertension, Liver Disease Additional Past Medical History / Comment(s): Lung injury with subsequent right- sided pneumothorax; testicular cancer; fatty liver disease History of Any Multi-Drug Resistant Organisms: None Reported Past Surgical History: No Surgical Hx Reported Past Anesthesia/Blood Transfusion Reactions: Postoperative Nausea & Vomiting (PONV) Past Psychological History: No Psychological Hx Reported Smoking Status: Never smoker Past Alcohol Use History: Occasional Past Drug Use History: None Reported - Past Family History Father Family Medical History: No Reported History Mother Family Medical History: Cancer General Exam - General Exam Comments Initial Comments: PHYSICAL EXAM: General Impression: Alert and oriented x3, not in acute distress HEENT: Normocephalic atraumatic, extra-ocular movements intact, pupils equal and reactive to light bilaterally, mucous membranes moist. Cardiovascular: Heart regular rate and rhythm Chest: Able to complete full sentences, no retractions, no tachypnea Abdomen: abdomen soft, so the left lower quadrant, no pain at McBurney's, negative Thrasher sign, non-distended, no organomegaly Musculoskeletal: Pulses present and equal in all extremities, no peripheral edema Motor: no focal deficits noted Neurological: CN II-XII grossly intact, no focal motor or sensory deficits noted Skin: Intact with no visualized rashes Psych: Normal affect and mood Limitations: no limitations Course Vital Signs 01/11/24 01/11/24 01/11/24 12:08 14:00 15:52 Temperature 97.4 F L 97.5 F L 98.1 F Pulse Rate 71 71 68 Respiratory 16 18 18 Rate Blood Pressure 157/78 153/71 130/73 O2 Sat by Pulse 100 100 99 Oximetry 01/11/24 18:03 Temperature 99.0 F Pulse Rate 61 Respiratory 18 Rate Blood Pressure 141/73 O2 Sat by Pulse 99 Oximetry EKG Findings - EKG Comments: EKG Findings:: My EKG interpretation: Ventricular rate 71, sinus rhythm,. 180, cures 110, QTc 452. No MA prolongation, no QTC prolongation, no ST or T-wave changes noted. Overall, this EKG is unremarkable Medical Decision Making - Medical Decision Making Was pt. sent in by a medical professional or institution (, PA, DEBT COUNSELOR, urgent care, hospital, or jail...) When possible be specific @ -Sent in from primary care physician's office Did you speak to anyone other than the patient for history (EMS, parent, family, police, friend...)? What history was obtained from this source @ -History obtained from at the bedside she also states that patient has been dealing with a UTI for about a month and a half with no resolution of his symptoms Did you review nursing and triage notes (agree or disagree)? Why? @ -I reviewed and agree with nursing and triage notes Were old charts reviewed (outside hosp., previous admission, EMS record, old EKG, old radiological studies, urgent care reports/EKG's, jail records)? Report findings @ -No old charts were reviewed Differential Diagnosis (chest pain, altered mental status, abdominal pain women, abdominal pain men, vaginal bleeding, musculoskeletal, weakness, fever, dyspnea, syncope, headache, dizziness, GI bleed, back pain, seizure, CVA, palpatations, mental health)? @ -Differential Weakness: Hypoglycemia, shock, sepsis, hyponatremia, anemia, infection, PA, ETOH, adverse medicine reaction, overdose, stroke, this is not meant to be an all-inclusive list. EKG interpreted by me (3pts min.). @ -None done X-rays interpreted by me (1pt min.). @ -None done CT interpreted by me (1pt min.). @ -CT of the abdomen pelvis obtained showing no acute processes. U/S interpreted by me (1pt. min.). @ -Abdominal ultrasound shows no acute processes. No signs of inflammation on scrotal ultrasound What testing was considered but not performed or refused? (CT, X-rays, U/S, labs)? Why? @ -None What meds were considered but not given or refused? Why? @ -None Was smoking cessation discussed for >3mins.? @ -No Were there social determinants of health that impacted care today? How? (Homelessness, low income, unemployed, alcoholism, drug addiction, transportation, low edu. Level, literacy, decrease access to med. care, fdc, rehab)? @ -No Was there de-escalation of care discussed even if they declined (Discuss DNR or withdrawal of care, Hospice)? DNR status @ -No What co-morbidities impacted this encounter? (DM, HTN, Smoking, COPD, CAD, Canc er, CVA, ARF, Chemo, Hep., AIDS, mental health diagnosis, sleep apnea, morbid obesity)? @ -None Was patient admitted / discharged? Hospital course, mention meds given and route, prescriptions, significant lab abnormalities, going to OR and other pertinent info. @ -68-year-old male presents to the emergency department for weight loss, dizziness dehydration and intractable vomiting. Sent in by primary care physician's PA. Vital signs upon arrival are within acceptable limits. Laboratory evaluation shows lactic acidosis 2.7 elevated renal function. Urinalysis consistent with UTI. Patient given ceftriaxone. Imaging studies shows no acute processes. Patient will be admitted for UTI failed outpatient treatment will be admitted consultation infectious disease. Did you discuss the management of the patient with other professionals (professionals i.e. , PA, DEBT COUNSELOR, lab, RT, psych nurse, social research assistant, profiling machine set up operator tool, teacher, air force senior officer, spring encaser)? Give summary @ -Discussed with hospitalist for admission Was critical care preformed (if so, how long)? @ -No Undiagnosed new problem with uncertain prognosis? @ -No Drug Therapy requiring intensive monitoring for toxicity (Heparin, Nitro, Insulin, Cardizem)? @ -No Were any procedures done? @ -No Diagnosis/symptom? Acute, or Chronic, or Acute on Chronic? Uncomplicated (without systemic symptoms) or Complicated (systemic symptoms)? @ -UTI, failed outpatient treatment Side effects of treatment? @ -No Exacerbation, Progression, or Severe Exacerbation? @ -No Poses a threat to life or bodily function? How? (Chest pain, USA, PA, pneumonia, PE, COPD, DKA, ARF, appy, cholecystitis, CVA, Diverticulitis, Homicidal, Suicidal, threat to staff... and all critical care pts) @ -Yes - Lab Data Result diagrams: 01/11/24 12:39 01/11/24 12:39 Lab Results 01/11/24 01/11/24 01/11/24 Range/Units 12:39 12:39 12:39 WBC 7.9 (3.8-10.6) k/uL RBC 5.24 (4.30-5.90) m/uL Hgb 15.6 (13.0-17.5) gm/dL Hct 45.9 (39.0-53.0) % MCV 87.5 (80.0-100.0) fL MCH 29.7 (25.0-35.0) pg MCHC 34.0 (31.0-37.0) g/dL RDW 14.7 (11.5-15.5) % Plt Count 281 (150-450) k/uL MPV 8.2 Neutrophils % 83 % Lymphocytes % 9 % Monocytes % 6 % Eosinophils % 1 % Basophils % 1 % Neutrophils # 6.5 (1.3-7.7) k/uL Lymphocytes # 0.7 L (1.0-4.8) k/uL Monocytes # 0.5 (0-1.0) k/uL Eosinophils # 0.1 (0-0.7) k/uL Basophils # 0.0 (0-0.2) k/uL PT 11.9 (10.0-12.5) sec INR 1.1 (<1.2) APTT 19.7 L (22.0-30.0) sec Sodium 134 L (137-145) mmol/L Potassium 5.0 (3.5-5.1) mmol/L Chloride 102 (98-107) mmol/L Carbon Dioxide 19 L (22-30) mmol/L Anion Gap 13 mmol/L BUN 21 H (9-20) mg/dL Creatinine 1.57 H (0.66-1.25) mg/dL Est GFR (CKD-EPI)AfAm 51 (>60 ml/min/1.73 sqM) Est GFR (CKD-EPI)NonAf 44 (>60 ml/min/1.73 sqM) Glucose 105 H (74-99) mg/dL Lactic Ac Sepsis Rflx Plasma Lactic Acid Yfn (0.7-2.0) mmol/L Calcium 10.2 (8.4-10.2) mg/dL Magnesium 2.0 (1.6-2.3) mg/dL Total Bilirubin 1.0 (0.2-1.3) mg/dL AST 27 (17-59) U/L ALT 20 (4-49) U/L Alkaline Phosphatase 106 (38-126) U/L Total Protein 7.5 (6.3-8.2) g/dL Albumin 4.8 (3.5-5.0) g/dL Lipase 76 (23-300) U/L Urine Color Urine Appearance (Clear) Urine pH (5.0-8.0) Ur Specific [place] (1.001-1.035) Urine Protein (Negative) Urine Glucose (UA) (Negative) Urine Ketones (Negative) Urine Blood (Negative) Urine Nitrite (Negative) Urine Bilirubin (Negative) Urine Urobilinogen (<2.0) mg/dL Ur Leukocyte Esterase (Negative) Urine RBC (0-5) /hpf Urine WBC (0-5) /hpf Ur Squamous Epith Cells (0-4) /hpf Urine Bacteria (None) /hpf Hyaline Casts (0-2) /lpf Urine Mucus (None) /hpf 01/11/24 01/11/24 01/11/24 Range/Units 12:39 12:53 13:06 WBC (3.8-10.6) k/uL RBC (4.30-5.90) m/uL Hgb (13.0-17.5) gm/dL Hct (39.0-53.0) % MCV (80.0-100.0) fL MCH (25.0-35.0) pg MCHC (31.0-37.0) g/dL RDW (11.5-15.5) % Plt Count (150-450) k/uL MPV Neutrophils % % Lymphocytes % % Monocytes % % Eosinophils % % Basophils % % Neutrophils # (1.3-7.7) k/uL Lymphocytes # (1.0-4.8) k/uL Monocytes # (0-1.0) k/uL Eosinophils # (0-0.7) k/uL Basophils # (0-0.2) k/uL PT (10.0-12.5) sec INR (<1.2) APTT (22.0-30.0) sec Sodium (137-145) mmol/L Potassium (3.5-5.1) mmol/L Chloride (98-107) mmol/L Carbon Dioxide (22-30) mmol/L Anion Gap mmol/L BUN (9-20) mg/dL Creatinine (0.66-1.25) mg/dL Est GFR (CKD-EPI)AfAm (>60 ml/min/1.73 sqM) Est GFR (CKD-EPI)NonAf (>60 ml/min/1.73 sqM) Glucose (74-99) mg/dL Lactic Ac Sepsis Rflx Y Plasma Lactic Acid Yfn 2.7 H* (0.7-2.0) mmol/L Calcium (8.4-10.2) mg/dL Magnesium (1.6-2.3) mg/dL Total Bilirubin (0.2-1.3) mg/dL AST (17-59) U/L ALT (4-49) U/L Alkaline Phosphatase (38-126) U/L Total Protein (6.3-8.2) g/dL Albumin (3.5-5.0) g/dL Lipase (23-300) U/L Urine Color Colorless Urine Appearance Clear (Clear) Urine pH 6.5 (5.0-8.0) Ur Specific [place] 1.014 (1.001-1.035) Urine Protein Trace H (Negative) Urine Glucose (UA) Negative (Negative) Urine Ketones 1+ H (Negative) Urine Blood Trace H (Negative) Urine Nitrite Negative (Negative) Urine Bilirubin Negative (Negative) Urine Urobilinogen <2.0 (<2.0) mg/dL Ur Leukocyte Esterase Large H (Negative) Urine RBC 16 H (0-5) /hpf Urine WBC 41 H (0-5) /hpf Ur Squamous Epith Cells <1 (0-4) /hpf Urine Bacteria Rare H (None) /hpf Hyaline Casts 1 (0-2) /lpf Urine Mucus Rare H (None) /hpf 01/11/24 Range/Units 15:27 WBC (3.8-10.6) k/uL RBC (4.30-5.90) m/uL Hgb (13.0-17.5) gm/dL Hct (39.0-53.0) % MCV (80.0-100.0) fL MCH (25.0-35.0) pg MCHC (31.0-37.0) g/dL RDW (11.5-15.5) % Plt Count (150-450) k/uL MPV Neutrophils % % Lymphocytes % % Monocytes % % Eosinophils % % Basophils % % Neutrophils # (1.3-7.7) k/uL Lymphocytes # (1.0-4.8) k/uL Monocytes # (0-1.0) k/uL Eosinophils # (0-0.7) k/uL Basophils # (0-0.2) k/uL PT (10.0-12.5) sec INR (<1.2) APTT (22.0-30.0) sec Sodium (137-145) mmol/L Potassium (3.5-5.1) mmol/L Chloride (98-107) mmol/L Carbon Dioxide (22-30) mmol/L Anion Gap mmol/L BUN (9-20) mg/dL Creatinine (0.66-1.25) mg/dL Est GFR (CKD-EPI)AfAm (>60 ml/min/1.73 sqM) Est GFR (CKD-EPI)NonAf (>60 ml/min/1.73 sqM) Glucose (74-99) mg/dL Lactic Ac Sepsis Rflx Plasma Lactic Acid Yfn 1.4 (0.7-2.0) mmol/L Calcium (8.4-10.2) mg/dL Magnesium (1.6-2.3) mg/dL Total Bilirubin (0.2-1.3) mg/dL AST (17-59) U/L ALT (4-49) U/L Alkaline Phosphatase (38-126) U/L Total Protein (6.3-8.2) g/dL Albumin (3.5-5.0) g/dL Lipase (23-300) U/L Urine Color Urine Appearance (Clear) Urine pH (5.0-8.0) Ur Specific [place] (1.001-1.035) Urine Protein (Negative) Urine Glucose (UA) (Negative) Urine Ketones (Negative) Urine Blood (Negative) Urine Nitrite (Negative) Urine Bilirubin (Negative) Urine Urobilinogen (<2.0) mg/dL Ur Leukocyte Esterase (Negative) Urine RBC (0-5) /hpf Urine WBC (0-5) /hpf Ur Squamous Epith Cells (0-4) /hpf Urine Bacteria (None) /hpf Hyaline Casts (0-2) /lpf Urine Mucus (None) /hpf Disposition Clinical Impression: UTI (urinary tract infection) Disposition: ADMITTED IP TO THIS HOSP Condition: Fair Referrals: Clyde Valencia MD [Primary Care Provider] - 1-2 days Decision Time: 18:43
[2024-01-11 12:51] LABS: Basophils % (A) 1 %; Eosinophils # (A) 0.1 k/uL (0-0.7); Eosinophils % (A) 1 %; HCT 45.9 % (39.0-53.0); HGB 15.6 gm/dL (13.0-17.5); Lymphocytes # (A) 0.7 k/uL (1.0-4.8); Lymphocytes % (A) 9 %; MCH 29.7 pg (25.0-35.0); MCV 87.5 fL (80.0-100.0); Mean Platelet Volume 8.2; Monocytes # (A) 0.5 k/uL (0-1.0); Monocytes % (A) 6 %; Neutrophils # (A) 6.5 k/uL (1.3-7.7); Neutrophils % (A) 83 %; Platelet Count 281 k/uL (150-450); RBC 5.24 m/uL (4.30-5.90); RDW 14.7 % (11.5-15.5); WBC 7.9 k/uL (3.8-10.6)
[2024-01-11 13:07] LABS: ALT 20 U/L (4-49); AST 27 U/L (17-59); African American GFR (CKD) 51 (>60 ml/min/1.73 sqM); Albumin 4.8 g/dL (3.5-5.0); Alkaline Phosphatase 106 U/L (38-126); Anion Gap 13 mmol/L; Blood Urea Nitrogen 21 mg/dL (9-20); Calcium 10.2 mg/dL (8.4-10.2); Carbon Dioxide 19 mmol/L (22-30); Chloride 102 mmol/L (98-107); Glucose 105 mg/dL (74-99); Lipase 76 U/L (23-300); Non-African American GFR(CKD) 44 (>60 ml/min/1.73 sqM); Sodium 134 mmol/L (137-145); Total Protein 7.5 g/dL (6.3-8.2)
[2024-01-11 13:12] LABS: Appearance,Urine Clear (Clear); Bacteria,Urine Rare /hpf; Bilirubin,Urine Negative (Negative); Blood,Urine Trace (Negative); Color,Urine Colorless; Glucose,Urine (UA) Negative (Negative); Hyaline Casts,Urine 1 /lpf (0-2); Ketones,Urine 1+ (Negative); Leukocyte Esterase,Urine Large (Negative); Mucus,Urine Rare /hpf; Nitrite,Urine Negative (Negative); PH, Urine 6.5 (5.0-8.0); Protein,Urine Trace (Negative); RBC,Urine 16 /hpf (0-5); Specific Gravity,Urine 1.014 (1.001-1.035); Squamous Epithelial Cell,Urine <1 /hpf (0-4); Urobilinogen,Urine <2.0 mg/dL (<2.0); WBC,Urine 41 /hpf (0-5)
[2024-01-11 13:35] LABS: INR 1.1 (<1.2); Prothrombin Time 11.9 sec (10.0-12.5)
[2024-01-11] MEDS: SODIUM CHLORIDE 0.9% 1,000 ML IV STA (13:38)
[2024-01-11 13:41] LABS: Partial Thromboplastin Time 19.7 sec (22.0-30.0)
[2024-01-11] MEDS: cefTRIAXone IN SWFI 1,000 MG/10 ML SYRINGE IVP STA (14:06)
--- NOTE | 2024-01-11 14:13 | CT ---
EXAMINATION TYPE: CT abdomen pelvis w con CT DLP: 848.4 mGycm, Automated exposure control for dose reduction was used. DATE OF EXAM: 01/11/2024 2:01 PM COMPARISON: CTA thoracic and abdominal pelvis 05/21/2023 CLINICAL INDICATION:Male, 68 years old with history of LLQ abdominal pain, vomiting, weight loss; LLQ abdominal pain, vomiting, weight loss TECHNIQUE: Standard CT of the abdomen and pelvis following the administration of 100 cc of Isovue 3 00 IV contrast material. Coronal and sagittal reformats were performed. FINDINGS: LOWER CHEST: Posterior dependent subsegmental atelectasis is noted. Calcified granuloma within the ri ght midlung. Stable pleural 4 mm right midlung pulmonary nodule (series 204, image 2). ABDOMEN LIVER: Tiny subcentimeter hypodense focus within the right hepatic dome which is too small to charact erize but likely represents a cyst. GALLBLADDER AND BILE DUCTS: Layering increased densities within the lumen consistent with gallstones are present. No biliary duct dilatation. PANCREAS: Unremarkable. SPLEEN: Unremarkable. ADRENAL GLANDS: Unremarkable. KIDNEYS AND URETERS: No evidence of hydronephrosis or renal calculus. The kidneys enhance symmetrical ly. Contrast is demonstrated within both collecting systems on the delayed phase. PELVIS BLADDER: Trabeculated appearance of the urinary bladder with internal gas identified. Contrast is dem onstrated within the urinary bladder on the delayed phase. REPRODUCTIVE: Partial visualization of hydrocele. Enlarged prostate gland measuring 5.4 cm in transve rse dimension. ABDOMEN & PELVIS STOMACH AND BOWEL: Stomach and duodenum are unremarkable. No focal bowel wall thickening or surroundi ng inflammatory changes. The appendix is within normal limits. No evidence of bowel obstruction. PERITONEUM: No evidence of pneumoperitoneum or free fluid. VASCULATURE: Moderate atherosclerotic calcifications are present throughout the abdominal aorta and i ts branches with peripheral noncalcified thrombus. No evidence of aortic aneurysm. MUSCULOSKELETAL: No acute osseous abnormalities. Median sternotomy wire. LYMPH NODES: No evidence for lymphadenopathy. Few small peripheral calcified likely lymph nodes withi n the left lower quadrant mesentery. SOFT TISSUE/ABDOMINAL WALL: Unremarkable IMPRESSION: 1. Trabeculated appearance of the urinary bladder with internal gas. Correlate for recent instrument ation otherwise correlate with urinalysis for cystitis. 2. Prostatomegaly. 3. Cholelithiasis. 4. Stable right midlung 4 mm pulmonary nodule dating back to 05/21/2023.
--- NOTE | 2024-01-11 15:14 | US ---
EXAMINATION TYPE: US abdomen limited DATE OF EXAM: 01/11/2024 COMPARISON: CT: Today CLINICAL INDICATION: Male, 68 years old with history of vomiting; vomiting TECHNIQUE: Multiple sonographic images of the right upper quadrant are obtained. Severely limited due to body habitus. Entire exam done intercostally FINDINGS: EXAM MEASUREMENTS: Liver Length: 12.8 cm Gallbladder Wall: 0.19 cm CBD: 0.26 cm Right Kidney: 10.5 x 4.6 x 4.7 cm SURVEY ANALYST NOTES: Pancreas: Obscured by bowel gas Liver: left lobe obscured by bowel gas, parts seen appear wnl Gallbladder: fundus is obscured by bowel gas, parts seen appear wnl Evidence for sonographic Thrasher's sign: No CBD: wnl Right Kidney: wnl IMPRESSION: No discrete abnormality is noted.
--- NOTE | 2024-01-11 18:34 | US ---
EXAMINATION TYPE: US scrotum with doppler. Grayscale and color Doppler Duplex imaging performed of amelia riggs scrotum. DATE OF EXAM: 01/11/2024 COMPARISON: 01/11/2024 CLINICAL INDICATION: Male, 68 years old with history of left testicle pain, uti; Patient states left scrotal pain. Patient has had left testicle removed. EXAM MEASUREMENTS: TESTICLES: Right Testicle: 3.8 x 2.3 x 3.7 cm Left Testicle: Surgically absent EPIDIDYMIS HEAD: Right Epididymis: 1.6 x 0.9 x 1.5 cm There is a 0.4 x 0.3 x 0.6cm anechoic area seen within the righ t epi head. Left Epididymis: Surgically absent Doppler performed to assess for testicular vascularity; good right sided color flow and waveforms are seen. There is no evidence of testicular torsion. Presence of hydroceles: Yes, measuring 4.7 x 3.4 x 6.7cm. There is a 0.4 x 0.3cm calcification seen within Presence of varicoceles: No IMPRESSION: 1. Right-sided epididymal head cyst. 2. Large right-sided hydrocele.
[2024-01-11] MEDS ORDERED: NALOXONE 0.4 MG/ML 1 ML VIAL IV PRN (18:39)
[2024-01-11] MEDS: CEFEPIME 2 GM in SODIUM CHLORIDE 0.9% 100 ML IVPB STA (18:41)
[2024-01-11] MEDS: SODIUM CHLORIDE 0.9% 1,000 ML IV SCH (19:01)
--- NOTE | 2024-01-11 21:00 | P.HPIM ---
History of Present Illness H&P Date: 01/11/24 Chief Complaint: Generalized weakness Patient is a 68-year-old male with a history of CAD status post CABG (May 2023), BPH status post TURP x 2 (September 2023), hypertension and GERD He presents to the ER for progressively worsening generalized weakness. Patient was seen by his PCP at the office today and was sent to ER for further medical evaluation for ongoing progressively worsening generalized weakness associated with nausea, vomiting, lightheadedness and poor appetite since 2 weeks. Patient states that he was diagnosed with UTI on December 25, 2023 and was taking Bactrim as outpatient therapy for UTI since December 24 (17 days) . Patient stated that he started to endorse generalized weakness, nausea and vomiting since he was put on Bactrim. Patient has not completed full course of antibiotic for suspected side effects. He also feels lightheaded when he gets up from sitting positions. Denies fever, chills, vertigo, loss of consciousness, acute vision changes and falls. patient denies scrotal swelling, but complains of a lot of pain in his scrotum , and worse when he touches the right bottom side of his scrotum , no open wounds, no drainage. no trauma patient reports history of testicular cancer status post surgical removal He notes that nausea and vomiting and lightheadedness has worsened since last 4 to 5 days with him not been able to tolerate solid food and sometimes liquid as well. However, nausea and vomiting has improved slightly with no episodes of vomiting since yesterday. He further reports 20 pound weight loss since 2 months. he is scheduled for clonoscopy next month He denies shortness of breath, chest pain, orthopnea, PND, peripheral edema. Patient denies abdominal pain however he complains of left and right sharp suprapubic pain whenever he palpates the area. Patient states that the pain has been there since TURP x 2 in September 2023. He denies urgency and frequency of urination, hematuria, penile discharge, flank pain and back pain. Patient is following up with outpatient urology and cardiology. CT abdomen and pelvis done in the ER shows trabeculated appearance of the urinary bladder with internal gas. Prostamegaly. Cholelithiasis. Stable right midlung 4 mm pulmonary nodule compared to 05/21/2023. Abdominal ultrasound in the ER shows no discrete abnormality. Scrotal ultrasound in the ER shows shows 0.4 x 0.3 x 0.67 cm anechoic area within the right epididymis head. Left testicle surgically absent and presence of hydrocephalus. There is no evidence of testicular torsion. EKG in the ER shows normal sinus rhythm with a heart rate of 71 bpm. CA interval 180 ms. QTc 452 ms, not prolonged. Vitals: Tmax 97.7 F, heart rate 63, respirate 17, BP 123/75, O2 saturation 97% on room air. Review of systems: Pertinent positives and negatives as discussed in HPI, a complete review of systems was performed and all other systems are negative. Social history: Tobacco: None Alcohol: None Recreational drugs: None Travel: None Occupation: Retired Family History: None Physical examination: Vital signs reviewed General: non toxic, no distress, appears at older than stated age, underweight Derm: no unusual rashes/lesions, warm Head: atraumatic, normocephalic, symmetric Eyes: EOMI, no lid lag, anicteric sclera, pupils equal round reactive to light ENT: Nose and ears atraumatic Neck: No cervical lymphadenopathy, trachea midline, supple Mouth: no lip lesion, mucus membranes are dry Cardiovascular: S1S2 reg, no murmur, positive dorsalis pedis pulse bilateral, no edema Lungs: CTA bilateral, no rhonchi, no rales, no accessory muscle use Abdominal: soft, mild suprapubic tenderness, no guarding, no CVA tenderness, s crotum looks slightly red, no induration , tender to palpation of the right testicle (posteroinferior) , no open wounds no drainage no penile discharge Ext: muscle strength 5 out of 5 in all 4 extremities grossly, no gross muscle atrophy, no contractures, Neuro: CN II-XI grossly intact, no gross focal neuro deficits Psych: Alert, oriented, appropriate affect Assessment/Plan: 68-year-old male with a history of CAD status post CABG (May 2023), BPH status post TURP x 2 (September 2023), hypertension and GERD presents to the ER for progressively worsening generalized weakness associated with nausea, vomiting, lightheadedness and poor appetite since 2 weeks. and worsening pain of his right scrotum despite taking antibiotics as OP. #Suspected right epididymitis Scrotal ultrasound in the ER shows shows 0.4 x 0.3 x 0.67 cm anechoic area within the right epididymis head. Ceftriaxone 1000 mg IVP once plus levofloxacin 500 mg orally once daily x 10 days WBC 7.9 with neutrophil count 6.5 unremarkable , afebrile Continue monitor WBC Lactic acid: 2.7 ---> 1.4 Continue monitor lactic acid levels SIRS: 0 point Order blood culture Order urine culture for suprapubic pain urology consult #Generalized weakness secondary to poor oral intake Continue with IV normal saline 75 cc/h Orthostatic vitals for suspected orthostatic hypotension Fall precautions #Metabolic acidosis secondary to vomiting likely due to side effects from Bactrim Bicarb 19 Started on Zofran 4 mg IVP every 6 hours Continue monitor bicarb #hypovolemic Hyponatremia secondary to dehydration Sodium 134, potassium 5.0 Continue with IV normal saline 75 cc/h Continue monitoring sodium levels #CKD III b around his baseline BUN 21, creatinine 1.57 and EGFR 44 Continue with IV normal saline 75 cc/h Continue monitor BUN and creatinine avoid nephrotoxic meds monitor urine output #Hyperglycemia Serum glucose 105 Check HbA1c Started on sliding scale short acting insulin DVT prophylaxis: Lovenox 40 mg subcu daily The patient is admitted with an anticipated less than 2 midnight stay for evaluation of UTI/epididymitis CODE STATUS: Full code Discussed with: Patient Anticipated discharge place: Home Past Medical History Past Medical History: Coronary Artery Disease (CAD), Cancer, Hypertension, Liver Disease Additional Past Medical History / Comment(s): Lung injury with subsequent right-sided pneumothorax; testicular cancer; fatty liver disease History of Any Multi-Drug Resistant Organisms: None Reported Past Surgical History: No Surgical Hx Reported Past Anesthesia/Blood Transfusion Reactions: Postoperative Nausea & Vomiting (PONV) Past Psychological History: No Psychological Hx Reported Smoking Status: Never smoker Past Alcohol Use History: Occasional Past Drug Use History: None Reported - Past Family History Father Family Medical History: No Reported History Mother Family Medical History: Cancer Medications and Allergies Home Medications Medication Instructions Recorded Confirmed Type Aspirin [Adult Low Dose Aspirin EC] 81 mg PO DAILY 10/16/23 01/11/24 History Glimepiride [Amaryl] 1 mg PO AC-BRKFST 10/16/23 01/11/24 History Metoprolol Tartrate [Lopressor] 25 mg PO BID 10/16/23 01/11/24 History Pantoprazole [Protonix] 40 mg PO AC-BRKFST 10/16/23 01/11/24 History amLODIPine [Norvasc] 5 mg PO DAILY 10/16/23 01/11/24 History Atorvastatin [Lipitor] 40 mg PO DAILY 10/25/23 01/11/24 History Nitroglycerin Sl Tabs [Nitrostat] 0.4 mg SUBLINGUAL Q5M PRN 10/25/23 01/11/24 History metFORMIN HCL ER [Glucophage XR] 500 mg PO PC-SUPPER 10/25/23 01/11/24 History Clopidogrel [Plavix] 75 mg PO DAILY 01/11/24 01/11/24 History Allergies Allergy/AdvReac Type Severity Reaction Status Date / Time No Known Allergies Allergy Verified 01/11/24 12:09 Physical Exam Vitals: Vital Signs Temp Pulse Pulse Resp BP BP Pulse Ox 01/11/24 20:10 98.1 F 68 16 153/73 98 01/11/24 19:56 98.6 F 67 16 133/72 97 01/11/24 19:00 63 17 123/75 97 01/11/24 18:03 99.0 F 61 18 141/73 99 01/11/24 15:52 98.1 F 68 18 130/73 99 01/11/24 14:00 97.5 F L 71 18 153/71 100 01/11/24 12:08 97.4 F L 71 16 157/78 100 Intake and Output 01/11/24 01/11/24 01/11/24 06:59 14:59 22:59 Output Total 275 Balance -275 Output: Urine 275 Other: # Voids 1 Weight 66.224 kg Results CBC & Chem 7: 01/11/24 12:39 01/11/24 12:39 Labs: Abnormal Lab Results - Last 24 Hours (Table) 01/11/24 01/11/24 01/11/24 Range/Units 12:39 12:39 12:39 Lymphocytes # 0.7 L (1.0-4.8) k/uL APTT 19.7 L (22.0-30.0) sec Sodium 134 L (137-145) mmol/L Carbon Dioxide 19 L (22-30) mmol/L BUN 21 H (9-20) mg/dL Creatinine 1.57 H (0.66-1.25) mg/dL Glucose 105 H (74-99) mg/dL Plasma Lactic Acid Yfn (0.7-2.0) mmol/L Urine Protein (Negative) Urine Ketones (Negative) Urine Blood (Negative) Ur Leukocyte Esterase (Negative) Urine RBC (0-5) /hpf Urine WBC (0-5) /hpf Urine Bacteria (None) /hpf Urine Mucus (None) /hpf 01/11/24 01/11/24 Range/Units 12:39 12:53 Lymphocytes # (1.0-4.8) k/uL APTT (22.0-30.0) sec Sodium (137-145) mmol/L Carbon Dioxide (22-30) mmol/L BUN (9-20) mg/dL Creatinine (0.66-1.25) mg/dL Glucose (74-99) mg/dL Plasma Lactic Acid Yfn 2.7 H* (0.7-2.0) mmol/L Urine Protein Trace H (Negative) Urine Ketones 1+ H (Negative) Urine Blood Trace H (Negative) Ur Leukocyte Esterase Large H (Negative) Urine RBC 16 H (0-5) /hpf Urine WBC 41 H (0-5) /hpf Urine Bacteria Rare H (None) /hpf Urine Mucus Rare H (None) /hpf Assessment and Plan Assessment: I have seen and evaluated the patient today. I Discussed the case with the resident and agree with the resident's findings I edited the assessment and plan as necessary as documented in the resident's note.
[2024-01-11] MEDS ORDERED: ONDANSETRON 4 MG/2 ML VIAL IVP PRN (21:11)
[2024-01-11] MEDS ORDERED: DEXTROSE 50% SYRINGE 50 ML IVP PRN ×2 (21:12)
[2024-01-11] MEDS: LEVOFLOXACIN 500 MG TAB PO SCH (22:13)
[2024-01-11] MEDS: METOPROLOL TARTRATE 25 MG TAB PO SCH (22:13)
[2024-01-11] MEDS: ENOXAPARIN 40 MG/0.4 ML SYRINGE SQ SCH (22:13)
[2024-01-12 03:52] LABS: Basophils % (A) 1 %; Eosinophils # (A) 0.1 k/uL (0-0.7); Eosinophils % (A) 2 %; HCT 39.6 % (39.0-53.0); Lymphocytes # (A) 0.6 k/uL (1.0-4.8); Lymphocytes % (A) 9 %; MCH 28.6 pg (25.0-35.0); MCHC 31.4 g/dL (31.0-37.0); Mean Platelet Volume 8.3; Monocytes # (A) 0.6 k/uL (0-1.0); Monocytes % (A) 9 %; Neutrophils # (A) 4.7 k/uL (1.3-7.7); Neutrophils % (A) 78 %; Platelet Count 214 k/uL (150-450); RBC 4.35 m/uL (4.30-5.90); RDW 14.9 % (11.5-15.5); WBC 6.1 k/uL (3.8-10.6)
[2024-01-12 04:05] LABS: African American GFR (CKD) 48 (>60 ml/min/1.73 sqM); Anion Gap 6 mmol/L; Blood Urea Nitrogen 23 mg/dL (9-20); Calcium 9.2 mg/dL (8.4-10.2); Carbon Dioxide 25 mmol/L (22-30); Chloride 105 mmol/L (98-107); Glucose 120 mg/dL (74-99); Non-African American GFR(CKD) 42 (>60 ml/min/1.73 sqM); Potassium 4.5 mmol/L (3.5-5.1); Sodium 136 mmol/L (137-145)
[2024-01-12 04:53] LABS: HGB 12.4 gm/dL (13.0-17.5)
[2024-01-12 07:16] LABS: Glucose,Whole Blood 107 mg/dL (70-110)
[2024-01-12] MEDS: PANTOPRAZOLE 40 MG TABLET PO SCH (08:38)
[2024-01-12] MEDS: ATORVASTATIN 40 MG TAB PO SCH (08:38)
[2024-01-12] MEDS: ASPIRIN 81 MG PO SCH (08:38)
[2024-01-12] MEDS: amLODIPine 5 MG TAB PO SCH (08:38)
[2024-01-12] MEDS: CLOPIDOGREL 75 MG TAB PO SCH (08:38)
--- NOTE | 2024-01-12 08:54 | P.GSCN ---
History of Present Illness Consult date: 01/12/24 History of present illness: 68 yo male admitted for a persistent uti. He has been treated with ab and hasnt responded. He underwent a turp in the end of september 2023 [address]Dr thomas for benign disease.. He required post op fulgaration of a bleeder and evacuation of clots. He is voiding well. He has had some persistent right testicular pain and has an inflammed urine. He feels better this am since he was on iv ab. He did have an e coli uti documented on 12/24 and was placed on bactrim ds by Dr Thomas. It dinot really help him. He lost his left testicle years ago due to testicular ca. Review of Systems All systems: negative - Constitutional Denies fever, Denies weight loss - EENT Eyes: denies blurred vision Ears, nose, mouth and throat: Denies dysphagia - Cardiovascular Denies chest pain, Denies shortness of breath - Respiratory Denies cough, Denies 7 - Gastrointestinal Reports as per HPI - Genitourinary Denies dysuria, Denies hematuria - Integumentary Denies rash, Denies unusual bruising - Neurological Denies headaches, Denies syncope - Hematologic/Lymphatic Denies easy bleeding, Denies easy bruising Past Medical History Past Medical History: Coronary Artery Disease (CAD), Cancer, Hypertension, Liver Disease Additional Past Medical History / Comment(s): Lung injury with subsequent right- sided pneumothorax; testicular cancer; fatty liver disease History of Any Multi-Drug Resistant Organisms: None Reported Past Surgical History: No Surgical Hx Reported Past Anesthesia/Blood Transfusion Reactions: Postoperative Nausea & Vomiting (PONV) Past Psychological History: No Psychological Hx Reported Smoking Status: Never smoker Past Alcohol Use History: Occasional Past Drug Use History: None Reported - Past Family History Father Family Medical History: No Reported History Mother Family Medical History: Cancer Medications and Allergies Home Medications Medication Instructions Recorded Confirmed Type Aspirin [Adult Low Dose Aspirin EC] 81 mg PO DAILY 10/16/23 01/11/24 History Glimepiride [Amaryl] 1 mg PO AC-BRKFST 10/16/23 01/11/24 History Metoprolol Tartrate [Lopressor] 25 mg PO BID 10/16/23 01/11/24 History Pantoprazole [Protonix] 40 mg PO AC-BRKFST 10/16/23 01/11/24 History amLODIPine [Norvasc] 5 mg PO DAILY 10/16/23 01/11/24 History Atorvastatin [Lipitor] 40 mg PO DAILY 10/25/23 01/11/24 History Nitroglycerin Sl Tabs [Nitrostat] 0.4 mg SUBLINGUAL Q5M PRN 10/25/23 01/11/24 History metFORMIN HCL ER [Glucophage XR] 500 mg PO PC-SUPPER 10/25/23 01/11/24 History Clopidogrel [Plavix] 75 mg PO DAILY 01/11/24 01/11/24 History Allergies Allergy/AdvReac Type Severity Reaction Status Date / Time No Known Allergies Allergy Verified 01/11/24 12:09 Surgical - Exam Vital Signs Temp Pulse Resp BP Pulse Ox 97.4 F L 71 16 157/78 100 01/11/24 12:08 01/11/24 12:08 01/11/24 12:08 01/11/24 12:08 01/11/24 12:08 - General well developed, well nourished, no distress - Eyes normal ocular movement, no icteric - ENT no hearing loss, no congestion - Neck no masses, trachea midline - Respiratory normal respiratory effort, clear to auscultation - Abdomen Abdomen: soft, non tender, no guarding, no rigid, no rebound - Genitourinary absent left testicle. Slight indurated right epididymis with thickening in the lower pole. Slightly tender No erythema. - Integumentary no rash, no abnormal pigmentation - Neurologic no disoriented, no combative - Psychiatric oriented to time, oriented to person, oriented to place, speech is normal, memory intact Results - Labs 01/12/24 03:19 01/12/24 03:19 Abnormal Lab Results - Last 24 Hours (Table) 01/11/24 01/11/24 01/11/24 Range/Units 12:39 12:39 12:39 Hgb (13.0-17.5) gm/dL Lymphocytes # 0.7 L (1.0-4.8) k/uL APTT 19.7 L (22.0-30.0) sec Sodium 134 L (137-145) mmol/L Carbon Dioxide 19 L (22-30) mmol/L BUN 21 H (9-20) mg/dL Creatinine 1.57 H (0.66-1.25) mg/dL Glucose 105 H (74-99) mg/dL Plasma Lactic Acid Yfn (0.7-2.0) mmol/L Urine Protein (Negative) Urine Ketones (Negative) Urine Blood (Negative) Ur Leukocyte Esterase (Negative) Urine RBC (0-5) /hpf Urine WBC (0-5) /hpf Urine Bacteria (None) /hpf Urine Mucus (None) /hpf 01/11/24 01/11/24 01/12/24 Range/Units 12:39 12:53 03:19 Hgb 12.4 L D (13.0-17.5) gm/dL Lymphocytes # 0.6 L (1.0-4.8) k/uL APTT (22.0-30.0) sec Sodium (137-145) mmol/L Carbon Dioxide (22-30) mmol/L BUN (9-20) mg/dL Creatinine (0.66-1.25) mg/dL Glucose (74-99) mg/dL Plasma Lactic Acid Yfn 2.7 H* (0.7-2.0) mmol/L Urine Protein Trace H (Negative) Urine Ketones 1+ H (Negative) Urine Blood Trace H (Negative) Ur Leukocyte Esterase Large H (Negative) Urine RBC 16 H (0-5) /hpf Urine WBC 41 H (0-5) /hpf Urine Bacteria Rare H (None) /hpf Urine Mucus Rare H (None) /hpf 01/12/24 Range/Units 03:19 Hgb (13.0-17.5) gm/dL Lymphocytes # (1.0-4.8) k/uL APTT (22.0-30.0) sec Sodium 136 L (137-145) mmol/L Carbon Dioxide (22-30) mmol/L BUN 23 H (9-20) mg/dL Creatinine 1.65 H (0.66-1.25) mg/dL Glucose 120 H (74-99) mg/dL Plasma Lactic Acid Yfn (0.7-2.0) mmol/L Urine Protein (Negative) Urine Ketones (Negative) Urine Blood (Negative) Ur Leukocyte Esterase (Negative) Urine RBC (0-5) /hpf Urine WBC (0-5) /hpf Urine Bacteria (None) /hpf Urine Mucus (None) /hpf Diabetes panel 01/11/24 01/12/24 Range/Units 12:39 03:19 Sodium 134 L 136 L (137-145) mmol/L Potassium 5.0 4.5 (3.5-5.1) mmol/L Chloride 102 105 (98-107) mmol/L Carbon Dioxide 19 L 25 (22-30) mmol/L BUN 21 H 23 H (9-20) mg/dL Creatinine 1.57 H 1.65 H (0.66-1.25) mg/dL Glucose 105 H 120 H (74-99) mg/dL Calcium 10.2 9.2 (8.4-10.2) mg/dL AST 27 (17-59) U/L ALT 20 (4-49) U/L Alkaline Phosphatase 106 (38-126) U/L Total Protein 7.5 (6.3-8.2) g/dL Albumin 4.8 (3.5-5.0) g/dL Calcium panel 01/11/24 01/12/24 Range/Units 12:39 03:19 Calcium 10.2 9.2 (8.4-10.2) mg/dL Albumin 4.8 (3.5-5.0) g/dL Pituitary panel 01/11/24 01/12/24 Range/Units 12:39 03:19 Sodium 134 L 136 L (137-145) mmol/L Potassium 5.0 4.5 (3.5-5.1) mmol/L Chloride 102 105 (98-107) mmol/L Carbon Dioxide 19 L 25 (22-30) mmol/L BUN 21 H 23 H (9-20) mg/dL Creatinine 1.57 H 1.65 H (0.66-1.25) mg/dL Glucose 105 H 120 H (74-99) mg/dL Calcium 10.2 9.2 (8.4-10.2) mg/dL Adrenal panel 01/11/24 01/12/24 Range/Units 12:39 03:19 Sodium 134 L 136 L (137-145) mmol/L Potassium 5.0 4.5 (3.5-5.1) mmol/L Chloride 102 105 (98-107) mmol/L Carbon Dioxide 19 L 25 (22-30) mmol/L BUN 21 H 23 H (9-20) mg/dL Creatinine 1.57 H 1.65 H (0.66-1.25) mg/dL Glucose 105 H 120 H (74-99) mg/dL Calcium 10.2 9.2 (8.4-10.2) mg/dL Total Bilirubin 1.0 (0.2-1.3) mg/dL AST 27 (17-59) U/L ALT 20 (4-49) U/L Alkaline Phosphatase 106 (38-126) U/L Total Protein 7.5 (6.3-8.2) g/dL Albumin 4.8 (3.5-5.0) g/dL - Imaging CT scan - abdomen: report reviewed, image reviewed CT scan - pelvis: report reviewed, image reviewed Assessment and Plan Assessment: Impression: probable uti with epididymitis right. Recommendation; Once the culture is back he can be switched to oral ab. He should stay on ab until he sees dr Thomas in the office in about two weeks. We will follow.
[2024-01-12] MEDS: INSULIN ASPART (NovoLOG) 100 UNIT/ML VIAL SQ SCH (10:18)
--- NOTE | 2024-01-12 11:01 | P.PN ---
Subjective Progress Note Date: 01/12/24 Subjective: Patient seen at bedside. No significant overnight events. Pertinent positives and negatives discussed above, a complete review of systems was preformed and all the other sytems were negative. Vitals Signs Reveiwed. General: non toxic, no distress, appears at older than stated age, underweight Derm: no unusual rashes/lesions, warm Head: atraumatic, normocephalic, symmetric Eyes: EOMI, no lid lag, anicteric sclera, pupils equal round reactive to light ENT: Nose and ears atraumatic Neck: No cervical lymphadenopathy, trachea midline, supple Mouth: no lip lesion, mucus membranes are dry Cardiovascular: S1S2 reg, no murmur, positive dorsalis pedis pulse bilateral, no edema Lungs: CTA bilateral, no rhonchi, no rales, no accessory muscle use Abdominal: soft, mild suprapubic tenderness, no guarding, no CVA tenderness, scrotum looks slightly red, no induration , tender to palpation of the right testicle (posteroinferior) , no open wounds no drainage no penile discharge Ext: muscle strength 5 out of 5 in all 4 extremities grossly, no gross muscle atrophy, no contractures, Neuro: CN II-XI grossly intact, no gross focal neuro deficits Psych: Alert, oriented, appropriate affect Data Reveiwed Today: Patient Labs: Pending labs for today Imaging: No new imaging Assessment/Plan: 68-year-old male with a history of CAD status post CABG (May 2023), BPH status post TURP x 2 (September 2023), hypertension and GERD presents to the ER for progressively worsening generalized weakness associated with nausea, vomiting, lightheadedness and poor appetite since 2 weeks. and worsening pain of his right scrotum despite taking antibiotics as OP. Suspected right epididymitis: Scrotal ultrasound in the ER shows shows 0.4 x 0.3 x 0.67 cm anechoic area within the right epididymis head. Ceftriaxone 1000 mg IVP once plus levofloxacin 500 mg orally once daily x 10 days WBC 7.9 with neutrophil count 6.5 unremarkable , afebrile Continue monitor WBC Lactic acid: 2.7 ---> 1.4 Continue monitor lactic acid levels SIRS: 0 point Patient denies any recent sexual activity, patient has been for 40 years. Blood culture and urine culture pending Per urology, they feel comfortable once culture is back patient can have oral antibiotics tailored based on sensitivities from cultures. In addition to keep patient on oral antibiotics till he sees Dr. Thomas in 2 weeks. Generalized weakness secondary to poor oral intake: Continue with IV normal saline 75 cc/h Orthostatic vitals for suspected orthostatic hypotension Fall precautions Metabolic acidosis secondary to vomiting likely due to side effects from Bactrim: Bicarb 19 Started on Zofran 4 mg IVP every 6 hours Continue monitor bicarb hypovolemic Hyponatremia secondary to dehydration: Sodium 134, potassium 5.0 Continue with IV normal saline 75 cc/h Continue monitoring sodium levels CKD III b around his baseline: BUN 21, creatinine 1.57 and EGFR 44 Continue with IV normal saline 75 cc/h Continue monitor BUN and creatinine avoid nephrotoxic meds monitor urine output Hyperglycemia: Serum glucose 105 A1c 6.5. Continue sliding scale. F NS 1000 mL IV 75 MLS per hour E none N heart healthy diet A normally ambulates at home without assistance. DVT ppx: Plavix 75 mg p.o. Code Status: Full code Anticipated discharge place: Pending clinical course Anticipated discharge time: Pending clinical course I have seen and evaluated the patient today. Discussed with the resident and agree with the residents subjective and objective as documented in the resident's note. The assessment and plan was discussed and outlined as below. Patient reports improved symptoms. UTI with epididymitis: Continue Rocephin 2g IV QD ordered by ID while awaiting UCx. Hyponatremia: Mild and improving. Diabetes mellitus: HbA1c 6.3. ISS. Accuchecks ACHS. Hypoglycemic precautions. CKD stage III at baseline Resolved: Lactic acidosis, metabolic acidosis Objective - Vital Signs Vital signs: Vital Signs Temp 98.1 F 01/11/24 20:10 Pulse 68 01/11/24 20:10 Resp 16 01/11/24 20:10 BP 153/73 01/11/24 20:10 Pulse Ox 98 01/11/24 20:10 FiO2 Intake & Output 01/11/24 01/11/24 01/12/24 06:59 18:59 06:59 Output Total 275 Balance -275 Weight 66.224 kg Output: Urine 275 Other: # Voids 3 - Labs CBC & Chem 7: 01/12/24 03:19 01/12/24 03:19 Labs: Abnormal Lab Results - Last 24 Hours (Table) 07/01/11/24 01/11/24 Range/Units 12:39 12:39 12:39 Hgb (13.0-17.5) gm/dL Lymphocytes # 0.7 L (1.0-4.8) k/uL APTT 19.7 L (22.0-30.0) sec Sodium 134 L (137-145) mmol/L Carbon Dioxide 19 L (22-30) mmol/L BUN 21 H (9-20) mg/dL Creatinine 1.57 H (0.66-1.25) mg/dL Glucose 105 H (74-99) mg/dL Plasma Lactic Acid Yfn (0.7-2.0) mmol/L Urine Protein (Negative) Urine Ketones (Negative) Urine Blood (Negative) Ur Leukocyte Esterase (Negative) Urine RBC (0-5) /hpf Urine WBC (0-5) /hpf Urine Bacteria (None) /hpf Urine Mucus (None) /hpf 01/11/24 01/11/24 01/12/24 Range/Units 12:39 12:53 03:19 Hgb 12.4 L D (13.0-17.5) gm/dL Lymphocytes # 0.6 L (1.0-4.8) k/uL APTT (22.0-30.0) sec Sodium (137-145) mmol/L Carbon Dioxide (22-30) mmol/L BUN (9-20) mg/dL Creatinine (0.66-1.25) mg/dL Glucose (74-99) mg/dL Plasma Lactic Acid Yfn 2.7 H* (0.7-2.0) mmol/L Urine Protein Trace H (Negative) Urine Ketones 1+ H (Negative) Urine Blood Trace H (Negative) Ur Leukocyte Esterase Large H (Negative) Urine RBC 16 H (0-5) /hpf Urine WBC 41 H (0-5) /hpf Urine Bacteria Rare H (None) /hpf Urine Mucus Rare H (None) /hpf 01/12/24 Range/Units 03:19 Hgb (13.0-17.5) gm/dL Lymphocytes # (1.0-4.8) k/uL APTT (22.0-30.0) sec Sodium 136 L (137-145) mmol/L Carbon Dioxide (22-30) mmol/L BUN 23 H (9-20) mg/dL Creatinine 1.65 H (0.66-1.25) mg/dL Glucose 120 H (74-99) mg/dL Plasma Lactic Acid Yfn (0.7-2.0) mmol/L Urine Protein (Negative) Urine Ketones (Negative) Urine Blood (Negative) Ur Leukocyte Esterase (Negative) Urine RBC (0-5) /hpf Urine WBC (0-5) /hpf Urine Bacteria (None) /hpf Urine Mucus (None) /hpf
[2024-01-12 11:37] VITALS: BMI 19.2
[2024-01-12 12:04] LABS: Glucose,Whole Blood 111 mg/dL (70-110)
[2024-01-12 17:05] LABS: Glucose,Whole Blood 119 mg/dL (70-110)
[2024-01-12 20:15] LABS: Glucose,Whole Blood 109 mg/dL (70-110)
[2024-01-12 21:00] VITALS: RESP 18
[2024-01-12] MEDS ORDERED: LEVOFLOXACIN 250 MG TAB PO SCH (21:00)
[2024-01-13 07:39] LABS: Glucose,Whole Blood 117 mg/dL (70-110)
[2024-01-13 07:52] LABS: Basophils % (A) 1 %; Eosinophils # (A) 0.1 k/uL (0-0.7); Eosinophils % (A) 2 %; HCT 35.9 % (39.0-53.0); Lymphocytes # (A) 0.5 k/uL (1.0-4.8); Lymphocytes % (A) 10 %; MCH 30.3 pg (25.0-35.0); MCHC 33.3 g/dL (31.0-37.0); Mean Platelet Volume 7.9; Monocytes # (A) 0.3 k/uL (0-1.0); Monocytes % (A) 6 %; Neutrophils # (A) 3.6 k/uL (1.3-7.7); Neutrophils % (A) 80 %; Platelet Count 167 k/uL (150-450); RBC 3.95 m/uL (4.30-5.90); RDW 14.4 % (11.5-15.5); WBC 4.5 k/uL (3.8-10.6)
[2024-01-13 08:07] LABS: African American GFR (CKD) 64 (>60 ml/min/1.73 sqM); Anion Gap 4 mmol/L; Blood Urea Nitrogen 20 mg/dL (9-20); Calcium 8.8 mg/dL (8.4-10.2); Carbon Dioxide 24 mmol/L (22-30); Chloride 107 mmol/L (98-107); Glucose 116 mg/dL (74-99); Non-African American GFR(CKD) 55 (>60 ml/min/1.73 sqM); Potassium 4.5 mmol/L (3.5-5.1); Sodium 135 mmol/L (137-145)
--- NOTE | 2024-01-13 08:44 | P.CONS ---
History of Present Illness - Reason for Consult Consult date: 01/12/24 UTI, failed outpatient treatment Requesting physician: Haim Mendoza - Chief Complaint Weakness dizziness and decreased appetite x few days - History of Present Illness Patient is a 68-year-old male with a past medical history significant for hypertension testicular cancer coronary artery disease presenting to the hospital yesterday afternoon for evaluation of dizziness and dehydration abdominal pain decreased oral intake and apparently the patient also been dealing with a recurrent UTI with the last UTI being treated with the Bactrim DS per urology patient mention he did have significant GI side effects from it as his morning dose has decreased feeling nauseated but no vomiting also complaining some lower abdominal pain mostly dull aching mild to moderate intensity without radiation did have some difficulty urination and some burning for the patient was evaluated on presentation to the hospital patient was afebrile no fever have been recorded subsequently patient was not tachycardic hypotensive or hypoxic patient did have a white count of 7.9 BUN/creatinine has been mildly elevated liver enzymes are normal urine has been positive cultures are pending patient was started on Levaquin infectious disease was consulted for further management of antibiotic therapy review of the culture data from 12/25/2023 did grow E. coli that was resistant to Cipro and Levaquin patient did have a abdominal pelvis CT trabeculated appearance of the urinary bladder with intraluminal gas correlate for recent instrumentation otherwise correlate with urinalysis for cystitis prostatomegaly scrotum ultrasound did shows a small right-sided hydrocele abdominal ultrasound no significant abnormality Review of Systems Positive point and negatives has been mentioned in the HPI, complete review of systems was performed and all other systems are negative Past Medical History Past Medical History: Coronary Artery Disease (CAD), Cancer, Hypertension, Liver Disease Additional Past Medical History / Comment(s): Lung injury with subsequent right- sided pneumothorax; testicular cancer; fatty liver disease History of Any Multi-Drug Resistant Organisms: None Reported Past Surgical History: No Surgical Hx Reported Past Anesthesia/Blood Transfusion Reactions: Postoperative Nausea & Vomiting (PONV) Past Psychological History: No Psychological Hx Reported Smoking Status: Never smoker Past Alcohol Use History: Occasional Past Drug Use History: None Reported - Past Family History Father Family Medical History: No Reported History Mother Family Medical History: Cancer Medications and Allergies Home Medications Medication Instructions Recorded Confirmed Type Aspirin [Adult Low Dose Aspirin EC] 81 mg PO DAILY 10/16/23 01/11/24 History Glimepiride [Amaryl] 1 mg PO AC-BRKFST 10/16/23 01/11/24 History Metoprolol Tartrate [Lopressor] 25 mg PO BID 10/16/23 01/11/24 History Pantoprazole [Protonix] 40 mg PO AC-BRKFST 10/16/23 01/11/24 History amLODIPine [Norvasc] 5 mg PO DAILY 10/16/23 01/11/24 History Atorvastatin [Lipitor] 40 mg PO DAILY 10/25/23 01/11/24 History Nitroglycerin Sl Tabs [Nitrostat] 0.4 mg SUBLINGUAL Q5M PRN 10/25/23 01/11/24 History metFORMIN HCL ER [Glucophage XR] 500 mg PO PC-SUPPER 10/25/23 01/11/24 History Clopidogrel [Plavix] 75 mg PO DAILY 01/11/24 01/11/24 History Allergies Allergy/AdvReac Type Severity Reaction Status Date / Time No Known Allergies Allergy Verified 01/11/24 12:09 Physical Exam Vitals: Vital Signs Temp Pulse Pulse Resp BP BP Pulse Ox 01/12/24 08:00 99.4 F 64 16 154/69 98 01/11/24 20:10 98.1 F 68 16 153/73 98 01/11/24 19:56 98.6 F 67 16 133/72 97 01/11/24 19:00 63 17 123/75 97 01/11/24 18:03 99.0 F 61 18 141/73 99 01/11/24 15:52 98.1 F 68 18 130/73 99 01/11/24 14:00 97.5 F L 71 18 153/71 100 01/11/24 12:08 97.4 F L 71 16 157/78 100 Intake and Output 01/11/24 01/12/24 01/12/24 22:59 06:59 14:59 Output Total 275 Balance -275 Output: Urine 275 Other: # Voids 1 3 1 Weight 66.224 kg 66.224 kg GENERAL DESCRIPTION: Elderly male up in the chair, no distress. No tachypnea or accessory muscle of respiration use. HEENT: Shows Pallor , no scleral icterus. Oral mucous membrane is dry. No pharyngeal erythema or thrush NECK: Trachea central, no thyromegaly. LUNGS: Unlabored breathing. Clear to auscultation anteriorly. No wheeze or crackle. HEART: S1, S2, regular rate and rhythm. No loud murmur ABDOMEN: Soft, no tenderness , guarding or rigidity, no organomegaly EXTREMITIES: No edema of feet. SKIN: No rash, no masses palpable. NEUROLOGICAL: The patient is awake, alert, oriented x3, mood and affect normal. Results CBC & Chem 7: 01/13/24 07:19 01/13/24 07:19 Labs: Abnormal Lab Results - Last 24 Hours (Table) 01/11/24 01/11/24 01/11/24 Range/Units 12:39 12:39 12:39 Hgb (13.0-17.5) gm/dL Lymphocytes # 0.7 L (1.0-4.8) k/uL APTT 19.7 L (22.0-30.0) sec Sodium 134 L (137-145) mmol/L Carbon Dioxide 19 L (22-30) mmol/L BUN 21 H (9-20) mg/dL Creatinine 1.57 H (0.66-1.25) mg/dL Glucose 105 H (74-99) mg/dL POC Glucose (mg/dL) (70-110) mg/dL Hemoglobin A1c (<=6.0) % Plasma Lactic Acid Yfn (0.7-2.0) mmol/L Urine Protein (Negative) Urine Ketones (Negative) Urine Blood (Negative) Ur Leukocyte Esterase (Negative) Urine RBC (0-5) /hpf Urine WBC (0-5) /hpf Urine Bacteria (None) /hpf Urine Mucus (None) /hpf 01/11/24 01/11/24 01/12/24 Range/Units 12:39 12:53 03:19 Hgb (13.0-17.5) gm/dL Lymphocytes # (1.0-4.8) k/uL APTT (22.0-30.0) sec Sodium (137-145) mmol/L Carbon Dioxide (22-30) mmol/L BUN (9-20) mg/dL Creatinine (0.66-1.25) mg/dL Glucose (74-99) mg/dL POC Glucose (mg/dL) (70-110) mg/dL Hemoglobin A1c 6.3 H (<=6.0) % Plasma Lactic Acid Yfn 2.7 H* (0.7-2.0) mmol/L Urine Protein Trace H (Negative) Urine Ketones 1+ H (Negative) Urine Blood Trace H (Negative) Ur Leukocyte Esterase Large H (Negative) Urine RBC 16 H (0-5) /hpf Urine WBC 41 H (0-5) /hpf Urine Bacteria Rare H (None) /hpf Urine Mucus Rare H (None) /hpf 01/12/24 01/12/24 01/12/24 Range/Units 03:19 03:19 12:02 Hgb 12.4 L D (13.0-17.5) gm/dL Lymphocytes # 0.6 L (1.0-4.8) k/uL APTT (22.0-30.0) sec Sodium 136 L (137-145) mmol/L Carbon Dioxide (22-30) mmol/L BUN 23 H (9-20) mg/dL Creatinine 1.65 H (0.66-1.25) mg/dL Glucose 120 H (74-99) mg/dL POC Glucose (mg/dL) 111 H (70-110) mg/dL Hemoglobin A1c (<=6.0) % Plasma Lactic Acid Yfn (0.7-2.0) mmol/L Urine Protein (Negative) Urine Ketones (Negative) Urine Blood (Negative) Ur Leukocyte Esterase (Negative) Urine RBC (0-5) /hpf Urine WBC (0-5) /hpf Urine Bacteria (None) /hpf Urine Mucus (None) /hpf Assessment and Plan (1) UTI (urinary tract infection) Current Visit: Yes Status: Acute Code(s): N39.0 - URINARY TRACT INFECTION, SITE NOT SPECIFIED SNOMED Code(s): 67220441 Plan: 1patient presented to the hospital with weakness and dizziness decreased appetite also having lower abdominal discomfort and urinary symptoms and this patient has been diagnosed with a UTI failing outpatient oral Bactrim DS therapy with the last urine culture on 12/25/2023 did grow E. coli that was resistant to Cipro and Levaquin. 2discontinue Levaquin. 3start the patient on Rocephin pending repeat cultures to be finalized. Family the bedside questions Answered We will follow on clinical condition and cultures to further adjust medication if needed Thank you for this consultation we will follow the patient along with you Dictation was produced using [employer] dictation software. please excuse any grammatical, word or spelling errors. Time with Patient: Greater than 30
--- NOTE | 2024-01-13 09:45 | P.PN ---
Subjective Progress Note Date: 01/13/24 No acute overnight event, indicates pain within the right testicle has improved. No fevers overnight Objective - Vital Signs Vital signs: Vital Signs Temp 97.9 F 01/13/24 07:25 Pulse 56 L 01/13/24 07:25 Resp 18 01/13/24 07:25 BP 152/73 01/13/24 07:25 Pulse Ox 97 01/13/24 07:25 FiO2 Intake & Output 01/12/24 01/13/24 01/13/24 18:59 06:59 18:59 Weight 66.224 kg Other: # Voids 1 2 - Constitutional General appearance: Present: no acute distress - Gastrointestinal General gastrointestinal: Present: soft. Absent: distended, tenderness - Genitourinary Genitourinary Comment(s): Right-sided hydrocele, right testicle indurated mild tenderness - Psychiatric Psychiatric: Present: A&O x's 3 - Labs CBC & Chem 7: 01/13/24 07:19 01/13/24 07:19 Labs: Abnormal Lab Results - Last 24 Hours (Table) 01/12/24 01/12/24 01/13/24 Range/Units 12:02 17:04 07:19 RBC 3.95 L (4.30-5.90) m/uL Hgb 12.0 L (13.0-17.5) gm/dL Hct 35.9 L (39.0-53.0) % Lymphocytes # 0.5 L (1.0-4.8) k/uL Sodium (137-145) mmol/L Creatinine (0.66-1.25) mg/dL Glucose (74-99) mg/dL POC Glucose (mg/dL) 111 H 119 H (70-110) mg/dL 01/13/24 01/13/24 Range/Units 07:19 07:28 RBC (4.30-5.90) m/uL Hgb (13.0-17.5) gm/dL Hct (39.0-53.0) % Lymphocytes # (1.0-4.8) k/uL Sodium 135 L (137-145) mmol/L Creatinine 1.32 H (0.66-1.25) mg/dL Glucose 116 H (74-99) mg/dL POC Glucose (mg/dL) 117 H (70-110) mg/dL Microbiology - Last 24 Hours (Table) 01/12/24 01:55 Urine Culture - Final Urine,Voided 01/11/24 18:55 Blood Culture - Preliminary Blood Assessment and Plan Assessment: 68-year-old male with history of right-sided orchitis, failed outpatient therapy. Currently on IV ceftriaxone symptoms have improved. Infectious disease is on board. Antibiotics per infectious disease but from urology standpoint he is okay for discharge
--- NOTE | 2024-01-13 11:40 | P.PN ---
Subjective Progress Note Date: 01/13/24 Subjective: Patient seen at bedside. No significant overnight events. Pertinent positives and negatives discussed above, a complete review of systems was preformed and all the other sytems were negative. Vitals Signs Reveiwed. General: non toxic, no distress, appears at older than stated age, underweight Derm: no unusual rashes/lesions, warm Head: atraumatic, normocephalic, symmetric Eyes: EOMI, no lid lag, anicteric sclera, pupils equal round reactive to light ENT: Nose and ears atraumatic Neck: No cervical lymphadenopathy, trachea midline, supple Mouth: no lip lesion, mucus membranes are dry Cardiovascular: S1S2 reg, no murmur, positive dorsalis pedis pulse bilateral, no edema Lungs: CTA bilateral, no rhonchi, no rales, no accessory muscle use Abdominal: soft, mild suprapubic tenderness, no guarding, no CVA tenderness, scrotum looks slightly red, no induration , tender to palpation of the right testicle (posteroinferior) , no open wounds no drainage no penile discharge Ext: muscle strength 5 out of 5 in all 4 extremities grossly, no gross muscle atrophy, no contractures, Neuro: CN II-XI grossly intact, no gross focal neuro deficits Psych: Alert, oriented, appropriate affect Data Reveiwed Today: Patient Labs: Sodium 135, potassium 4.5, BUN 1.32, creatinine 64, glucose 116, WBC 4.5, hemoglobin 12, and MCV 91. Imaging: No new imaging Assessment/Plan: 68-year-old male with a history of CAD status post CABG (May 2023), BPH status post TURP x 2 (September 2023), hypertension and GERD presents to the ER for progressively worsening generalized weakness associated with nausea, vomiting, lightheadedness and poor appetite since 2 weeks. and worsening pain of his right scrotum despite taking antibiotics as OP. Suspected right epididymitis: Scrotal ultrasound in the ER shows shows 0.4 x 0.3 x 0.67 cm anechoic area within the right epididymis head. Per ID patient switch from levofloxacin 500 mg p.o. to ceftriaxone 2 g IVPB every 24 hours. WBC 7.9 with neutrophil count 6.5 unremarkable , afebrile Continue monitor WBC Lactic acid: 2.7 ---> 1.4 Continue monitor lactic acid levels SIRS: 0 point Patient denies any recent sexual activity, patient has been for 40 years. Blood cultures shows no growth after 24 hours, and urine cultures show no growth after 18 hours. Per urology, they feel comfortable once culture is back patient can have oral antibiotics tailored based on sensitivities from cultures. In addition to keep patient on oral antibiotics till he sees Dr. Thomas in 2 weeks. Generalized weakness secondary to poor oral intake: Continue with IV normal saline 75 cc/h Orthostatic vitals for suspected orthostatic hypotension Fall precautions Metabolic acidosis secondary to vomiting likely due to side effects from Bactrim: Bicarb 19 Started on Zofran 4 mg IVP every 6 hours Continue monitor bicarb hypovolemic Hyponatremia secondary to dehydration: Sodium 134, potassium 5.0 Continue with IV normal saline 75 cc/h Continue monitoring sodium levels CKD III b around his baseline: BUN 21, creatinine 1.57 and EGFR 44 Continue with IV normal saline 75 cc/h Continue monitor BUN and creatinine avoid nephrotoxic meds monitor urine output Hyperglycemia: Serum glucose 105 A1c 6.5. Continue sliding scale. F NS 1000 mL IV 75 MLS per hour E none N heart healthy diet A normally ambulates at home without assistance. DVT ppx: Plavix 75 mg p.o. Code Status: Full code Anticipated discharge place: To home Anticipated discharge time: Likely today, pending urine culture. I have seen and evaluated the patient today. Discussed with the resident and agree with the residents subjective and objective as documented in the resident's note. The assessment and plan was discussed and outlined as below. Patient reports improved symptoms. Urine culture is negative. Dr. Lackey recommends Ceftin 500 mg PO BID x 2 weeks. Follow up with PCP within 1-[address] Coronado within 1 week of discharge. Discharge Diagnosis: UTI with epididymitis: Ceftin 500 mg PO BID x 2 weeks. Hyponatremia: Mild and improving. Diabetes mellitus: HbA1c 6.3. CKD stage III at baseline Resolved: Lactic acidosis, metabolic acidosis This complex discharge took 35 minutes to complete. Objective - Vital Signs Vital signs: Vital Signs Temp 98.1 F 01/13/24 01:05 Pulse 70 01/13/24 01:05 Resp 18 01/13/24 01:05 BP 112/75 01/13/24 01:05 Pulse Ox 95 01/13/24 01:05 FiO2 Intake & Output 01/12/24 01/13/2401/12/24 18:59 06:59 18:59 Weight 66.224 kg Other: # Voids 1 2 - Labs CBC & Chem 7: 01/13/24 07:19 01/13/24 07:19 Labs: Abnormal Lab Results - Last 24 Hours (Table) 01/12/24 01/12/24 01/12/24 Range/Units 03:19 12:02 17:04 POC Glucose (mg/dL) 111 H 119 H (70-110) mg/dL Hemoglobin A1c 6.3 H (<=6.0) % Microbiology - Last 24 Hours (Table) 01/11/24 18:55 Blood Culture - Preliminary Blood
--- NOTE | 2024-01-13 12:25 | P.DS ---
Providers Date of admission: 01/11/24 18:40 Discharge Diagnosis: Right epididymitis Generalized weakness secondary to poor oral intake Metabolic acidosis secondary to vomiting Hypovolemic hyponatremia secondary to dehydration CKD 3B Hyperglycemia Hospital Course: Patient is a 68-year-old male with a history of CAD status post CABG (May 2023), BPH status post TURP x 2 (September 2023), hypertension and GERD who presented to the ER for progressively worsening generalized weakness. Patient was seen by his PCP at the office and was sent to ER for further medical evaluation for ongoing progressively worsening generalized weakness associated with nausea, vomiting, lightheadedness and poor appetite since 2 weeks. In the ED patient admitted to generalized weakness, nausea, vomiting, lightheadedness, poor appetite, left and right sharp suprapubic pain but denied fevers, chills, vertigo, loss of consciousness, acute vision changes, falls, scrotal swelling, shortness of breath, chest pain, orthopnea, PND, peripheral edema, abdominal pain, urgency and frequency of urination, hematuria, penile discharge, flank pain and back pain. Patient's vitals in the ED were significant for Tmax 97.7 F, heart rate 63, respirate 17, BP 123/75, O2 saturation 97% on room air. Patient had imaging in the ED which included a CT abdomen and pelvis which showed trabeculated appearance of the urinary bladder with internal gas. Prostamegaly. Cholelithiasis. Stable right midlung 4 mm pulmonary nodule compared to 05/21/2023. Patient also had abdominal ultrasound which showed no discrete abnormality, and a scrotal ultrasound which showed 0.4 x 0.3 x 0.67 cm anechoic area within the right epididymis head. Left testicle surgically absent and presence of hydrocephalus. There is no evidence of testicular torsion. Patient also received EKG in the ED which showed normal sinus rhythm with a heart rate of 71 bpm, TN interval 180 MS, and QTc 452 MS not prolonged. Patient's labs in the ED were significant for sodium 134, potassium 5, bicarb 19, BUN 21, creatinine 1.57, glucose 105, plasma lactic acid venous 1.4, WBC 7.9, hemoglobin 15.6, and MCV 87.5. Patient also received a UA in the ED which was significant for urine color and appearance which was colorless and clear, pH of 6.5, protein trace high, leukocyte esterase large, RBC 16, WBC 41, bacteria rare, and mucus rare. At this point patient was admitted for further workup and treatment of potential UTI versus epididymitis. While admitted patient was started on Levaquin 250 mg p.o. every 24 hours. Patient received blood culture and urine culture which came back showing no growth after 24 and 18 hours respectively. In congruence with ID, patient was switched from Levaquin to Rocephin 2 g IV. Once patient's cultures came back negative, patient was discussed with ID and set up with Ceftin 500 mg twice daily for 14 days to continue antibiotic course outpatient until patient's next appointment with his urologist. Patient is medically cleared for discharge. Patient is discharged to home with self-care. Patient is advised to follow-up with his PCP and urologist. Pt seen and examined at bedside: Patient seen at bedside this morning sitting up pleasantly in bed and excited about getting discharged. Vital signs reveiwed and stable: General: non toxic, no distress, appears at older than stated age, underweight Derm: no unusual rashes/lesions, warm Head: atraumatic, normocephalic, symmetric Eyes: EOMI, no lid lag, anicteric sclera, pupils equal round reactive to light ENT: Nose and ears atraumatic Neck: No cervical lymphadenopathy, trachea midline, supple Mouth: no lip lesion, mucus membranes are dry Cardiovascular: S1S2 reg, no murmur, positive dorsalis pedis pulse bilateral, no edema Lungs: CTA bilateral, no rhonchi, no rales, no accessory muscle use Abdominal: soft, mild suprapubic tenderness, no guarding, no CVA tenderness, scrotum looks slightly red, no induration , tender to palpation of the right testicle (posteroinferior) , no open wounds no drainage no penile discharge Ext: muscle strength 5 out of 5 in all 4 extremities grossly, no gross muscle atrophy, no contractures, Neuro: CN II-XI grossly intact, no gross focal neuro deficits Psych: Alert, oriented, appropriate affect A total of [] minutes were spent preparing this complex discarge summary. Patient was discharged on []. Attending physician: Kan Kulkarni MD Consults: 01/11/24 18:31 Consult Physician Routine Consulting Provider: Jenifer Lcakey Consult Reason/Comments: uti, failed outpatient treatment Do you want consulting provider notified?: Yes 01/11/24 21:29 Consult Physician Routine Consulting Provider: Leonides Thomas Consult Reason/Comments: epididimitis Do you want consulting provider notified?: Yes [facility]: I have seen and evaluated the patient today. Discussed with the resident and agree with the residents subjective and objective as documented in the resident's note. The assessment and plan was discussed and outlined as below. Patient reports improved symptoms. Urine culture is negative. Dr. Lackey recommends Ceftin 500 mg PO BID x 2 weeks. Follow up with PCP within 1-[address] Coronado within 1 week of discharge. Discharge Diagnosis: UTI with epididymitis: Ceftin 500 mg PO BID x 2 weeks. Hyponatremia: Mild and improving. Diabetes mellitus: HbA1c 6.3. CKD stage III at baseline Resolved: Lactic acidosis, metabolic acidosis This complex discharge took 35 minutes to complete. Patient Condition at Discharge: Stable Plan - Discharge Summary Discharge Rx Participant: No New Discharge Prescriptions: New cefUROXime axetiL [Ceftin] 500 mg PO BID 14 Days #28 tab Continue Glimepiride [Amaryl] 1 mg PO AC-BRKFST Pantoprazole [Protonix] 40 mg PO AC-BRKFST Metoprolol Tartrate [Lopressor] 25 mg PO BID amLODIPine [Norvasc] 5 mg PO DAILY Aspirin [Adult Low Dose Aspirin EC] 81 mg PO DAILY Nitroglycerin Sl Tabs [Nitrostat] 0.4 mg SUBLINGUAL Q5M PRN PRN Reason: Chest Pain Atorvastatin [Lipitor] 40 mg PO DAILY Clopidogrel [Plavix] 75 mg PO DAILY metFORMIN HCL ER [Glucophage XR] 500 mg PO PC-SUPPER Discharge Medication List Aspirin [Adult Low Dose Aspirin EC] 81 mg PO DAILY 10/16/23 [History] Glimepiride [Amaryl] 1 mg PO AC-BRKFST 10/16/23 [History] Metoprolol Tartrate [Lopressor] 25 mg PO BID 10/16/23 [History] Pantoprazole [Protonix] 40 mg PO AC-BRKFST 10/16/23 [History] amLODIPine [Norvasc] 5 mg PO DAILY 10/16/23 [History] Atorvastatin [Lipitor] 40 mg PO DAILY 10/25/23 [History] Nitroglycerin Sl Tabs [Nitrostat] 0.4 mg SUBLINGUAL Q5M PRN 10/25/23 [History] metFORMIN HCL ER [Glucophage XR] 500 mg PO PC-SUPPER 10/25/23 [History] Clopidogrel [Plavix] 75 mg PO DAILY 01/11/24 [History] cefUROXime axetiL [Ceftin] 500 mg PO BID 14 Days #28 tab 01/13/24 [Rx] Follow up Appointment(s)/Referral(s): Clyde Valencia MD [Primary Care Provider] - 1-2 days Devin Coronado MD [STAFF PHYSICIAN] - 1 Week Discharge Disposition: HOME SELF-CARE
[2024-01-13 12:38] LABS: Glucose,Whole Blood 178 mg/dL (70-110)
[2024-01-13 12:48] VITALS: BP 144/68; PULSE 68; TEMP 97.5
--- NOTE | 2024-01-13 14:53 | P.PN ---
Subjective Progress Note Date: 01/13/24 Principal diagnosis: Reason for follow-up is a urinary tract infection Patient is a 68-year-old male with a past medical history significant for hypertension testicular cancer coronary artery disease presenting to the hospital with dizziness dehydration lower abdominal pain urinary symptoms has been diagnosed with a UTI failing outpatient therapy. On today's evaluation that is 01/13/2024,the patient denies any fever or any chills, patient is breathing comfortably on room air, the patient denies chest pain shortness of breath and no significant cough, patient denies abdominal pain, no nausea vomiting or diarrhea. Patient mention feeling better. Patient white count is 4.5, creatinine is 1.32 blood and repeat urine currently pending Objective - Vital Signs Vital signs: Vital Signs Temp 97.9 F 01/13/24 07:25 Pulse 56 L 01/13/24 08:45 Resp 18 01/13/24 08:45 BP 152/73 01/13/24 07:25 Pulse Ox 97 01/13/24 07:25 FiO2 Intake & Output 01/12/24 01/13/24 01/13/24 18:59 06:59 18:59 Weight 66.224 kg Other: # Voids 1 2 - Exam GENERAL DESCRIPTION: An elderly male lying in bed in no distress RESPIRATORY SYSTEM: Unlabored breathing , decreased breath sounds at bases HEART: S1 S2 regular rate and rhythm , ABDOMEN: Soft , no tenderness EXTREMITIES: No edema feet - Labs CBC & Chem 7: 01/13/24 07:19 01/13/24 07:19 Labs: Abnormal Lab Results - Last 24 Hours (Table) 01/12/24 01/12/24 01/13/24 Range/Units 12:02 17:04 07:19 RBC 3.95 L (4.30-5.90) m/uL Hgb 12.0 L (13.0-17.5) gm/dL Hct 35.9 L (39.0-53.0) % Lymphocytes # 0.5 L (1.0-4.8) k/uL Sodium (137-145) mmol/L Creatinine (0.66-1.25) mg/dL Glucose (74-99) mg/dL POC Glucose (mg/dL) 111 H 119 H (70-110) mg/dL 01/13/24 01/13/24 Range/Units 07:19 07:28 RBC (4.30-5.90) m/uL Hgb (13.0-17.5) gm/dL Hct (39.0-53.0) % Lymphocytes # (1.0-4.8) k/uL Sodium 135 L (137-145) mmol/L Creatinine 1.32 H (0.66-1.25) mg/dL Glucose 116 H (74-99) mg/dL POC Glucose (mg/dL) 117 H (70-110) mg/dL Microbiology - Last 24 Hours (Table) 01/12/24 01:55 Urine Culture - Final Urine,Voided 01/11/24 18:55 Blood Culture - Preliminary Blood Assessment and Plan (1) UTI (urinary tract infection) Current Visit: Yes Status: Acute Code(s): N39.0 - URINARY TRACT INFECTION, SITE NOT SPECIFIED SNOMED Code(s): 75094146 Plan: 1patient presented to the hospital with weakness and dizziness decreased appetite also having lower abdominal discomfort and urinary symptoms and this patient has been diagnosed with a UTI failing outpatient oral Bactrim DS therapy with the last urine culture on 12/25/2023 did grow E. coli that was resistant to Cipro and Levaquin. 2patient has shown clinical improvement on Rocephin and wants to go home we will consider oral Ceftin on discharge discussed with the resident physician covering for this patient Dictation was produced using [employer] dictation software. please excuse any grammatical, word or spelling errors. Time with Patient: Less than 30
== END 2024-01-13 15:25 | disposition home or self-care (01) ==
LOC: EC 12:06 → INTOOBSV 18:40 → 5NMEDONC 18:40
PROVIDERS: ADMIT Family Medicine; ATTEND Family Medicine
DX: N45.1 Epididymitis (principal); R53.1 Weakness; E87.20 Acidosis, unspecified; E86.1 Hypovolemia; E87.1 Hypo-osmolality and hyponatremia; I12.9 Hypertensive chronic kidney disease with stage 1 through stage 4 chronic kidney disease, or unspecified chronic kidney disease; E86.0 Dehydration; N18.32 Chronic kidney disease, stage 3b; I25.10 Atherosclerotic heart disease of native coronary artery without angina pectoris; N40.0 Benign prostatic hyperplasia without lower urinary tract symptoms; K21.9 Gastro-esophageal reflux disease without esophagitis; E11.65 Type 2 diabetes mellitus with hyperglycemia; N39.0 Urinary tract infection, site not specified; N43.3 Hydrocele, unspecified; K80.20 Calculus of gallbladder without cholecystitis without obstruction; K76.0 Fatty (change of) liver, not elsewhere classified; E11.22 Type 2 diabetes mellitus with diabetic chronic kidney disease; Z79.02 Long term (current) use of antithrombotics/antiplatelets; Z79.82 Long term (current) use of aspirin; Z95.1 Presence of aortocoronary bypass graft; Z90.79 Acquired absence of other genital organ(s); Z87.440 Personal history of urinary (tract) infections; Z85.47 Personal history of malignant neoplasm of testis; Z79.899 Other long term (current) drug therapy; Z79.84 Long term (current) use of oral hypoglycemic drugs
CPT/HCPCS: 96366; 96367; 96372 ×3; 96361; 96374; 99285; 51798; 36415; 93005; 80053; 80048 ×2; 83605; 83690; 83735; 85025 ×3; 85610; 85730; 81001; 87040; 87086; 83036; 93975; 76870; 76705; 74177; G0378 ×3; J0696 ×3; J1650 ×3; Q9967; 96365; 96376

== ENCOUNTER → 2024-05-29 | Outpatient (CLI) | payer MEDICARE ==
[2024-05-29 12:15] LABS: Appearance,Urine Clear (Clear); Bilirubin,Urine Negative (Negative); Blood,Urine Negative (Negative); Color,Urine Colorless; Glucose,Urine (UA) Negative (Negative); Ketones,Urine Negative (Negative); Leukocyte Esterase,Urine Negative (Negative); Nitrite,Urine Negative (Negative); PH, Urine 6.5 (5.0-8.0); Protein,Urine Negative (Negative); Specific Gravity,Urine 1.021 (1.001-1.035); Urobilinogen,Urine <2.0 mg/dL (<2.0)
[2024-05-29 16:09] LABS: ALT 17 U/L (10-49); AST 22 U/L (14-35); Albumin 4.4 g/dL (3.8-4.9); Alkaline Phosphatase 111 U/L (41-126); BUN/Creat Ratio 17.85 Ratio (12.00-20.00); Blood Urea Nitrogen 23.2 mg/dL (9.0-27.0); Chloride 106 mmol/L (96-109); Creatine Kinase 151 U/L (35-257); Globulin 2.1 g/dL (1.6-3.3); Glucose 170 mg/dL (70-110); HGB 12.8 g/dL (13.0-17.0); MCH 30.8 pg (27.0-32.0); MCHC 32.8 g/dL (32.0-37.0); Magnesium 2.1 mg/dL (1.5-2.4); Mean Platelet Volume 11.8 FL (9.5-12.2); NRBC Per 100 WBC 0 X 10*3/uL (0.00-0.01); Phosphorus 3.5 mg/dL (2.4-5.1); Platelet Count 188 X 10*3/uL (140-440); Potassium 4.3 mmol/L (3.5-5.5); RBC 4.15 X 10*6/uL (4.40-5.60); Sodium 142 mmol/L (135-145); Total Bilirubin 0.4 mg/dL (0.3-1.2); Total Protein 6.5 g/dL (6.2-8.2); WBC 5.51 X 10*3/uL (4.50-10.00)
[2024-05-29 16:10] LABS: Basophils # (A) 0.04 X 10*3/uL (0.00-0.10); Basophils % (A) 0.7 %; Eosinophils # (A) 0.07 X 10*3/uL (0.04-0.35); Eosinophils % (A) 1.3 %; Lymphocytes # (A) 0.78 X 10*3/uL (0.90-5.00); Lymphocytes % (A) 14.2 %; Monocytes # (A) 0.38 X 10*3/uL (0.20-1.00); Monocytes % (A) 6.9 %; Neutrophils # (A) 4.22 X 10*3/uL (1.80-7.70); Neutrophils % (A) 76.5 %
== END | disposition home or self-care (01) ==
LOC: LABWHC1 11:01
PROVIDERS: ATTEND Nurse Practitioner Acute Care
DX: D64.9 Anemia, unspecified (principal); N17.9 Acute kidney failure, unspecified; N39.0 Urinary tract infection, site not specified; R80.9 Proteinuria, unspecified
CPT/HCPCS: 36415; 80053; 81003; 82043; 82550; 82570; 83735; 84100; 85025

== ENCOUNTER → 2024-09-26 | Outpatient (CLI) | payer MEDICARE ==
[2024-09-26 14:28] LABS: Creatinine,Urine Random 172.7 mg/dL; Protein/Creatinine Ratio,Urine 0.069
[2024-09-26 18:59] LABS: Basophils # (A) 0.02 X 10*3/uL (0.00-0.10); Basophils % (A) 0.4 %; Eosinophils # (A) 0.06 X 10*3/uL (0.04-0.35); Eosinophils % (A) 1.2 %; HCT 36.9 % (39.6-50.0); HGB 12.7 g/dL (13.0-17.0); Lymphocytes # (A) 0.78 X 10*3/uL (0.90-5.00); Lymphocytes % (A) 15.7 %; MCHC 34.4 g/dL (32.0-37.0); Mean Platelet Volume 11.4 FL (9.5-12.2); Monocytes % (A) 10.1 %; NRBC Per 100 WBC 0 X 10*3/uL (0.00-0.01); Neutrophils # (A) 3.59 X 10*3/uL (1.80-7.70); Neutrophils % (A) 72.2 %; Platelet Count 181 X 10*3/uL (140-440); RDW 13.2 % (11.5-14.5); WBC 4.97 X 10*3/uL (4.50-10.00)
[2024-09-26 19:12] LABS: Appearance,Urine Clear (Clear); Bilirubin,Urine Negative (Negative); Blood,Urine Negative (Negative); Color,Urine Yellow (Yellow); Ketones,Urine Negative (Negative); Nitrite,Urine Negative (Negative); PH, Urine 5.5; Specific Gravity,Urine 1.022 (1.001-1.030); Urobilinogen,Urine 0.2 E.U./DL
[2024-09-26 19:20] LABS: ALT 23 U/L (10-49); AST 26 U/L (14-35); Albumin 4.4 g/dL (3.8-4.9); Alkaline Phosphatase 128 U/L (41-126); BUN/Creat Ratio 12.62 Ratio (12.00-20.00); Blood Urea Nitrogen 16.4 mg/dL (9.0-27.0); Calcium 9.3 mg/dL (8.7-10.3); Carbon Dioxide 22.3 mmol/L (21.6-31.8); Chloride 106 mmol/L (96-109); Globulin 2.2 g/dL (1.6-3.3); Glucose 162 mg/dL (70-110); Magnesium 2.2 mg/dL (1.5-2.4); Potassium 4.5 mmol/L (3.5-5.5); Sodium 142 mmol/L (135-145); Total Bilirubin 0.4 mg/dL (0.3-1.2); Total Protein 6.6 g/dL (6.2-8.2)
== END | disposition home or self-care (01) ==
LOC: LABWHC1 12:53
PROVIDERS: ATTEND Nurse Practitioner Acute Care
DX: N39.0 Urinary tract infection, site not specified (principal); N17.9 Acute kidney failure, unspecified; R80.9 Proteinuria, unspecified; D64.9 Anemia, unspecified
CPT/HCPCS: 36415; 80053; 81003; 82043; 82570; 83735; 84100; 84156; 85025

== ENCOUNTER → 2025-01-01 | Outpatient (CLI) | payer MEDICARE ==
--- NOTE | 2025-01-01 12:17 | XR ---
EXAMINATION TYPE: XR foot complete LT DATE OF EXAM: 01/01/2025 12:11 PM COMPARISON: None CLINICAL INDICATION: Male, 69 years old with history of INJURY LT FOOT; PHH, pain TECHNIQUE: 3 views FINDINGS: No acute fracture, subluxation, dislocation is seen. Joint spaces are maintained. IMPRESSION: No acute osseous abnormality seen. [facility], Workstation: [facility], 01/01/2025 12:14 PM
--- NOTE | 2025-01-01 12:19 | XR ---
EXAMINATION TYPE: XR foot limited RT DATE OF EXAM: 01/01/2025 12:10 PM COMPARISON: None CLINICAL INDICATION: Male, 69 years old with history of S99.921A UNSPECIFIED INJURY OF RIGHT FOOT, IN ITIAL; PHH, pain TECHNIQUE: 2 views FINDINGS: Small os trigonum. The Achilles tendon is not well delineated. This may be projectional. Tiny cortica bethel ossific density dorsal talar head likely sequela of old injury. No acute fracture, subluxation, d islocation seen. IMPRESSION: 1. Achilles tendon not well delineated. This may be projectional. Correlate for any posterior pain to exclude the possibility of underlying tendon injury. 2. Otherwise, no acute osseous abnormalities seen. [facility], , 01/01/2025 12:17 PM
== END | disposition home or self-care (01) ==
LOC: RADXRMAIN 11:35
DX: S99.921A Unspecified injury of right foot, initial encounter (principal)